=== PATIENT | male | born 1960 | race African-American/Black ===

== ENCOUNTER 2017-09-12 06:39 | Inpatient (IN) | payer OTHER ==
[2017-09-12] MEDS: IPRATROPIUM (NEB) 0.5 MG/2.5 ML AMP INH (07:28)
[2017-09-12] MEDS: ALBUTEROL 0.083% (NEB) 2.5 MG/3 ML AMP HHN ×3 (07:28→20:06)
[2017-09-12] MEDS: METHYLPREDNISOLONE 125 MG INJ IV (07:39)
[2017-09-12 07:50] LABS: ADD MAN DIFF? NO
[2017-09-12 07:53] LABS: WHITE BLOOD COUNT 15.2 10^3/ul (4.8-10.8)
[2017-09-12 07:53] LABS: BASOPHIL # 0.1 10^3/ul (0.0-0.1); BASOPHILS % 0.5 % (0.0-2.0); EOSINOPHILS # 0.3 10^3/ul (0.0-0.5); HEMATOCRIT 49.3 % (42.0-52.0); LYMPHOCYTES # 1.9 10^3/ul (0.8-2.9); LYMPHOCYTES % 12.8 % (15.0-51.0); MEAN CORPUSCULAR HEMOGLOBIN 32.4 pg (29.0-33.0); MEAN CORPUSCULAR HGB CONC 34.5 g/dl (32.0-37.0); MEAN CORPUSCULAR VOLUME 93.9 fl (82.0-101.0); MEAN PLATELET VOLUME 11.6 fl (7.4-10.4); MONOCYTE # 1.2 10^3/ul (0.3-0.9); NEUTROPHIL # 11.6 10^3/ul (1.6-7.5); NEUTROPHILS % 76.4 % (39.0-77.0); PLATELET COUNT 256 10^3/UL (140-415); RED BLOOD COUNT 5.25 10^6/ul (4.70-6.10); RED CELL DISTRIBUTION WIDTH 12.8 % (11.5-14.5)
[2017-09-12 08:15] LABS: LACTIC ACID 1.8 mmol/L (0.5-2.0)
[2017-09-12 08:16] LABS: ANION GAP 20 (8-16); BLOOD UREA NITROGEN 13 mg/dl (7-20); CALCIUM 10.3 mg/dl (8.4-10.2); CARBON DIOXIDE 29 mmol/L (21-31); CHLORIDE 104 mmol/L (97-110); CREATININE 0.96 mg/dl (0.61-1.24); GLUCOSE 104 mg/dl (70-220); SODIUM 149 mmol/L (135-144)
[2017-09-12 08:29] LABS: INR 0.92; PROTIME 12.4 Sec (11.9-14.9)
[2017-09-12 08:30] LABS: PARTIAL THROMBOPLASTIN TIME 33.2 Sec (25.0-35.0)
[2017-09-12] MEDS ORDERED: ONDANSETRON 4 MG INJ IV ×2 (09:00→19:30)
[2017-09-12] MEDS ORDERED: ACETAMINOPHEN 325 MG TAB PO ×2 (09:00→19:30)
[2017-09-12] MEDS: LIDOCAINE 1% (MPF) 5 ML VIAL (10:20)
[2017-09-12 11:05] LABS: FLUID AMYLASE < 30 U/L; FLUID GLUCOSE 116 mg/dl; FLUID LD 1049 U/L; FLUID TOTAL PROTEIN 4.6 g/dl; FLUID TYPE PLEURAL FLUID
[2017-09-12 11:23] LABS: FLD MN% 93.2 %; FLD PMN% 6.8 %; FLD RBC 3000 /uL; FLD WBC 467 /cmm
[2017-09-12 12:06] LABS: LACTIC ACID 1.1 mmol/L (0.5-2.0)
[2017-09-12 12:51] LABS: FLD TYPE PLEURAL
[2017-09-12 12:51] LABS: FLD CLARITY HAZY; FLD COLOR YELLOW
[2017-09-12] MEDS: IPRATROPIUM (NEB) 0.5 MG/2.5 ML AMP HHN ×2 (15:33→20:06)
[2017-09-12 16:03] LABS: LACTIC ACID 1.5 mmol/L (0.5-2.0)
[2017-09-12] MEDS: AMLODIPINE 10 MG TAB PO (16:45)
[2017-09-12] MEDS ORDERED: BISACODYL (EC) 5 MG TAB PO (19:30)
[2017-09-12] MEDS ORDERED: ZOLPIDEM 5 MG TAB PO (19:30)
[2017-09-12] MEDS ORDERED: NACL 0.9% 3 ML SYG IV (19:30)
[2017-09-12] MEDS ORDERED: ACETAMINOPHEN 650 MG SUPP PR (19:30)
[2017-09-12] MEDS: HYDROCODONE/APAP (5/325) TAB PO (19:59)
[2017-09-12] MEDS: CEFTRIAXONE 1 GM/50 ML (PMX) 50 ML IVPB (20:12)
[2017-09-12] MEDS: DORZOLAMIDE/TIMOLOL 10 ML OPH BOTH EYES (21:06)
[2017-09-12] MEDS: LATANOPROST 0.005% 2.5 ML OPH BOTH EYES (21:07)
[2017-09-12] MEDS: ATORVASTATIN 10 MG TAB PO (21:09)
[2017-09-12] MEDS: BRIMONIDINE 0.1% 5 ML OPH BOTH EYES (22:07)
[2017-09-13] MEDS: IPRATROPIUM (NEB) 0.5 MG/2.5 ML AMP HHN ×4 (01:39→19:55)
[2017-09-13] MEDS: ALBUTEROL 0.083% (NEB) 2.5 MG/3 ML AMP HHN ×4 (01:39→19:55)
[2017-09-13 05:27] LABS: ADD MAN DIFF? NO
[2017-09-13 05:33] LABS: WHITE BLOOD COUNT 16.8 10^3/ul (4.8-10.8)
[2017-09-13 05:33] LABS: BASOPHILS % 0.1 % (0.0-2.0); EOSINOPHILS % 0.1 % (0.0-7.0); HEMATOCRIT 41.8 % (42.0-52.0); HEMOGLOBIN 14.6 g/dl (14.0-18.0); LYMPHOCYTES # 1.7 10^3/ul (0.8-2.9); LYMPHOCYTES % 9.9 % (15.0-51.0); MEAN CORPUSCULAR HEMOGLOBIN 32.6 pg (29.0-33.0); MEAN CORPUSCULAR HGB CONC 34.9 g/dl (32.0-37.0); MEAN CORPUSCULAR VOLUME 93.3 fl (82.0-101.0); MEAN PLATELET VOLUME 11.7 fl (7.4-10.4); MONOCYTES % 6.2 % (0.0-11.0); NEUTROPHILS % 83.4 % (39.0-77.0); PLATELET COUNT 278 10^3/UL (140-415); RED BLOOD COUNT 4.48 10^6/ul (4.70-6.10)
[2017-09-13] MEDS: BRIMONIDINE 0.1% 5 ML OPH BOTH EYES ×3 (05:54→22:06)
[2017-09-13] MEDS: PANTOPRAZOLE (EC) 40 MG TAB PO (05:54)
[2017-09-13 05:57] LABS: ALANINE AMINOTRANSFERASE 29 IU/L (13-69); ALBUMIN 3.6 g/dl (3.3-4.9); ALBUMIN/GLOBULIN RATIO 1.09; ALKALINE PHOSPHATASE 106 IU/L (42-121); ANION GAP 13 (8-16); ASPARTATE AMINO TRANSFERASE 30 IU/L (15-46); BLOOD UREA NITROGEN 22 mg/dl (7-20); CALCIUM 9.4 mg/dl (8.4-10.2); CARBON DIOXIDE 28 mmol/L (21-31); CHLORIDE 105 mmol/L (97-110); CREATININE 0.95 mg/dl (0.61-1.24); GLUCOSE 118 mg/dl (70-220); SODIUM 142 mmol/L (135-144); TOTAL PROTEIN 6.9 g/dl (6.1-8.1)
[2017-09-13] MEDS: AMLODIPINE 10 MG TAB PO (10:04)
[2017-09-13] MEDS: DORZOLAMIDE/TIMOLOL 10 ML OPH BOTH EYES ×2 (10:07→20:45)
[2017-09-13] MEDS: HYDROCODONE/APAP (5/325) TAB PO (17:26)
[2017-09-13] MEDS: CEFTRIAXONE 1 GM/50 ML (PMX) 50 ML IVPB (20:07)
[2017-09-13] MEDS: LATANOPROST 0.005% 2.5 ML OPH BOTH EYES (20:45)
[2017-09-13] MEDS: ATORVASTATIN 10 MG TAB PO (20:46)
[2017-09-14] MEDS: ALBUTEROL 0.083% (NEB) 2.5 MG/3 ML AMP HHN ×4 (01:34→21:05)
[2017-09-14] MEDS: IPRATROPIUM (NEB) 0.5 MG/2.5 ML AMP HHN ×4 (01:34→21:05)
[2017-09-14] MEDS: HYDROCODONE/APAP (5/325) TAB PO ×2 (04:46→13:18)
[2017-09-14 05:58] LABS: WHITE BLOOD COUNT 14.9 10^3/ul (4.8-10.8)
[2017-09-14 05:58] LABS: ADD MAN DIFF? NO; BASOPHILS % 0.3 % (0.0-2.0); EOSINOPHILS # 0.2 10^3/ul (0.0-0.5); EOSINOPHILS % 1.1 % (0.0-7.0); HEMATOCRIT 41.7 % (42.0-52.0); HEMOGLOBIN 14.8 g/dl (14.0-18.0); LYMPHOCYTES # 2.5 10^3/ul (0.8-2.9); LYMPHOCYTES % 16.5 % (15.0-51.0); MEAN CORPUSCULAR HEMOGLOBIN 32.9 pg (29.0-33.0); MEAN CORPUSCULAR HGB CONC 35.5 g/dl (32.0-37.0); MEAN CORPUSCULAR VOLUME 92.7 fl (82.0-101.0); MONOCYTE # 1.2 10^3/ul (0.3-0.9); MONOCYTES % 7.8 % (0.0-11.0); PLATELET COUNT 273 10^3/UL (140-415); RED CELL DISTRIBUTION WIDTH 12.9 % (11.5-14.5)
[2017-09-14] MEDS: BRIMONIDINE 0.1% 5 ML OPH BOTH EYES ×3 (05:58→21:27)
[2017-09-14] MEDS: PANTOPRAZOLE (EC) 40 MG TAB PO (05:59)
[2017-09-14 06:39] LABS: ALANINE AMINOTRANSFERASE 31 IU/L (13-69); ALBUMIN 3.6 g/dl (3.3-4.9); ALBUMIN/GLOBULIN RATIO 1.24; ALKALINE PHOSPHATASE 108 IU/L (42-121); ANION GAP 13 (8-16); ASPARTATE AMINO TRANSFERASE 27 IU/L (15-46); BLOOD UREA NITROGEN 20 mg/dl (7-20); CALCIUM 9.1 mg/dl (8.4-10.2); CARBON DIOXIDE 28 mmol/L (21-31); CHLORIDE 103 mmol/L (97-110); CREATININE 0.83 mg/dl (0.61-1.24); GLUCOSE 84 mg/dl (70-220); POTASSIUM 3.8 mmol/L (3.5-5.1); SODIUM 140 mmol/L (135-144); TOTAL PROTEIN 6.5 g/dl (6.1-8.1)
[2017-09-14] MEDS: AMLODIPINE 10 MG TAB PO (09:14)
[2017-09-14] MEDS: DORZOLAMIDE/TIMOLOL 10 ML OPH BOTH EYES ×2 (09:14→21:26)
[2017-09-14] MEDS ORDERED: PENDING SANTYL ORDER FOR WOUND CARE XX (17:00)
[2017-09-14] MEDS: CEFTRIAXONE 1 GM/50 ML (PMX) 50 ML IVPB (21:25)
[2017-09-14] MEDS: HYDROCODONE/APAP (10/325) TAB PO (21:25)
[2017-09-14] MEDS: LATANOPROST 0.005% 2.5 ML OPH BOTH EYES (21:26)
[2017-09-14] MEDS: ATORVASTATIN 10 MG TAB PO (21:26)
[2017-09-15] MEDS: ALBUTEROL 0.083% (NEB) 2.5 MG/3 ML AMP HHN ×4 (01:49→19:12)
[2017-09-15] MEDS: IPRATROPIUM (NEB) 0.5 MG/2.5 ML AMP HHN ×4 (01:49→19:12)
[2017-09-15 05:47] LABS: ADD MAN DIFF? NO
[2017-09-15 05:50] LABS: BASOPHILS % 0.3 % (0.0-2.0); EOSINOPHILS # 0.4 10^3/ul (0.0-0.5); EOSINOPHILS % 2.9 % (0.0-7.0); HEMATOCRIT 43.7 % (42.0-52.0); HEMOGLOBIN 15.1 g/dl (14.0-18.0); LYMPHOCYTES # 1.9 10^3/ul (0.8-2.9); LYMPHOCYTES % 14.1 % (15.0-51.0); MEAN CORPUSCULAR HEMOGLOBIN 32.4 pg (29.0-33.0); MEAN CORPUSCULAR HGB CONC 34.6 g/dl (32.0-37.0); MEAN CORPUSCULAR VOLUME 93.8 fl (82.0-101.0); MEAN PLATELET VOLUME 11.9 fl (7.4-10.4); MONOCYTE # 1.3 10^3/ul (0.3-0.9); MONOCYTES % 9.8 % (0.0-11.0); NEUTROPHIL # 9.7 10^3/ul (1.6-7.5); NEUTROPHILS % 72.4 % (39.0-77.0); PLATELET COUNT 283 10^3/UL (140-415); RED BLOOD COUNT 4.66 10^6/ul (4.70-6.10); RED CELL DISTRIBUTION WIDTH 12.8 % (11.5-14.5)
[2017-09-15 05:50] LABS: WHITE BLOOD COUNT 13.3 10^3/ul (4.8-10.8)
[2017-09-15] MEDS: PANTOPRAZOLE (EC) 40 MG TAB PO (05:57)
[2017-09-15] MEDS: BRIMONIDINE 0.1% 5 ML OPH BOTH EYES ×3 (05:57→21:29)
[2017-09-15] MEDS: HYDROCODONE/APAP (10/325) TAB PO ×2 (05:59→20:39)
[2017-09-15] MEDS: AMLODIPINE 10 MG TAB PO (08:54)
[2017-09-15] MEDS: DORZOLAMIDE/TIMOLOL 10 ML OPH BOTH EYES ×2 (08:55→20:32)
[2017-09-15] MEDS: HYDROCODONE/APAP (5/325) TAB PO (13:51)
[2017-09-15] MEDS ORDERED: AMLODIPINE 10 MG TAB PO (16:30)
[2017-09-15] MEDS: VALSARTAN 160 MG TAB PO (17:52)
[2017-09-15] MEDS: CEFTRIAXONE 1 GM/50 ML (PMX) 50 ML IVPB (20:31)
[2017-09-15] MEDS: LATANOPROST 0.005% 2.5 ML OPH BOTH EYES (20:31)
[2017-09-15] MEDS: ATORVASTATIN 10 MG TAB PO (20:32)
[2017-09-16] MEDS: IPRATROPIUM (NEB) 0.5 MG/2.5 ML AMP HHN ×4 (01:03→20:46)
[2017-09-16] MEDS: ALBUTEROL 0.083% (NEB) 2.5 MG/3 ML AMP HHN ×4 (01:03→20:46)
[2017-09-16] MEDS: PANTOPRAZOLE (EC) 40 MG TAB PO (05:34)
[2017-09-16] MEDS: HYDROCODONE/APAP (10/325) TAB PO (05:34)
[2017-09-16] MEDS: BRIMONIDINE 0.1% 5 ML OPH BOTH EYES ×3 (05:35→21:18)
[2017-09-16] MEDS: BARIUM SULF 2% 450 ML BTL (BERRY SMOOTHIE) PO (06:00)
[2017-09-16 06:15] LABS: ADD MAN DIFF? NO
[2017-09-16 06:16] LABS: BASOPHIL # 0.1 10^3/ul (0.0-0.1); BASOPHILS % 0.4 % (0.0-2.0); EOSINOPHILS # 0.5 10^3/ul (0.0-0.5); EOSINOPHILS % 3.9 % (0.0-7.0); HEMATOCRIT 42.1 % (42.0-52.0); HEMOGLOBIN 14.4 g/dl (14.0-18.0); LYMPHOCYTES % 15.3 % (15.0-51.0); MEAN CORPUSCULAR HEMOGLOBIN 32.4 pg (29.0-33.0); MEAN CORPUSCULAR HGB CONC 34.2 g/dl (32.0-37.0); MEAN CORPUSCULAR VOLUME 94.6 fl (82.0-101.0); MEAN PLATELET VOLUME 11.9 fl (7.4-10.4); MONOCYTE # 1.4 10^3/ul (0.3-0.9); MONOCYTES % 10.5 % (0.0-11.0); NEUTROPHIL # 9.2 10^3/ul (1.6-7.5); NEUTROPHILS % 69.7 % (39.0-77.0); PLATELET COUNT 251 10^3/UL (140-415); RED BLOOD COUNT 4.45 10^6/ul (4.70-6.10); RED CELL DISTRIBUTION WIDTH 13.1 % (11.5-14.5)
[2017-09-16 06:16] LABS: WHITE BLOOD COUNT 13.1 10^3/ul (4.8-10.8)
[2017-09-16 06:47] LABS: LACTATE DEHYDROGENASE 435 IU/L (313-618)
[2017-09-16] MEDS: VALSARTAN 160 MG TAB PO ×2 (09:14→20:41)
[2017-09-16] MEDS: DORZOLAMIDE/TIMOLOL 10 ML OPH BOTH EYES ×2 (09:15→21:18)
[2017-09-16] MEDS: AMLODIPINE 10 MG TAB PO (09:15)
[2017-09-16] MEDS: IOHEXOL 300MG/ML 150 ML BTL (10:12)
[2017-09-16] MEDS: SOD CHLORIDE 0.9% 100 ML (10:12)
[2017-09-16] MEDS: LIDOCAINE 1% (MPF) 5 ML VIAL (10:58)
[2017-09-16] MEDS: HYDROCODONE/APAP (5/325) TAB PO ×2 (11:51→20:40)
[2017-09-16 12:26] LABS: PROSTATE SPECIFIC ANTIGEN 4.1 ng/ml (0.0-4.0)
[2017-09-16 12:53] LABS: CANCER ANTIGEN 19-9 24.6 U/ml (0.0-37.0)
[2017-09-16 12:59] LABS: CARCINOEMBRYONIC ANTIGEN 1.9 ng/ml (0.0-5.0)
[2017-09-16] MEDS: LATANOPROST 0.005% 2.5 ML OPH BOTH EYES (20:40)
[2017-09-16] MEDS: ATORVASTATIN 10 MG TAB PO (20:40)
[2017-09-16] MEDS: CEFTRIAXONE 1 GM/50 ML (PMX) 50 ML IVPB (20:40)
[2017-09-17] MEDS: ALBUTEROL 0.083% (NEB) 2.5 MG/3 ML AMP HHN ×4 (02:15→19:50)
[2017-09-17] MEDS: IPRATROPIUM (NEB) 0.5 MG/2.5 ML AMP HHN ×4 (02:16→19:50)
[2017-09-17 05:53] LABS: ADD MAN DIFF? NO
[2017-09-17] MEDS: PANTOPRAZOLE (EC) 40 MG TAB PO (06:00)
[2017-09-17] MEDS: BRIMONIDINE 0.1% 5 ML OPH BOTH EYES ×3 (06:03→21:17)
[2017-09-17] MEDS: HYDROCODONE/APAP (5/325) TAB PO (06:03)
[2017-09-17 06:09] LABS: BASOPHIL # 0.1 10^3/ul (0.0-0.1); BASOPHILS % 0.5 % (0.0-2.0); EOSINOPHILS # 0.6 10^3/ul (0.0-0.5); EOSINOPHILS % 4.6 % (0.0-7.0); HEMATOCRIT 42.4 % (42.0-52.0); HEMOGLOBIN 14.4 g/dl (14.0-18.0); LYMPHOCYTES # 2.4 10^3/ul (0.8-2.9); LYMPHOCYTES % 19.3 % (15.0-51.0); MEAN CORPUSCULAR HEMOGLOBIN 32.5 pg (29.0-33.0); MEAN CORPUSCULAR VOLUME 95.7 fl (82.0-101.0); MEAN PLATELET VOLUME 11.4 fl (7.4-10.4); MONOCYTE # 1.4 10^3/ul (0.3-0.9); MONOCYTES % 10.9 % (0.0-11.0); NEUTROPHILS % 64.3 % (39.0-77.0); PLATELET COUNT 256 10^3/UL (140-415); RED BLOOD COUNT 4.43 10^6/ul (4.70-6.10); RED CELL DISTRIBUTION WIDTH 13.3 % (11.5-14.5)
[2017-09-17 06:09] LABS: WHITE BLOOD COUNT 12.5 10^3/ul (4.8-10.8)
[2017-09-17] MEDS: VALSARTAN 160 MG TAB PO ×2 (08:20→20:23)
[2017-09-17] MEDS: AMLODIPINE 10 MG TAB PO (08:21)
[2017-09-17] MEDS: DORZOLAMIDE/TIMOLOL 10 ML OPH BOTH EYES ×2 (09:30→20:23)
[2017-09-17] MEDS ORDERED: ALBUTEROL 0.083% (NEB) 2.5 MG/3 ML AMP HHN (13:00)
[2017-09-17] MEDS ORDERED: LEVALBUTEROL (NEB) 0.63 MG/3 ML AMP HHN (13:00)
[2017-09-17] MEDS ORDERED: hydrALAzine 20 MG INJ IV (13:00)
[2017-09-17] MEDS ORDERED: LABETALOL HCL 20MG INJ IV (13:00)
[2017-09-17] MEDS ORDERED: FENTAnyl 50 MCG/ML VIAL (13:42)
[2017-09-17] MEDS: LIDOCAINE 1% (MDV) 20 ML INJ (13:49)
[2017-09-17] MEDS: MIDAZOLAM 1 MG/ML 2 ML INJ (13:49)
[2017-09-17] MEDS: FENTAnyl 50 MCG/ML VIAL (13:49)
[2017-09-17] MEDS: FENTAnyl 50 MCG/ML VIAL IV ×2 (13:51→14:19)
[2017-09-17] MEDS: morphine 2 MG INJ IV ×3 (15:15→21:20)
[2017-09-17] MEDS: CEFTRIAXONE 1 GM/50 ML (PMX) 50 ML IVPB (20:22)
[2017-09-17] MEDS: ATORVASTATIN 10 MG TAB PO (20:22)
[2017-09-17] MEDS: LATANOPROST 0.005% 2.5 ML OPH BOTH EYES (21:16)
[2017-09-18] MEDS: ALBUTEROL 0.083% (NEB) 2.5 MG/3 ML AMP HHN ×4 (00:53→19:45)
[2017-09-18] MEDS: IPRATROPIUM (NEB) 0.5 MG/2.5 ML AMP HHN ×4 (00:54→19:45)
[2017-09-18] MEDS: morphine 2 MG INJ IV ×5 (05:04→23:54)
[2017-09-18] MEDS: PANTOPRAZOLE (EC) 40 MG TAB PO (05:05)
[2017-09-18] MEDS: DOCUSATE SODIUM 100 MG CAP PO (05:06)
[2017-09-18] MEDS: MAGNESIUM HYDROXIDE 30ML CUP PO (05:06)
[2017-09-18] MEDS: BRIMONIDINE 0.1% 5 ML OPH BOTH EYES ×3 (05:07→23:48)
[2017-09-18 06:18] LABS: ADD MAN DIFF? NO
[2017-09-18 06:28] LABS: BASOPHIL # 0.1 10^3/ul (0.0-0.1); BASOPHILS % 0.3 % (0.0-2.0); EOSINOPHILS # 0.5 10^3/ul (0.0-0.5); EOSINOPHILS % 3.3 % (0.0-7.0); HEMATOCRIT 44.2 % (42.0-52.0); HEMOGLOBIN 14.9 g/dl (14.0-18.0); LYMPHOCYTES # 1.9 10^3/ul (0.8-2.9); LYMPHOCYTES % 13.4 % (15.0-51.0); MEAN CORPUSCULAR HGB CONC 33.7 g/dl (32.0-37.0); MEAN CORPUSCULAR VOLUME 94.8 fl (82.0-101.0); MEAN PLATELET VOLUME 11.7 fl (7.4-10.4); MONOCYTE # 1.4 10^3/ul (0.3-0.9); MONOCYTES % 9.8 % (0.0-11.0); NEUTROPHIL # 10.5 10^3/ul (1.6-7.5); NEUTROPHILS % 72.9 % (39.0-77.0); PLATELET COUNT 258 10^3/UL (140-415); RED BLOOD COUNT 4.66 10^6/ul (4.70-6.10); RED CELL DISTRIBUTION WIDTH 13.2 % (11.5-14.5)
[2017-09-18 06:28] LABS: WHITE BLOOD COUNT 14.4 10^3/ul (4.8-10.8)
[2017-09-18 06:49] LABS: MAGNESIUM 2.1 mg/dl (1.7-2.5)
[2017-09-18 06:49] LABS: PHOSPHORUS 3.6 mg/dl (2.5-4.9)
[2017-09-18 07:06] LABS: ANION GAP 10 (8-16); BLOOD UREA NITROGEN 8 mg/dl (7-20); CALCIUM 9.4 mg/dl (8.4-10.2); CARBON DIOXIDE 31 mmol/L (21-31); CHLORIDE 101 mmol/L (97-110); CREATININE 0.74 mg/dl (0.61-1.24); GLUCOSE 105 mg/dl (70-220); POTASSIUM 4.4 mmol/L (3.5-5.1); SODIUM 138 mmol/L (135-144)
[2017-09-18] MEDS: VALSARTAN 160 MG TAB PO ×2 (08:51→20:29)
[2017-09-18] MEDS: DORZOLAMIDE/TIMOLOL 10 ML OPH BOTH EYES ×2 (08:51→20:28)
[2017-09-18] MEDS: AMLODIPINE 10 MG TAB PO (08:52)
[2017-09-18] MEDS: LATANOPROST 0.005% 2.5 ML OPH BOTH EYES (20:25)
[2017-09-18] MEDS: CEFTRIAXONE 1 GM/50 ML (PMX) 50 ML IVPB (20:25)
[2017-09-18] MEDS: ATORVASTATIN 10 MG TAB PO (20:29)
[2017-09-19] MEDS: IPRATROPIUM (NEB) 0.5 MG/2.5 ML AMP HHN ×5 (01:00→20:39)
[2017-09-19] MEDS: ALBUTEROL 0.083% (NEB) 2.5 MG/3 ML AMP HHN ×5 (01:00→20:39)
[2017-09-19] MEDS: BRIMONIDINE 0.1% 5 ML OPH BOTH EYES ×3 (05:33→21:30)
[2017-09-19] MEDS: PANTOPRAZOLE (EC) 40 MG TAB PO (05:33)
[2017-09-19 06:08] LABS: ADD MAN DIFF? NO
[2017-09-19 06:28] LABS: WHITE BLOOD COUNT 15.4 10^3/ul (4.8-10.8)
[2017-09-19 06:28] LABS: ABNORMAL IP MESSAGE 1; BASOPHIL # 0.1 10^3/ul (0.0-0.1); BASOPHILS % 0.5 % (0.0-2.0); EOSINOPHILS # 0.7 10^3/ul (0.0-0.5); EOSINOPHILS % 4.5 % (0.0-7.0); HEMATOCRIT 41.8 % (42.0-52.0); HEMOGLOBIN 14.5 g/dl (14.0-18.0); LYMPHOCYTES # 2.1 10^3/ul (0.8-2.9); LYMPHOCYTES % 13.3 % (15.0-51.0); MEAN CORPUSCULAR HEMOGLOBIN 32.4 pg (29.0-33.0); MEAN CORPUSCULAR HGB CONC 34.7 g/dl (32.0-37.0); MEAN CORPUSCULAR VOLUME 93.3 fl (82.0-101.0); MEAN PLATELET VOLUME 11.4 fl (7.4-10.4); MONOCYTE # 1.6 10^3/ul (0.3-0.9); NEUTROPHILS % 71.4 % (39.0-77.0); PLATELET COUNT 263 10^3/UL (140-415); POSITIVE DIFF @See below; RED BLOOD COUNT 4.48 10^6/ul (4.70-6.10); RED CELL DISTRIBUTION WIDTH 13.1 % (11.5-14.5)
[2017-09-19 07:06] LABS: ANION GAP 12 (8-16); BLOOD UREA NITROGEN 7 mg/dl (7-20); CALCIUM 8.7 mg/dl (8.4-10.2); CARBON DIOXIDE 31 mmol/L (21-31); CHLORIDE 100 mmol/L (97-110); CREATININE 0.71 mg/dl (0.61-1.24); GLUCOSE 115 mg/dl (70-220); POTASSIUM 4.1 mmol/L (3.5-5.1); SODIUM 139 mmol/L (135-144)
[2017-09-19] MEDS: DORZOLAMIDE/TIMOLOL 10 ML OPH BOTH EYES ×2 (08:42→20:30)
[2017-09-19] MEDS: VALSARTAN 160 MG TAB PO ×2 (08:42→20:36)
[2017-09-19] MEDS: morphine 2 MG INJ IV (08:42)
[2017-09-19] MEDS: AMLODIPINE 10 MG TAB PO (08:43)
[2017-09-19] MEDS: BARIUM SULF 2% 450 ML BTL (BERRY SMOOTHIE) PO (12:00)
[2017-09-19] MEDS: SOD CHLORIDE 0.9% 100 ML (13:13)
[2017-09-19] MEDS: IOHEXOL 300MG/ML 150 ML BTL (13:13)
[2017-09-19] MEDS: morphine LIQ (10 MG/5 ML) CUP PO (17:27)
[2017-09-19] MEDS: CEFTRIAXONE 1 GM/50 ML (PMX) 50 ML IVPB (20:27)
[2017-09-19] MEDS: ATORVASTATIN 10 MG TAB PO (20:30)
[2017-09-19] MEDS: LATANOPROST 0.005% 2.5 ML OPH BOTH EYES (21:32)
[2017-09-19] MEDS: HYDROCODONE/APAP (5/325) TAB PO (21:32)
[2017-09-20] MEDS: IPRATROPIUM (NEB) 0.5 MG/2.5 ML AMP HHN ×4 (02:09→20:27)
[2017-09-20] MEDS: ALBUTEROL 0.083% (NEB) 2.5 MG/3 ML AMP HHN ×4 (02:10→20:27)
[2017-09-20] MEDS: PANTOPRAZOLE (EC) 40 MG TAB PO (06:19)
[2017-09-20] MEDS: BRIMONIDINE 0.1% 5 ML OPH BOTH EYES ×3 (06:20→22:10)
[2017-09-20] MEDS: HYDROCODONE/APAP (5/325) TAB PO (06:20)
[2017-09-20] MEDS: AMLODIPINE 10 MG TAB PO (09:35)
[2017-09-20] MEDS: DORZOLAMIDE/TIMOLOL 10 ML OPH BOTH EYES ×2 (09:35→20:54)
[2017-09-20] MEDS: VALSARTAN 160 MG TAB PO ×2 (09:35→20:51)
[2017-09-20] MEDS: HYDROCODONE/APAP (10/325) TAB PO ×2 (12:26→18:44)
[2017-09-20] MEDS: CEFTRIAXONE 1 GM/50 ML (PMX) 50 ML IVPB (20:50)
[2017-09-20] MEDS: ATORVASTATIN 10 MG TAB PO (20:51)
[2017-09-20] MEDS: LATANOPROST 0.005% 2.5 ML OPH BOTH EYES (20:55)
[2017-09-21] MEDS: HYDROCODONE/APAP (5/325) TAB PO ×2 (01:25→08:42)
[2017-09-21] MEDS: IPRATROPIUM (NEB) 0.5 MG/2.5 ML AMP HHN ×4 (01:47→19:43)
[2017-09-21] MEDS: ALBUTEROL 0.083% (NEB) 2.5 MG/3 ML AMP HHN ×4 (01:47→19:43)
[2017-09-21] MEDS: PANTOPRAZOLE (EC) 40 MG TAB PO (06:14)
[2017-09-21] MEDS: morphine LIQ (10 MG/5 ML) CUP PO (06:15)
[2017-09-21] MEDS: BRIMONIDINE 0.1% 5 ML OPH BOTH EYES ×3 (06:15→22:19)
[2017-09-21 06:27] LABS: ADD MAN DIFF? NO
[2017-09-21 06:30] LABS: BASOPHIL # 0.1 10^3/ul (0.0-0.1); BASOPHILS % 0.4 % (0.0-2.0); EOSINOPHILS # 0.6 10^3/ul (0.0-0.5); HEMATOCRIT 41.1 % (42.0-52.0); LYMPHOCYTES # 1.8 10^3/ul (0.8-2.9); LYMPHOCYTES % 12.3 % (15.0-51.0); MEAN CORPUSCULAR HEMOGLOBIN 31.8 pg (29.0-33.0); MEAN CORPUSCULAR HGB CONC 34.1 g/dl (32.0-37.0); MEAN CORPUSCULAR VOLUME 93.4 fl (82.0-101.0); MEAN PLATELET VOLUME 11.3 fl (7.4-10.4); MONOCYTE # 1.4 10^3/ul (0.3-0.9); MONOCYTES % 9.6 % (0.0-11.0); NEUTROPHIL # 10.9 10^3/ul (1.6-7.5); NEUTROPHILS % 73.4 % (39.0-77.0); PLATELET COUNT 272 10^3/UL (140-415); RED CELL DISTRIBUTION WIDTH 13.2 % (11.5-14.5)
[2017-09-21 06:30] LABS: WHITE BLOOD COUNT 14.9 10^3/ul (4.8-10.8)
[2017-09-21 07:20] LABS: PHOSPHORUS 4.2 mg/dl (2.5-4.9)
[2017-09-21 07:20] LABS: ANION GAP 11 (8-16); BLOOD UREA NITROGEN 7 mg/dl (7-20); CARBON DIOXIDE 31 mmol/L (21-31); CHLORIDE 102 mmol/L (97-110); CREATININE 0.73 mg/dl (0.61-1.24); GLUCOSE 111 mg/dl (70-220); SODIUM 140 mmol/L (135-144)
[2017-09-21] MEDS: DORZOLAMIDE/TIMOLOL 10 ML OPH BOTH EYES ×2 (08:41→21:27)
[2017-09-21] MEDS: VALSARTAN 160 MG TAB PO (08:41)
[2017-09-21] MEDS: AMLODIPINE 10 MG TAB PO (08:41)
[2017-09-21] MEDS ORDERED: PROPOFOL 20 ML ×2 (15:32→15:33)
[2017-09-21] MEDS ORDERED: FENTAnyl 50 MCG/ML VIAL (15:32)
[2017-09-21] MEDS ORDERED: ROCURONIUM 50 MG INJ (15:35)
[2017-09-21] MEDS ORDERED: SUGAMMADEX SODIUM 200 MG/2 ML VIAL IV ×2 (15:35→19:10)
[2017-09-21] MEDS ORDERED: SUCCINYLCHOLINE CHLORIDE 100 MG/5 ML SYG IV (15:35)
[2017-09-21] MEDS ORDERED: METOCLOPRAMIDE 10 MG INJ (15:38)
[2017-09-21] MEDS: KETOROLAC 30 MG INJ IV (16:25)
[2017-09-21] MEDS ORDERED: IOHEXOL 300MG/ML 30 ML BTL ×2 (18:23→18:32)
[2017-09-21] MEDS: SODIUM CHLORIDE 0.9% 1L IRRIG IRR (18:35)
[2017-09-21] MEDS: IOHEXOL 300MG/ML 30 ML BTL INJ (18:36)
[2017-09-21] MEDS ORDERED: HYDROmorphONE (0.2 MG/ML) 10ML SYG IV ×2 (19:19→19:30)
[2017-09-21] MEDS: HYDROmorphONE (0.2 MG/ML) 10ML SYG IV ×3 (19:28→20:04)
[2017-09-21] MEDS ORDERED: hydrALAzine 20 MG INJ IV (19:30)
[2017-09-21] MEDS ORDERED: ONDANSETRON 4 MG INJ IV (19:30)
[2017-09-21] MEDS ORDERED: MEPERIDINE 25 MG INJ IV (19:30)
[2017-09-21] MEDS ORDERED: METOCLOPRAMIDE 10 MG INJ IV (19:30)
[2017-09-21] MEDS ORDERED: IPRATROPIUM (NEB) 0.5 MG/2.5 ML AMP HHN (19:30)
[2017-09-21] MEDS ORDERED: FENTAnyl 50 MCG/ML VIAL IV ×2 (19:30)
[2017-09-21] MEDS ORDERED: DIPHENHYDRAMINE 50 MG INJ IV (19:30)
[2017-09-21] MEDS ORDERED: KETOROLAC 15 MG INJ IV (19:30)
[2017-09-21] MEDS: ATORVASTATIN 10 MG TAB PO (21:27)
[2017-09-21] MEDS: CEFTRIAXONE 1 GM/50 ML (PMX) 50 ML IVPB (21:27)
[2017-09-21] MEDS: LATANOPROST 0.005% 2.5 ML OPH BOTH EYES (21:30)
[2017-09-21] MEDS: MAGNESIUM HYDROXIDE 30ML CUP PO (23:58)
[2017-09-21] MEDS: DOCUSATE SODIUM 100 MG CAP PO (23:58)
[2017-09-22] MEDS: ALBUTEROL 0.083% (NEB) 2.5 MG/3 ML AMP HHN ×4 (02:06→20:35)
[2017-09-22] MEDS: IPRATROPIUM (NEB) 0.5 MG/2.5 ML AMP HHN ×4 (02:06→20:35)
[2017-09-22] MEDS: HYDROCODONE/APAP (5/325) TAB PO ×3 (02:25→20:09)
[2017-09-22] MEDS: BRIMONIDINE 0.1% 5 ML OPH BOTH EYES ×3 (05:52→21:54)
[2017-09-22] MEDS: PANTOPRAZOLE (EC) 40 MG TAB PO (05:52)
[2017-09-22 06:23] LABS: ADD MAN DIFF? NO
[2017-09-22 06:30] LABS: WHITE BLOOD COUNT 11.8 10^3/ul (4.8-10.8)
[2017-09-22 06:30] LABS: BASOPHIL # 0.1 10^3/ul (0.0-0.1); BASOPHILS % 0.4 % (0.0-2.0); EOSINOPHILS # 0.7 10^3/ul (0.0-0.5); EOSINOPHILS % 5.6 % (0.0-7.0); HEMATOCRIT 38.8 % (42.0-52.0); HEMOGLOBIN 13.3 g/dl (14.0-18.0); LYMPHOCYTES # 1.8 10^3/ul (0.8-2.9); LYMPHOCYTES % 14.9 % (15.0-51.0); MEAN CORPUSCULAR HEMOGLOBIN 32.1 pg (29.0-33.0); MEAN CORPUSCULAR HGB CONC 34.3 g/dl (32.0-37.0); MEAN CORPUSCULAR VOLUME 93.7 fl (82.0-101.0); MEAN PLATELET VOLUME 11.3 fl (7.4-10.4); MONOCYTES % 8.4 % (0.0-11.0); NEUTROPHIL # 8.3 10^3/ul (1.6-7.5); NEUTROPHILS % 70.4 % (39.0-77.0); PLATELET COUNT 260 10^3/UL (140-415); RED BLOOD COUNT 4.14 10^6/ul (4.70-6.10); RED CELL DISTRIBUTION WIDTH 13.2 % (11.5-14.5)
[2017-09-22] MEDS: DORZOLAMIDE/TIMOLOL 10 ML OPH BOTH EYES ×2 (08:45→20:09)
[2017-09-22] MEDS: KETOROLAC 30 MG INJ IV (08:46)
[2017-09-22] MEDS: VALSARTAN 160 MG TAB PO (08:47)
[2017-09-22] MEDS: ATORVASTATIN 10 MG TAB PO (20:08)
[2017-09-22] MEDS: CEFTRIAXONE 1 GM/50 ML (PMX) 50 ML IVPB (20:08)
[2017-09-22] MEDS: LATANOPROST 0.005% 2.5 ML OPH BOTH EYES (20:10)
[2017-09-23] MEDS: IPRATROPIUM (NEB) 0.5 MG/2.5 ML AMP HHN ×4 (01:01→20:24)
[2017-09-23] MEDS: ALBUTEROL 0.083% (NEB) 2.5 MG/3 ML AMP HHN ×4 (01:01→20:24)
[2017-09-23] MEDS: HYDROCODONE/APAP (5/325) TAB PO ×2 (02:37→17:07)
[2017-09-23] MEDS: PANTOPRAZOLE (EC) 40 MG TAB PO (06:25)
[2017-09-23] MEDS: BRIMONIDINE 0.1% 5 ML OPH BOTH EYES ×3 (06:25→21:53)
[2017-09-23] MEDS: DORZOLAMIDE/TIMOLOL 10 ML OPH BOTH EYES ×2 (08:45→20:45)
[2017-09-23] MEDS: KETOROLAC 30 MG INJ IV ×2 (08:45→20:46)
[2017-09-23] MEDS: VALSARTAN 160 MG TAB PO (08:48)
[2017-09-23] MEDS: CEFTRIAXONE 1 GM/50 ML (PMX) 50 ML IVPB (20:41)
[2017-09-23] MEDS: LATANOPROST 0.005% 2.5 ML OPH BOTH EYES (20:44)
[2017-09-23] MEDS: ATORVASTATIN 10 MG TAB PO (20:45)
[2017-09-23] MEDS: TAMSULOSIN (SR) 0.4 MG CAP PO (20:45)
[2017-09-24] MEDS: ALBUTEROL 0.083% (NEB) 2.5 MG/3 ML AMP HHN ×4 (02:09→19:55)
[2017-09-24] MEDS: IPRATROPIUM (NEB) 0.5 MG/2.5 ML AMP HHN ×4 (02:09→19:55)
[2017-09-24] MEDS: HYDROCODONE/APAP (5/325) TAB PO ×4 (02:26→20:50)
[2017-09-24] MEDS: BRIMONIDINE 0.1% 5 ML OPH BOTH EYES ×3 (05:32→22:34)
[2017-09-24] MEDS: PANTOPRAZOLE (EC) 40 MG TAB PO (05:33)
[2017-09-24] MEDS: VALSARTAN 160 MG TAB PO (08:26)
[2017-09-24] MEDS: DORZOLAMIDE/TIMOLOL 10 ML OPH BOTH EYES ×2 (08:26→20:40)
[2017-09-24] MEDS: ATORVASTATIN 10 MG TAB PO (20:39)
[2017-09-24] MEDS: TAMSULOSIN (SR) 0.4 MG CAP PO (20:39)
[2017-09-24] MEDS: LATANOPROST 0.005% 2.5 ML OPH BOTH EYES (20:39)
[2017-09-24] MEDS: CEFTRIAXONE 1 GM/50 ML (PMX) 50 ML IVPB (20:40)
[2017-09-25] MEDS: morphine LIQ (10 MG/5 ML) CUP PO (02:10)
[2017-09-25] MEDS: ALBUTEROL 0.083% (NEB) 2.5 MG/3 ML AMP HHN ×4 (03:04→20:21)
[2017-09-25] MEDS: IPRATROPIUM (NEB) 0.5 MG/2.5 ML AMP HHN ×4 (03:04→20:21)
[2017-09-25] MEDS: PANTOPRAZOLE (EC) 40 MG TAB PO (05:39)
[2017-09-25] MEDS: BRIMONIDINE 0.1% 5 ML OPH BOTH EYES ×3 (05:39→21:31)
[2017-09-25 06:11] LABS: ADD MAN DIFF? NO
[2017-09-25 06:22] LABS: BASOPHIL # 0.1 10^3/ul (0.0-0.1); BASOPHILS % 0.5 % (0.0-2.0); EOSINOPHILS # 0.6 10^3/ul (0.0-0.5); EOSINOPHILS % 4.5 % (0.0-7.0); HEMATOCRIT 38.9 % (42.0-52.0); HEMOGLOBIN 13.3 g/dl (14.0-18.0); LYMPHOCYTES # 2.1 10^3/ul (0.8-2.9); LYMPHOCYTES % 16.8 % (15.0-51.0); MEAN CORPUSCULAR HEMOGLOBIN 31.9 pg (29.0-33.0); MEAN CORPUSCULAR HGB CONC 34.2 g/dl (32.0-37.0); MEAN CORPUSCULAR VOLUME 93.3 fl (82.0-101.0); MEAN PLATELET VOLUME 11.3 fl (7.4-10.4); MONOCYTES % 7.8 % (0.0-11.0); NEUTROPHIL # 8.8 10^3/ul (1.6-7.5); NEUTROPHILS % 70.1 % (39.0-77.0); PLATELET COUNT 291 10^3/UL (140-415); RED BLOOD COUNT 4.17 10^6/ul (4.70-6.10)
[2017-09-25 06:22] LABS: WHITE BLOOD COUNT 12.6 10^3/ul (4.8-10.8)
[2017-09-25] MEDS: VALSARTAN 160 MG TAB PO (09:14)
[2017-09-25] MEDS: HYDROCODONE/APAP (5/325) TAB PO ×3 (09:15→21:30)
[2017-09-25] MEDS: DORZOLAMIDE/TIMOLOL 10 ML OPH BOTH EYES ×2 (09:16→21:26)
[2017-09-25] MEDS: CEFTRIAXONE 1 GM/50 ML (PMX) 50 ML IVPB (21:26)
[2017-09-25] MEDS: ATORVASTATIN 10 MG TAB PO (21:26)
[2017-09-25] MEDS: TAMSULOSIN (SR) 0.4 MG CAP PO (21:26)
[2017-09-25] MEDS: LATANOPROST 0.005% 2.5 ML OPH BOTH EYES (21:30)
[2017-09-26] MEDS: IPRATROPIUM (NEB) 0.5 MG/2.5 ML AMP HHN ×4 (01:22→19:07)
[2017-09-26] MEDS: ALBUTEROL 0.083% (NEB) 2.5 MG/3 ML AMP HHN ×4 (01:22→19:07)
[2017-09-26] MEDS: morphine LIQ (10 MG/5 ML) CUP PO ×4 (01:38→21:07)
[2017-09-26] MEDS: PANTOPRAZOLE (EC) 40 MG TAB PO (05:46)
[2017-09-26] MEDS: HYDROCODONE/APAP (5/325) TAB PO (05:46)
[2017-09-26] MEDS: BRIMONIDINE 0.1% 5 ML OPH BOTH EYES ×3 (05:48→21:06)
[2017-09-26] MEDS: VALSARTAN 160 MG TAB PO (08:15)
[2017-09-26] MEDS: DORZOLAMIDE/TIMOLOL 10 ML OPH BOTH EYES ×2 (08:15→21:06)
[2017-09-26] MEDS: METHYLPREDNISOLONE 40 MG INJ IV ×2 (14:46→21:06)
[2017-09-26] MEDS: ATORVASTATIN 10 MG TAB PO (21:05)
[2017-09-26] MEDS: CEFTRIAXONE 1 GM/50 ML (PMX) 50 ML IVPB (21:05)
[2017-09-26] MEDS: TAMSULOSIN (SR) 0.4 MG CAP PO (21:06)
[2017-09-26] MEDS: LATANOPROST 0.005% 2.5 ML OPH BOTH EYES (21:44)
[2017-09-27] MEDS: ALBUTEROL 0.083% (NEB) 2.5 MG/3 ML AMP HHN ×4 (01:32→19:09)
[2017-09-27] MEDS: IPRATROPIUM (NEB) 0.5 MG/2.5 ML AMP HHN ×4 (01:32→19:09)
[2017-09-27] MEDS: HYDROCODONE/APAP (5/325) TAB PO ×2 (02:45→16:09)
[2017-09-27] MEDS: PANTOPRAZOLE (EC) 40 MG TAB PO (05:59)
[2017-09-27] MEDS: METHYLPREDNISOLONE 40 MG INJ IV ×3 (05:59→21:31)
[2017-09-27] MEDS: BRIMONIDINE 0.1% 5 ML OPH BOTH EYES ×3 (06:00→21:31)
[2017-09-27] MEDS: VALSARTAN 160 MG TAB PO (08:35)
[2017-09-27] MEDS: DORZOLAMIDE/TIMOLOL 10 ML OPH BOTH EYES ×2 (08:37→21:31)
[2017-09-27] MEDS: morphine 2 MG INJ IV (08:41)
[2017-09-27] MEDS: TAMSULOSIN (SR) 0.4 MG CAP PO (21:31)
[2017-09-27] MEDS: ATORVASTATIN 10 MG TAB PO (21:31)
[2017-09-27] MEDS: morphine LIQ (10 MG/5 ML) CUP PO (21:41)
[2017-09-27] MEDS: LATANOPROST 0.005% 2.5 ML OPH BOTH EYES (21:44)
[2017-09-28] MEDS: HYDROCODONE/APAP (10/325) TAB PO (01:46)
[2017-09-28] MEDS: IPRATROPIUM (NEB) 0.5 MG/2.5 ML AMP HHN ×5 (01:49→20:37)
[2017-09-28] MEDS: ALBUTEROL 0.083% (NEB) 2.5 MG/3 ML AMP HHN ×5 (01:49→20:37)
[2017-09-28] MEDS: PANTOPRAZOLE (EC) 40 MG TAB PO (06:49)
[2017-09-28] MEDS: BRIMONIDINE 0.1% 5 ML OPH BOTH EYES ×3 (06:49→21:20)
[2017-09-28] MEDS: METHYLPREDNISOLONE 40 MG INJ IV ×3 (06:50→21:20)
[2017-09-28] MEDS: VALSARTAN 160 MG TAB PO (09:00)
[2017-09-28] MEDS ORDERED: NEOSTIGMINE 3 MG/3 ML SYRINGE (09:08)
[2017-09-28] MEDS ORDERED: GLYCOPYRROLATE 1 MG INJ (09:08)
[2017-09-28] MEDS ORDERED: PROPOFOL 20 ML (09:08)
[2017-09-28] MEDS ORDERED: LIDOCAINE 2% (SDV) 5 ML INJ (09:08)
[2017-09-28] MEDS ORDERED: ROCURONIUM 50 MG INJ (09:08)
[2017-09-28] MEDS ORDERED: SUCCINYLCHOLINE CHLORIDE 100 MG/5 ML SYG IV (09:08)
[2017-09-28] MEDS: LIDOCAINE 1% (MPF) 30 ML INJ (09:22)
[2017-09-28] MEDS: HYDROmorphONE (0.2 MG/ML) 10ML SYG IV (09:58)
[2017-09-28] MEDS ORDERED: DIPHENHYDRAMINE 50 MG INJ IV (10:00)
[2017-09-28] MEDS ORDERED: EPHEDrine SULFATE 50 MG/5 ML SYG IV (10:00)
[2017-09-28] MEDS ORDERED: MEPERIDINE 25 MG INJ IV (10:00)
[2017-09-28] MEDS ORDERED: OXYCODONE/ACETAMINOPHEN (5/325) TAB PO ×2 (10:00)
[2017-09-28] MEDS ORDERED: MIDAZOLAM 1 MG/ML 2 ML INJ IV (10:00)
[2017-09-28] MEDS ORDERED: hydrALAzine 20 MG INJ IV (10:00)
[2017-09-28] MEDS ORDERED: LABETALOL HCL 20MG INJ IV (10:00)
[2017-09-28] MEDS ORDERED: FENTAnyl 50 MCG/ML VIAL IV ×3 (10:00)
[2017-09-28] MEDS ORDERED: ONDANSETRON 4 MG INJ IV (10:00)
[2017-09-28] MEDS ORDERED: METOCLOPRAMIDE 10 MG INJ IV (10:00)
[2017-09-28] MEDS ORDERED: HYDROmorphONE (0.2 MG/ML) 10ML SYG IV ×2 (10:00)
[2017-09-28 12:09] LABS: ADD MAN DIFF? NO
[2017-09-28 12:19] LABS: WHITE BLOOD COUNT 20.5 10^3/ul (4.8-10.8)
[2017-09-28 12:19] LABS: BASOPHILS % 0.1 % (0.0-2.0); HEMATOCRIT 37.8 % (42.0-52.0); HEMOGLOBIN 12.9 g/dl (14.0-18.0); LYMPHOCYTES # 1.4 10^3/ul (0.8-2.9); LYMPHOCYTES % 6.8 % (15.0-51.0); MEAN CORPUSCULAR HGB CONC 34.1 g/dl (32.0-37.0); MEAN CORPUSCULAR VOLUME 93.8 fl (82.0-101.0); MEAN PLATELET VOLUME 12.2 fl (7.4-10.4); MONOCYTE # 0.6 10^3/ul (0.3-0.9); NEUTROPHIL # 18.3 10^3/ul (1.6-7.5); NEUTROPHILS % 89.4 % (39.0-77.0); PLATELET COUNT 290 10^3/UL (140-415); RED BLOOD COUNT 4.03 10^6/ul (4.70-6.10); RED CELL DISTRIBUTION WIDTH 13.1 % (11.5-14.5)
[2017-09-28 12:37] LABS: ANION GAP 15 (8-16); BLOOD UREA NITROGEN 19 mg/dl (7-20); CALCIUM 9.5 mg/dl (8.4-10.2); CARBON DIOXIDE 27 mmol/L (21-31); CHLORIDE 105 mmol/L (97-110); CREATININE 0.69 mg/dl (0.61-1.24); GLUCOSE 105 mg/dl (70-220); POTASSIUM 4.8 mmol/L (3.5-5.1); SODIUM 142 mmol/L (135-144)
[2017-09-28] MEDS: morphine LIQ (10 MG/5 ML) CUP PO (13:46)
[2017-09-28] MEDS: DORZOLAMIDE/TIMOLOL 10 ML OPH BOTH EYES ×2 (14:17→21:20)
[2017-09-28] MEDS: TAMSULOSIN (SR) 0.4 MG CAP PO (21:19)
[2017-09-28] MEDS: ATORVASTATIN 10 MG TAB PO (21:19)
[2017-09-28] MEDS: HYDROCODONE/APAP (5/325) TAB PO (21:26)
[2017-09-29] MEDS: ALBUTEROL 0.083% (NEB) 2.5 MG/3 ML AMP HHN ×4 (01:33→20:26)
[2017-09-29] MEDS: IPRATROPIUM (NEB) 0.5 MG/2.5 ML AMP HHN ×4 (01:33→20:26)
[2017-09-29] MEDS: morphine LIQ (10 MG/5 ML) CUP PO ×2 (02:38→14:16)
[2017-09-29] MEDS: LATANOPROST 0.005% 2.5 ML OPH BOTH EYES (02:55)
[2017-09-29] MEDS: METHYLPREDNISOLONE 40 MG INJ IV ×3 (05:45→20:52)
[2017-09-29] MEDS: PANTOPRAZOLE (EC) 40 MG TAB PO (05:46)
[2017-09-29] MEDS: BRIMONIDINE 0.1% 5 ML OPH BOTH EYES ×3 (05:46→20:47)
[2017-09-29] MEDS: DORZOLAMIDE/TIMOLOL 10 ML OPH BOTH EYES ×2 (08:35→20:47)
[2017-09-29] MEDS: HYDROCODONE/APAP (5/325) TAB PO ×2 (08:36→20:53)
[2017-09-29] MEDS: VALSARTAN 160 MG TAB PO (08:36)
[2017-09-29] MEDS: ATORVASTATIN 10 MG TAB PO (20:47)
[2017-09-29] MEDS: TAMSULOSIN (SR) 0.4 MG CAP PO (20:47)
[2017-09-30] MEDS: IPRATROPIUM (NEB) 0.5 MG/2.5 ML AMP HHN ×4 (01:46→19:42)
[2017-09-30] MEDS: ALBUTEROL 0.083% (NEB) 2.5 MG/3 ML AMP HHN ×4 (01:46→19:42)
[2017-09-30] MEDS: LATANOPROST 0.005% 2.5 ML OPH BOTH EYES (02:31)
[2017-09-30] MEDS: morphine LIQ (10 MG/5 ML) CUP PO (02:32)
[2017-09-30] MEDS: PANTOPRAZOLE (EC) 40 MG TAB PO (05:23)
[2017-09-30] MEDS: BRIMONIDINE 0.1% 5 ML OPH BOTH EYES ×3 (05:23→21:22)
[2017-09-30] MEDS: METHYLPREDNISOLONE 40 MG INJ IV ×3 (05:23→21:22)
[2017-09-30] MEDS: DORZOLAMIDE/TIMOLOL 10 ML OPH BOTH EYES ×2 (09:17→21:22)
[2017-09-30] MEDS: VALSARTAN 160 MG TAB PO (09:17)
[2017-09-30] MEDS: HYDROCODONE/APAP (5/325) TAB PO ×3 (09:18→21:25)
[2017-09-30] MEDS: ATORVASTATIN 10 MG TAB PO (21:22)
[2017-09-30] MEDS: TAMSULOSIN (SR) 0.4 MG CAP PO (21:22)
[2017-10-01] MEDS: IPRATROPIUM (NEB) 0.5 MG/2.5 ML AMP HHN ×4 (01:07→20:10)
[2017-10-01] MEDS: ALBUTEROL 0.083% (NEB) 2.5 MG/3 ML AMP HHN ×4 (01:07→20:10)
[2017-10-01] MEDS: LATANOPROST 0.005% 2.5 ML OPH BOTH EYES ×2 (01:20→20:55)
[2017-10-01] MEDS: morphine LIQ (10 MG/5 ML) CUP PO ×2 (01:21→12:30)
[2017-10-01] MEDS: METHYLPREDNISOLONE 40 MG INJ IV (05:12)
[2017-10-01] MEDS: PANTOPRAZOLE (EC) 40 MG TAB PO (05:12)
[2017-10-01] MEDS: BRIMONIDINE 0.1% 5 ML OPH BOTH EYES ×3 (05:12→22:00)
[2017-10-01 05:20] LABS: ADD MAN DIFF? NO
[2017-10-01 05:35] LABS: BASOPHILS % 0.1 % (0.0-2.0); HEMATOCRIT 35.5 % (42.0-52.0); HEMOGLOBIN 12.3 g/dl (14.0-18.0); LYMPHOCYTES # 1.3 10^3/ul (0.8-2.9); LYMPHOCYTES % 8.7 % (15.0-51.0); MEAN CORPUSCULAR HEMOGLOBIN 31.9 pg (29.0-33.0); MEAN CORPUSCULAR HGB CONC 34.6 g/dl (32.0-37.0); MEAN PLATELET VOLUME 11.2 fl (7.4-10.4); MONOCYTE # 0.9 10^3/ul (0.3-0.9); MONOCYTES % 5.7 % (0.0-11.0); NEUTROPHIL # 12.6 10^3/ul (1.6-7.5); NEUTROPHILS % 83.7 % (39.0-77.0); NUCLEATED RED BLOOD CELLS% 0.3 /100WBC (0.0-0.0); PLATELET COUNT 408 10^3/UL (140-415); RED BLOOD COUNT 3.86 10^6/ul (4.70-6.10); RED CELL DISTRIBUTION WIDTH 13.2 % (11.5-14.5)
[2017-10-01 05:35] LABS: WHITE BLOOD COUNT 15.1 10^3/ul (4.8-10.8)
[2017-10-01] MEDS: DORZOLAMIDE/TIMOLOL 10 ML OPH BOTH EYES ×2 (08:25→20:55)
[2017-10-01] MEDS: VALSARTAN 160 MG TAB PO (08:26)
[2017-10-01] MEDS: HYDROCODONE/APAP (5/325) TAB PO ×3 (08:41→20:52)
[2017-10-01] MEDS: ATORVASTATIN 10 MG TAB PO (20:47)
[2017-10-01] MEDS: TAMSULOSIN (SR) 0.4 MG CAP PO (20:47)
[2017-10-02] MEDS: IPRATROPIUM (NEB) 0.5 MG/2.5 ML AMP HHN ×4 (01:05→19:40)
[2017-10-02] MEDS: ALBUTEROL 0.083% (NEB) 2.5 MG/3 ML AMP HHN ×4 (01:05→19:40)
[2017-10-02] MEDS: morphine LIQ (10 MG/5 ML) CUP PO ×3 (01:28→14:28)
[2017-10-02] MEDS: HYDROCODONE/APAP (5/325) TAB PO ×3 (04:36→20:45)
[2017-10-02] MEDS: BRIMONIDINE 0.1% 5 ML OPH BOTH EYES ×3 (05:41→22:09)
[2017-10-02] MEDS: PANTOPRAZOLE (EC) 40 MG TAB PO (05:41)
[2017-10-02 06:03] LABS: ADD MAN DIFF? NO
[2017-10-02 06:11] LABS: WHITE BLOOD COUNT 18.3 10^3/ul (4.8-10.8)
[2017-10-02 06:11] LABS: ABNORMAL IP MESSAGE 1; BASOPHILS % 0.2 % (0.0-2.0); EOSINOPHILS # 0.1 10^3/ul (0.0-0.5); EOSINOPHILS % 0.4 % (0.0-7.0); HEMATOCRIT 39.6 % (42.0-52.0); HEMOGLOBIN 13.5 g/dl (14.0-18.0); LYMPHOCYTES # 2.8 10^3/ul (0.8-2.9); LYMPHOCYTES % 15.5 % (15.0-51.0); MEAN CORPUSCULAR HEMOGLOBIN 31.7 pg (29.0-33.0); MEAN CORPUSCULAR HGB CONC 34.1 g/dl (32.0-37.0); MEAN PLATELET VOLUME 11.5 fl (7.4-10.4); MONOCYTE # 1.6 10^3/ul (0.3-0.9); MONOCYTES % 8.5 % (0.0-11.0); NEUTROPHIL # 13.5 10^3/ul (1.6-7.5); NEUTROPHILS % 73.6 % (39.0-77.0); NUCLEATED RED BLOOD CELLS # 0.2 10^3/ul (0.0-0.0); NUCLEATED RED BLOOD CELLS% 1.3 /100WBC (0.0-0.0); PLATELET COUNT 392 10^3/UL (140-415); POSITIVE DIFF @See below; RED BLOOD COUNT 4.26 10^6/ul (4.70-6.10); RED CELL DISTRIBUTION WIDTH 13.5 % (11.5-14.5)
[2017-10-02 06:53] LABS: MAGNESIUM 2.1 mg/dl (1.7-2.5)
[2017-10-02 06:53] LABS: PHOSPHORUS 3.7 mg/dl (2.5-4.9)
[2017-10-02 06:55] LABS: ANION GAP 11 (8-16); BLOOD UREA NITROGEN 22 mg/dl (7-20); CALCIUM 9.6 mg/dl (8.4-10.2); CARBON DIOXIDE 30 mmol/L (21-31); CHLORIDE 105 mmol/L (97-110); CREATININE 0.97 mg/dl (0.61-1.24); GLUCOSE 85 mg/dl (70-220); POTASSIUM 3.8 mmol/L (3.5-5.1); SODIUM 142 mmol/L (135-144)
[2017-10-02] MEDS: VALSARTAN 160 MG TAB PO (09:57)
[2017-10-02] MEDS: DORZOLAMIDE/TIMOLOL 10 ML OPH BOTH EYES ×2 (09:57→20:39)
[2017-10-02] MEDS: METHYLPREDNISOLONE 40 MG INJ IV (09:57)
[2017-10-02] MEDS: ATORVASTATIN 10 MG TAB PO (20:41)
[2017-10-02] MEDS: TAMSULOSIN (SR) 0.4 MG CAP PO (20:41)
[2017-10-02] MEDS: LATANOPROST 0.005% 2.5 ML OPH BOTH EYES (20:45)
[2017-10-03] MEDS: IPRATROPIUM (NEB) 0.5 MG/2.5 ML AMP HHN ×4 (01:31→19:52)
[2017-10-03] MEDS: ALBUTEROL 0.083% (NEB) 2.5 MG/3 ML AMP HHN ×4 (01:31→19:52)
[2017-10-03] MEDS: morphine LIQ (10 MG/5 ML) CUP PO ×2 (02:02→20:44)
[2017-10-03] MEDS: PANTOPRAZOLE (EC) 40 MG TAB PO (05:46)
[2017-10-03] MEDS: BRIMONIDINE 0.1% 5 ML OPH BOTH EYES ×3 (05:46→20:37)
[2017-10-03] MEDS: HYDROCODONE/APAP (10/325) TAB PO ×2 (09:10→15:21)
[2017-10-03] MEDS: VALSARTAN 160 MG TAB PO (09:11)
[2017-10-03] MEDS: METHYLPREDNISOLONE 40 MG INJ IV (09:11)
[2017-10-03] MEDS: DORZOLAMIDE/TIMOLOL 10 ML OPH BOTH EYES ×2 (09:12→20:36)
[2017-10-03] MEDS ORDERED: LIDOCAINE 1% (MDV) 20 ML INJ (09:43)
[2017-10-03 13:59] LABS: ADD MAN DIFF? NO
[2017-10-03 14:01] LABS: ABNORMAL IP MESSAGE 1; BASOPHILS % 0.1 % (0.0-2.0); EOSINOPHILS % 0.1 % (0.0-7.0); HEMATOCRIT 38.7 % (42.0-52.0); HEMOGLOBIN 13.4 g/dl (14.0-18.0); LYMPHOCYTES # 1.3 10^3/ul (0.8-2.9); LYMPHOCYTES % 5.4 % (15.0-51.0); MEAN CORPUSCULAR HEMOGLOBIN 31.6 pg (29.0-33.0); MEAN CORPUSCULAR HGB CONC 34.6 g/dl (32.0-37.0); MEAN CORPUSCULAR VOLUME 91.3 fl (82.0-101.0); MEAN PLATELET VOLUME 11.1 fl (7.4-10.4); MONOCYTE # 0.9 10^3/ul (0.3-0.9); MONOCYTES % 3.7 % (0.0-11.0); NEUTROPHIL # 21.2 10^3/ul (1.6-7.5); NEUTROPHILS % 89.2 % (39.0-77.0); NUCLEATED RED BLOOD CELLS # 0.1 10^3/ul (0.0-0.0); NUCLEATED RED BLOOD CELLS% 0.6 /100WBC (0.0-0.0); PLATELET COUNT 389 10^3/UL (140-415); POSITIVE DIFF @See below; RED BLOOD COUNT 4.24 10^6/ul (4.70-6.10); RED CELL DISTRIBUTION WIDTH 13.7 % (11.5-14.5)
[2017-10-03 14:01] LABS: WHITE BLOOD COUNT 23.7 10^3/ul (4.8-10.8)
[2017-10-03] MEDS: ATORVASTATIN 10 MG TAB PO (20:37)
[2017-10-03] MEDS: TAMSULOSIN (SR) 0.4 MG CAP PO (20:37)
[2017-10-03] MEDS: LATANOPROST 0.005% 2.5 ML OPH BOTH EYES (20:37)
[2017-10-04] MEDS: IPRATROPIUM (NEB) 0.5 MG/2.5 ML AMP HHN ×4 (01:35→19:13)
[2017-10-04] MEDS: ALBUTEROL 0.083% (NEB) 2.5 MG/3 ML AMP HHN ×4 (01:36→19:13)
[2017-10-04] MEDS: HYDROCODONE/APAP (5/325) TAB PO (01:54)
[2017-10-04 06:09] LABS: ADD MAN DIFF? NO
[2017-10-04] MEDS: PANTOPRAZOLE (EC) 40 MG TAB PO (06:17)
[2017-10-04] MEDS: BRIMONIDINE 0.1% 5 ML OPH BOTH EYES ×3 (06:18→20:50)
[2017-10-04 06:35] LABS: ABNORMAL IP MESSAGE 1; BASOPHILS % 0.2 % (0.0-2.0); EOSINOPHILS # 0.1 10^3/ul (0.0-0.5); EOSINOPHILS % 0.5 % (0.0-7.0); HEMATOCRIT 34.1 % (42.0-52.0); LYMPHOCYTES # 2.9 10^3/ul (0.8-2.9); LYMPHOCYTES % 13.6 % (15.0-51.0); MEAN CORPUSCULAR HEMOGLOBIN 31.9 pg (29.0-33.0); MEAN CORPUSCULAR HGB CONC 35.2 g/dl (32.0-37.0); MEAN CORPUSCULAR VOLUME 90.7 fl (82.0-101.0); MEAN PLATELET VOLUME 11.3 fl (7.4-10.4); MONOCYTE # 2.2 10^3/ul (0.3-0.9); MONOCYTES % 10.1 % (0.0-11.0); NEUTROPHIL # 15.8 10^3/ul (1.6-7.5); NEUTROPHILS % 73.8 % (39.0-77.0); NUCLEATED RED BLOOD CELLS # 0.1 10^3/ul (0.0-0.0); NUCLEATED RED BLOOD CELLS% 0.5 /100WBC (0.0-0.0); PLATELET COUNT 356 10^3/UL (140-415); POSITIVE DIFF @See below; RED BLOOD COUNT 3.76 10^6/ul (4.70-6.10); RED CELL DISTRIBUTION WIDTH 13.7 % (11.5-14.5)
[2017-10-04 06:35] LABS: WHITE BLOOD COUNT 21.4 10^3/ul (4.8-10.8)
[2017-10-04 06:39] LABS: ANION GAP 9 (8-16); BLOOD UREA NITROGEN 16 mg/dl (7-20); CARBON DIOXIDE 32 mmol/L (21-31); CHLORIDE 106 mmol/L (97-110); CREATININE 0.74 mg/dl (0.61-1.24); GLUCOSE 104 mg/dl (70-220); POTASSIUM 4.1 mmol/L (3.5-5.1); SODIUM 143 mmol/L (135-144)
[2017-10-04 06:55] LABS: MAGNESIUM 2.1 mg/dl (1.7-2.5)
[2017-10-04 06:55] LABS: PHOSPHORUS 3.5 mg/dl (2.5-4.9)
[2017-10-04] MEDS: DORZOLAMIDE/TIMOLOL 10 ML OPH BOTH EYES ×2 (08:24→20:50)
[2017-10-04] MEDS: METHYLPREDNISOLONE 40 MG INJ IV (08:24)
[2017-10-04] MEDS: VALSARTAN 160 MG TAB PO (08:25)
[2017-10-04] MEDS: HYDROCODONE/APAP (10/325) TAB PO (08:26)
[2017-10-04] MEDS: morphine LIQ (10 MG/5 ML) CUP PO ×2 (15:27→20:51)
[2017-10-04] MEDS: ATORVASTATIN 10 MG TAB PO (20:51)
[2017-10-04] MEDS: LATANOPROST 0.005% 2.5 ML OPH BOTH EYES (20:51)
[2017-10-04] MEDS: TAMSULOSIN (SR) 0.4 MG CAP PO (20:51)
[2017-10-05] MEDS: IPRATROPIUM (NEB) 0.5 MG/2.5 ML AMP HHN ×4 (01:06→19:37)
[2017-10-05] MEDS: ALBUTEROL 0.083% (NEB) 2.5 MG/3 ML AMP HHN ×4 (01:06→19:37)
[2017-10-05] MEDS: HYDROCODONE/APAP (5/325) TAB PO ×3 (01:53→20:29)
[2017-10-05 05:09] LABS: ADD MAN DIFF? NO
[2017-10-05 05:17] LABS: ABNORMAL IP MESSAGE 1; BASOPHILS % 0.1 % (0.0-2.0); EOSINOPHILS # 0.1 10^3/ul (0.0-0.5); EOSINOPHILS % 0.4 % (0.0-7.0); HEMATOCRIT 35.9 % (42.0-52.0); HEMOGLOBIN 12.4 g/dl (14.0-18.0); LYMPHOCYTES # 2.7 10^3/ul (0.8-2.9); LYMPHOCYTES % 12.7 % (15.0-51.0); MEAN CORPUSCULAR HEMOGLOBIN 31.3 pg (29.0-33.0); MEAN CORPUSCULAR HGB CONC 34.5 g/dl (32.0-37.0); MEAN CORPUSCULAR VOLUME 90.7 fl (82.0-101.0); MEAN PLATELET VOLUME 11.1 fl (7.4-10.4); MONOCYTE # 2.3 10^3/ul (0.3-0.9); MONOCYTES % 10.8 % (0.0-11.0); NEUTROPHIL # 15.9 10^3/ul (1.6-7.5); NUCLEATED RED BLOOD CELLS # 0.1 10^3/ul (0.0-0.0); NUCLEATED RED BLOOD CELLS% 0.4 /100WBC (0.0-0.0); PLATELET COUNT 368 10^3/UL (140-415); POSITIVE DIFF @See below; RED BLOOD COUNT 3.96 10^6/ul (4.70-6.10); RED CELL DISTRIBUTION WIDTH 13.5 % (11.5-14.5)
[2017-10-05 05:17] LABS: WHITE BLOOD COUNT 21.2 10^3/ul (4.8-10.8)
[2017-10-05 05:37] LABS: PHOSPHORUS 3.8 mg/dl (2.5-4.9)
[2017-10-05 05:37] LABS: MAGNESIUM 2.2 mg/dl (1.7-2.5)
[2017-10-05 05:43] LABS: ANION GAP 11 (8-16); BLOOD UREA NITROGEN 13 mg/dl (7-20); CALCIUM 9.3 mg/dl (8.4-10.2); CARBON DIOXIDE 32 mmol/L (21-31); CHLORIDE 102 mmol/L (97-110); CREATININE 0.62 mg/dl (0.61-1.24); GLUCOSE 93 mg/dl (70-220); POTASSIUM 4.5 mmol/L (3.5-5.1); SODIUM 140 mmol/L (135-144)
[2017-10-05] MEDS: PANTOPRAZOLE (EC) 40 MG TAB PO (05:54)
[2017-10-05] MEDS: BRIMONIDINE 0.1% 5 ML OPH BOTH EYES ×3 (05:54→20:29)
[2017-10-05] MEDS: VALSARTAN 160 MG TAB PO (06:17)
[2017-10-05] MEDS: METHYLPREDNISOLONE 40 MG INJ IV (09:04)
[2017-10-05] MEDS: DORZOLAMIDE/TIMOLOL 10 ML OPH BOTH EYES ×2 (09:26→20:30)
[2017-10-05] MEDS: LIDOCAINE 1% (MPF) 5 ML VIAL SC (10:30)
[2017-10-05 15:05] LABS: AADO2 Arterial 23.2 mmHg (7.0-24.0); Allen Test ACCEPTAB; Arterial Blood Gas Oxygen Sat 93.8 mmHG (95.0-98.0); Arterial COHb 0.3 % (0.0-3.0); Arterial Fraction of Oxyhgb 93.4 % (93.0-99.0); Arterial HCO3 31.9 mmol/L (22.0-26.0); Arterial MetHb 0.1 % (0.0-1.5); Arterial Total Hemglobin 19.3 g/dl (12.0-18.0); MODE ROOM AIR; Site Right Radial
[2017-10-05] MEDS ORDERED: VITAMIN A & D 5 GM OINT PACKET TOP (15:52)
[2017-10-05] MEDS: ATORVASTATIN 10 MG TAB PO (20:29)
[2017-10-05] MEDS: TAMSULOSIN (SR) 0.4 MG CAP PO (20:29)
[2017-10-05] MEDS: LATANOPROST 0.005% 2.5 ML OPH BOTH EYES (20:31)
[2017-10-06] MEDS: ALBUTEROL 0.083% (NEB) 2.5 MG/3 ML AMP HHN ×5 (01:28→19:58)
[2017-10-06] MEDS: IPRATROPIUM (NEB) 0.5 MG/2.5 ML AMP HHN ×5 (01:28→19:58)
[2017-10-06] MEDS: HYDROCODONE/APAP (5/325) TAB PO ×2 (01:58→08:42)
[2017-10-06 04:58] LABS: ADD MAN DIFF? NO
[2017-10-06 05:01] LABS: ABNORMAL IP MESSAGE 1; BASOPHILS % 0.1 % (0.0-2.0); EOSINOPHILS % 0.1 % (0.0-7.0); HEMATOCRIT 34.1 % (42.0-52.0); LYMPHOCYTES # 2.3 10^3/ul (0.8-2.9); LYMPHOCYTES % 12.6 % (15.0-51.0); MEAN CORPUSCULAR HGB CONC 35.2 g/dl (32.0-37.0); MEAN CORPUSCULAR VOLUME 90.9 fl (82.0-101.0); MEAN PLATELET VOLUME 11.2 fl (7.4-10.4); MONOCYTE # 2.3 10^3/ul (0.3-0.9); MONOCYTES % 12.6 % (0.0-11.0); NEUTROPHIL # 13.6 10^3/ul (1.6-7.5); NEUTROPHILS % 73.5 % (39.0-77.0); NUCLEATED RED BLOOD CELLS # 0.1 10^3/ul (0.0-0.0); NUCLEATED RED BLOOD CELLS% 0.4 /100WBC (0.0-0.0); PLATELET COUNT 324 10^3/UL (140-415); POSITIVE DIFF @See below; RED BLOOD COUNT 3.75 10^6/ul (4.70-6.10); RED CELL DISTRIBUTION WIDTH 13.7 % (11.5-14.5)
[2017-10-06 05:01] LABS: WHITE BLOOD COUNT 18.4 10^3/ul (4.8-10.8)
[2017-10-06 05:44] LABS: ANION GAP 10 (8-16); BLOOD UREA NITROGEN 14 mg/dl (7-20); CALCIUM 8.9 mg/dl (8.4-10.2); CARBON DIOXIDE 35 mmol/L (21-31); CHLORIDE 101 mmol/L (97-110); CREATININE 0.72 mg/dl (0.61-1.24); GLUCOSE 111 mg/dl (70-220); POTASSIUM 4.2 mmol/L (3.5-5.1); SODIUM 142 mmol/L (135-144)
[2017-10-06] MEDS: BRIMONIDINE 0.1% 5 ML OPH BOTH EYES ×3 (05:53→22:00)
[2017-10-06] MEDS: PANTOPRAZOLE (EC) 40 MG TAB PO (05:53)
[2017-10-06] MEDS: VALSARTAN 160 MG TAB PO (09:25)
[2017-10-06] MEDS: METHYLPREDNISOLONE 40 MG INJ IV (09:25)
[2017-10-06] MEDS: DORZOLAMIDE/TIMOLOL 10 ML OPH BOTH EYES ×2 (13:09→20:48)
[2017-10-06] MEDS: SOD CHLORIDE 0.9% 1,000 ML IV (14:03)
[2017-10-06] MEDS: DIPHENHYDRAMINE 50 MG INJ IV (14:28)
[2017-10-06] MEDS: ONDANSETRON IV (14:28)
[2017-10-06] MEDS: DEXTROSE 5% IV ×2 (14:28→16:28)
[2017-10-06] MEDS: DEXAMETHASONE IV (14:28)
[2017-10-06] MEDS: PACLITAXEL IV (16:28)
[2017-10-06] MEDS ORDERED: DEXAMETHASONE 10 MG/ML 1 ML INJ IV (18:00)
[2017-10-06] MEDS: AMLODIPINE 10 MG TAB PO (18:19)
[2017-10-06] MEDS: METHYLPREDNISOLONE 125 MG INJ IV (18:19)
[2017-10-06] MEDS: morphine LIQ (10 MG/5 ML) CUP PO (18:20)
[2017-10-06] MEDS: TAMSULOSIN (SR) 0.4 MG CAP PO (20:48)
[2017-10-06] MEDS: ATORVASTATIN 10 MG TAB PO (20:49)
[2017-10-06] MEDS: LATANOPROST 0.005% 2.5 ML OPH BOTH EYES (20:53)
[2017-10-06] MEDS ORDERED: CARBOPLATIN IV (21:00)
[2017-10-06] MEDS ORDERED: DEXTROSE 5% IV (21:00)
[2017-10-07] MEDS: IPRATROPIUM (NEB) 0.5 MG/2.5 ML AMP HHN ×4 (02:02→19:24)
[2017-10-07] MEDS: ALBUTEROL 0.083% (NEB) 2.5 MG/3 ML AMP HHN ×4 (02:02→19:24)
[2017-10-07] MEDS: morphine LIQ (10 MG/5 ML) CUP PO ×2 (02:22→16:28)
[2017-10-07] MEDS: BRIMONIDINE 0.1% 5 ML OPH BOTH EYES ×3 (07:12→22:00)
[2017-10-07] MEDS: PANTOPRAZOLE (EC) 40 MG TAB PO (07:12)
[2017-10-07] MEDS: METHYLPREDNISOLONE 40 MG INJ IV (08:24)
[2017-10-07] MEDS: VALSARTAN 160 MG TAB PO (08:25)
[2017-10-07] MEDS: HYDROCODONE/APAP (10/325) TAB PO (08:28)
[2017-10-07] MEDS: DORZOLAMIDE/TIMOLOL 10 ML OPH BOTH EYES ×2 (08:55→21:00)
[2017-10-07] MEDS: LATANOPROST 0.005% 2.5 ML OPH BOTH EYES (21:00)
[2017-10-07] MEDS: TAMSULOSIN (SR) 0.4 MG CAP PO (21:10)
[2017-10-07] MEDS: HYDROCODONE/APAP (5/325) TAB PO (21:10)
[2017-10-07] MEDS: ATORVASTATIN 10 MG TAB PO (21:10)
[2017-10-08] MEDS: IPRATROPIUM (NEB) 0.5 MG/2.5 ML AMP HHN ×4 (01:28→20:10)
[2017-10-08] MEDS: ALBUTEROL 0.083% (NEB) 2.5 MG/3 ML AMP HHN ×4 (01:28→20:10)
[2017-10-08] MEDS: morphine LIQ (10 MG/5 ML) CUP PO (02:49)
[2017-10-08 05:03] LABS: ADD MAN DIFF? NO
[2017-10-08 05:08] LABS: ABNORMAL IP MESSAGE 1; BASOPHILS % 0.2 % (0.0-2.0); HEMATOCRIT 33.7 % (42.0-52.0); HEMOGLOBIN 11.8 g/dl (14.0-18.0); LYMPHOCYTES # 2.4 10^3/ul (0.8-2.9); LYMPHOCYTES % 11.9 % (15.0-51.0); MEAN CORPUSCULAR HEMOGLOBIN 31.9 pg (29.0-33.0); MEAN CORPUSCULAR VOLUME 91.1 fl (82.0-101.0); MEAN PLATELET VOLUME 11.4 fl (7.4-10.4); MONOCYTE # 1.9 10^3/ul (0.3-0.9); MONOCYTES % 9.3 % (0.0-11.0); NEUTROPHIL # 15.5 10^3/ul (1.6-7.5); NEUTROPHILS % 77.9 % (39.0-77.0); NUCLEATED RED BLOOD CELLS% 0.2 /100WBC (0.0-0.0); PLATELET COUNT 264 10^3/UL (140-415); POSITIVE DIFF @See below; RED CELL DISTRIBUTION WIDTH 13.9 % (11.5-14.5)
[2017-10-08 05:08] LABS: WHITE BLOOD COUNT 19.9 10^3/ul (4.8-10.8)
[2017-10-08 05:35] LABS: ANION GAP 11 (8-16); BLOOD UREA NITROGEN 19 mg/dl (7-20); CALCIUM 8.9 mg/dl (8.4-10.2); CARBON DIOXIDE 32 mmol/L (21-31); CHLORIDE 104 mmol/L (97-110); CREATININE 0.82 mg/dl (0.61-1.24); GLUCOSE 91 mg/dl (70-220); POTASSIUM 4.5 mmol/L (3.5-5.1); SODIUM 142 mmol/L (135-144)
[2017-10-08 05:51] LABS: MAGNESIUM 2.3 mg/dl (1.7-2.5)
[2017-10-08 05:51] LABS: PHOSPHORUS 3.5 mg/dl (2.5-4.9)
[2017-10-08] MEDS: BRIMONIDINE 0.1% 5 ML OPH BOTH EYES ×3 (06:24→22:00)
[2017-10-08] MEDS: PANTOPRAZOLE (EC) 40 MG TAB PO (06:24)
[2017-10-08] MEDS: HYDROCODONE/APAP (10/325) TAB PO ×2 (07:53→14:10)
[2017-10-08] MEDS: METHYLPREDNISOLONE 40 MG INJ IV (07:53)
[2017-10-08] MEDS: VALSARTAN 160 MG TAB PO (07:53)
[2017-10-08] MEDS: DORZOLAMIDE/TIMOLOL 10 ML OPH BOTH EYES ×2 (07:54→21:00)
[2017-10-08] MEDS: SOD CHLORIDE 0.9% 1,000 ML IV (12:24)
[2017-10-08] MEDS: AMLODIPINE 5 MG TAB PO (12:25)
[2017-10-08] MEDS: DIPHENHYDRAMINE 50 MG INJ IV (14:08)
[2017-10-08] MEDS: ONDANSETRON INJ 16 MG, DEXAMETHASONE 4 MG/ML 10 MG in DEXTROSE 5% 50 ML IV (14:09)
[2017-10-08] MEDS: GEMCITABINE IV (14:49)
[2017-10-08] MEDS: SOD CHLORIDE 0.9% IV (14:49)
[2017-10-08] MEDS: VINORELBINE IV (15:01)
[2017-10-08] MEDS: DEXTROSE 5% IV (15:01)
[2017-10-08] MEDS: ATORVASTATIN 10 MG TAB PO (20:52)
[2017-10-08] MEDS: TAMSULOSIN (SR) 0.4 MG CAP PO (20:52)
[2017-10-08] MEDS: HYDROCODONE/APAP (5/325) TAB PO (20:56)
[2017-10-08] MEDS: LATANOPROST 0.005% 2.5 ML OPH BOTH EYES (21:00)
[2017-10-09] MEDS: ALBUTEROL 0.083% (NEB) 2.5 MG/3 ML AMP HHN ×3 (02:21→14:44)
[2017-10-09] MEDS: IPRATROPIUM (NEB) 0.5 MG/2.5 ML AMP HHN ×3 (02:21→14:44)
[2017-10-09] MEDS: morphine LIQ (10 MG/5 ML) CUP PO ×2 (02:40→20:09)
[2017-10-09 05:29] LABS: ADD MAN DIFF? NO
[2017-10-09 05:36] LABS: BASOPHILS % 0.1 % (0.0-2.0); HEMOGLOBIN 11.1 g/dl (14.0-18.0); LYMPHOCYTES # 0.8 10^3/ul (0.8-2.9); LYMPHOCYTES % 4.9 % (15.0-51.0); MEAN CORPUSCULAR HEMOGLOBIN 31.3 pg (29.0-33.0); MEAN CORPUSCULAR HGB CONC 34.7 g/dl (32.0-37.0); MEAN CORPUSCULAR VOLUME 90.1 fl (82.0-101.0); MONOCYTES % 6.1 % (0.0-11.0); NEUTROPHILS % 88.3 % (39.0-77.0); NUCLEATED RED BLOOD CELLS% 0.2 /100WBC (0.0-0.0); PLATELET COUNT 213 10^3/UL (140-415); RED BLOOD COUNT 3.55 10^6/ul (4.70-6.10); RED CELL DISTRIBUTION WIDTH 13.9 % (11.5-14.5)
[2017-10-09 06:02] LABS: ANION GAP 9 (8-16); BLOOD UREA NITROGEN 18 mg/dl (7-20); CALCIUM 8.7 mg/dl (8.4-10.2); CARBON DIOXIDE 34 mmol/L (21-31); CHLORIDE 103 mmol/L (97-110); CREATININE 0.85 mg/dl (0.61-1.24); GLUCOSE 108 mg/dl (70-220); POTASSIUM 4.6 mmol/L (3.5-5.1); SODIUM 141 mmol/L (135-144)
[2017-10-09] MEDS: PANTOPRAZOLE (EC) 40 MG TAB PO (06:22)
[2017-10-09] MEDS: BRIMONIDINE 0.1% 5 ML OPH BOTH EYES ×2 (06:22→15:09)
[2017-10-09] MEDS: METHYLPREDNISOLONE 40 MG INJ IV (08:13)
[2017-10-09] MEDS: HYDROCODONE/APAP (5/325) TAB PO ×2 (08:14→15:55)
[2017-10-09] MEDS: VALSARTAN 160 MG TAB PO (08:14)
[2017-10-09] MEDS: DORZOLAMIDE/TIMOLOL 10 ML OPH BOTH EYES (08:15)
[2017-10-09] MEDS ORDERED: VITAMIN A & D 5 GM OINT PACKET TOP (10:33)
== END 2017-10-09 20:15 | disposition home or self-care (01) | DRG 844 ==
LOC: MS2 09-20 10:35 → MS1 10-04 22:35 → MS2 09-14 20:54 → E/R 06:39 → MS3 08:39
PROC: BT14ZZZ Fluoroscopy of Kidneys, Ureters and Bladder (ICD-10-PCS; 2017-09-21 17:30)
PROC: 0TCB8ZZ Extirpation of Matter from Bladder, Via Natural or Artificial Opening Endoscopic (ICD-10-PCS; 2017-09-21 17:30)
PROC: 0TB18ZX Excision of Left Kidney, Via Natural or Artificial Opening Endoscopic, Diagnostic (ICD-10-PCS; 2017-09-21 17:30)
PROC: 0TB08ZX Excision of Right Kidney, Via Natural or Artificial Opening Endoscopic, Diagnostic (ICD-10-PCS; 2017-09-21 17:30)
PROC: 0W993ZX Drainage of Right Pleural Cavity, Percutaneous Approach, Diagnostic (ICD-10-PCS; principal; 2017-09-21 17:53)
PROC: 0W993ZX Drainage of Right Pleural Cavity, Percutaneous Approach, Diagnostic (ICD-10-PCS; 2017-09-21 17:53)
PROC: 02HV33Z Insertion of Infusion Device into Superior Vena Cava, Percutaneous Approach (ICD-10-PCS; 2017-09-21 17:53)
PROC: 0BB58ZX Excision of Right Middle Lobe Bronchus, Via Natural or Artificial Opening Endoscopic, Diagnostic (ICD-10-PCS; 2017-09-21 17:53)
PROC: 0W9930Z Drainage of Right Pleural Cavity with Drainage Device, Percutaneous Approach (ICD-10-PCS; 2017-09-21 17:53)
PROC: 3E04305 Introduction of Other Antineoplastic into Central Vein, Percutaneous Approach (ICD-10-PCS; 2017-09-21 17:53)
PROC: 02HV33Z Insertion of Infusion Device into Superior Vena Cava, Percutaneous Approach (ICD-10-PCS; 2017-09-21 17:53)
DX: C80.1 Malignant (primary) neoplasm, unspecified (principal); E87.0 Hyperosmolality and hypernatremia; J91.0 Malignant pleural effusion; R65.10 Systemic inflammatory response syndrome (SIRS) of non-infectious origin without acute organ dysfunction; J98.11 Atelectasis; J44.1 Chronic obstructive pulmonary disease with (acute) exacerbation; N21.0 Calculus in bladder; I10 Essential (primary) hypertension; R07.9 Chest pain, unspecified; T45.1X5A Adverse effect of antineoplastic and immunosuppressive drugs, initial encounter; Y92.239 Unspecified place in hospital as the place of occurrence of the external cause; R06.02 Shortness of breath; Z72.0 Tobacco use; R59.1 Generalized enlarged lymph nodes; C79.51 Secondary malignant neoplasm of bone; R22.2 Localized swelling, mass and lump, trunk; K59.00 Constipation, unspecified; N40.0 Benign prostatic hyperplasia without lower urinary tract symptoms
CPT/HCPCS: 36415; 36569; 36589; 36600; 71045; 71046; 71250; 71270; 74178; 74430; 75989; 76937; 76942; 80048; 80053; 82150; 82306; 82378; 82803; 82945; 83605; 83615; 83735; 84100; 84153; 84154; 84157; 85025; 85610; 85730; 86301; 87040; 87070; 87075; 87102; 87116; 87400; 88104; 88300; 88305; 88313; 88341; 88342; 89051; 89060; 93005; 93306; 94640; 94664; 96374; 97163; 99285-25; J9201; J9267

== ENCOUNTER 2017-11-23 13:25 | Inpatient (IN) | payer OTHER ==
[2017-11-23 14:10] LABS: ABNORMAL IP MESSAGE 1; HEMATOCRIT 25.4 % (42.0-52.0); HEMOGLOBIN 8.8 g/dl (14.0-18.0); MEAN CORPUSCULAR HEMOGLOBIN 27.9 pg (29.0-33.0); MEAN CORPUSCULAR HGB CONC 34.6 g/dl (32.0-37.0); MEAN CORPUSCULAR VOLUME 80.6 fl (82.0-101.0); MEAN PLATELET VOLUME 13.6 fl (7.4-10.4); PLATELET COUNT 189 10^3/UL (140-415); POSITIVE DIFF @See below; RED BLOOD COUNT 3.15 10^6/ul (4.70-6.10); RED CELL DISTRIBUTION WIDTH 16.4 % (11.5-14.5)
[2017-11-23] MEDS: ACETAMINOPHEN 650 MG SUPP PR (14:16)
[2017-11-23] MEDS: CEFEPIME 2GM/50 ML (PMX) 50 ML IVPB (14:16)
[2017-11-23 14:19] LABS: ADD MAN DIFF? YES
[2017-11-23 14:23] LABS: AADO2 Arterial 598.3 mmHg (7.0-24.0); Allen Test ACCEPTAB; Arterial Base Excess -7.6 mmol/L (-3.0-3); Arterial Blood Gas Oxygen Sat 94.4 mmHG (95.0-98.0); Arterial COHb 2.1 % (0.0-3.0); Arterial Fraction of Oxyhgb 91.9 % (93.0-99.0); Arterial MetHb 0.5 % (0.0-1.5); Arterial Total Hemglobin 9.4 g/dl (12.0-18.0); Arterial pCO2 30.9 mmhg (35-45); MODE VENT - AC; Site Right Radial
[2017-11-23 14:30] LABS: ALANINE AMINOTRANSFERASE 17 IU/L (13-69); ALBUMIN 3.3 g/dl (3.3-4.9); ALBUMIN/GLOBULIN RATIO 0.86; ALKALINE PHOSPHATASE 144 IU/L (42-121); ANION GAP 28 (8-16); ASPARTATE AMINO TRANSFERASE 40 IU/L (15-46); BILIRUBIN,INDIRECT 1.6 mg/dl (0-1.1); BILIRUBIN,TOTAL 1.7 mg/dl (0.2-1.3); BLOOD UREA NITROGEN 20 mg/dl (7-20); CALCIUM 9.8 mg/dl (8.4-10.2); CARBON DIOXIDE 15 mmol/L (21-31); CHLORIDE 111 mmol/L (97-110); CREATININE 1.22 mg/dl (0.61-1.24); GLUCOSE 222 mg/dl (70-220); POTASSIUM 4.4 mmol/L (3.5-5.1); SODIUM 150 mmol/L (135-144); TOTAL PROTEIN 7.1 g/dl (6.1-8.1)
[2017-11-23 14:31] LABS: INR 1.46; PT RATIO 1.4
[2017-11-23 14:32] LABS: PARTIAL THROMBOPLASTIN TIME 26.5 Sec (25.0-35.0)
[2017-11-23] MEDS ORDERED: MIDAZOLAM 1 MG/ML 5 ML INJ IV (15:00)
[2017-11-23 15:03] LABS: TROPONIN-I 0.073 ng/ml (0.00-0.12)
[2017-11-23] MEDS: MIDAZOLAM 1 MG/ML 2 ML INJ IV (15:04)
[2017-11-23] MEDS: VANCOMYCIN 1 GM (PMX) 250 ML IVPB (15:15)
[2017-11-23 15:28] LABS: ANISOCYTOSIS 2+ (0-0); GIANT THROMBO% (M) 4 % (0-0); HYPOCHROMASIA 1+ (0-0); LYMPHOCYTES #M 5.3 10^3/ul (0.8-2.9); LYMPHOCYTES % (M) 19 % (15-51); MICROCYTOSIS 2+ (0-0); MONOCYTE #M 0.5 10^3/ul (0.3-0.9); MONOCYTES % (M) 2 % (0-11); PLATELET ESTIMATE NORMAL; POLYCHROMASIA 2+ (0-0); SEGMENTED NEUTROPHILS (M) % 79 % (39-77); SMUDGE%M 4 % (0-0)
[2017-11-23] MEDS: PROPOFOL 100 ML IV ×3 (16:50→21:46)
[2017-11-23] MEDS ORDERED: ALBUTEROL/IPRATROPIUM (NEB) 3 ML AMP NEB ×2 (18:00→21:00)
[2017-11-23] MEDS ORDERED: VANCOMYCIN IV PER PHARMACY XX (18:00)
[2017-11-23] MEDS ORDERED: INSULIN ASPART [NOVOLOG] 3 ML PEN SC (18:00)
[2017-11-23] MEDS ORDERED: ONDANSETRON 4 MG INJ IV (18:00)
[2017-11-23] MEDS ORDERED: DEXTROSE 50% 50 ML SYRINGE IV ×2 (18:30)
[2017-11-23] MEDS ORDERED: GLUCOSE GEL 15 GRAM TUBE PO ×2 (18:30)
[2017-11-23] MEDS ORDERED: GLUCAGON 1 MG INJ IM (18:30)
[2017-11-23] MEDS ORDERED: GLUCOSE GEL 15 GRAM TUBE BUCCAL (18:30)
[2017-11-23 18:42] LABS: LACTIC ACID 1.8 mmol/L (0.5-2.0)
[2017-11-23 18:43] LABS: ANION GAP 17 (8-16); BLOOD UREA NITROGEN 27 mg/dl (7-20); CALCIUM 9.1 mg/dl (8.4-10.2); CARBON DIOXIDE 23 mmol/L (21-31); CHLORIDE 114 mmol/L (97-110); CREATININE 1.38 mg/dl (0.61-1.24); GLUCOSE 137 mg/dl (70-220); POTASSIUM 4.4 mmol/L (3.5-5.1); SODIUM 150 mmol/L (135-144)
[2017-11-23 18:46] LABS: AADO2 Arterial 471.5 mmHg (7.0-24.0); Allen Test ACCEPTAB; Arterial Base Excess 0 mmol/L (-3.0-3); Arterial COHb 1.1 % (0.0-3.0); Arterial Fraction of Oxyhgb 88.6 % (93.0-99.0); Arterial HCO3 23.9 mmol/L (22.0-26.0); Arterial MetHb 0.5 % (0.0-1.5); Arterial Total Hemglobin 8.7 g/dl (12.0-18.0); Arterial pCO2 35.4 mmhg (35-45); MODE VENT - AC; Site Right Radial
[2017-11-23] MEDS ORDERED: NORepinephrine 8MG/250 ML (PMX 250 ML IV (19:30)
[2017-11-23] MEDS: DEXTROSE 5%-0.45% NACL 1,000 ML IV (20:03)
[2017-11-23] MEDS: VANCOMYCIN 500MG/NS (PMX) 100 ML IVPB (21:40)
[2017-11-23] MEDS: FLUCONAZOLE 400 MG/NS (PMX) 200 ML IVPB (21:40)
[2017-11-23] MEDS: INSULIN ASPART [NOVOLOG] 3 ML PEN SC (21:42)
[2017-11-23] MEDS: PIPER-TAZO 3.375 GM IV (PMX) 100 ML IVPB (22:25)
[2017-11-24] MEDS: METHYLPREDNISOLONE 125 MG INJ IV ×5 (00:38→23:37)
[2017-11-24] MEDS: INSULIN ASPART [NOVOLOG] 3 ML PEN SC ×6 (00:59→20:35)
[2017-11-24] MEDS: IPRATROPIUM (HFA) 12.9 GM INHALER INH ×6 (01:22→21:15)
[2017-11-24] MEDS: ALBUTEROL HFA 8 GM INHALER INH ×6 (01:22→21:15)
[2017-11-24] MEDS: PROPOFOL 100 ML IV ×6 (01:52→23:37)
[2017-11-24] MEDS ORDERED: ACCU-CHEK XX (02:00)
[2017-11-24] MEDS: PIPER-TAZO 3.375 GM IV (PMX) 100 ML IVPB ×4 (03:54→21:03)
[2017-11-24 04:32] LABS: ADD MAN DIFF? NO
[2017-11-24 04:33] LABS: ABNORMAL IP MESSAGE 1; BASOPHIL # 0.1 10^3/ul (0.0-0.1); BASOPHILS % 0.2 % (0.0-2.0); EOSINOPHILS % 0.1 % (0.0-7.0); HEMATOCRIT 22.1 % (42.0-52.0); HEMOGLOBIN 7.9 g/dl (14.0-18.0); LYMPHOCYTES # 5.1 10^3/ul (0.8-2.9); LYMPHOCYTES % 16.9 % (15.0-51.0); MEAN CORPUSCULAR HEMOGLOBIN 28.3 pg (29.0-33.0); MEAN CORPUSCULAR HGB CONC 35.7 g/dl (32.0-37.0); MEAN CORPUSCULAR VOLUME 79.2 fl (82.0-101.0); MEAN PLATELET VOLUME 13.1 fl (7.4-10.4); MONOCYTE # 1.1 10^3/ul (0.3-0.9); MONOCYTES % 3.5 % (0.0-11.0); NEUTROPHIL # 23.5 10^3/ul (1.6-7.5); NEUTROPHILS % 78.2 % (39.0-77.0); NUCLEATED RED BLOOD CELLS # 0.7 10^3/ul (0.0-0.0); NUCLEATED RED BLOOD CELLS% 2.2 /100WBC (0.0-0.0); PLATELET COUNT 217 10^3/UL (140-415); POSITIVE DIFF @See below; RED BLOOD COUNT 2.79 10^6/ul (4.70-6.10); RED CELL DISTRIBUTION WIDTH 16.4 % (11.5-14.5)
[2017-11-24 04:50] LABS: MAGNESIUM 2.2 mg/dl (1.7-2.5)
[2017-11-24 04:50] LABS: PHOSPHORUS 3.3 mg/dl (2.5-4.9)
[2017-11-24 04:51] LABS: ALANINE AMINOTRANSFERASE 20 IU/L (13-69); ALBUMIN 2.9 g/dl (3.3-4.9); ALKALINE PHOSPHATASE 134 IU/L (42-121); ANION GAP 17 (8-16); ASPARTATE AMINO TRANSFERASE 27 IU/L (15-46); BILIRUBIN,INDIRECT 0.3 mg/dl (0-1.1); BILIRUBIN,TOTAL 0.3 mg/dl (0.2-1.3); BLOOD UREA NITROGEN 27 mg/dl (7-20); CALCIUM 9.3 mg/dl (8.4-10.2); CARBON DIOXIDE 23 mmol/L (21-31); CHLORIDE 116 mmol/L (97-110); CREATININE 1.23 mg/dl (0.61-1.24); GLUCOSE 165 mg/dl (70-220); SODIUM 152 mmol/L (135-144); TOTAL PROTEIN 6.5 g/dl (6.1-8.1)
[2017-11-24] MEDS: DEXTROSE 5%-0.45% NACL 1,000 ML IV ×3 (05:14→21:03)
[2017-11-24] MEDS: PANTOPRAZOLE 40 MG INJ IV (05:54)
[2017-11-24] MEDS: morphine 2 MG INJ IV (07:41)
[2017-11-24] MEDS: FENTAnyl (DRIP) 1000 mcg/100mL 100 ML IV ×2 (09:36→19:10)
[2017-11-24] MEDS: VANCOMYCIN 500MG/NS (PMX) 100 ML IVPB ×2 (09:53→21:03)
[2017-11-24 11:32] LABS: AADO2 Arterial 595.7 mmHg (7.0-24.0); Allen Test ACCEPTAB; Arterial Base Excess -2.6 mmol/L (-3.0-3); Arterial Blood Gas Oxygen Sat 95.2 mmHG (95.0-98.0); Arterial COHb 0.3 % (0.0-3.0); Arterial Fraction of Oxyhgb 94.6 % (93.0-99.0); Arterial HCO3 21.6 mmol/L (22.0-26.0); Arterial MetHb 0.3 % (0.0-1.5); Arterial Total Hemglobin 9.7 g/dl (12.0-18.0); MODE VENT - AC; Site Right Radial
[2017-11-24] MEDS: FLUCONAZOLE 400 MG/NS (PMX) 200 ML IVPB (20:26)
[2017-11-25] MEDS: INSULIN ASPART [NOVOLOG] 3 ML PEN SC ×6 (00:53→20:52)
[2017-11-25] MEDS: DEXTROSE 5%-0.45% NACL 1,000 ML IV ×3 (01:16→23:07)
[2017-11-25] MEDS: IPRATROPIUM (HFA) 12.9 GM INHALER INH ×6 (01:20→21:20)
[2017-11-25] MEDS: ALBUTEROL HFA 8 GM INHALER INH ×6 (01:20→21:20)
[2017-11-25] MEDS: PROPOFOL 100 ML IV ×5 (03:34→23:50)
[2017-11-25] MEDS: FENTAnyl (DRIP) 1000 mcg/100mL 100 ML IV ×2 (03:36→14:40)
[2017-11-25] MEDS: PIPER-TAZO 3.375 GM IV (PMX) 100 ML IVPB ×4 (03:36→22:14)
[2017-11-25 04:57] LABS: ADD MAN DIFF? NO
[2017-11-25 04:59] LABS: WHITE BLOOD COUNT 26.3 10^3/ul (4.8-10.8)
[2017-11-25 04:59] LABS: ABNORMAL IP MESSAGE 1; BASOPHILS % 0.1 % (0.0-2.0); HEMATOCRIT 20.4 % (42.0-52.0); HEMOGLOBIN 7.1 g/dl (14.0-18.0); LYMPHOCYTES # 2.8 10^3/ul (0.8-2.9); LYMPHOCYTES % 10.7 % (15.0-51.0); MEAN CORPUSCULAR HEMOGLOBIN 28.4 pg (29.0-33.0); MEAN CORPUSCULAR HGB CONC 34.8 g/dl (32.0-37.0); MEAN CORPUSCULAR VOLUME 81.6 fl (82.0-101.0); MEAN PLATELET VOLUME 13.8 fl (7.4-10.4); MONOCYTE # 1.1 10^3/ul (0.3-0.9); MONOCYTES % 4.3 % (0.0-11.0); NEUTROPHIL # 21.9 10^3/ul (1.6-7.5); NEUTROPHILS % 83.6 % (39.0-77.0); NUCLEATED RED BLOOD CELLS # 1.1 10^3/ul (0.0-0.0); NUCLEATED RED BLOOD CELLS% 4.2 /100WBC (0.0-0.0); PLATELET COUNT 188 10^3/UL (140-415); POSITIVE DIFF @See below
[2017-11-25] MEDS: PANTOPRAZOLE 40 MG INJ IV (05:19)
[2017-11-25] MEDS: METHYLPREDNISOLONE 125 MG INJ IV ×4 (05:19→23:49)
[2017-11-25 05:22] LABS: ALANINE AMINOTRANSFERASE 20 IU/L (13-69); ALBUMIN 2.7 g/dl (3.3-4.9); ALBUMIN/GLOBULIN RATIO 0.81; ALKALINE PHOSPHATASE 112 IU/L (42-121); ANION GAP 15 (8-16); ASPARTATE AMINO TRANSFERASE 19 IU/L (15-46); BLOOD UREA NITROGEN 21 mg/dl (7-20); CALCIUM 8.6 mg/dl (8.4-10.2); CARBON DIOXIDE 21 mmol/L (21-31); CHLORIDE 113 mmol/L (97-110); CREATININE 1.04 mg/dl (0.61-1.24); GLUCOSE 158 mg/dl (70-220); POTASSIUM 3.9 mmol/L (3.5-5.1); SODIUM 145 mmol/L (135-144)
[2017-11-25 09:48] LABS: VANCOMYCIN,TROUGH 9.8 ug/ml (10.0-20.0)
[2017-11-25 09:53] LABS: Allen Test ACCEPTAB; Arterial Base Excess -5.4 mmol/L (-3.0-3); Arterial Blood Gas Oxygen Sat 94.3 mmHG (95.0-98.0); Arterial COHb 0.1 % (0.0-3.0); Arterial Fraction of Oxyhgb 93.7 % (93.0-99.0); Arterial HCO3 20.1 mmol/L (22.0-26.0); Arterial MetHb 0.5 % (0.0-1.5); Arterial Total Hemglobin 7.9 g/dl (12.0-18.0); Arterial pCO2 39.1 mmhg (35-45); MODE VENT - AC; Site Right Radial
[2017-11-25] MEDS: VANCOMYCIN 500MG/NS (PMX) 100 ML IVPB (10:05)
[2017-11-25] MEDS ORDERED: LIDOCAINE 1% (MPF) 5 ML VIAL SC (15:30)
[2017-11-25] MEDS: MAGNESIUM SULFATE 2 GM/50 ML 50 ML IVPB (15:58)
[2017-11-25] MEDS: POTASSIUM CHLORIDE 20 MEQ POWDER FOR ORAL SOLN NGT (15:59)
[2017-11-25] MEDS: FLUCONAZOLE 400 MG/NS (PMX) 200 ML IVPB (20:08)
[2017-11-25] MEDS: METOPROLOL 25 MG TAB GTB (20:52)
[2017-11-25] MEDS: VANCOMYCIN 750 MG in DEXTROSE 5% 150 ML IVPB (20:58)
[2017-11-26] MEDS: FENTAnyl (DRIP) 1000 mcg/100mL 100 ML IV ×2 (00:08→10:21)
[2017-11-26] MEDS: INSULIN ASPART [NOVOLOG] 3 ML PEN SC ×6 (01:00→21:00)
[2017-11-26] MEDS: ALBUTEROL HFA 8 GM INHALER INH ×6 (01:15→21:52)
[2017-11-26] MEDS: IPRATROPIUM (HFA) 12.9 GM INHALER INH ×6 (01:15→21:52)
[2017-11-26] MEDS: PIPER-TAZO 3.375 GM IV (PMX) 100 ML IVPB ×4 (04:33→22:28)
[2017-11-26 05:12] LABS: ADD MAN DIFF? NO
[2017-11-26 05:23] LABS: WHITE BLOOD COUNT 21.7 10^3/ul (4.8-10.8)
[2017-11-26 05:23] LABS: ABNORMAL IP MESSAGE 1; BASOPHILS % 0.1 % (0.0-2.0); HEMATOCRIT 20.9 % (42.0-52.0); HEMOGLOBIN 7.1 g/dl (14.0-18.0); LYMPHOCYTES # 1.4 10^3/ul (0.8-2.9); LYMPHOCYTES % 6.6 % (15.0-51.0); MEAN CORPUSCULAR VOLUME 82.3 fl (82.0-101.0); MEAN PLATELET VOLUME 13.9 fl (7.4-10.4); MONOCYTE # 1.1 10^3/ul (0.3-0.9); MONOCYTES % 4.9 % (0.0-11.0); NEUTROPHIL # 18.8 10^3/ul (1.6-7.5); NEUTROPHILS % 86.7 % (39.0-77.0); NUCLEATED RED BLOOD CELLS # 1.8 10^3/ul (0.0-0.0); NUCLEATED RED BLOOD CELLS% 8.4 /100WBC (0.0-0.0); PLATELET COUNT 169 10^3/UL (140-415); POSITIVE DIFF @See below; RED BLOOD COUNT 2.54 10^6/ul (4.70-6.10); RED CELL DISTRIBUTION WIDTH 17.7 % (11.5-14.5)
[2017-11-26] MEDS: PROPOFOL 100 ML IV ×2 (06:05→16:27)
[2017-11-26] MEDS: METHYLPREDNISOLONE 125 MG INJ IV (06:05)
[2017-11-26] MEDS: PANTOPRAZOLE 40 MG INJ IV (06:05)
[2017-11-26 07:00] LABS: ALANINE AMINOTRANSFERASE 22 IU/L (13-69); ALBUMIN 2.6 g/dl (3.3-4.9); ALBUMIN/GLOBULIN RATIO 0.78; ALKALINE PHOSPHATASE 104 IU/L (42-121); ANION GAP 16 (8-16); ASPARTATE AMINO TRANSFERASE 18 IU/L (15-46); BILIRUBIN,INDIRECT 0.1 mg/dl (0-1.1); BILIRUBIN,TOTAL 0.1 mg/dl (0.2-1.3); BLOOD UREA NITROGEN 19 mg/dl (7-20); CALCIUM 8.7 mg/dl (8.4-10.2); CARBON DIOXIDE 21 mmol/L (21-31); CHLORIDE 111 mmol/L (97-110); CREATININE 0.97 mg/dl (0.61-1.24); GLUCOSE 139 mg/dl (70-220); POTASSIUM 4.5 mmol/L (3.5-5.1); SODIUM 143 mmol/L (135-144); TOTAL PROTEIN 5.9 g/dl (6.1-8.1)
[2017-11-26] MEDS: METOPROLOL 25 MG TAB GTB ×2 (08:19→21:23)
[2017-11-26] MEDS: DEXTROSE 5%-0.45% NACL 1,000 ML IV (10:20)
[2017-11-26] MEDS: VANCOMYCIN 750 MG in DEXTROSE 5% 150 ML IVPB ×2 (11:30→21:24)
[2017-11-26 14:38] LABS: THYROID STIMULATING HORMONE 0.951 MIU/L (0.465-4.680)
[2017-11-26] MEDS: METHYLPREDNISOLONE 40 MG INJ IV ×2 (16:04→21:24)
[2017-11-26] MEDS: FUROSEMIDE 20 MG INJ IV (16:05)
[2017-11-26 18:48] LABS: TROPONIN-I < 0.012 ng/ml (0.00-0.12)
[2017-11-26] MEDS: FLUCONAZOLE 400 MG/NS (PMX) 200 ML IVPB (20:21)
[2017-11-27] MEDS: INSULIN ASPART [NOVOLOG] 3 ML PEN SC ×6 (01:00→21:00)
[2017-11-27 01:17] LABS: TROPONIN-I < 0.012 ng/ml (0.00-0.12)
[2017-11-27] MEDS: ALBUTEROL HFA 8 GM INHALER INH ×6 (01:32→21:18)
[2017-11-27] MEDS: IPRATROPIUM (HFA) 12.9 GM INHALER INH ×6 (01:33→21:18)
[2017-11-27] MEDS: PROPOFOL 100 ML IV (02:27)
[2017-11-27] MEDS: PIPER-TAZO 3.375 GM IV (PMX) 100 ML IVPB ×4 (04:16→22:43)
[2017-11-27 06:03] LABS: ADD MAN DIFF? NO
[2017-11-27 06:06] LABS: WHITE BLOOD COUNT 19.1 10^3/ul (4.8-10.8)
[2017-11-27 06:06] LABS: ABNORMAL IP MESSAGE 1; BASOPHILS % 0.1 % (0.0-2.0); HEMATOCRIT 22.5 % (42.0-52.0); HEMOGLOBIN 7.4 g/dl (14.0-18.0); LYMPHOCYTES # 1.4 10^3/ul (0.8-2.9); LYMPHOCYTES % 7.3 % (15.0-51.0); MEAN CORPUSCULAR HEMOGLOBIN 27.9 pg (29.0-33.0); MEAN CORPUSCULAR HGB CONC 32.9 g/dl (32.0-37.0); MEAN CORPUSCULAR VOLUME 84.9 fl (82.0-101.0); MEAN PLATELET VOLUME 13.8 fl (7.4-10.4); MONOCYTES % 5.2 % (0.0-11.0); NEUTROPHIL # 16.3 10^3/ul (1.6-7.5); NEUTROPHILS % 85.6 % (39.0-77.0); NUCLEATED RED BLOOD CELLS # 1.6 10^3/ul (0.0-0.0); NUCLEATED RED BLOOD CELLS% 8.6 /100WBC (0.0-0.0); PLATELET COUNT 152 10^3/UL (140-415); POSITIVE DIFF @See below; RED BLOOD COUNT 2.65 10^6/ul (4.70-6.10); RED CELL DISTRIBUTION WIDTH 18.6 % (11.5-14.5)
[2017-11-27] MEDS: METHYLPREDNISOLONE 40 MG INJ IV ×3 (06:06→22:43)
[2017-11-27] MEDS: PANTOPRAZOLE 40 MG INJ IV (06:06)
[2017-11-27] MEDS: FENTAnyl (DRIP) 1000 mcg/100mL 100 ML IV ×2 (06:22→17:39)
[2017-11-27 06:35] LABS: PHOSPHORUS 5.2 mg/dl (2.5-4.9)
[2017-11-27 06:35] LABS: MAGNESIUM 2.7 mg/dl (1.7-2.5)
[2017-11-27 06:41] LABS: ANION GAP 14 (8-16); BLOOD UREA NITROGEN 24 mg/dl (7-20); CALCIUM 8.8 mg/dl (8.4-10.2); CARBON DIOXIDE 21 mmol/L (21-31); CHLORIDE 111 mmol/L (97-110); CREATININE 1.07 mg/dl (0.61-1.24); GLUCOSE 116 mg/dl (70-220); POTASSIUM 4.9 mmol/L (3.5-5.1); SODIUM 141 mmol/L (135-144)
[2017-11-27] MEDS: METOPROLOL 25 MG TAB GTB ×2 (09:00→21:00)
[2017-11-27 09:08] LABS: VANCOMYCIN,TROUGH 13.9 ug/ml (10.0-20.0)
[2017-11-27] MEDS: FAMOTIDINE 20 MG INJ IV ×2 (09:29→21:23)
[2017-11-27 09:32] LABS: PATH REVIEW CH
[2017-11-27] MEDS: MIDAZOLAM (DRIP) 50 mg/50 mL 50 ML IV (09:32)
[2017-11-27] MEDS: VANCOMYCIN 750 MG in DEXTROSE 5% 150 ML IVPB ×2 (09:47→21:10)
[2017-11-27] MEDS: DEXTROSE 5%-0.45% NACL 1,000 ML IV ×2 (12:51→15:39)
[2017-11-27] MEDS ORDERED: METHYLPREDNISOLONE 125 MG INJ IV (17:30)
[2017-11-27] MEDS ORDERED: MEPERIDINE 25 MG INJ IV (17:30)
[2017-11-27] MEDS: SOD CHLORIDE 0.9% IV (20:50)
[2017-11-27] MEDS: INFLIXIMAB IV (20:50)
[2017-11-27] MEDS: FLUCONAZOLE 400 MG/NS (PMX) 200 ML IVPB (21:11)
[2017-11-28] MEDS: INSULIN ASPART [NOVOLOG] 3 ML PEN SC ×6 (01:00→21:23)
[2017-11-28] MEDS: IPRATROPIUM (HFA) 12.9 GM INHALER INH ×3 (01:26→08:25)
[2017-11-28] MEDS: ALBUTEROL HFA 8 GM INHALER INH ×3 (01:26→08:25)
[2017-11-28 01:45] LABS: IMMEDIATE SPIN CROSSMATCH 1 1
[2017-11-28 05:55] LABS: ADD MAN DIFF? NO
[2017-11-28] MEDS: MIDAZOLAM (DRIP) 50 mg/50 mL 50 ML IV (05:55)
[2017-11-28] MEDS: METHYLPREDNISOLONE 40 MG INJ IV ×3 (05:55→21:23)
[2017-11-28] MEDS: PIPER-TAZO 3.375 GM IV (PMX) 100 ML IVPB ×4 (05:55→21:30)
[2017-11-28 06:08] LABS: WHITE BLOOD COUNT 19.6 10^3/ul (4.8-10.8)
[2017-11-28 06:08] LABS: ABNORMAL IP MESSAGE 1; BASOPHILS % 0.1 % (0.0-2.0); HEMATOCRIT 27.3 % (42.0-52.0); LYMPHOCYTES # 1.5 10^3/ul (0.8-2.9); LYMPHOCYTES % 7.7 % (15.0-51.0); MEAN CORPUSCULAR HEMOGLOBIN 28.6 pg (29.0-33.0); MEAN CORPUSCULAR VOLUME 86.7 fl (82.0-101.0); MEAN PLATELET VOLUME 13.9 fl (7.4-10.4); MONOCYTES % 5.2 % (0.0-11.0); NEUTROPHIL # 16.4 10^3/ul (1.6-7.5); NEUTROPHILS % 83.6 % (39.0-77.0); NUCLEATED RED BLOOD CELLS% 5.3 /100WBC (0.0-0.0); PLATELET COUNT 170 10^3/UL (140-415); POSITIVE DIFF @See below; RED BLOOD COUNT 3.15 10^6/ul (4.70-6.10); RED CELL DISTRIBUTION WIDTH 18.6 % (11.5-14.5)
[2017-11-28 06:30] LABS: ANION GAP 12 (8-16); BLOOD UREA NITROGEN 27 mg/dl (7-20); CALCIUM 8.8 mg/dl (8.4-10.2); CARBON DIOXIDE 25 mmol/L (21-31); CHLORIDE 112 mmol/L (97-110); GLUCOSE 132 mg/dl (70-220); MAGNESIUM 2.8 mg/dl (1.7-2.5); PHOSPHORUS 4.3 mg/dl (2.5-4.9); POTASSIUM 4.8 mmol/L (3.5-5.1); SODIUM 144 mmol/L (135-144)
[2017-11-28] MEDS: FENTAnyl (DRIP) 1000 mcg/100mL 100 ML IV (06:43)
[2017-11-28] MEDS: METOPROLOL 25 MG TAB GTB ×2 (09:00→21:24)
[2017-11-28] MEDS: FAMOTIDINE 20 MG INJ IV ×2 (09:18→21:23)
[2017-11-28] MEDS: VANCOMYCIN 750 MG in DEXTROSE 5% 150 ML IVPB ×2 (09:19→21:24)
[2017-11-28 11:30] LABS: AADO2 Arterial 172.3 mmHg (7.0-24.0); Allen Test ACCEPTAB; Arterial Base Excess -2.3 mmol/L (-3.0-3); Arterial COHb 0.3 % (0.0-3.0); Arterial Fraction of Oxyhgb 91.4 % (93.0-99.0); Arterial HCO3 22.5 mmol/L (22.0-26.0); Arterial MetHb 0.4 % (0.0-1.5); Arterial Total Hemglobin 10.6 g/dl (12.0-18.0); Arterial pCO2 38.9 mmhg (35-45); Blood Gas PS 10; MODE VENT - CPAP; Site Right Radial
[2017-11-28] MEDS: ALBUTEROL/IPRATROPIUM (NEB) 3 ML AMP HHN ×3 (14:01→20:00)
[2017-11-28] MEDS: DEXTROSE 5%-0.45% NACL 1,000 ML IV (15:39)
[2017-11-28] MEDS: DOCUSATE SODIUM 100 MG CAP PO (21:24)
[2017-11-29] MEDS: ALBUTEROL/IPRATROPIUM (NEB) 3 ML AMP HHN ×6 (04:03→21:16)
[2017-11-29] MEDS: PIPER-TAZO 3.375 GM IV (PMX) 100 ML IVPB ×4 (04:35→21:21)
[2017-11-29 05:13] LABS: WHITE BLOOD COUNT 26.9 10^3/ul (4.8-10.8)
[2017-11-29 05:13] LABS: ABNORMAL IP MESSAGE 1; HEMATOCRIT 27.3 % (42.0-52.0); MEAN CORPUSCULAR HEMOGLOBIN 28.3 pg (29.0-33.0); MEAN CORPUSCULAR VOLUME 85.8 fl (82.0-101.0); NUCLEATED RED BLOOD CELLS% 2.7 /100WBC (0.0-0.0); PLATELET COUNT 222 10^3/UL (140-415); POSITIVE DIFF @See below; RED BLOOD COUNT 3.18 10^6/ul (4.70-6.10); RED CELL DISTRIBUTION WIDTH 19.6 % (11.5-14.5)
[2017-11-29 05:18] LABS: ADD MAN DIFF? YES
[2017-11-29 05:45] LABS: ANION GAP 14 (8-16); BLOOD UREA NITROGEN 25 mg/dl (7-20); CALCIUM 9.3 mg/dl (8.4-10.2); CARBON DIOXIDE 25 mmol/L (21-31); CHLORIDE 112 mmol/L (97-110); CREATININE 1.02 mg/dl (0.61-1.24); GLUCOSE 139 mg/dl (70-220); POTASSIUM 4.4 mmol/L (3.5-5.1); SODIUM 147 mmol/L (135-144)
[2017-11-29] MEDS: METHYLPREDNISOLONE 40 MG INJ IV (06:44)
[2017-11-29] MEDS: INSULIN ASPART [NOVOLOG] 3 ML PEN SC ×4 (06:45→21:00)
[2017-11-29 06:47] LABS: ANISOCYTOSIS 1+ (0-0); BAND NEUTROPHILS % (M) 4 % (0-4); ERYTHROBLAST% (NRBC) (M) 12 % (0-0); GIANT THROMBO% (M) 2 % (0-0); HYPOCHROMASIA 1+ (0-0); LYMPHOCYTES #M 1.6 10^3/ul (0.8-2.9); LYMPHOCYTES % (M) 6 % (15-51); METAMYELOCYTES #M 0.5 10^3/ul (0.0-0.0); METAMYELOCYTES %M 2 % (0-0); MONOCYTES % (M) 4 % (0-11); PLATELET ESTIMATE NORMAL; POLYCHROMASIA 3+ (0-0); SEG NEUT #M 22.9 10^3/ul (1.6-7.5); SEGMENTED NEUTROPHILS (M) % 84 % (39-77); SMUDGE%M 11 % (0-0); TARGET CELLS 3+ (0-0)
[2017-11-29 07:10] LABS: MAGNESIUM 2.8 mg/dl (1.7-2.5)
[2017-11-29 07:10] LABS: PHOSPHORUS 3.3 mg/dl (2.5-4.9)
[2017-11-29] MEDS: DOCUSATE SODIUM 100 MG CAP PO ×2 (09:00→21:21)
[2017-11-29] MEDS: METOPROLOL 25 MG TAB GTB ×2 (09:06→21:22)
[2017-11-29] MEDS: FAMOTIDINE 20 MG INJ IV ×2 (09:09→21:21)
[2017-11-29] MEDS: VANCOMYCIN 750 MG in DEXTROSE 5% 150 ML IVPB ×2 (09:38→21:21)
[2017-11-29] MEDS: DEXTROSE 5% 250 ML IV (10:00)
[2017-11-29] MEDS: FUROSEMIDE 20 MG INJ IV (14:56)
[2017-11-30] MEDS: ALBUTEROL/IPRATROPIUM (NEB) 3 ML AMP HHN ×6 (01:38→20:23)
[2017-11-30] MEDS: PIPER-TAZO 3.375 GM IV (PMX) 100 ML IVPB ×4 (05:13→21:10)
[2017-11-30] MEDS: INSULIN ASPART [NOVOLOG] 3 ML PEN SC ×4 (07:30→20:58)
[2017-11-30] MEDS: DOCUSATE SODIUM 100 MG CAP PO ×4 (08:21→20:57)
[2017-11-30] MEDS: METHYLPREDNISOLONE 40 MG INJ IV (08:21)
[2017-11-30] MEDS: METOPROLOL 25 MG TAB GTB ×2 (08:21→20:57)
[2017-11-30] MEDS: FAMOTIDINE 20 MG INJ IV ×2 (08:22→20:56)
[2017-11-30] MEDS: VANCOMYCIN 750 MG in DEXTROSE 5% 150 ML IVPB ×2 (09:12→20:56)
[2017-11-30 09:17] LABS: WHITE BLOOD COUNT 26.2 10^3/ul (4.8-10.8)
[2017-11-30 09:17] LABS: ABNORMAL IP MESSAGE 1; HEMATOCRIT 29.5 % (42.0-52.0); HEMOGLOBIN 9.8 g/dl (14.0-18.0); MEAN CORPUSCULAR HEMOGLOBIN 29.3 pg (29.0-33.0); MEAN CORPUSCULAR HGB CONC 33.2 g/dl (32.0-37.0); MEAN CORPUSCULAR VOLUME 88.3 fl (82.0-101.0); MEAN PLATELET VOLUME 12.9 fl (7.4-10.4); NUCLEATED RED BLOOD CELLS% 5.9 /100WBC (0.0-0.0); PLATELET COUNT 240 10^3/UL (140-415); POSITIVE DIFF @See below; RED BLOOD COUNT 3.34 10^6/ul (4.70-6.10); RED CELL DISTRIBUTION WIDTH 21.2 % (11.5-14.5)
[2017-11-30 09:25] LABS: ADD MAN DIFF? YES
[2017-11-30 09:38] LABS: PHOSPHORUS 3.8 mg/dl (2.5-4.9)
[2017-11-30 09:38] LABS: MAGNESIUM 2.2 mg/dl (1.7-2.5)
[2017-11-30 09:39] LABS: ANION GAP 13 (8-16); BLOOD UREA NITROGEN 15 mg/dl (7-20); CALCIUM 9.5 mg/dl (8.4-10.2); CARBON DIOXIDE 26 mmol/L (21-31); CHLORIDE 109 mmol/L (97-110); GLUCOSE 73 mg/dl (70-220); POTASSIUM 3.9 mmol/L (3.5-5.1); SODIUM 144 mmol/L (135-144)
[2017-11-30 09:54] LABS: ANISOCYTOSIS 1+ (0-0); BAND NEUTROPHILS #M 0.5 10^3/ul (0.0-0.6); BAND NEUTROPHILS % (M) 2 % (0-4); EOSINOPHILS % (M) 2 % (0-7); ERYTHROBLAST% (NRBC) (M) 7 % (0-0); GIANT THROMBO% (M) 8 % (0-0); LYMPHOCYTES #M 2.6 10^3/ul (0.8-2.9); LYMPHOCYTES % (M) 10 % (15-51); METAMYELOCYTES #M 0.2 10^3/ul (0.0-0.0); METAMYELOCYTES %M 1 % (0-0); MICROCYTOSIS 1+ (0-0); MONOCYTE #M 0.5 10^3/ul (0.3-0.9); MONOCYTES % (M) 2 % (0-11); MYELOCYTES #M 0.2 10^3/ul (0.0-0.0); MYELOCYTES % (M) 1 % (0-0); PLATELET ESTIMATE NORMAL; POLYCHROMASIA 2+ (0-0); REACTIVE LYMPHOCYTES #M 1.3 10^3/ul (0.0-0.0); REACTIVE LYMPHOCYTES% (M) 5 % (0-0); SEG NEUT #M 20.3 10^3/ul (1.6-7.5); SEGMENTED NEUTROPHILS (M) % 77 % (39-77)
[2017-11-30] MEDS: FUROSEMIDE 40 MG INJ IV (16:36)
[2017-12-01] MEDS: ALBUTEROL/IPRATROPIUM (NEB) 3 ML AMP HHN ×6 (01:20→20:23)
[2017-12-01] MEDS: PIPER-TAZO 3.375 GM IV (PMX) 100 ML IVPB ×4 (04:59→21:57)
[2017-12-01] MEDS: INSULIN ASPART [NOVOLOG] 3 ML PEN SC ×4 (07:30→21:00)
[2017-12-01] MEDS: METOPROLOL 25 MG TAB GTB ×2 (08:46→21:50)
[2017-12-01] MEDS: METHYLPREDNISOLONE 40 MG INJ IV (08:47)
[2017-12-01] MEDS: DOCUSATE SODIUM 100 MG CAP PO ×2 (08:47→21:50)
[2017-12-01] MEDS: FAMOTIDINE 20 MG INJ IV ×2 (08:47→21:50)
[2017-12-01 09:03] LABS: VANCOMYCIN,TROUGH 10.1 ug/ml (10.0-20.0)
[2017-12-01] MEDS: VANCOMYCIN 750 MG in DEXTROSE 5% 150 ML IVPB (10:26)
[2017-12-01 21:19] LABS: PNEUM JIROVECCI SRC SPUTUM; PNEUMOCYSTIS JIROVECCI DFA NOT DETECTED
[2017-12-01] MEDS: VANCOMYCIN 1 GM 250 ML IVPB (21:54)
[2017-12-02] MEDS: ALBUTEROL/IPRATROPIUM (NEB) 3 ML AMP HHN ×7 (01:16→20:52)
[2017-12-02] MEDS: PIPER-TAZO 3.375 GM IV (PMX) 100 ML IVPB ×4 (05:35→21:32)
[2017-12-02 06:58] LABS: ADD MAN DIFF? NO
[2017-12-02 07:04] LABS: ABNORMAL IP MESSAGE 1; BASOPHILS % 0.1 % (0.0-2.0); EOSINOPHILS # 0.3 10^3/ul (0.0-0.5); EOSINOPHILS % 1.3 % (0.0-7.0); HEMATOCRIT 28.8 % (42.0-52.0); HEMOGLOBIN 9.4 g/dl (14.0-18.0); LYMPHOCYTES # 2.3 10^3/ul (0.8-2.9); LYMPHOCYTES % 9.4 % (15.0-51.0); MEAN CORPUSCULAR HEMOGLOBIN 29.1 pg (29.0-33.0); MEAN CORPUSCULAR HGB CONC 32.6 g/dl (32.0-37.0); MEAN CORPUSCULAR VOLUME 89.2 fl (82.0-101.0); MEAN PLATELET VOLUME 12.8 fl (7.4-10.4); MONOCYTE # 2.1 10^3/ul (0.3-0.9); MONOCYTES % 8.9 % (0.0-11.0); NEUTROPHIL # 19.1 10^3/ul (1.6-7.5); NEUTROPHILS % 79.4 % (39.0-77.0); NUCLEATED RED BLOOD CELLS # 0.3 10^3/ul (0.0-0.0); PLATELET COUNT 255 10^3/UL (140-415); POSITIVE DIFF @See below; RED BLOOD COUNT 3.23 10^6/ul (4.70-6.10); RED CELL DISTRIBUTION WIDTH 21.1 % (11.5-14.5)
[2017-12-02] MEDS: INSULIN ASPART [NOVOLOG] 3 ML PEN SC ×4 (07:30→21:00)
[2017-12-02 07:37] LABS: ANION GAP 9 (8-16); BLOOD UREA NITROGEN 11 mg/dl (7-20); CALCIUM 9.5 mg/dl (8.4-10.2); CARBON DIOXIDE 33 mmol/L (21-31); CHLORIDE 106 mmol/L (97-110); CREATININE 0.75 mg/dl (0.61-1.24); GLUCOSE 120 mg/dl (70-220); POTASSIUM 3.6 mmol/L (3.5-5.1); SODIUM 144 mmol/L (135-144)
[2017-12-02] MEDS: FAMOTIDINE 20 MG INJ IV ×2 (08:35→21:24)
[2017-12-02] MEDS: METOPROLOL 25 MG TAB GTB ×2 (08:35→21:24)
[2017-12-02] MEDS: DOCUSATE SODIUM 100 MG CAP PO ×2 (08:36→21:25)
[2017-12-02] MEDS: VANCOMYCIN 1 GM 250 ML IVPB ×2 (10:23→21:27)
[2017-12-03] MEDS: ALBUTEROL/IPRATROPIUM (NEB) 3 ML AMP HHN ×6 (01:00→21:00)
[2017-12-03] MEDS: PIPER-TAZO 3.375 GM IV (PMX) 100 ML IVPB ×4 (04:33→21:06)
[2017-12-03] MEDS: INSULIN ASPART [NOVOLOG] 3 ML PEN SC ×4 (07:30→21:00)
[2017-12-03 08:45] LABS: ADD MAN DIFF? NO
[2017-12-03] MEDS: FAMOTIDINE 20 MG INJ IV ×2 (08:45→21:05)
[2017-12-03] MEDS: METOPROLOL 25 MG TAB GTB ×2 (08:45→21:05)
[2017-12-03] MEDS: DOCUSATE SODIUM 100 MG CAP PO ×2 (08:45→21:00)
[2017-12-03 08:48] LABS: ABNORMAL IP MESSAGE 1; BASOPHILS % 0.1 % (0.0-2.0); EOSINOPHILS # 0.4 10^3/ul (0.0-0.5); EOSINOPHILS % 1.6 % (0.0-7.0); HEMATOCRIT 27.5 % (42.0-52.0); HEMOGLOBIN 8.8 g/dl (14.0-18.0); LYMPHOCYTES # 2.8 10^3/ul (0.8-2.9); LYMPHOCYTES % 12.4 % (15.0-51.0); MEAN CORPUSCULAR HEMOGLOBIN 28.3 pg (29.0-33.0); MEAN CORPUSCULAR VOLUME 88.4 fl (82.0-101.0); MEAN PLATELET VOLUME 12.6 fl (7.4-10.4); MONOCYTE # 2.2 10^3/ul (0.3-0.9); MONOCYTES % 9.7 % (0.0-11.0); NEUTROPHIL # 16.8 10^3/ul (1.6-7.5); NEUTROPHILS % 75.6 % (39.0-77.0); NUCLEATED RED BLOOD CELLS # 0.1 10^3/ul (0.0-0.0); NUCLEATED RED BLOOD CELLS% 0.4 /100WBC (0.0-0.0); PLATELET COUNT 220 10^3/UL (140-415); POSITIVE DIFF @See below; RED BLOOD COUNT 3.11 10^6/ul (4.70-6.10); RED CELL DISTRIBUTION WIDTH 20.3 % (11.5-14.5)
[2017-12-03 08:48] LABS: WHITE BLOOD COUNT 22.2 10^3/ul (4.8-10.8)
[2017-12-03 09:23] LABS: ALANINE AMINOTRANSFERASE 28 IU/L (13-69); ALBUMIN 2.5 g/dl (3.3-4.9); ALBUMIN/GLOBULIN RATIO 0.86; ALKALINE PHOSPHATASE 103 IU/L (42-121); ANION GAP 11 (8-16); ASPARTATE AMINO TRANSFERASE 31 IU/L (15-46); BILIRUBIN,INDIRECT 0.1 mg/dl (0-1.1); BILIRUBIN,TOTAL 0.1 mg/dl (0.2-1.3); BLOOD UREA NITROGEN 8 mg/dl (7-20); CALCIUM 9.1 mg/dl (8.4-10.2); CARBON DIOXIDE 31 mmol/L (21-31); CHLORIDE 105 mmol/L (97-110); CREATININE 0.68 mg/dl (0.61-1.24); GLUCOSE 102 mg/dl (70-220); POTASSIUM 3.6 mmol/L (3.5-5.1); SODIUM 143 mmol/L (135-144); TOTAL PROTEIN 5.4 g/dl (6.1-8.1)
[2017-12-03] MEDS: VANCOMYCIN 1 GM 250 ML IVPB ×2 (09:42→22:07)
[2017-12-03 21:02] LABS: VANCOMYCIN,TROUGH 11.4 ug/ml (10.0-20.0)
[2017-12-04] MEDS: ALBUTEROL/IPRATROPIUM (NEB) 3 ML AMP HHN ×6 (00:06→20:12)
[2017-12-04] MEDS: PIPER-TAZO 3.375 GM IV (PMX) 100 ML IVPB ×4 (04:34→21:13)
[2017-12-04] MEDS: INSULIN ASPART [NOVOLOG] 3 ML PEN SC ×3 (07:30→21:00)
[2017-12-04] MEDS: DOCUSATE SODIUM 100 MG CAP PO ×2 (09:00→21:00)
[2017-12-04] MEDS: FAMOTIDINE 20 MG INJ IV ×2 (09:12→21:12)
[2017-12-04] MEDS: METOPROLOL 25 MG TAB GTB ×2 (09:14→21:12)
[2017-12-04] MEDS: VANCOMYCIN 1 GM 250 ML IVPB (10:06)
[2017-12-04 10:33] LABS: ADD MAN DIFF? NO
[2017-12-04 10:36] LABS: WHITE BLOOD COUNT 28.8 10^3/ul (4.8-10.8)
[2017-12-04 10:36] LABS: ABNORMAL IP MESSAGE 1; BASOPHILS % 0.1 % (0.0-2.0); EOSINOPHILS # 0.1 10^3/ul (0.0-0.5); EOSINOPHILS % 0.4 % (0.0-7.0); HEMATOCRIT 28.8 % (42.0-52.0); HEMOGLOBIN 9.2 g/dl (14.0-18.0); LYMPHOCYTES # 4.2 10^3/ul (0.8-2.9); LYMPHOCYTES % 14.5 % (15.0-51.0); MEAN CORPUSCULAR HEMOGLOBIN 28.4 pg (29.0-33.0); MEAN CORPUSCULAR HGB CONC 31.9 g/dl (32.0-37.0); MEAN CORPUSCULAR VOLUME 88.9 fl (82.0-101.0); MEAN PLATELET VOLUME 12.3 fl (7.4-10.4); MONOCYTE # 2.7 10^3/ul (0.3-0.9); MONOCYTES % 9.5 % (0.0-11.0); NEUTROPHIL # 21.5 10^3/ul (1.6-7.5); NEUTROPHILS % 74.6 % (39.0-77.0); NUCLEATED RED BLOOD CELLS # 0.1 10^3/ul (0.0-0.0); NUCLEATED RED BLOOD CELLS% 0.2 /100WBC (0.0-0.0); PLATELET COUNT 245 10^3/UL (140-415); POSITIVE DIFF @See below; RED BLOOD COUNT 3.24 10^6/ul (4.70-6.10); RED CELL DISTRIBUTION WIDTH 20.4 % (11.5-14.5)
[2017-12-04 11:04] LABS: PHOSPHORUS 2.7 mg/dl (2.5-4.9)
[2017-12-04 11:04] LABS: MAGNESIUM 2.1 mg/dl (1.7-2.5)
[2017-12-04 11:16] LABS: ANION GAP 17 (8-16); BLOOD UREA NITROGEN 6 mg/dl (7-20); CALCIUM 9.5 mg/dl (8.4-10.2); CARBON DIOXIDE 24 mmol/L (21-31); CHLORIDE 106 mmol/L (97-110); CREATININE 0.65 mg/dl (0.61-1.24); GLUCOSE 139 mg/dl (70-220); POTASSIUM 3.5 mmol/L (3.5-5.1); SODIUM 143 mmol/L (135-144)
[2017-12-04] MEDS: METHYLPREDNISOLONE 40 MG INJ IV ×2 (13:25→21:12)
[2017-12-04 15:34] LABS: AADO2 Arterial 601.8 mmHg (7.0-24.0); Arterial Base Excess 0.4 mmol/L (-3.0-3); Arterial Blood Gas Oxygen Sat 93.8 mmHG (95.0-98.0); Arterial COHb 0.6 % (0.0-3.0); Arterial Fraction of Oxyhgb 92.9 % (93.0-99.0); Arterial HCO3 24.9 mmol/L (22.0-26.0); Arterial MetHb 0.4 % (0.0-1.5); Arterial Total Hemglobin 10.7 g/dl (12.0-18.0); Arterial pCO2 39.4 mmhg (35-45); MODE MASK - NRB; Site Right Brachial
[2017-12-04] MEDS: FUROSEMIDE 40 MG INJ IV (18:34)
[2017-12-04] MEDS: VANCOMYCIN 1.25 GM in SOD CHLORIDE 0.9% 250 ML IVPB (22:18)
[2017-12-05] MEDS: ALBUTEROL/IPRATROPIUM (NEB) 3 ML AMP HHN ×6 (00:28→20:31)
[2017-12-05] MEDS: PIPER-TAZO 3.375 GM IV (PMX) 100 ML IVPB ×4 (04:18→21:31)
[2017-12-05] MEDS: FUROSEMIDE 40 MG INJ IV ×2 (05:23→17:48)
[2017-12-05] MEDS: METHYLPREDNISOLONE 40 MG INJ IV ×3 (05:23→21:34)
[2017-12-05 05:52] LABS: ADD MAN DIFF? NO
[2017-12-05 05:58] LABS: WHITE BLOOD COUNT 18.9 10^3/ul (4.8-10.8)
[2017-12-05 05:59] LABS: BASOPHILS % 0.1 % (0.0-2.0); HEMATOCRIT 29.8 % (42.0-52.0); HEMOGLOBIN 9.6 g/dl (14.0-18.0); LYMPHOCYTES # 1.7 10^3/ul (0.8-2.9); MEAN CORPUSCULAR HEMOGLOBIN 28.5 pg (29.0-33.0); MEAN CORPUSCULAR HGB CONC 32.2 g/dl (32.0-37.0); MEAN CORPUSCULAR VOLUME 88.4 fl (82.0-101.0); MEAN PLATELET VOLUME 12.7 fl (7.4-10.4); MONOCYTE # 0.8 10^3/ul (0.3-0.9); MONOCYTES % 4.1 % (0.0-11.0); NEUTROPHIL # 16.3 10^3/ul (1.6-7.5); NEUTROPHILS % 86.2 % (39.0-77.0); NUCLEATED RED BLOOD CELLS% 0.2 /100WBC (0.0-0.0); PLATELET COUNT 252 10^3/UL (140-415); RED BLOOD COUNT 3.37 10^6/ul (4.70-6.10); RED CELL DISTRIBUTION WIDTH 19.9 % (11.5-14.5)
[2017-12-05 06:35] LABS: ANION GAP 16 (8-16); BLOOD UREA NITROGEN 13 mg/dl (7-20); CALCIUM 9.4 mg/dl (8.4-10.2); CARBON DIOXIDE 30 mmol/L (21-31); CHLORIDE 107 mmol/L (97-110); CREATININE 0.84 mg/dl (0.61-1.24); GLUCOSE 126 mg/dl (70-220); SODIUM 149 mmol/L (135-144)
[2017-12-05 07:09] LABS: MAGNESIUM 2.3 mg/dl (1.7-2.5)
[2017-12-05 07:09] LABS: PHOSPHORUS 4.2 mg/dl (2.5-4.9)
[2017-12-05] MEDS: INSULIN ASPART [NOVOLOG] 3 ML PEN SC ×4 (08:20→21:23)
[2017-12-05] MEDS: DOCUSATE SODIUM 100 MG CAP PO ×2 (09:00→21:00)
[2017-12-05] MEDS: FAMOTIDINE 20 MG INJ IV ×2 (09:06→21:13)
[2017-12-05] MEDS: METOPROLOL 25 MG TAB GTB ×2 (09:07→21:13)
[2017-12-05] MEDS: VANCOMYCIN 1.25 GM in SOD CHLORIDE 0.9% 250 ML IVPB ×2 (10:43→22:13)
[2017-12-06] MEDS: ALBUTEROL/IPRATROPIUM (NEB) 3 ML AMP HHN ×5 (01:20→20:02)
[2017-12-06] MEDS: PIPER-TAZO 3.375 GM IV (PMX) 100 ML IVPB ×2 (04:11→10:42)
[2017-12-06 05:30] LABS: ADD MAN DIFF? NO
[2017-12-06 05:31] LABS: BASOPHILS % 0.1 % (0.0-2.0); HEMATOCRIT 27.5 % (42.0-52.0); HEMOGLOBIN 8.9 g/dl (14.0-18.0); LYMPHOCYTES # 1.2 10^3/ul (0.8-2.9); LYMPHOCYTES % 6.8 % (15.0-51.0); MEAN CORPUSCULAR HEMOGLOBIN 28.8 pg (29.0-33.0); MEAN CORPUSCULAR HGB CONC 32.4 g/dl (32.0-37.0); MEAN PLATELET VOLUME 12.4 fl (7.4-10.4); MONOCYTE # 0.9 10^3/ul (0.3-0.9); MONOCYTES % 5.1 % (0.0-11.0); NEUTROPHIL # 15.3 10^3/ul (1.6-7.5); NEUTROPHILS % 87.4 % (39.0-77.0); NUCLEATED RED BLOOD CELLS # 0.1 10^3/ul (0.0-0.0); NUCLEATED RED BLOOD CELLS% 0.4 /100WBC (0.0-0.0); PLATELET COUNT 236 10^3/UL (140-415); RED BLOOD COUNT 3.09 10^6/ul (4.70-6.10); RED CELL DISTRIBUTION WIDTH 19.9 % (11.5-14.5)
[2017-12-06 05:31] LABS: WHITE BLOOD COUNT 17.5 10^3/ul (4.8-10.8)
[2017-12-06 05:37] LABS: ANION GAP 13 (8-16); BLOOD UREA NITROGEN 22 mg/dl (7-20); CALCIUM 8.4 mg/dl (8.4-10.2); CARBON DIOXIDE 28 mmol/L (21-31); CHLORIDE 110 mmol/L (97-110); GLUCOSE 138 mg/dl (70-220); POTASSIUM 3.4 mmol/L (3.5-5.1); SODIUM 148 mmol/L (135-144)
[2017-12-06 05:43] LABS: PHOSPHORUS 3.4 mg/dl (2.5-4.9)
[2017-12-06 05:50] LABS: INR 1.21; PROTIME 15.5 Sec (11.9-14.9); PT RATIO 1.2
[2017-12-06 05:51] LABS: PARTIAL THROMBOPLASTIN TIME 34.4 Sec (25.0-35.0)
[2017-12-06] MEDS: FUROSEMIDE 40 MG INJ IV ×2 (06:00→18:11)
[2017-12-06] MEDS: METHYLPREDNISOLONE 40 MG INJ IV ×3 (06:00→22:05)
[2017-12-06] MEDS: INSULIN ASPART [NOVOLOG] 3 ML PEN SC ×4 (08:14→21:30)
[2017-12-06] MEDS: FAMOTIDINE 20 MG INJ IV ×2 (08:48→22:05)
[2017-12-06] MEDS: METOPROLOL 25 MG TAB GTB ×2 (08:49→21:08)
[2017-12-06] MEDS: DOCUSATE SODIUM 100 MG CAP PO ×2 (08:49→21:00)
[2017-12-06] MEDS ORDERED: POTASSIUM CHLORIDE (SR) 20 MEQ TAB PO (09:20)
[2017-12-06] MEDS: POTASSIUM CHLORIDE (SR) 20 MEQ TAB PO (09:53)
[2017-12-06 10:45] LABS: VANCOMYCIN,TROUGH 20.4 ug/ml (10.0-20.0)
[2017-12-06] MEDS ORDERED: VANCOMYCIN 1 GM 250 ML IVPB (16:00)
[2017-12-06] MEDS: CEFEPIME 1GM/50 ML (PMX) 50 ML IVPB (21:07)
[2017-12-07] MEDS: ALBUTEROL/IPRATROPIUM (NEB) 3 ML AMP HHN ×6 (00:02→21:44)
[2017-12-07 00:37] LABS: MAGNESIUM 2.2 mg/dl (1.7-2.5)
[2017-12-07 00:37] LABS: POTASSIUM 3.5 mmol/L (3.5-5.1)
[2017-12-07 05:24] LABS: ADD MAN DIFF? NO
[2017-12-07 05:26] LABS: WHITE BLOOD COUNT 22.3 10^3/ul (4.8-10.8)
[2017-12-07 05:26] LABS: BASOPHILS % 0.1 % (0.0-2.0); HEMATOCRIT 28.7 % (42.0-52.0); HEMOGLOBIN 9.1 g/dl (14.0-18.0); LYMPHOCYTES # 1.3 10^3/ul (0.8-2.9); LYMPHOCYTES % 5.7 % (15.0-51.0); MEAN CORPUSCULAR HEMOGLOBIN 28.2 pg (29.0-33.0); MEAN CORPUSCULAR HGB CONC 31.7 g/dl (32.0-37.0); MEAN CORPUSCULAR VOLUME 88.9 fl (82.0-101.0); MEAN PLATELET VOLUME 12.7 fl (7.4-10.4); MONOCYTE # 0.9 10^3/ul (0.3-0.9); NEUTROPHIL # 19.9 10^3/ul (1.6-7.5); NEUTROPHILS % 89.3 % (39.0-77.0); NUCLEATED RED BLOOD CELLS # 0.1 10^3/ul (0.0-0.0); NUCLEATED RED BLOOD CELLS% 0.4 /100WBC (0.0-0.0); PLATELET COUNT 245 10^3/UL (140-415); RED BLOOD COUNT 3.23 10^6/ul (4.70-6.10); RED CELL DISTRIBUTION WIDTH 19.8 % (11.5-14.5)
[2017-12-07 05:49] LABS: MAGNESIUM 2.1 mg/dl (1.7-2.5)
[2017-12-07 05:49] LABS: PHOSPHORUS 3.4 mg/dl (2.5-4.9)
[2017-12-07 05:53] LABS: ANION GAP 14 (8-16); BLOOD UREA NITROGEN 24 mg/dl (7-20); CALCIUM 9.7 mg/dl (8.4-10.2); CARBON DIOXIDE 33 mmol/L (21-31); CHLORIDE 105 mmol/L (97-110); CREATININE 0.86 mg/dl (0.61-1.24); GLUCOSE 143 mg/dl (70-220); POTASSIUM 3.8 mmol/L (3.5-5.1); SODIUM 148 mmol/L (135-144)
[2017-12-07] MEDS: METHYLPREDNISOLONE 40 MG INJ IV ×3 (05:57→22:28)
[2017-12-07] MEDS: FUROSEMIDE 40 MG INJ IV ×2 (05:57→17:27)
[2017-12-07] MEDS: INSULIN ASPART [NOVOLOG] 3 ML PEN SC ×4 (07:05→21:27)
[2017-12-07] MEDS: FAMOTIDINE 20 MG INJ IV ×2 (08:21→21:22)
[2017-12-07] MEDS: CEFEPIME 1GM/50 ML (PMX) 50 ML IVPB ×2 (08:22→21:22)
[2017-12-07] MEDS: METOPROLOL 25 MG TAB GTB (08:22)
[2017-12-07] MEDS: DOCUSATE SODIUM 100 MG CAP PO ×2 (08:22→21:00)
[2017-12-07] MEDS: MAGNESIUM SULFATE 1 GM/D5W 100 ML IVPB (11:29)
[2017-12-07] MEDS: POTASSIUM CHLORIDE 100 ML IVPB ×2 (12:59→15:36)
[2017-12-07] MEDS: BRIMONIDINE 0.1% 5 ML OPH BOTH EYES ×2 (14:26→21:23)
[2017-12-07] MEDS ORDERED: LATANOPROST 0.005% 2.5 ML OPH BOTH EYES ×3 (21:00)
[2017-12-07] MEDS ORDERED: DORZOLAMIDE/TIMOLOL/PF 0.2 ML DROPERETTE BOTH EYES ×2 (21:00)
[2017-12-07] MEDS ORDERED: DORZOLAMIDE/TIMOLOL 10 ML OPH BOTH EYES (21:00)
[2017-12-07] MEDS: METOPROLOL 50 MG TAB GTB (21:22)
[2017-12-07] MEDS: LATANOPROST 0.005% 2.5 ML OPH BOTH EYES (22:28)
[2017-12-07] MEDS: DORZOLAMIDE/TIMOLOL/PF 0.2 ML DROPERETTE BOTH EYES (22:28)
[2017-12-08] MEDS: ALBUTEROL/IPRATROPIUM (NEB) 3 ML AMP HHN ×6 (01:00→20:20)
[2017-12-08] MEDS: METHYLPREDNISOLONE 40 MG INJ IV ×3 (06:08→22:00)
[2017-12-08] MEDS: FUROSEMIDE 40 MG INJ IV ×2 (06:08→17:43)
[2017-12-08] MEDS: BRIMONIDINE 0.1% 5 ML OPH BOTH EYES ×3 (06:09→22:00)
[2017-12-08 07:02] LABS: ADD MAN DIFF? NO
[2017-12-08] MEDS: INSULIN ASPART [NOVOLOG] 3 ML PEN SC ×4 (07:05→20:50)
[2017-12-08 07:30] LABS: ABNORMAL IP MESSAGE 1; BASOPHILS % 0.1 % (0.0-2.0); HEMATOCRIT 29.8 % (42.0-52.0); HEMOGLOBIN 9.6 g/dl (14.0-18.0); LYMPHOCYTES # 1.4 10^3/ul (0.8-2.9); LYMPHOCYTES % 5.4 % (15.0-51.0); MEAN CORPUSCULAR HEMOGLOBIN 28.7 pg (29.0-33.0); MEAN CORPUSCULAR HGB CONC 32.2 g/dl (32.0-37.0); MEAN CORPUSCULAR VOLUME 89.2 fl (82.0-101.0); MEAN PLATELET VOLUME 12.9 fl (7.4-10.4); MONOCYTE # 1.3 10^3/ul (0.3-0.9); MONOCYTES % 4.9 % (0.0-11.0); NEUTROPHILS % 88.7 % (39.0-77.0); NUCLEATED RED BLOOD CELLS # 0.1 10^3/ul (0.0-0.0); NUCLEATED RED BLOOD CELLS% 0.2 /100WBC (0.0-0.0); PLATELET COUNT 228 10^3/UL (140-415); POSITIVE DIFF @See below; RED BLOOD COUNT 3.34 10^6/ul (4.70-6.10); RED CELL DISTRIBUTION WIDTH 19.8 % (11.5-14.5)
[2017-12-08 07:30] LABS: WHITE BLOOD COUNT 25.9 10^3/ul (4.8-10.8)
[2017-12-08] MEDS: DORZOLAMIDE/TIMOLOL/PF 0.2 ML DROPERETTE BOTH EYES ×2 (07:57→20:50)
[2017-12-08] MEDS: DOCUSATE SODIUM 100 MG CAP PO ×2 (07:58→20:46)
[2017-12-08] MEDS: METOPROLOL 50 MG TAB GTB ×2 (08:01→20:43)
[2017-12-08] MEDS: FAMOTIDINE 20 MG INJ IV ×2 (08:01→21:04)
[2017-12-08] MEDS: CEFEPIME 1GM/50 ML (PMX) 50 ML IVPB ×2 (08:02→20:44)
[2017-12-08 08:47] LABS: ANION GAP 12 (8-16); BLOOD UREA NITROGEN 24 mg/dl (7-20); CALCIUM 9.9 mg/dl (8.4-10.2); CARBON DIOXIDE 34 mmol/L (21-31); CHLORIDE 104 mmol/L (97-110); CREATININE 0.95 mg/dl (0.61-1.24); GLUCOSE 133 mg/dl (70-220); MAGNESIUM 2.5 mg/dl (1.7-2.5); PHOSPHORUS 3.5 mg/dl (2.5-4.9); POTASSIUM 4.2 mmol/L (3.5-5.1); SODIUM 146 mmol/L (135-144)
[2017-12-08] MEDS: LATANOPROST 0.005% 2.5 ML OPH BOTH EYES (20:44)
[2017-12-09] MEDS: ALBUTEROL/IPRATROPIUM (NEB) 3 ML AMP HHN ×6 (00:33→20:05)
[2017-12-09 05:09] LABS: ADD MAN DIFF? NO
[2017-12-09 05:12] LABS: ABNORMAL IP MESSAGE 1; BASOPHILS % 0.1 % (0.0-2.0); HEMATOCRIT 29.9 % (42.0-52.0); HEMOGLOBIN 9.7 g/dl (14.0-18.0); LYMPHOCYTES # 1.6 10^3/ul (0.8-2.9); MEAN CORPUSCULAR HEMOGLOBIN 28.7 pg (29.0-33.0); MEAN CORPUSCULAR HGB CONC 32.4 g/dl (32.0-37.0); MEAN CORPUSCULAR VOLUME 88.5 fl (82.0-101.0); MEAN PLATELET VOLUME 12.5 fl (7.4-10.4); MONOCYTES % 4.3 % (0.0-11.0); NEUTROPHIL # 20.2 10^3/ul (1.6-7.5); NEUTROPHILS % 87.8 % (39.0-77.0); NUCLEATED RED BLOOD CELLS% 0.1 /100WBC (0.0-0.0); PLATELET COUNT 220 10^3/UL (140-415); POSITIVE DIFF @See below; RED BLOOD COUNT 3.38 10^6/ul (4.70-6.10); RED CELL DISTRIBUTION WIDTH 19.2 % (11.5-14.5)
[2017-12-09 05:35] LABS: ANION GAP 13 (8-16); BLOOD UREA NITROGEN 28 mg/dl (7-20); CALCIUM 9.9 mg/dl (8.4-10.2); CARBON DIOXIDE 34 mmol/L (21-31); CHLORIDE 101 mmol/L (97-110); CREATININE 0.78 mg/dl (0.61-1.24); GLUCOSE 123 mg/dl (70-220); POTASSIUM 4.2 mmol/L (3.5-5.1); SODIUM 144 mmol/L (135-144)
[2017-12-09] MEDS: METHYLPREDNISOLONE 40 MG INJ IV ×3 (05:40→21:52)
[2017-12-09] MEDS: FUROSEMIDE 40 MG INJ IV ×2 (05:40→17:03)
[2017-12-09] MEDS: BRIMONIDINE 0.1% 5 ML OPH BOTH EYES ×3 (05:44→20:54)
[2017-12-09] MEDS: INSULIN ASPART [NOVOLOG] 3 ML PEN SC ×4 (07:05→20:53)
[2017-12-09] MEDS: DORZOLAMIDE/TIMOLOL/PF 0.2 ML DROPERETTE BOTH EYES ×2 (08:00→20:45)
[2017-12-09] MEDS: METOPROLOL 50 MG TAB GTB ×2 (08:01→20:49)
[2017-12-09] MEDS: FAMOTIDINE 20 MG INJ IV ×2 (08:01→20:44)
[2017-12-09] MEDS: CEFEPIME 1GM/50 ML (PMX) 50 ML IVPB ×2 (08:04→20:44)
[2017-12-09] MEDS: DOCUSATE SODIUM 100 MG CAP PO ×2 (08:06→20:53)
[2017-12-09] MEDS: LATANOPROST 0.005% 2.5 ML OPH BOTH EYES ×2 (20:52→21:52)
[2017-12-10] MEDS: ALBUTEROL/IPRATROPIUM (NEB) 3 ML AMP HHN ×6 (00:40→20:59)
[2017-12-10] MEDS: METHYLPREDNISOLONE 40 MG INJ IV ×3 (05:57→21:07)
[2017-12-10] MEDS: FUROSEMIDE 40 MG INJ IV ×2 (05:57→18:14)
[2017-12-10] MEDS: BRIMONIDINE 0.1% 5 ML OPH BOTH EYES ×3 (05:58→21:07)
[2017-12-10 06:37] LABS: WHITE BLOOD COUNT 26.9 10^3/ul (4.8-10.8)
[2017-12-10 06:37] LABS: ABNORMAL IP MESSAGE 1; HEMATOCRIT 33.4 % (42.0-52.0); HEMOGLOBIN 10.7 g/dl (14.0-18.0); MEAN CORPUSCULAR HEMOGLOBIN 28.5 pg (29.0-33.0); MEAN CORPUSCULAR VOLUME 88.8 fl (82.0-101.0); MEAN PLATELET VOLUME 12.8 fl (7.4-10.4); NUCLEATED RED BLOOD CELLS% 0.1 /100WBC (0.0-0.0); PLATELET COUNT 237 10^3/UL (140-415); POSITIVE DIFF @See below; RED BLOOD COUNT 3.76 10^6/ul (4.70-6.10); RED CELL DISTRIBUTION WIDTH 19.9 % (11.5-14.5)
[2017-12-10 06:51] LABS: ADD MAN DIFF? YES
[2017-12-10 07:09] LABS: ANION GAP 13 (8-16); BLOOD UREA NITROGEN 31 mg/dl (7-20); CALCIUM 10.2 mg/dl (8.4-10.2); CARBON DIOXIDE 34 mmol/L (21-31); CHLORIDE 101 mmol/L (97-110); CREATININE 0.65 mg/dl (0.61-1.24); GLUCOSE 118 mg/dl (70-220); POTASSIUM 4.4 mmol/L (3.5-5.1); SODIUM 144 mmol/L (135-144)
[2017-12-10] MEDS: INSULIN ASPART [NOVOLOG] 3 ML PEN SC ×4 (08:26→21:00)
[2017-12-10] MEDS: DORZOLAMIDE/TIMOLOL/PF 0.2 ML DROPERETTE BOTH EYES ×2 (08:59→21:00)
[2017-12-10] MEDS: FAMOTIDINE 20 MG INJ IV ×2 (08:59→21:07)
[2017-12-10] MEDS: METOPROLOL 50 MG TAB GTB ×2 (09:00→21:08)
[2017-12-10] MEDS: CEFEPIME 1GM/50 ML (PMX) 50 ML IVPB ×2 (09:00→21:07)
[2017-12-10] MEDS: DOCUSATE SODIUM 100 MG CAP PO ×2 (09:00→21:00)
[2017-12-10 09:16] LABS: ANISOCYTOSIS 1+ (0-0); BAND NEUTROPHILS #M 0.5 10^3/ul (0.0-0.6); BAND NEUTROPHILS % (M) 2 % (0-4); GIANT THROMBO% (M) 1 % (0-0); HYPOCHROMASIA 2+ (0-0); LYMPHOCYTES #M 1.3 10^3/ul (0.8-2.9); LYMPHOCYTES % (M) 5 % (15-51); MICROCYTOSIS 1+ (0-0); MONOCYTE #M 0.2 10^3/ul (0.3-0.9); MONOCYTES % (M) 1 % (0-11); PLATELET ESTIMATE NORMAL; POLYCHROMASIA 3+ (0-0); SEG NEUT #M 24.9 10^3/ul (1.6-7.5); SEGMENTED NEUTROPHILS (M) % 92 % (39-77); SMUDGE%M 2 % (0-0)
[2017-12-10] MEDS: LATANOPROST 0.005% 2.5 ML OPH BOTH EYES (21:06)
[2017-12-11] MEDS: METHYLPREDNISOLONE 40 MG INJ IV ×3 (05:07→20:26)
[2017-12-11] MEDS: FUROSEMIDE 40 MG INJ IV (05:08)
[2017-12-11] MEDS: BRIMONIDINE 0.1% 5 ML OPH BOTH EYES ×3 (05:09→20:26)
[2017-12-11] MEDS: ALBUTEROL/IPRATROPIUM (NEB) 3 ML AMP HHN ×6 (05:40→21:29)
[2017-12-11 07:03] LABS: ADD MAN DIFF? NO
[2017-12-11 07:15] LABS: ABNORMAL IP MESSAGE 1; BASOPHILS % 0.1 % (0.0-2.0); HEMATOCRIT 35.1 % (42.0-52.0); HEMOGLOBIN 11.1 g/dl (14.0-18.0); LYMPHOCYTES # 1.8 10^3/ul (0.8-2.9); LYMPHOCYTES % 6.7 % (15.0-51.0); MEAN CORPUSCULAR HGB CONC 31.6 g/dl (32.0-37.0); MEAN CORPUSCULAR VOLUME 88.6 fl (82.0-101.0); MEAN PLATELET VOLUME 12.5 fl (7.4-10.4); MONOCYTES % 3.8 % (0.0-11.0); NEUTROPHIL # 23.5 10^3/ul (1.6-7.5); NEUTROPHILS % 88.6 % (39.0-77.0); NUCLEATED RED BLOOD CELLS% 0.1 /100WBC (0.0-0.0); PLATELET COUNT 219 10^3/UL (140-415); POSITIVE DIFF @See below; RED BLOOD COUNT 3.96 10^6/ul (4.70-6.10); RED CELL DISTRIBUTION WIDTH 19.9 % (11.5-14.5)
[2017-12-11 07:15] LABS: WHITE BLOOD COUNT 26.5 10^3/ul (4.8-10.8)
[2017-12-11] MEDS: INSULIN ASPART [NOVOLOG] 3 ML PEN SC ×4 (07:25→20:23)
[2017-12-11 07:44] LABS: MAGNESIUM 2.4 mg/dl (1.7-2.5)
[2017-12-11 07:44] LABS: PHOSPHORUS 4.3 mg/dl (2.5-4.9)
[2017-12-11] MEDS: DOCUSATE SODIUM 100 MG CAP PO ×2 (08:34→20:26)
[2017-12-11] MEDS: FAMOTIDINE 20 MG INJ IV ×2 (08:34→20:24)
[2017-12-11] MEDS: CEFEPIME 1GM/50 ML (PMX) 50 ML IVPB ×2 (08:34→20:24)
[2017-12-11] MEDS: DORZOLAMIDE/TIMOLOL/PF 0.2 ML DROPERETTE BOTH EYES ×2 (08:35→20:26)
[2017-12-11] MEDS: METOPROLOL 50 MG TAB GTB ×2 (08:35→20:25)
[2017-12-11 14:21] LABS: ANION GAP 14 (8-16); BLOOD UREA NITROGEN 33 mg/dl (7-20); CALCIUM 10.7 mg/dl (8.4-10.2); CARBON DIOXIDE 33 mmol/L (21-31); CHLORIDE 101 mmol/L (97-110); CREATININE 0.71 mg/dl (0.61-1.24); GLUCOSE 135 mg/dl (70-220); POTASSIUM 4.2 mmol/L (3.5-5.1); SODIUM 144 mmol/L (135-144)
[2017-12-11] MEDS: AL HYDROX/MG HYDROX/SIMETH 30 ML CUP PO (16:57)
[2017-12-11] MEDS: LATANOPROST 0.005% 2.5 ML OPH BOTH EYES (20:25)
[2017-12-12] MEDS: ALBUTEROL/IPRATROPIUM (NEB) 3 ML AMP HHN ×6 (00:55→22:54)
[2017-12-12] MEDS: METHYLPREDNISOLONE 40 MG INJ IV ×2 (05:13→21:20)
[2017-12-12] MEDS: BRIMONIDINE 0.1% 5 ML OPH BOTH EYES ×3 (05:16→21:20)
[2017-12-12] MEDS: INSULIN ASPART [NOVOLOG] 3 ML PEN SC ×4 (07:25→20:34)
[2017-12-12] MEDS: DOCUSATE SODIUM 100 MG CAP PO ×2 (08:17→21:00)
[2017-12-12] MEDS: CEFEPIME 1GM/50 ML (PMX) 50 ML IVPB ×2 (08:17→21:20)
[2017-12-12] MEDS: METOPROLOL 50 MG TAB GTB ×2 (08:18→21:19)
[2017-12-12] MEDS: DORZOLAMIDE/TIMOLOL/PF 0.2 ML DROPERETTE BOTH EYES ×2 (08:18→21:20)
[2017-12-12] MEDS: FAMOTIDINE 20 MG INJ IV ×2 (08:18→21:20)
[2017-12-12] MEDS: FUROSEMIDE 40 MG INJ IV (08:18)
[2017-12-12 09:51] LABS: ANION GAP 13 (8-16)
[2017-12-12 09:54] LABS: BLOOD UREA NITROGEN 31 mg/dl (7-20); CALCIUM 10.5 mg/dl (8.4-10.2); CARBON DIOXIDE 34 mmol/L (21-31); CHLORIDE 99 mmol/L (97-110); CREATININE 0.69 mg/dl (0.61-1.24); GLUCOSE 134 mg/dl (70-220); SODIUM 142 mmol/L (135-144)
[2017-12-12 10:05] LABS: MAGNESIUM 2.5 mg/dl (1.7-2.5)
[2017-12-12 10:05] LABS: PHOSPHORUS 3.1 mg/dl (2.5-4.9)
[2017-12-12] MEDS: ENOXAPARIN 40 MG/0.4 ML SYG SC (13:19)
[2017-12-12] MEDS: AL HYDROX/MG HYDROX/SIMETH 30 ML CUP PO (16:25)
[2017-12-12] MEDS: LATANOPROST 0.005% 2.5 ML OPH BOTH EYES (21:20)
[2017-12-13] MEDS: ALBUTEROL/IPRATROPIUM (NEB) 3 ML AMP HHN ×6 (01:00→21:02)
[2017-12-13] MEDS: BRIMONIDINE 0.1% 5 ML OPH BOTH EYES ×3 (05:15→21:28)
[2017-12-13 07:02] LABS: ADD MAN DIFF? NO
[2017-12-13 07:11] LABS: ABNORMAL IP MESSAGE 1; BASOPHILS % 0.1 % (0.0-2.0); HEMATOCRIT 32.9 % (42.0-52.0); HEMOGLOBIN 10.6 g/dl (14.0-18.0); LYMPHOCYTES # 1.8 10^3/ul (0.8-2.9); LYMPHOCYTES % 6.5 % (15.0-51.0); MEAN CORPUSCULAR HEMOGLOBIN 28.5 pg (29.0-33.0); MEAN CORPUSCULAR HGB CONC 32.2 g/dl (32.0-37.0); MEAN CORPUSCULAR VOLUME 88.4 fl (82.0-101.0); MONOCYTE # 1.6 10^3/ul (0.3-0.9); NEUTROPHIL # 23.5 10^3/ul (1.6-7.5); NEUTROPHILS % 86.3 % (39.0-77.0); PLATELET COUNT 235 10^3/UL (140-415); POSITIVE DIFF @See below; RED BLOOD COUNT 3.72 10^6/ul (4.70-6.10); RED CELL DISTRIBUTION WIDTH 19.9 % (11.5-14.5)
[2017-12-13 07:11] LABS: WHITE BLOOD COUNT 27.2 10^3/ul (4.8-10.8)
[2017-12-13] MEDS: INSULIN ASPART [NOVOLOG] 3 ML PEN SC ×4 (07:25→21:00)
[2017-12-13] MEDS: DOCUSATE SODIUM 100 MG CAP PO ×2 (09:00→21:00)
[2017-12-13] MEDS: CEFEPIME 1GM/50 ML (PMX) 50 ML IVPB (09:32)
[2017-12-13] MEDS: DORZOLAMIDE/TIMOLOL/PF 0.2 ML DROPERETTE BOTH EYES ×2 (09:33→21:00)
[2017-12-13] MEDS: FAMOTIDINE 20 MG INJ IV ×2 (09:33→21:47)
[2017-12-13] MEDS: FUROSEMIDE 40 MG INJ IV (09:33)
[2017-12-13] MEDS: METHYLPREDNISOLONE 40 MG INJ IV (09:33)
[2017-12-13] MEDS: METOPROLOL 50 MG TAB GTB ×2 (09:34→21:29)
[2017-12-13] MEDS: ENOXAPARIN 40 MG/0.4 ML SYG SC (10:03)
[2017-12-13 19:11] LABS: PTH CALCIUM 10.3 mg/dL (8.6-10.3)
[2017-12-13] MEDS: DOXYCYCLINE 100 MG TAB PO (21:28)
[2017-12-13] MEDS: LATANOPROST 0.005% 2.5 ML OPH BOTH EYES (21:28)
[2017-12-14] MEDS: ACETAMINOPHEN 650MG/20.3ML CUP PO (00:56)
[2017-12-14] MEDS: ALBUTEROL/IPRATROPIUM (NEB) 3 ML AMP HHN ×6 (01:00→21:16)
[2017-12-14] MEDS: BRIMONIDINE 0.1% 5 ML OPH BOTH EYES ×3 (06:40→21:54)
[2017-12-14] MEDS: INSULIN ASPART [NOVOLOG] 3 ML PEN SC ×4 (07:25→21:00)
[2017-12-14 08:11] LABS: PTH INTACT 9 pg/mL (14-64)
[2017-12-14] MEDS: DORZOLAMIDE/TIMOLOL/PF 0.2 ML DROPERETTE BOTH EYES ×2 (08:58→21:53)
[2017-12-14] MEDS: METOPROLOL 50 MG TAB GTB ×2 (08:58→21:53)
[2017-12-14] MEDS: FAMOTIDINE 20 MG INJ IV ×2 (08:59→21:52)
[2017-12-14] MEDS: FUROSEMIDE 40 MG INJ IV (08:59)
[2017-12-14] MEDS: DOCUSATE SODIUM 100 MG CAP PO ×2 (09:00→21:52)
[2017-12-14] MEDS: DOXYCYCLINE 100 MG TAB PO (09:00)
[2017-12-14] MEDS: METHYLPREDNISOLONE 40 MG INJ IV (09:08)
[2017-12-14] MEDS: ENOXAPARIN 40 MG/0.4 ML SYG SC (09:24)
[2017-12-14] MEDS: LATANOPROST 0.005% 2.5 ML OPH BOTH EYES (21:54)
[2017-12-15] MEDS: ALBUTEROL/IPRATROPIUM (NEB) 3 ML AMP HHN ×6 (01:00→20:15)
[2017-12-15] MEDS: BRIMONIDINE 0.1% 5 ML OPH BOTH EYES ×3 (06:10→20:22)
[2017-12-15] MEDS: INSULIN ASPART [NOVOLOG] 3 ML PEN SC ×4 (08:00→20:21)
[2017-12-15] MEDS: DOCUSATE SODIUM 100 MG CAP PO ×2 (09:00→20:23)
[2017-12-15] MEDS: METHYLPREDNISOLONE 40 MG INJ IV (09:16)
[2017-12-15] MEDS: FUROSEMIDE 40 MG INJ IV (09:16)
[2017-12-15] MEDS: DOXYCYCLINE 100 MG TAB PO (09:17)
[2017-12-15] MEDS: DORZOLAMIDE/TIMOLOL/PF 0.2 ML DROPERETTE BOTH EYES ×2 (09:17→20:34)
[2017-12-15] MEDS: METOPROLOL 50 MG TAB GTB ×2 (09:17→20:23)
[2017-12-15] MEDS: FAMOTIDINE 20 MG INJ IV ×2 (09:17→20:23)
[2017-12-15] MEDS: ENOXAPARIN 40 MG/0.4 ML SYG SC (10:03)
[2017-12-15] MEDS: LATANOPROST 0.005% 2.5 ML OPH BOTH EYES (20:22)
[2017-12-16] MEDS: ALBUTEROL/IPRATROPIUM (NEB) 3 ML AMP HHN ×7 (01:00→23:47)
[2017-12-16] MEDS: BRIMONIDINE 0.1% 5 ML OPH BOTH EYES ×3 (06:29→21:24)
[2017-12-16 06:52] LABS: ADD MAN DIFF? NO
[2017-12-16 06:58] LABS: WHITE BLOOD COUNT 22.7 10^3/ul (4.8-10.8)
[2017-12-16 06:58] LABS: ABNORMAL IP MESSAGE 1; BASOPHILS % 0.1 % (0.0-2.0); EOSINOPHILS # 0.1 10^3/ul (0.0-0.5); EOSINOPHILS % 0.4 % (0.0-7.0); HEMATOCRIT 31.9 % (42.0-52.0); HEMOGLOBIN 10.4 g/dl (14.0-18.0); LYMPHOCYTES # 2.5 10^3/ul (0.8-2.9); LYMPHOCYTES % 11.1 % (15.0-51.0); MEAN CORPUSCULAR HEMOGLOBIN 29.1 pg (29.0-33.0); MEAN CORPUSCULAR HGB CONC 32.6 g/dl (32.0-37.0); MEAN CORPUSCULAR VOLUME 89.4 fl (82.0-101.0); MONOCYTE # 2.4 10^3/ul (0.3-0.9); MONOCYTES % 10.6 % (0.0-11.0); NEUTROPHIL # 17.6 10^3/ul (1.6-7.5); NEUTROPHILS % 77.2 % (39.0-77.0); PLATELET COUNT 301 10^3/UL (140-415); POSITIVE DIFF @See below; RED BLOOD COUNT 3.57 10^6/ul (4.70-6.10); RED CELL DISTRIBUTION WIDTH 19.5 % (11.5-14.5)
[2017-12-16] MEDS: INSULIN ASPART [NOVOLOG] 3 ML PEN SC ×4 (07:25→21:00)
[2017-12-16 07:29] LABS: ANION GAP 9 (8-16); BLOOD UREA NITROGEN 20 mg/dl (7-20); CALCIUM 11.5 mg/dl (8.4-10.2); CARBON DIOXIDE 38 mmol/L (21-31); CHLORIDE 99 mmol/L (97-110); CREATININE 0.66 mg/dl (0.61-1.24); GLUCOSE 83 mg/dl (70-220); POTASSIUM 3.7 mmol/L (3.5-5.1); SODIUM 142 mmol/L (135-144)
[2017-12-16] MEDS: DORZOLAMIDE/TIMOLOL/PF 0.2 ML DROPERETTE BOTH EYES ×2 (08:19→21:00)
[2017-12-16] MEDS: DOXYCYCLINE 100 MG TAB PO (08:20)
[2017-12-16] MEDS: METHYLPREDNISOLONE 40 MG INJ IV (08:20)
[2017-12-16] MEDS: DOCUSATE SODIUM 100 MG CAP PO ×3 (08:20→21:24)
[2017-12-16] MEDS: FUROSEMIDE 40 MG INJ IV (08:21)
[2017-12-16] MEDS: FAMOTIDINE 20 MG INJ IV ×2 (08:21→21:24)
[2017-12-16] MEDS: METOPROLOL 50 MG TAB GTB ×2 (08:22→21:00)
[2017-12-16] MEDS: ENOXAPARIN 40 MG/0.4 ML SYG SC (08:38)
[2017-12-16] MEDS: PAMIDRONATE 30 MG in SOD CHLORIDE 0.9% 500 ML IV (18:25)
[2017-12-16] MEDS: LATANOPROST 0.005% 2.5 ML OPH BOTH EYES (21:00)
[2017-12-17] MEDS: ALBUTEROL/IPRATROPIUM (NEB) 3 ML AMP HHN ×5 (04:23→20:04)
[2017-12-17] MEDS: BRIMONIDINE 0.1% 5 ML OPH BOTH EYES ×3 (05:29→22:00)
[2017-12-17] MEDS: INSULIN ASPART [NOVOLOG] 3 ML PEN SC ×4 (07:20→20:43)
[2017-12-17] MEDS: METHYLPREDNISOLONE 40 MG INJ IV (08:43)
[2017-12-17] MEDS: DOCUSATE SODIUM 100 MG CAP PO ×2 (08:43→20:43)
[2017-12-17] MEDS: DOXYCYCLINE 100 MG TAB PO (08:43)
[2017-12-17] MEDS: FAMOTIDINE 20 MG INJ IV ×2 (08:43→20:42)
[2017-12-17] MEDS: DORZOLAMIDE/TIMOLOL/PF 0.2 ML DROPERETTE BOTH EYES ×2 (08:43→21:00)
[2017-12-17] MEDS: FUROSEMIDE 40 MG INJ IV (08:44)
[2017-12-17] MEDS: METOPROLOL 50 MG TAB GTB ×2 (08:44→20:42)
[2017-12-17] MEDS: ENOXAPARIN 40 MG/0.4 ML SYG SC (08:45)
[2017-12-17 12:48] LABS: ANION GAP 10 (8-16); BLOOD UREA NITROGEN 19 mg/dl (7-20); CALCIUM 11.9 mg/dl (8.4-10.2); CARBON DIOXIDE 38 mmol/L (21-31); CHLORIDE 97 mmol/L (97-110); GLUCOSE 151 mg/dl (70-220); POTASSIUM 4.1 mmol/L (3.5-5.1); SODIUM 141 mmol/L (135-144)
[2017-12-17] MEDS: LATANOPROST 0.005% 2.5 ML OPH BOTH EYES (20:42)
[2017-12-18] MEDS: ALBUTEROL/IPRATROPIUM (NEB) 3 ML AMP HHN ×5 (00:10→17:00)
[2017-12-18] MEDS: BRIMONIDINE 0.1% 5 ML OPH BOTH EYES ×2 (05:45→14:00)
[2017-12-18] MEDS: INSULIN ASPART [NOVOLOG] 3 ML PEN SC ×3 (07:20→17:25)
[2017-12-18] MEDS: DORZOLAMIDE/TIMOLOL/PF 0.2 ML DROPERETTE BOTH EYES (08:24)
[2017-12-18] MEDS: FAMOTIDINE 20 MG INJ IV (08:25)
[2017-12-18] MEDS: METOPROLOL 50 MG TAB GTB (08:25)
[2017-12-18] MEDS: DOCUSATE SODIUM 100 MG CAP PO (08:25)
[2017-12-18] MEDS: predniSONE 20 MG TAB PO (08:25)
[2017-12-18] MEDS: DOXYCYCLINE 100 MG TAB PO (08:25)
[2017-12-18] MEDS: FUROSEMIDE 40 MG INJ IV (08:26)
[2017-12-18] MEDS: ENOXAPARIN 40 MG/0.4 ML SYG SC (08:49)
== END 2017-12-18 18:00 | DRG 870 ==
LOC: ICU 18:06 → MS4 11-29 13:37 → ICU 12-04 17:26 → TEL 12-10 17:29 → E/R 13:25 → MS1 12-16 14:24 → ICU 12-04 17:35
PROC: 5A1955Z Respiratory Ventilation, Greater than 96 Consecutive Hours (ICD-10-PCS; principal; 2017-11-23)
PROC: 0BH17EZ Insertion of Endotracheal Airway into Trachea, Via Natural or Artificial Opening (ICD-10-PCS; 2017-11-23)
PROC: 02HV33Z Insertion of Infusion Device into Superior Vena Cava, Percutaneous Approach (ICD-10-PCS; 2017-11-26)
DX: A41.9 Sepsis, unspecified organism (principal); J18.9 Pneumonia, unspecified organism; R65.21 Severe sepsis with septic shock; J96.01 Acute respiratory failure with hypoxia; J86.9 Pyothorax without fistula; I50.33 Acute on chronic diastolic (congestive) heart failure; C34.90 Malignant neoplasm of unspecified part of unspecified bronchus or lung; N17.9 Acute kidney failure, unspecified; E87.2 Acidosis; E87.0 Hyperosmolality and hypernatremia; I47.2 Ventricular tachycardia; C79.51 Secondary malignant neoplasm of bone; J44.0 Chronic obstructive pulmonary disease with (acute) lower respiratory infection; J90 Pleural effusion, not elsewhere classified; G72.89 Other specified myopathies; M19.90 Unspecified osteoarthritis, unspecified site; Z96.652 Presence of left artificial knee joint; E78.5 Hyperlipidemia, unspecified; E83.52 Hypercalcemia; F17.200 Nicotine dependence, unspecified, uncomplicated; J44.9 Chronic obstructive pulmonary disease, unspecified; D64.9 Anemia, unspecified; D69.6 Thrombocytopenia, unspecified; I27.20 Pulmonary hypertension, unspecified; I11.0 Hypertensive heart disease with heart failure; B95.5 Unspecified streptococcus as the cause of diseases classified elsewhere; Y95 Nosocomial condition; I95.9 Hypotension, unspecified; I49.9 Cardiac arrhythmia, unspecified; Z97.8 Presence of other specified devices
CPT/HCPCS: 36415; 36430; 36569; 36600; 71045; 71250; 76604; 76937; 80048; 80053; 80202; 82306; 82803; 82962; 83605; 83735; 83970; 84100; 84132; 84443; 84484; 85025; 85610; 85730; 86850; 86900; 86901; 86920; 87015; 87040; 87081; 87281; 89220; 92526; 92610; 93005; 93306; 94002; 94003; 94640; 94664; 94770; 96374; 96375; 97110; 97116; 97162; 97164; 97530; 99291-25; J2430

== ENCOUNTER 2018-03-07 13:44 | Inpatient (IN) | payer OTHER ==
[2018-03-07 14:24] LABS: ADD MAN DIFF? NO
[2018-03-07 14:29] LABS: WHITE BLOOD COUNT 4.6 10^3/ul (4.8-10.8)
[2018-03-07 14:29] LABS: ABNORMAL IP MESSAGE 1; HEMATOCRIT 23.8 % (42.0-52.0); HEMOGLOBIN 7.5 g/dl (14.0-18.0); LYMPHOCYTES # 1.4 10^3/ul (0.8-2.9); LYMPHOCYTES % 29.5 % (15.0-51.0); MEAN CORPUSCULAR HEMOGLOBIN 25.5 pg (29.0-33.0); MEAN CORPUSCULAR HGB CONC 31.5 g/dl (32.0-37.0); MONOCYTE # 0.2 10^3/ul (0.3-0.9); NEUTROPHILS % 65.1 % (39.0-77.0); NUCLEATED RED BLOOD CELLS # 0.1 10^3/ul (0.0-0.0); NUCLEATED RED BLOOD CELLS% 1.1 /100WBC (0.0-0.0); POSITIVE DIFF @See below; RED BLOOD COUNT 2.94 10^6/ul (4.70-6.10); RED CELL DISTRIBUTION WIDTH 18.6 % (11.5-14.5)
[2018-03-07] MEDS: CEFEPIME 2GM/50 ML (PMX) 50 ML IVPB (14:38)
[2018-03-07] MEDS: SODIUM CHLORIDE 0.9% 1L BAG IV* (14:38)
[2018-03-07 14:40] LABS: PATH REVIEW? YES
[2018-03-07 14:41] LABS: PLATELET COUNT 35 10^3/UL (140-415)
[2018-03-07 14:46] LABS: LACTIC ACID 1.2 mmol/L (0.5-2.0)
[2018-03-07 14:48] LABS: ALANINE AMINOTRANSFERASE 22 IU/L (13-69); ALBUMIN/GLOBULIN RATIO 0.85; ALKALINE PHOSPHATASE 177 IU/L (42-121); ANION GAP 9 (8-16); ASPARTATE AMINO TRANSFERASE 40 IU/L (15-46); BILIRUBIN,INDIRECT 0.2 mg/dl (0-1.1); BILIRUBIN,TOTAL 0.2 mg/dl (0.2-1.3); BLOOD UREA NITROGEN 15 mg/dl (7-20); CALCIUM 11.6 mg/dl (8.4-10.2); CARBON DIOXIDE 34 mmol/L (21-31); CHLORIDE 100 mmol/L (97-110); GLUCOSE 99 mg/dl (70-220); POTASSIUM 4.9 mmol/L (3.5-5.1); SODIUM 138 mmol/L (135-144); TOTAL PROTEIN 6.5 g/dl (6.1-8.1)
[2018-03-07 14:50] LABS: PROTIME 14.4 Sec (11.9-14.9); PT RATIO 1.1
[2018-03-07 14:51] LABS: PARTIAL THROMBOPLASTIN TIME 32.3 Sec (25.0-35.0)
[2018-03-07 14:57] LABS: ADD UMIC NO; UR ASCORBIC ACID 40 mg/dL (NEGATIVE); UR BILIRUBIN (Dip) NEGATIVE (NEGATIVE); UR BLOOD (Dip) NEGATIVE (NEGATIVE); UR CLARITY CLEAR (CLEAR); UR COLOR YELLOW (YELLOW); UR GLUCOSE (Dip) NEGATIVE (NEGATIVE); UR KETONES (Dip) NEGATIVE (NEGATIVE); UR LEUKOCYTE ESTERASE (Dip) NEGATIVE Leu/ul (NEGATIVE); UR NITRITE (Dip) NEGATIVE (NEGATIVE); UR SPECIFIC GRAVITY (Dip) 1.013 (1.003-1.030); UR TOTAL PROTEIN (Dip) NEGATIVE (NEGATIVE); UR UROBILINOGEN (Dip) 1+ mg/dL (NEGATIVE)
[2018-03-07 14:59] LABS: TROPONIN-I 0.012 ng/ml (0.000-0.120)
[2018-03-07] MEDS: VANCOMYCIN 1 GM (PMX) 250 ML IVPB (15:08)
[2018-03-07 15:17] LABS: AMMONIA 24 umol/l (9-30)
[2018-03-07] MEDS ORDERED: ACETAMINOPHEN 325 MG TAB PO ×3 (18:30→23:30)
[2018-03-07] MEDS ORDERED: ONDANSETRON 4 MG INJ IV ×2 (18:30→23:30)
[2018-03-07] MEDS: PIPER-TAZO 3.375 GM IV (PMX) 100 ML IVPB (23:06)
[2018-03-07] MEDS ORDERED: DOCUSATE SODIUM 100 MG CAP PO (23:30)
[2018-03-07] MEDS ORDERED: AL HYDROX/MG HYDROX/SIMETH 30 ML CUP PO (23:30)
[2018-03-07] MEDS ORDERED: MAGNESIUM HYDROXIDE 30ML CUP PO (23:30)
[2018-03-07] MEDS ORDERED: NACL 0.9% 3 ML SYG IV (23:30)
[2018-03-07] MEDS ORDERED: BISACODYL (EC) 5 MG TAB PO (23:30)
[2018-03-07] MEDS ORDERED: BISACODYL 10 MG SUPP PR (23:30)
[2018-03-08] MEDS ORDERED: PENDING SANTYL ORDER FOR WOUND CARE XX
[2018-03-08] MEDS: PIPER-TAZO 3.375 GM IV (PMX) 100 ML IVPB ×3 (05:41→20:43)
[2018-03-08] MEDS: PANTOPRAZOLE 40 MG INJ IV (05:41)
[2018-03-08 05:47] LABS: WHITE BLOOD COUNT 4.5 10^3/ul (4.8-10.8)
[2018-03-08 05:47] LABS: ABNORMAL IP MESSAGE 1; HEMATOCRIT 23.4 % (42.0-52.0); HEMOGLOBIN 7.1 g/dl (14.0-18.0); MEAN CORPUSCULAR HEMOGLOBIN 24.2 pg (29.0-33.0); MEAN CORPUSCULAR HGB CONC 30.3 g/dl (32.0-37.0); MEAN CORPUSCULAR VOLUME 79.9 fl (82.0-101.0); NUCLEATED RED BLOOD CELLS% 1.3 /100WBC (0.0-0.0); POSITIVE DIFF @See below; RED BLOOD COUNT 2.93 10^6/ul (4.70-6.10); RED CELL DISTRIBUTION WIDTH 18.7 % (11.5-14.5)
[2018-03-08 05:50] LABS: HEMOGLOBIN A1C 5.7 % (0-5.9)
[2018-03-08 05:54] LABS: ADD MAN DIFF? YES; PLATELET COUNT 28 10^3/UL (140-415)
[2018-03-08 06:12] LABS: ALANINE AMINOTRANSFERASE 26 IU/L (13-69); ALBUMIN 2.8 g/dl (3.3-4.9); ALBUMIN/GLOBULIN RATIO 0.82; ALKALINE PHOSPHATASE 171 IU/L (42-121); ANION GAP 10 (8-16); ASPARTATE AMINO TRANSFERASE 18 IU/L (15-46); BILIRUBIN,INDIRECT 0.3 mg/dl (0-1.1); BILIRUBIN,TOTAL 0.3 mg/dl (0.2-1.3); BLOOD UREA NITROGEN 12 mg/dl (7-20); CALCIUM 11.6 mg/dl (8.4-10.2); CARBON DIOXIDE 29 mmol/L (21-31); CHLORIDE 104 mmol/L (97-110); CREATININE 0.66 mg/dl (0.61-1.24); GLUCOSE 89 mg/dl (70-220); POTASSIUM 3.5 mmol/L (3.5-5.1); SODIUM 139 mmol/L (135-144); TOTAL PROTEIN 6.2 g/dl (6.1-8.1)
[2018-03-08 07:41] LABS: ANISOCYTOSIS 2+ (0-0); ERYTHROBLAST% (NRBC) (M) 4 % (0-0); GIANT THROMBO% (M) 2 % (0-0); HYPOCHROMASIA 1+ (0-0); LYMPHOCYTES % (M) 24 % (15-51); MONOCYTES % (M) 2 % (0-11); PLATELET ESTIMATE SIG DECREASED; POLYCHROMASIA 3+ (0-0); REACTIVE LYMPHOCYTES% (M) 1 % (0-0); SEGMENTED NEUTROPHILS (M) % 73 % (39-77); SMUDGE%M 22 % (0-0)
[2018-03-08] MEDS: METOPROLOL 50 MG TAB PO ×2 (08:00→17:17)
[2018-03-08] MEDS: DOCUSATE SODIUM 100 MG CAP PO ×2 (09:00→20:40)
[2018-03-08] MEDS: MAGNESIUM HYDROXIDE 30ML CUP PO (09:00)
[2018-03-08] MEDS: SENNA TAB PO (09:00)
[2018-03-08] MEDS: ZINC OXIDE 20% 30 GM OINT TOP ×2 (09:08→20:40)
[2018-03-08] MEDS: TIMOLOL 0.25% 5 ML OPH BOTH EYES ×2 (09:10→20:40)
[2018-03-08] MEDS: AMIODARONE 200 MG TAB PO (09:12)
[2018-03-08] MEDS: FAMOTIDINE 20 MG TAB PO (09:13)
[2018-03-08] MEDS: FUROSEMIDE 40 MG TAB PO (09:14)
[2018-03-08] MEDS: FERROUS SULFATE (EC) 325 MG TAB PO (09:14)
[2018-03-08] MEDS: ALBUTEROL/IPRATROPIUM (NEB) 3 ML AMP HHN ×4 (09:15→20:58)
[2018-03-08] MEDS: DORZOLAMIDE/TIMOLOL 10 ML OPH BOTH EYES (13:47)
[2018-03-08] MEDS: HYDROmorphONE 0.5 MG/0.5 ML SYG IV ×2 (16:19→20:48)
[2018-03-08 19:40] LABS: ADD MAN DIFF? NO
[2018-03-08 19:44] LABS: WHITE BLOOD COUNT 4.5 10^3/ul (4.8-10.8)
[2018-03-08 19:44] LABS: ABNORMAL IP MESSAGE 1; HEMATOCRIT 22.7 % (42.0-52.0); HEMOGLOBIN 7.1 g/dl (14.0-18.0); LYMPHOCYTES # 1.3 10^3/ul (0.8-2.9); LYMPHOCYTES % 29.3 % (15.0-51.0); MEAN CORPUSCULAR HEMOGLOBIN 25.2 pg (29.0-33.0); MEAN CORPUSCULAR HGB CONC 31.3 g/dl (32.0-37.0); MEAN CORPUSCULAR VOLUME 80.5 fl (82.0-101.0); MONOCYTE # 0.3 10^3/ul (0.3-0.9); MONOCYTES % 6.2 % (0.0-11.0); NEUTROPHIL # 2.9 10^3/ul (1.6-7.5); NEUTROPHILS % 63.8 % (39.0-77.0); NUCLEATED RED BLOOD CELLS # 0.1 10^3/ul (0.0-0.0); NUCLEATED RED BLOOD CELLS% 1.8 /100WBC (0.0-0.0); POSITIVE DIFF @See below; RED BLOOD COUNT 2.82 10^6/ul (4.70-6.10); RED CELL DISTRIBUTION WIDTH 18.6 % (11.5-14.5)
[2018-03-08 19:53] LABS: PLATELET COUNT 29 10^3/UL (140-415)
[2018-03-09] MEDS: ALBUTEROL/IPRATROPIUM (NEB) 3 ML AMP HHN ×5 (00:29→21:04)
[2018-03-09] MEDS: PANTOPRAZOLE 40 MG INJ IV (05:12)
[2018-03-09] MEDS: PIPER-TAZO 3.375 GM IV (PMX) 100 ML IVPB ×4 (05:13→22:00)
[2018-03-09 05:46] LABS: ABNORMAL IP MESSAGE 1; HEMATOCRIT 22.5 % (42.0-52.0); HEMOGLOBIN 7.1 g/dl (14.0-18.0); MEAN CORPUSCULAR HEMOGLOBIN 25.2 pg (29.0-33.0); MEAN CORPUSCULAR HGB CONC 31.6 g/dl (32.0-37.0); MEAN CORPUSCULAR VOLUME 79.8 fl (82.0-101.0); NUCLEATED RED BLOOD CELLS% 2.2 /100WBC (0.0-0.0); PLATELET COUNT 33 10^3/UL (140-415); POSITIVE DIFF @See below; RED BLOOD COUNT 2.82 10^6/ul (4.70-6.10); RED CELL DISTRIBUTION WIDTH 18.5 % (11.5-14.5)
[2018-03-09 05:46] LABS: WHITE BLOOD COUNT 5.1 10^3/ul (4.8-10.8)
[2018-03-09 05:53] LABS: ADD MAN DIFF? YES
[2018-03-09 06:43] LABS: ANION GAP 8 (8-16); BLOOD UREA NITROGEN 12 mg/dl (7-20); CALCIUM 11.4 mg/dl (8.4-10.2); CARBON DIOXIDE 31 mmol/L (21-31); CHLORIDE 103 mmol/L (97-110); CREATININE 0.73 mg/dl (0.61-1.24); GLUCOSE 147 mg/dl (70-220); POTASSIUM 3.5 mmol/L (3.5-5.1); SODIUM 138 mmol/L (135-144)
[2018-03-09 07:55] LABS: ANISOCYTOSIS 3+ (0-0); BAND NEUTROPHILS #M 0.2 10^3/ul (0.0-0.6); BAND NEUTROPHILS % (M) 4 % (0-4); ERYTHROBLAST% (NRBC) (M) 1 % (0-0); GIANT THROMBO% (M) 4 % (0-0); HYPOCHROMASIA 1+ (0-0); LYMPHOCYTES #M 0.8 10^3/ul (0.8-2.9); LYMPHOCYTES % (M) 16 % (15-51); MONOCYTE #M 0.2 10^3/ul (0.3-0.9); MONOCYTES % (M) 5 % (0-11); PLATELET ESTIMATE SIG DECREASED; POIKILOCYTOSIS 2+ (0-0); POLYCHROMASIA 3+ (0-0); REACTIVE LYMPHOCYTES #M 0.4 10^3/ul (0.0-0.0); REACTIVE LYMPHOCYTES% (M) 9 % (0-0); SEG NEUT #M 3.4 10^3/ul (1.6-7.5); SEGMENTED NEUTROPHILS (M) % 66 % (39-77); SMUDGE%M 12 % (0-0)
[2018-03-09] MEDS: METOPROLOL 50 MG TAB PO ×2 (08:00→21:45)
[2018-03-09] MEDS: ZINC OXIDE 20% 30 GM OINT TOP ×2 (09:00→21:00)
[2018-03-09] MEDS: FUROSEMIDE 40 MG TAB PO (09:00)
[2018-03-09] MEDS: AMIODARONE 200 MG TAB PO (09:00)
[2018-03-09] MEDS: FERROUS SULFATE (EC) 325 MG TAB PO (09:20)
[2018-03-09] MEDS: SENNA TAB PO (09:20)
[2018-03-09] MEDS: DOCUSATE SODIUM 100 MG CAP PO ×2 (09:20→21:00)
[2018-03-09] MEDS: FAMOTIDINE 20 MG TAB PO (09:20)
[2018-03-09] MEDS: MAGNESIUM HYDROXIDE 30ML CUP PO (09:20)
[2018-03-09] MEDS: DORZOLAMIDE/TIMOLOL 10 ML OPH BOTH EYES (09:22)
[2018-03-09] MEDS: TIMOLOL 0.25% 5 ML OPH BOTH EYES ×2 (09:22→21:00)
[2018-03-09] MEDS: SOD CHLORIDE 0.9% 250 ML IV* (17:58)
[2018-03-09] MEDS ORDERED: ZOLEDRONIC ACID 4 MG in SOD CHLORIDE 0.9% 100 ML IVPB (19:30)
[2018-03-09] MEDS: DILTIAZEM-D5W 125MG/125ML DRIP 125 ML IV (21:46)
[2018-03-10] MEDS: ZOLEDRONIC ACID 4 MG in SOD CHLORIDE 0.9% 100 ML IVPB (02:19)
[2018-03-10 04:15] LABS: IMMEDIATE SPIN CROSSMATCH 1 1
[2018-03-10] MEDS: PANTOPRAZOLE 40 MG INJ IV (05:54)
[2018-03-10] MEDS: PIPER-TAZO 3.375 GM IV (PMX) 100 ML IVPB ×3 (05:54→21:36)
[2018-03-10] MEDS: FUROSEMIDE 40 MG TAB PO (08:27)
[2018-03-10] MEDS: SENNA TAB PO (08:27)
[2018-03-10] MEDS: METOPROLOL 50 MG TAB PO ×2 (08:27→18:02)
[2018-03-10] MEDS: MAGNESIUM HYDROXIDE 30ML CUP PO (08:27)
[2018-03-10] MEDS: DOCUSATE SODIUM 100 MG CAP PO ×2 (08:28→21:36)
[2018-03-10] MEDS: FAMOTIDINE 20 MG TAB PO (08:28)
[2018-03-10] MEDS: TIMOLOL 0.25% 5 ML OPH BOTH EYES ×2 (08:28→21:31)
[2018-03-10] MEDS: AMIODARONE 200 MG TAB PO (08:28)
[2018-03-10] MEDS: FERROUS SULFATE (EC) 325 MG TAB PO (08:28)
[2018-03-10] MEDS: DORZOLAMIDE/TIMOLOL 10 ML OPH BOTH EYES (08:28)
[2018-03-10] MEDS: ZINC OXIDE 20% 30 GM OINT TOP ×2 (08:29→21:31)
[2018-03-10] MEDS: ALBUTEROL/IPRATROPIUM (NEB) 3 ML AMP HHN ×4 (08:55→20:29)
[2018-03-10] MEDS ORDERED: NON-FORMULARY/PATIENT OWN MED (Aspirin (Low Dose Aspirin) 81 MG) PO (09:00)
[2018-03-10 11:23] LABS: PLATELET COUNT 131 10^3/UL (140-415)
[2018-03-10] MEDS: DILTIAZEM-D5W 125MG/125ML DRIP 125 ML IV (21:00)
[2018-03-11] MEDS: PANTOPRAZOLE 40 MG INJ IV (05:54)
[2018-03-11] MEDS: PIPER-TAZO 3.375 GM IV (PMX) 100 ML IVPB ×3 (05:55→21:45)
[2018-03-11] MEDS: METOPROLOL 50 MG TAB PO (08:00)
[2018-03-11] MEDS: DOCUSATE SODIUM 100 MG CAP PO ×2 (08:18→21:22)
[2018-03-11] MEDS: FAMOTIDINE 20 MG TAB PO (08:18)
[2018-03-11] MEDS: AMIODARONE 200 MG TAB PO (08:18)
[2018-03-11] MEDS: SENNA TAB PO (08:18)
[2018-03-11] MEDS: FERROUS SULFATE (EC) 325 MG TAB PO (08:18)
[2018-03-11] MEDS: DORZOLAMIDE/TIMOLOL 10 ML OPH BOTH EYES (08:19)
[2018-03-11] MEDS: ZINC OXIDE 20% 30 GM OINT TOP ×2 (08:19→21:49)
[2018-03-11] MEDS: MAGNESIUM HYDROXIDE 30ML CUP PO (08:19)
[2018-03-11] MEDS: TIMOLOL 0.25% 5 ML OPH BOTH EYES ×2 (08:20→21:21)
[2018-03-11] MEDS: FUROSEMIDE 40 MG TAB PO (08:44)
[2018-03-11] MEDS: ALBUTEROL/IPRATROPIUM (NEB) 3 ML AMP HHN ×4 (08:54→20:32)
[2018-03-11] MEDS: METOPROLOL 25 MG TAB PO (17:17)
[2018-03-11] MEDS: FUROSEMIDE 40 MG INJ IV (17:41)
[2018-03-12] MEDS: HYDROmorphONE 0.5 MG/0.5 ML SYG IV (01:32)
[2018-03-12] MEDS ORDERED: DILTIAZEM 25 MG INJ IV (05:30)
[2018-03-12] MEDS: PANTOPRAZOLE 40 MG INJ IV (06:16)
[2018-03-12] MEDS: PIPER-TAZO 3.375 GM IV (PMX) 100 ML IVPB ×3 (06:16→22:06)
[2018-03-12] MEDS: FUROSEMIDE 40 MG INJ IV (09:00)
[2018-03-12] MEDS: TIMOLOL 0.25% 5 ML OPH BOTH EYES ×2 (09:00→21:00)
[2018-03-12] MEDS: DORZOLAMIDE/TIMOLOL 10 ML OPH BOTH EYES (09:00)
[2018-03-12] MEDS: ZINC OXIDE 20% 30 GM OINT TOP ×2 (09:00→22:06)
[2018-03-12] MEDS: ALBUTEROL/IPRATROPIUM (NEB) 3 ML AMP HHN ×4 (09:06→20:09)
[2018-03-12] MEDS: FAMOTIDINE 20 MG TAB PO (09:11)
[2018-03-12] MEDS: DOCUSATE SODIUM 100 MG CAP PO ×2 (09:11→21:00)
[2018-03-12] MEDS: FERROUS SULFATE (EC) 325 MG TAB PO (09:11)
[2018-03-12] MEDS: MAGNESIUM HYDROXIDE 30ML CUP PO (09:11)
[2018-03-12] MEDS: SENNA TAB PO (09:11)
[2018-03-12 09:14] LABS: MAGNESIUM 2.1 mg/dl (1.7-2.5)
[2018-03-12 09:14] LABS: PHOSPHORUS 1.6 mg/dl (2.5-4.9)
[2018-03-12 09:18] LABS: ANION GAP 8 (8-16); BLOOD UREA NITROGEN 9 mg/dl (7-20); CALCIUM 10.7 mg/dl (8.4-10.2); CARBON DIOXIDE 32 mmol/L (21-31); CHLORIDE 103 mmol/L (97-110); CREATININE 0.62 mg/dl (0.61-1.24); GLUCOSE 97 mg/dl (70-220); POTASSIUM 3.5 mmol/L (3.5-5.1); SODIUM 139 mmol/L (135-144)
[2018-03-12] MEDS: METOPROLOL 25 MG TAB PO ×2 (09:18→17:05)
[2018-03-12] MEDS: NEUTRA-PHOS 250 MG PACKET PO (21:00)
[2018-03-13] MEDS: PIPER-TAZO 3.375 GM IV (PMX) 100 ML IVPB ×3 (06:12→21:32)
[2018-03-13] MEDS: PANTOPRAZOLE 40 MG INJ IV (06:12)
[2018-03-13] MEDS: ALBUTEROL/IPRATROPIUM (NEB) 3 ML AMP HHN ×4 (08:22→20:00)
[2018-03-13] MEDS: DOCUSATE SODIUM 100 MG CAP PO ×2 (09:00→21:00)
[2018-03-13] MEDS: MAGNESIUM HYDROXIDE 30ML CUP PO (09:00)
[2018-03-13] MEDS: FUROSEMIDE 40 MG INJ IV (09:00)
[2018-03-13] MEDS: SENNA TAB PO (09:00)
[2018-03-13] MEDS: ZINC OXIDE 20% 30 GM OINT TOP ×2 (09:00→21:31)
[2018-03-13 09:32] LABS: ADD MAN DIFF? NO
[2018-03-13 09:41] LABS: BASOPHILS % 0.2 % (0.0-2.0); HEMATOCRIT 23.9 % (42.0-52.0); HEMOGLOBIN 7.2 g/dl (14.0-18.0); LYMPHOCYTES # 1.5 10^3/ul (0.8-2.9); LYMPHOCYTES % 28.4 % (15.0-51.0); MEAN CORPUSCULAR HEMOGLOBIN 24.4 pg (29.0-33.0); MEAN CORPUSCULAR HGB CONC 30.1 g/dl (32.0-37.0); MEAN PLATELET VOLUME 12.7 fl (7.4-10.4); MONOCYTE # 1.1 10^3/ul (0.3-0.9); NEUTROPHIL # 2.6 10^3/ul (1.6-7.5); NEUTROPHILS % 49.4 % (39.0-77.0); NUCLEATED RED BLOOD CELLS # 0.4 10^3/ul (0.0-0.0); NUCLEATED RED BLOOD CELLS% 6.8 /100WBC (0.0-0.0); PLATELET COUNT 297 10^3/UL (140-415); RED BLOOD COUNT 2.95 10^6/ul (4.70-6.10); RED CELL DISTRIBUTION WIDTH 19.8 % (11.5-14.5)
[2018-03-13 09:41] LABS: WHITE BLOOD COUNT 5.2 10^3/ul (4.8-10.8)
[2018-03-13] MEDS: NEUTRA-PHOS 250 MG PACKET PO (09:41)
[2018-03-13] MEDS: FERROUS SULFATE (EC) 325 MG TAB PO (09:42)
[2018-03-13] MEDS: FAMOTIDINE 20 MG TAB PO (09:42)
[2018-03-13] MEDS: METOPROLOL 25 MG TAB PO ×2 (09:43→18:03)
[2018-03-13] MEDS: TIMOLOL 0.25% 5 ML OPH BOTH EYES ×2 (09:44→21:31)
[2018-03-13] MEDS: DORZOLAMIDE/TIMOLOL 10 ML OPH BOTH EYES (09:44)
[2018-03-13 09:59] LABS: ANION GAP 7 (8-16); BLOOD UREA NITROGEN 10 mg/dl (7-20); CALCIUM 10.3 mg/dl (8.4-10.2); CARBON DIOXIDE 32 mmol/L (21-31); CHLORIDE 103 mmol/L (97-110); CREATININE 0.66 mg/dl (0.61-1.24); GLUCOSE 97 mg/dl (70-220); POTASSIUM 3.4 mmol/L (3.5-5.1); SODIUM 139 mmol/L (135-144)
[2018-03-13 10:00] LABS: PHOSPHORUS 1.8 mg/dl (2.5-4.9)
[2018-03-13 10:00] LABS: MAGNESIUM 2.2 mg/dl (1.7-2.5)
[2018-03-13] MEDS: POTASSIUM CHLORIDE (SR) 20 MEQ TAB PO (13:49)
[2018-03-13] MEDS: SOD PHOS MONO/DIBAS 250 MG TAB PO (13:58)
[2018-03-13] MEDS: ALBUMIN HUMAN 25% 50 ML IV ×2 (16:04→21:31)
[2018-03-14] MEDS: HYDROmorphONE 0.5 MG/0.5 ML SYG IV ×3 (01:21→21:58)
[2018-03-14] MEDS: PIPER-TAZO 3.375 GM IV (PMX) 100 ML IVPB ×3 (05:52→21:58)
[2018-03-14] MEDS: PANTOPRAZOLE 40 MG INJ IV (05:52)
[2018-03-14] MEDS: METOPROLOL 25 MG TAB PO ×2 (08:00→17:59)
[2018-03-14] MEDS: FUROSEMIDE 40 MG INJ IV (09:00)
[2018-03-14] MEDS: ALBUTEROL/IPRATROPIUM (NEB) 3 ML AMP HHN ×4 (09:00→20:44)
[2018-03-14] MEDS: MAGNESIUM HYDROXIDE 30ML CUP PO (09:00)
[2018-03-14] MEDS: DOCUSATE SODIUM 100 MG CAP PO ×2 (09:00→21:00)
[2018-03-14] MEDS: ALBUMIN HUMAN 25% 50 ML IV (09:00)
[2018-03-14] MEDS: TIMOLOL 0.25% 5 ML OPH BOTH EYES ×2 (09:00→21:00)
[2018-03-14] MEDS: FERROUS SULFATE (EC) 325 MG TAB PO (09:00)
[2018-03-14] MEDS: ZINC OXIDE 20% 30 GM OINT TOP ×2 (09:00→21:00)
[2018-03-14] MEDS: FAMOTIDINE 20 MG TAB PO (09:00)
[2018-03-14] MEDS: SENNA TAB PO (09:00)
[2018-03-14] MEDS: DORZOLAMIDE/TIMOLOL 10 ML OPH BOTH EYES (09:00)
[2018-03-14] MEDS: DIGOXIN 500 MCG INJ IV (13:30)
[2018-03-15] MEDS: HYDROmorphONE 0.5 MG/0.5 ML SYG IV ×3 (02:23→23:54)
[2018-03-15] MEDS: PANTOPRAZOLE 40 MG INJ IV (05:23)
[2018-03-15] MEDS: PIPER-TAZO 3.375 GM IV (PMX) 100 ML IVPB ×3 (05:23→21:42)
[2018-03-15 07:28] LABS: ADD MAN DIFF? NO
[2018-03-15 07:35] LABS: ABNORMAL IP MESSAGE 1; BASOPHILS % 0.3 % (0.0-2.0); EOSINOPHILS % 0.2 % (0.0-7.0); HEMATOCRIT 22.8 % (42.0-52.0); LYMPHOCYTES # 1.5 10^3/ul (0.8-2.9); LYMPHOCYTES % 22.5 % (15.0-51.0); MEAN CORPUSCULAR HEMOGLOBIN 24.6 pg (29.0-33.0); MEAN CORPUSCULAR HGB CONC 30.3 g/dl (32.0-37.0); MEAN CORPUSCULAR VOLUME 81.4 fl (82.0-101.0); MEAN PLATELET VOLUME 12.6 fl (7.4-10.4); MONOCYTE # 1.6 10^3/ul (0.3-0.9); MONOCYTES % 24.2 % (0.0-11.0); NEUTROPHIL # 3.3 10^3/ul (1.6-7.5); NEUTROPHILS % 50.2 % (39.0-77.0); NUCLEATED RED BLOOD CELLS # 0.6 10^3/ul (0.0-0.0); NUCLEATED RED BLOOD CELLS% 8.7 /100WBC (0.0-0.0); PLATELET COUNT 386 10^3/UL (140-415); POSITIVE DIFF @See below; RED CELL DISTRIBUTION WIDTH 20.2 % (11.5-14.5)
[2018-03-15 07:35] LABS: WHITE BLOOD COUNT 6.6 10^3/ul (4.8-10.8)
[2018-03-15 07:49] LABS: HEMOGLOBIN 6.9 g/dl (14.0-18.0); PATH REVIEW? YES
[2018-03-15 07:50] LABS: ANION GAP 9 (8-16); BLOOD UREA NITROGEN 9 mg/dl (7-20); CALCIUM 9.7 mg/dl (8.4-10.2); CARBON DIOXIDE 29 mmol/L (21-31); CHLORIDE 104 mmol/L (97-110); CREATININE 0.57 mg/dl (0.61-1.24); GLUCOSE 128 mg/dl (70-220); POTASSIUM 4.1 mmol/L (3.5-5.1); SODIUM 138 mmol/L (135-144)
[2018-03-15 07:53] LABS: MAGNESIUM 2.1 mg/dl (1.7-2.5)
[2018-03-15 07:53] LABS: PHOSPHORUS 1.7 mg/dl (2.5-4.9)
[2018-03-15] MEDS: METOPROLOL 25 MG TAB PO ×3 (08:00→11:34)
[2018-03-15] MEDS: MAGNESIUM HYDROXIDE 30ML CUP PO ×2 (09:00→09:37)
[2018-03-15] MEDS: SENNA TAB PO ×2 (09:00→09:37)
[2018-03-15] MEDS: FUROSEMIDE 40 MG INJ IV ×2 (09:00→09:37)
[2018-03-15] MEDS: DORZOLAMIDE/TIMOLOL 10 ML OPH BOTH EYES ×2 (09:00→09:39)
[2018-03-15] MEDS: FERROUS SULFATE (EC) 325 MG TAB PO ×2 (09:00→09:38)
[2018-03-15] MEDS: ALBUTEROL/IPRATROPIUM (NEB) 3 ML AMP HHN ×4 (09:06→20:51)
[2018-03-15] MEDS: FAMOTIDINE 20 MG TAB PO (09:37)
[2018-03-15] MEDS: ZINC OXIDE 20% 30 GM OINT TOP ×2 (09:39→21:00)
[2018-03-15] MEDS: DOCUSATE SODIUM 100 MG CAP PO ×2 (09:39→21:00)
[2018-03-15] MEDS: TIMOLOL 0.25% 5 ML OPH BOTH EYES ×2 (09:39→21:00)
[2018-03-15] MEDS: NEUTRA-PHOS 250 MG PACKET PO ×2 (10:00→21:00)
[2018-03-15 12:07] LABS: ANISOCYTOSIS 1+ (0-0); BAND NEUTROPHILS #M 0.1 10^3/ul (0.0-0.6); BAND NEUTROPHILS % (M) 3 % (0-4); ERYTHROBLAST% (NRBC) (M) 9 % (0-0); GIANT THROMBO% (M) 8 % (0-0); HYPOCHROMASIA 2+ (0-0); LYMPHOCYTES #M 0.7 10^3/ul (0.8-2.9); LYMPHOCYTES % (M) 12 % (15-51); METAMYELOCYTES #M 0.1 10^3/ul (0.0-0.0); METAMYELOCYTES %M 2 % (0-0); MONOCYTE #M 1.1 10^3/ul (0.3-0.9); MONOCYTES % (M) 17 % (0-11); MYELOCYTES #M 0.1 10^3/ul (0.0-0.0); MYELOCYTES % (M) 2 % (0-0); PLATELET ESTIMATE NORMAL; POIKILOCYTOSIS 1+ (0-0); POLYCHROMASIA 3+ (0-0); REACTIVE LYMPHOCYTES #M 0.5 10^3/ul (0.0-0.0); REACTIVE LYMPHOCYTES% (M) 8 % (0-0); SEG NEUT #M 3.7 10^3/ul (1.6-7.5); SEGMENTED NEUTROPHILS (M) % 56 % (39-77); SMUDGE%M 4 % (0-0)
[2018-03-15 16:48] LABS: IMMEDIATE SPIN CROSSMATCH 1 1
[2018-03-15] MEDS: DILTIAZEM 25 MG INJ IV (17:01)
[2018-03-16] MEDS: PANTOPRAZOLE 40 MG INJ IV (05:40)
[2018-03-16] MEDS: PIPER-TAZO 3.375 GM IV (PMX) 100 ML IVPB ×3 (05:40→22:10)
[2018-03-16] MEDS: ALBUTEROL/IPRATROPIUM (NEB) 3 ML AMP HHN ×2 (07:54→13:00)
[2018-03-16] MEDS: SENNA TAB PO ×2 (08:59→09:00)
[2018-03-16] MEDS: TIMOLOL 0.25% 5 ML OPH BOTH EYES ×2 (09:00→21:12)
[2018-03-16] MEDS: MAGNESIUM HYDROXIDE 30ML CUP PO ×2 (09:00)
[2018-03-16] MEDS: METOPROLOL 25 MG TAB PO (09:00)
[2018-03-16] MEDS: FAMOTIDINE 20 MG TAB PO (09:00)
[2018-03-16] MEDS: FERROUS SULFATE (EC) 325 MG TAB PO (09:00)
[2018-03-16] MEDS: DOCUSATE SODIUM 100 MG CAP PO ×3 (09:00→21:00)
[2018-03-16] MEDS: DORZOLAMIDE/TIMOLOL 10 ML OPH BOTH EYES (09:00)
[2018-03-16] MEDS: NEUTRA-PHOS 250 MG PACKET PO ×3 (09:00→21:12)
[2018-03-16] MEDS: ZINC OXIDE 20% 30 GM OINT TOP ×2 (09:00→21:15)
[2018-03-16] MEDS: FUROSEMIDE 40 MG INJ IV (09:01)
[2018-03-16 09:12] LABS: ADD MAN DIFF? NO
[2018-03-16 09:24] LABS: WHITE BLOOD COUNT 9.1 10^3/ul (4.8-10.8)
[2018-03-16 09:24] LABS: ABNORMAL IP MESSAGE 1; BASOPHILS % 0.2 % (0.0-2.0); EOSINOPHILS % 0.1 % (0.0-7.0); HEMATOCRIT 25.7 % (42.0-52.0); HEMOGLOBIN 7.8 g/dl (14.0-18.0); LYMPHOCYTES # 2.2 10^3/ul (0.8-2.9); LYMPHOCYTES % 24.7 % (15.0-51.0); MEAN CORPUSCULAR HEMOGLOBIN 24.5 pg (29.0-33.0); MEAN CORPUSCULAR HGB CONC 30.4 g/dl (32.0-37.0); MEAN CORPUSCULAR VOLUME 80.6 fl (82.0-101.0); MEAN PLATELET VOLUME 12.3 fl (7.4-10.4); MONOCYTE # 2.1 10^3/ul (0.3-0.9); MONOCYTES % 22.7 % (0.0-11.0); NEUTROPHIL # 4.5 10^3/ul (1.6-7.5); NEUTROPHILS % 49.7 % (39.0-77.0); NUCLEATED RED BLOOD CELLS # 0.6 10^3/ul (0.0-0.0); NUCLEATED RED BLOOD CELLS% 6.4 /100WBC (0.0-0.0); PLATELET COUNT 463 10^3/UL (140-415); POSITIVE DIFF @See below; RED BLOOD COUNT 3.19 10^6/ul (4.70-6.10); RED CELL DISTRIBUTION WIDTH 19.9 % (11.5-14.5)
[2018-03-16 09:49] LABS: ANION GAP 9 (8-16); BLOOD UREA NITROGEN 8 mg/dl (7-20); CALCIUM 9.5 mg/dl (8.4-10.2); CARBON DIOXIDE 31 mmol/L (21-31); CHLORIDE 104 mmol/L (97-110); GLUCOSE 93 mg/dl (70-220); POTASSIUM 3.6 mmol/L (3.5-5.1); SODIUM 140 mmol/L (135-144)
[2018-03-16] MEDS: DILTIAZEM 25 MG INJ IV (13:10)
[2018-03-16] MEDS: IPRATROPIUM (NEB) 0.5 MG/2.5 ML AMP HHN ×2 (14:00→20:00)
[2018-03-16] MEDS: LEVALBUTEROL (NEB) 0.63 MG/3 ML AMP HHN ×2 (14:00→20:00)
[2018-03-16] MEDS: DIGOXIN 500 MCG INJ IV (15:36)
[2018-03-16] MEDS: ATENOLOL 25 MG TAB PO (21:11)
[2018-03-17] MEDS: IPRATROPIUM (NEB) 0.5 MG/2.5 ML AMP HHN ×4 (00:27→19:31)
[2018-03-17] MEDS: LEVALBUTEROL (NEB) 0.63 MG/3 ML AMP HHN ×4 (00:27→19:31)
[2018-03-17] MEDS: HYDROmorphONE 0.5 MG/0.5 ML SYG IV (01:06)
[2018-03-17] MEDS: BENZONATATE 100 MG CAP PO (01:06)
[2018-03-17] MEDS: DILTIAZEM 25 MG INJ IV (04:44)
[2018-03-17] MEDS: PIPER-TAZO 3.375 GM IV (PMX) 100 ML IVPB ×3 (05:33→21:15)
[2018-03-17] MEDS: PANTOPRAZOLE 40 MG INJ IV (05:37)
[2018-03-17 07:14] LABS: ADD MAN DIFF? NO
[2018-03-17 07:24] LABS: ABNORMAL IP MESSAGE 1; BASOPHILS % 0.3 % (0.0-2.0); HEMATOCRIT 27.2 % (42.0-52.0); HEMOGLOBIN 8.5 g/dl (14.0-18.0); LYMPHOCYTES # 1.5 10^3/ul (0.8-2.9); LYMPHOCYTES % 16.5 % (15.0-51.0); MEAN CORPUSCULAR HEMOGLOBIN 25.4 pg (29.0-33.0); MEAN CORPUSCULAR HGB CONC 31.3 g/dl (32.0-37.0); MEAN CORPUSCULAR VOLUME 81.4 fl (82.0-101.0); MEAN PLATELET VOLUME 11.2 fl (7.4-10.4); MONOCYTE # 2.2 10^3/ul (0.3-0.9); MONOCYTES % 23.7 % (0.0-11.0); NEUTROPHIL # 5.1 10^3/ul (1.6-7.5); NEUTROPHILS % 55.4 % (39.0-77.0); NUCLEATED RED BLOOD CELLS # 0.6 10^3/ul (0.0-0.0); NUCLEATED RED BLOOD CELLS% 6.6 /100WBC (0.0-0.0); PLATELET COUNT 495 10^3/UL (140-415); POSITIVE DIFF @See below; RED BLOOD COUNT 3.34 10^6/ul (4.70-6.10); RED CELL DISTRIBUTION WIDTH 20.5 % (11.5-14.5)
[2018-03-17 07:24] LABS: WHITE BLOOD COUNT 9.3 10^3/ul (4.8-10.8)
[2018-03-17 08:10] LABS: ANION GAP 10 (8-16); BLOOD UREA NITROGEN 11 mg/dl (7-20); CALCIUM 9.3 mg/dl (8.4-10.2); CARBON DIOXIDE 30 mmol/L (21-31); CHLORIDE 105 mmol/L (97-110); CREATININE 0.77 mg/dl (0.61-1.24); GLUCOSE 144 mg/dl (70-220); POTASSIUM 3.8 mmol/L (3.5-5.1); SODIUM 141 mmol/L (135-144)
[2018-03-17] MEDS: SENNA TAB PO (09:00)
[2018-03-17] MEDS: MAGNESIUM HYDROXIDE 30ML CUP PO (09:00)
[2018-03-17] MEDS: ATENOLOL 25 MG TAB PO ×2 (09:00→21:00)
[2018-03-17] MEDS: DOCUSATE SODIUM 100 MG CAP PO ×2 (09:00→21:00)
[2018-03-17] MEDS: ZINC OXIDE 20% 30 GM OINT TOP ×2 (09:00→21:20)
[2018-03-17] MEDS: FUROSEMIDE 40 MG INJ IV (10:04)
[2018-03-17] MEDS: FERROUS SULFATE (EC) 325 MG TAB PO (13:45)
[2018-03-17] MEDS: NEUTRA-PHOS 250 MG PACKET PO ×2 (13:45→21:14)
[2018-03-17] MEDS: DORZOLAMIDE/TIMOLOL 10 ML OPH BOTH EYES (13:45)
[2018-03-17] MEDS: FAMOTIDINE 20 MG TAB PO (13:45)
[2018-03-17] MEDS: TIMOLOL 0.25% 5 ML OPH BOTH EYES ×2 (13:46→21:14)
[2018-03-17] MEDS: KETOROLAC 30 MG INJ IV (16:21)
[2018-03-17] MEDS: ALBUMIN HUMAN 25% 100 ML IV ×2 (17:11→22:42)
[2018-03-18] MEDS: LEVALBUTEROL (NEB) 0.63 MG/3 ML AMP HHN ×5 (01:56→20:20)
[2018-03-18] MEDS: PANTOPRAZOLE 40 MG INJ IV (05:23)
[2018-03-18] MEDS: PIPER-TAZO 3.375 GM IV (PMX) 100 ML IVPB ×3 (05:24→21:38)
[2018-03-18] MEDS: KETOROLAC 30 MG INJ IV ×2 (05:46→11:46)
[2018-03-18] MEDS: ALBUMIN HUMAN 25% 100 ML IV (06:08)
[2018-03-18] MEDS: IPRATROPIUM (NEB) 0.5 MG/2.5 ML AMP HHN ×4 (08:00→20:21)
[2018-03-18] MEDS: ATENOLOL 25 MG TAB PO ×2 (09:00→21:40)
[2018-03-18] MEDS: MAGNESIUM HYDROXIDE 30ML CUP PO ×2 (09:00→09:10)
[2018-03-18] MEDS: DOCUSATE SODIUM 100 MG CAP PO ×3 (09:00→20:53)
[2018-03-18] MEDS: SENNA TAB PO ×2 (09:00→09:15)
[2018-03-18] MEDS: DORZOLAMIDE/TIMOLOL 10 ML OPH BOTH EYES (09:09)
[2018-03-18] MEDS: TIMOLOL 0.25% 5 ML OPH BOTH EYES ×2 (09:09→20:53)
[2018-03-18] MEDS: FUROSEMIDE 40 MG INJ IV (09:10)
[2018-03-18] MEDS: FERROUS SULFATE (EC) 325 MG TAB PO (09:10)
[2018-03-18] MEDS: FAMOTIDINE 20 MG TAB PO (09:10)
[2018-03-18] MEDS: ZINC OXIDE 20% 30 GM OINT TOP ×2 (09:11→20:56)
[2018-03-18] MEDS: NEUTRA-PHOS 250 MG PACKET PO ×2 (11:53→20:53)
[2018-03-18] MEDS: HYDROmorphONE 0.5 MG/0.5 ML SYG IV (17:55)
[2018-03-18] MEDS: DILTIAZEM 25 MG INJ IV (21:39)
[2018-03-19] MEDS: LEVALBUTEROL (NEB) 0.63 MG/3 ML AMP HHN ×4 (01:22→13:07)
[2018-03-19] MEDS: PANTOPRAZOLE 40 MG INJ IV (06:23)
[2018-03-19] MEDS: PIPER-TAZO 3.375 GM IV (PMX) 100 ML IVPB (06:23)
[2018-03-19 07:36] LABS: Allen Test ACCEPTAB; Arterial Base Excess 3.2 mmol/L (-3.0-3); Arterial Blood Gas Oxygen Sat 98.1 mmHG (95.0-98.0); Arterial COHb 0.3 % (0.0-3.0); Arterial Fraction of Oxyhgb 97.5 % (93.0-99.0); Arterial HCO3 29.3 mmol/L (22.0-26.0); Arterial MetHb 0.3 % (0.0-1.5); Arterial Total Hemglobin 9.8 g/dl (12.0-18.0); Arterial pCO2 52.8 mmhg (35-45); Blood Gas PS 10; MODE MASK - BIPAP; Site Right Radial
[2018-03-19] MEDS: IPRATROPIUM (NEB) 0.5 MG/2.5 ML AMP HHN ×2 (07:50→13:07)
[2018-03-19] MEDS: HYDROmorphONE 0.5 MG/0.5 ML SYG IV ×4 (08:18→23:42)
[2018-03-19] MEDS: FAMOTIDINE 20 MG TAB PO (08:54)
[2018-03-19] MEDS: ATENOLOL 25 MG TAB PO (08:54)
[2018-03-19] MEDS: SENNA TAB PO (08:54)
[2018-03-19] MEDS: MAGNESIUM HYDROXIDE 30ML CUP PO (08:54)
[2018-03-19] MEDS: DOCUSATE SODIUM 100 MG CAP PO (08:55)
[2018-03-19] MEDS: NEUTRA-PHOS 250 MG PACKET PO (08:55)
[2018-03-19] MEDS: FERROUS SULFATE (EC) 325 MG TAB PO (08:55)
[2018-03-19] MEDS: FUROSEMIDE 40 MG INJ IV (08:57)
[2018-03-19] MEDS: ZINC OXIDE 20% 30 GM OINT TOP (08:57)
[2018-03-19] MEDS: DORZOLAMIDE/TIMOLOL 10 ML OPH BOTH EYES (11:37)
[2018-03-19] MEDS: TIMOLOL 0.25% 5 ML OPH BOTH EYES (11:38)
[2018-03-19] MEDS ORDERED: IPRATROPIUM (NEB) 0.5 MG/2.5 ML AMP HHN (12:00)
[2018-03-19] MEDS ORDERED: LEVALBUTEROL (NEB) 0.63 MG/3 ML AMP HHN (12:00)
[2018-03-19] MEDS: METHYLPREDNISOLONE 40 MG INJ IV (12:31)
[2018-03-19 12:48] LABS: ADD MAN DIFF? NO
[2018-03-19 13:00] LABS: ABNORMAL IP MESSAGE 1; BASOPHILS % 0.3 % (0.0-2.0); EOSINOPHILS % 0.1 % (0.0-7.0); HEMATOCRIT 26.9 % (42.0-52.0); HEMOGLOBIN 8.3 g/dl (14.0-18.0); LYMPHOCYTES # 1.9 10^3/ul (0.8-2.9); LYMPHOCYTES % 14.2 % (15.0-51.0); MEAN CORPUSCULAR HEMOGLOBIN 24.9 pg (29.0-33.0); MEAN CORPUSCULAR HGB CONC 30.9 g/dl (32.0-37.0); MEAN CORPUSCULAR VOLUME 80.5 fl (82.0-101.0); MEAN PLATELET VOLUME 11.6 fl (7.4-10.4); MONOCYTE # 2.8 10^3/ul (0.3-0.9); MONOCYTES % 20.6 % (0.0-11.0); NEUTROPHIL # 8.5 10^3/ul (1.6-7.5); NEUTROPHILS % 62.5 % (39.0-77.0); NUCLEATED RED BLOOD CELLS # 2.2 10^3/ul (0.0-0.0); NUCLEATED RED BLOOD CELLS% 16.4 /100WBC (0.0-0.0); PLATELET COUNT 574 10^3/UL (140-415); POSITIVE DIFF @See below; RED BLOOD COUNT 3.34 10^6/ul (4.70-6.10); RED CELL DISTRIBUTION WIDTH 21.3 % (11.5-14.5)
[2018-03-19 13:00] LABS: WHITE BLOOD COUNT 13.6 10^3/ul (4.8-10.8)
[2018-03-19 13:15] LABS: ANION GAP 14 (8-16); BLOOD UREA NITROGEN 25 mg/dl (7-20); CARBON DIOXIDE 28 mmol/L (21-31); CHLORIDE 105 mmol/L (97-110); CREATININE 1.07 mg/dl (0.61-1.24); GLUCOSE 110 mg/dl (70-220); POTASSIUM 4.1 mmol/L (3.5-5.1); SODIUM 143 mmol/L (135-144)
[2018-03-19] MEDS ORDERED: BISACODYL 10 MG SUPP PR (15:00)
[2018-03-19] MEDS ORDERED: ALBUTEROL/IPRATROPIUM (NEB) 3 ML AMP HHN (15:00)
[2018-03-19] MEDS ORDERED: HYDROmorphONE 0.5 MG/0.5 ML SYG IV ×2 (15:00)
[2018-03-19] MEDS: LORAZEPAM 2 MG INJ IV (18:49)
[2018-03-20] MEDS: DIMETHICONE STICK TOP (00:05)
[2018-03-20] MEDS ORDERED: MAGNESIUM HYDROXIDE 30ML CUP PO (04:00)
[2018-03-20] MEDS ORDERED: DOCUSATE SODIUM 100 MG CAP PO (04:00)
[2018-03-20] MEDS ORDERED: BISACODYL 10 MG SUPP PR (04:00)
[2018-03-20] MEDS ORDERED: LEVALBUTEROL (NEB) 0.63 MG/3 ML AMP HHN (04:00)
[2018-03-20] MEDS ORDERED: KETOROLAC 30 MG INJ IV (04:00)
[2018-03-20] MEDS ORDERED: LORAZEPAM 2 MG INJ IV (04:00)
[2018-03-20] MEDS: PANTOPRAZOLE 40 MG INJ IV (06:25)
[2018-03-20] MEDS: PIPER-TAZO 3.375 GM IV (PMX) 100 ML IVPB ×3 (06:27→21:01)
[2018-03-20] MEDS: HYDROmorphONE 0.5 MG/0.5 ML SYG IV ×3 (06:28→18:17)
[2018-03-20] MEDS: TIMOLOL 0.25% BOTH EYES ×2 (09:00→21:00)
[2018-03-20] MEDS: FAMOTIDINE 20 MG TAB PO ×2 (09:00→20:44)
[2018-03-20] MEDS: MAGNESIUM HYDROXIDE 30ML CUP PO (09:12)
[2018-03-20] MEDS: FUROSEMIDE 40 MG INJ IV (09:12)
[2018-03-20] MEDS: ATROPINE SULFATE 1% 5ML SL (09:12)
[2018-03-20] MEDS: METHYLPREDNISOLONE 40 MG INJ IV ×2 (09:12→20:50)
[2018-03-20] MEDS: FERROUS SULFATE (EC) 325 MG TAB PO (09:13)
[2018-03-20] MEDS: ATENOLOL 25 MG TAB PO ×2 (09:14→20:44)
[2018-03-20] MEDS: ALBUTEROL/IPRATROPIUM (NEB) 3 ML AMP HHN ×3 (09:19→21:15)
[2018-03-20] MEDS: DORZOLAMIDE/TIMOLOL/PF 0.2 ML DROPERETTE BOTH EYES (12:49)
[2018-03-20 21:38] LABS: AADO2 Arterial 530.9 mmHg (7.0-24.0); Allen Test ACCEPTAB; Arterial Base Excess -3.7 mmol/L (-3.0-3); Arterial Blood Gas Oxygen Sat 93.2 mmHG (95.0-98.0); Arterial COHb 0.3 % (0.0-3.0); Arterial Fraction of Oxyhgb 92.5 % (93.0-99.0); Arterial HCO3 27.2 mmol/L (22.0-26.0); Arterial MetHb 0.4 % (0.0-1.5); Arterial pCO2 91.1 mmhg (35-45); MODE HFNC; Site Right Radial
[2018-03-20] MEDS ORDERED: PHENYLephrine 20MG IN 250 ML 250 ML (23:02)
[2018-03-20] MEDS: PHENYLephrine 20MG IN 250 ML 250 ML IV (23:52)
[2018-03-21 00:13] LABS: AADO2 Arterial 399.1 mmHg (7.0-24.0); Allen Test ACCEPTAB; Arterial Base Excess -3.3 mmol/L (-3.0-3); Arterial Blood Gas Oxygen Sat 98.9 mmHG (95.0-98.0); Arterial COHb 0.3 % (0.0-3.0); Arterial Fraction of Oxyhgb 98.2 % (93.0-99.0); Arterial HCO3 26.3 mmol/L (22.0-26.0); Arterial MetHb 0.4 % (0.0-1.5); Arterial pCO2 76.6 mmhg (35-45); Blood Gas IEPAP 18/6; Blood Gas PS 12; MODE MASK - BIPAP; Site Right Radial
[2018-03-21] MEDS: ALBUTEROL/IPRATROPIUM (NEB) 3 ML AMP HHN ×4 (01:38→14:00)
[2018-03-21] MEDS: LORAZEPAM 2 MG INJ IV (02:32)
[2018-03-21] MEDS: MIDAZOLAM (DRIP) 50 mg/50 mL 50 ML IV (03:40)
[2018-03-21] MEDS: FENTAnyl (DRIP) 1000 mcg/100mL 100 ML IV (03:40)
[2018-03-21 04:07] LABS: AADO2 Arterial 204.8 mmHg (7.0-24.0); Allen Test ACCEPTAB; Arterial Base Excess -1.6 mmol/L (-3.0-3); Arterial Blood Gas Oxygen Sat 95.9 mmHG (95.0-98.0); Arterial COHb 0.3 % (0.0-3.0); Arterial Fraction of Oxyhgb 95.2 % (93.0-99.0); Arterial HCO3 25.3 mmol/L (22.0-26.0); Arterial MetHb 0.4 % (0.0-1.5); Arterial Total Hemglobin 9.5 g/dl (12.0-18.0); Arterial pCO2 53.4 mmhg (35-45); MODE VENT - AC; Site Right Radial
[2018-03-21] MEDS: PHENYLephrine 40 MG in DEXTROSE 5% 496 ML IV ×3 (04:28→16:21)
[2018-03-21 05:27] LABS: WHITE BLOOD COUNT 20.3 10^3/ul (4.8-10.8)
[2018-03-21 05:27] LABS: ABNORMAL IP MESSAGE 1; HEMATOCRIT 29.1 % (42.0-52.0); HEMOGLOBIN 8.6 g/dl (14.0-18.0); MEAN CORPUSCULAR HEMOGLOBIN 25.5 pg (29.0-33.0); MEAN CORPUSCULAR HGB CONC 29.6 g/dl (32.0-37.0); MEAN CORPUSCULAR VOLUME 86.4 fl (82.0-101.0); MEAN PLATELET VOLUME 11.5 fl (7.4-10.4); NUCLEATED RED BLOOD CELLS% 21.5 /100WBC (0.0-0.0); PLATELET COUNT 520 10^3/UL (140-415); POSITIVE DIFF @See below; RED BLOOD COUNT 3.37 10^6/ul (4.70-6.10); RED CELL DISTRIBUTION WIDTH 22.2 % (11.5-14.5)
[2018-03-21 05:30] LABS: ADD MAN DIFF? YES
[2018-03-21 05:54] LABS: MAGNESIUM 2.2 mg/dl (1.7-2.5)
[2018-03-21 05:54] LABS: PHOSPHORUS 8.3 mg/dl (2.5-4.9)
[2018-03-21 05:59] LABS: ANION GAP 19 (8-16); BLOOD UREA NITROGEN 45 mg/dl (7-20); CALCIUM 7.4 mg/dl (8.4-10.2); CARBON DIOXIDE 27 mmol/L (21-31); CHLORIDE 104 mmol/L (97-110); CREATININE 2.42 mg/dl (0.61-1.24); GLUCOSE 115 mg/dl (70-220); SODIUM 145 mmol/L (135-144)
[2018-03-21] MEDS: HYDROmorphONE 0.5 MG/0.5 ML SYG IV ×2 (06:00)
[2018-03-21] MEDS: PANTOPRAZOLE 40 MG INJ IV (06:57)
[2018-03-21] MEDS: PIPER-TAZO 3.375 GM IV (PMX) 100 ML IVPB ×3 (06:57→21:28)
[2018-03-21] MEDS ORDERED: ETOMIDATE 20 MG INJ (07:00)
[2018-03-21] MEDS ORDERED: ROCURONIUM 50 MG INJ (07:00)
[2018-03-21 07:01] LABS: ANISOCYTOSIS 1+ (0-0); BAND NEUTROPHILS #M 1.6 10^3/ul (0.0-0.6); BAND NEUTROPHILS % (M) 8 % (0-4); EOSINOPHILS % (M) 2 % (0-7); ERYTHROBLAST% (NRBC) (M) 30 % (0-0); HYPOCHROMASIA 1+ (0-0); LYMPHOCYTES #M 1.2 10^3/ul (0.8-2.9); LYMPHOCYTES % (M) 6 % (15-51); METAMYELOCYTES #M 0.2 10^3/ul (0.0-0.0); METAMYELOCYTES %M 1 % (0-0); MONOCYTE #M 0.6 10^3/ul (0.3-0.9); MONOCYTES % (M) 3 % (0-11); MYELOCYTES #M 0.4 10^3/ul (0.0-0.0); MYELOCYTES % (M) 2 % (0-0); PLATELET ESTIMATE INCREASED; POIKILOCYTOSIS 1+ (0-0); POLYCHROMASIA 1+ (0-0); SEG NEUT #M 16.2 10^3/ul (1.6-7.5); SEGMENTED NEUTROPHILS (M) % 78 % (39-77); SMUDGE%M 14 % (0-0); SPHEROCYTES 1+ (0-0); TARGET CELLS 1+ (0-0)
[2018-03-21 07:14] LABS: AADO2 Arterial 200.9 mmHg (7.0-24.0); Allen Test ACCEPTAB; Arterial Base Excess -3.7 mmol/L (-3.0-3); Arterial Blood Gas Oxygen Sat 96.8 mmHG (95.0-98.0); Arterial COHb 0.3 % (0.0-3.0); Arterial Fraction of Oxyhgb 96.1 % (93.0-99.0); Arterial HCO3 22.9 mmol/L (22.0-26.0); Arterial MetHb 0.4 % (0.0-1.5); Arterial Total Hemglobin 9.8 g/dl (12.0-18.0); Arterial pCO2 48.9 mmhg (35-45); MODE VENT - AC; Site Right Radial
[2018-03-21] MEDS: MAGNESIUM HYDROXIDE 30ML CUP PO (08:18)
[2018-03-21] MEDS: METHYLPREDNISOLONE 40 MG INJ IV ×2 (08:19→21:28)
[2018-03-21] MEDS: FUROSEMIDE 40 MG INJ IV (08:19)
[2018-03-21] MEDS: FERROUS SULFATE (EC) 325 MG TAB PO (08:19)
[2018-03-21] MEDS: FAMOTIDINE 20 MG TAB PO (08:19)
[2018-03-21] MEDS: DORZOLAMIDE/TIMOLOL/PF 0.2 ML DROPERETTE BOTH EYES (08:19)
[2018-03-21] MEDS: ATENOLOL 25 MG TAB PO (08:20)
[2018-03-21] MEDS: TIMOLOL 0.25% BOTH EYES ×2 (08:21→21:29)
[2018-03-21] MEDS: SOD CHLORIDE 0.9% 1,000 ML IV ×3 (10:06→17:10)
[2018-03-21] MEDS ORDERED: VANCOMYCIN IV PER PHARMACY XX (15:00)
[2018-03-21] MEDS: VANCOMYCIN 1.5 GM in SOD CHLORIDE 0.9% 250 ML IVPB (16:30)
[2018-03-21] MEDS: DIGOXIN 500 MCG INJ IV (19:43)
[2018-03-21] MEDS: ALBUTEROL HFA 8 GM INHALER INH (19:54)
[2018-03-22] MEDS: SOD CHLORIDE 0.9% 1,000 ML IV ×3 (02:26→18:00)
[2018-03-22] MEDS: MIDAZOLAM (DRIP) 50 mg/50 mL 50 ML IV ×2 (02:26→16:08)
[2018-03-22 05:17] LABS: ADD MAN DIFF? NO
[2018-03-22 05:21] LABS: ABNORMAL IP MESSAGE 1; BASOPHIL # 0.1 10^3/ul (0.0-0.1); BASOPHILS % 0.2 % (0.0-2.0); HEMATOCRIT 26.4 % (42.0-52.0); HEMOGLOBIN 8.2 g/dl (14.0-18.0); LYMPHOCYTES # 0.5 10^3/ul (0.8-2.9); LYMPHOCYTES % 2.1 % (15.0-51.0); MEAN CORPUSCULAR HEMOGLOBIN 25.4 pg (29.0-33.0); MEAN CORPUSCULAR HGB CONC 31.1 g/dl (32.0-37.0); MEAN CORPUSCULAR VOLUME 81.7 fl (82.0-101.0); MEAN PLATELET VOLUME 11.4 fl (7.4-10.4); MONOCYTE # 1.7 10^3/ul (0.3-0.9); MONOCYTES % 7.8 % (0.0-11.0); NEUTROPHIL # 18.2 10^3/ul (1.6-7.5); NEUTROPHILS % 83.9 % (39.0-77.0); NUCLEATED RED BLOOD CELLS # 7.5 10^3/ul (0.0-0.0); NUCLEATED RED BLOOD CELLS% 34.3 /100WBC (0.0-0.0); PLATELET COUNT 439 10^3/UL (140-415); POSITIVE DIFF @See below; RED BLOOD COUNT 3.23 10^6/ul (4.70-6.10)
[2018-03-22 05:21] LABS: WHITE BLOOD COUNT 21.7 10^3/ul (4.8-10.8)
[2018-03-22 05:44] LABS: PHOSPHORUS 6.2 mg/dl (2.5-4.9)
[2018-03-22 05:46] LABS: ANION GAP 16 (8-16); BLOOD UREA NITROGEN 49 mg/dl (7-20); CALCIUM 6.5 mg/dl (8.4-10.2); CARBON DIOXIDE 24 mmol/L (21-31); CHLORIDE 105 mmol/L (97-110); CREATININE 2.54 mg/dl (0.61-1.24); GLUCOSE 105 mg/dl (70-220); POTASSIUM 4.3 mmol/L (3.5-5.1); SODIUM 141 mmol/L (135-144)
[2018-03-22] MEDS: PIPER-TAZO 3.375 GM IV (PMX) 100 ML IVPB (05:59)
[2018-03-22] MEDS: PANTOPRAZOLE 40 MG INJ IV (05:59)
[2018-03-22] MEDS: PHENYLephrine 40 MG in DEXTROSE 5% 496 ML IV (06:07)
[2018-03-22] MEDS: TIMOLOL 0.25% BOTH EYES ×2 (09:00→21:25)
[2018-03-22] MEDS: MAGNESIUM HYDROXIDE 30ML CUP PO (09:00)
[2018-03-22] MEDS: METHYLPREDNISOLONE 40 MG INJ IV ×2 (11:01→21:25)
[2018-03-22] MEDS: FERROUS SULFATE 60 MG/ML 5ML CUP PO (11:01)
[2018-03-22] MEDS: DORZOLAMIDE/TIMOLOL/PF 0.2 ML DROPERETTE BOTH EYES (11:02)
[2018-03-22] MEDS: FENTAnyl (DRIP) 1000 mcg/100mL 100 ML IV (11:49)
[2018-03-22] MEDS: LEVALBUTEROL (HFA) 15 GM INHALER INH ×2 (14:00→19:45)
[2018-03-22] MEDS: VANCOMYCIN 500MG/NS (PMX) 100 ML IVPB (18:02)
[2018-03-22] MEDS: MEROPENEM 500MG/50 ML (PMX) 50 ML IVPB (21:25)
[2018-03-23] MEDS: LEVALBUTEROL (HFA) 15 GM INHALER INH ×4 (01:35→19:22)
[2018-03-23] MEDS: PANTOPRAZOLE 40 MG INJ IV (05:32)
[2018-03-23] MEDS: MIDAZOLAM (DRIP) 50 mg/50 mL 50 ML IV (05:32)
[2018-03-23 05:53] LABS: ADD MAN DIFF? NO
[2018-03-23 05:58] LABS: WHITE BLOOD COUNT 23.3 10^3/ul (4.8-10.8)
[2018-03-23 05:58] LABS: ABNORMAL IP MESSAGE 1; BASOPHIL # 0.1 10^3/ul (0.0-0.1); BASOPHILS % 0.3 % (0.0-2.0); HEMATOCRIT 28.2 % (42.0-52.0); HEMOGLOBIN 8.8 g/dl (14.0-18.0); LYMPHOCYTES % 4.5 % (15.0-51.0); MEAN CORPUSCULAR HEMOGLOBIN 25.1 pg (29.0-33.0); MEAN CORPUSCULAR HGB CONC 31.2 g/dl (32.0-37.0); MEAN CORPUSCULAR VOLUME 80.6 fl (82.0-101.0); MEAN PLATELET VOLUME 11.3 fl (7.4-10.4); MONOCYTE # 1.4 10^3/ul (0.3-0.9); MONOCYTES % 5.9 % (0.0-11.0); NEUTROPHIL # 19.4 10^3/ul (1.6-7.5); NEUTROPHILS % 83.3 % (39.0-77.0); NUCLEATED RED BLOOD CELLS # 10.3 10^3/ul (0.0-0.0); NUCLEATED RED BLOOD CELLS% 44.3 /100WBC (0.0-0.0); PLATELET COUNT 399 10^3/UL (140-415); POSITIVE DIFF @See below; RED CELL DISTRIBUTION WIDTH 22.9 % (11.5-14.5)
[2018-03-23 06:26] LABS: ANION GAP 14 (8-16); BLOOD UREA NITROGEN 51 mg/dl (7-20); CALCIUM 6.2 mg/dl (8.4-10.2); CARBON DIOXIDE 22 mmol/L (21-31); CHLORIDE 109 mmol/L (97-110); GLUCOSE 95 mg/dl (70-220); SODIUM 141 mmol/L (135-144)
[2018-03-23] MEDS: SOD CHLORIDE 0.9% 1,000 ML IV ×2 (07:02→13:15)
[2018-03-23] MEDS: MAGNESIUM HYDROXIDE 30ML CUP PO (07:56)
[2018-03-23] MEDS: TIMOLOL 0.25% BOTH EYES ×2 (09:48→20:31)
[2018-03-23] MEDS: DORZOLAMIDE/TIMOLOL/PF 0.2 ML DROPERETTE BOTH EYES (09:48)
[2018-03-23] MEDS: FERROUS SULFATE 60 MG/ML 5ML CUP GTB (09:48)
[2018-03-23] MEDS: MEROPENEM 500MG/50 ML (PMX) 50 ML IVPB ×2 (09:49→20:31)
[2018-03-23] MEDS: METHYLPREDNISOLONE 40 MG INJ IV ×2 (09:54→20:31)
[2018-03-23 11:17] LABS: AADO2 Arterial 101.1 mmHg (7.0-24.0); Allen Test ACCEPTAB; Arterial Base Excess -5.8 mmol/L (-3.0-3); Arterial Blood Gas Oxygen Sat 89.6 mmHG (95.0-98.0); Arterial COHb 0.3 % (0.0-3.0); Arterial HCO3 19.8 mmol/L (22.0-26.0); Arterial MetHb 0.4 % (0.0-1.5); Arterial Total Hemglobin 10.8 g/dl (12.0-18.0); Arterial pCO2 39.2 mmhg (35-45); Blood Gas PS 10; MODE VENT - CPAP; Site Left Radial
[2018-03-23] MEDS: VANCOMYCIN 500MG/NS (PMX) 100 ML IVPB (18:03)
[2018-03-23] MEDS: PHENYLephrine 40 MG in DEXTROSE 5% 496 ML IV (18:39)
[2018-03-24] MEDS: LEVALBUTEROL (HFA) 15 GM INHALER INH ×4 (01:50→19:28)
[2018-03-24] MEDS: SOD CHLORIDE 0.9% 1,000 ML IV ×3 (03:41→19:00)
[2018-03-24] MEDS: MIDAZOLAM (DRIP) 50 mg/50 mL 50 ML IV ×2 (03:49→23:09)
[2018-03-24] MEDS: PANTOPRAZOLE 40 MG INJ IV (05:39)
[2018-03-24] MEDS: FENTAnyl (DRIP) 1000 mcg/100mL 100 ML IV (06:18)
[2018-03-24] MEDS: MAGNESIUM HYDROXIDE 30ML CUP PO (07:48)
[2018-03-24] MEDS: PHENYLephrine 40 MG in DEXTROSE 5% 496 ML IV ×3 (08:17→23:09)
[2018-03-24] MEDS: TIMOLOL 0.25% BOTH EYES ×2 (09:00→21:19)
[2018-03-24] MEDS: METHYLPREDNISOLONE 40 MG INJ IV ×2 (10:19→21:19)
[2018-03-24] MEDS: DORZOLAMIDE/TIMOLOL/PF 0.2 ML DROPERETTE BOTH EYES (10:19)
[2018-03-24] MEDS: FERROUS SULFATE 60 MG/ML 5ML CUP GTB (10:19)
[2018-03-24] MEDS: MEROPENEM 500MG/50 ML (PMX) 50 ML IVPB ×2 (10:22→21:19)
[2018-03-24 14:53] LABS: ANION GAP 18 (8-16); BLOOD UREA NITROGEN 60 mg/dl (7-20); CARBON DIOXIDE 19 mmol/L (21-31); CHLORIDE 108 mmol/L (97-110); CREATININE 2.81 mg/dl (0.61-1.24); GLUCOSE 182 mg/dl (70-220); POTASSIUM 4.1 mmol/L (3.5-5.1); SODIUM 141 mmol/L (135-144)
[2018-03-24 15:29] LABS: CALCIUM 5.8 mg/dl (8.4-10.2)
[2018-03-24 17:40] LABS: VANCOMYCIN,TROUGH 15.8 ug/ml (10.0-20.0)
[2018-03-24] MEDS: CALCIUM GLUCONATE 10% 1 GM in DEXTROSE 5% 100 ML IVPB (18:37)
[2018-03-24] MEDS: CALCITRIOL 1 MCG INJ IV (18:37)
[2018-03-24] MEDS: VANCOMYCIN 500MG/NS (PMX) 100 ML IVPB (19:42)
[2018-03-25] MEDS: LEVALBUTEROL (HFA) 15 GM INHALER INH ×4 (01:00→21:10)
[2018-03-25 06:07] LABS: ABNORMAL IP MESSAGE 1; POSITIVE DIFF @See below
[2018-03-25] MEDS: PANTOPRAZOLE 40 MG INJ IV (06:19)
[2018-03-25 06:22] LABS: HEMOGLOBIN 9.3 g/dl (14.0-18.0); MEAN CORPUSCULAR HEMOGLOBIN 25.9 pg (29.0-33.0); MEAN CORPUSCULAR VOLUME 83.6 fl (82.0-101.0); MEAN PLATELET VOLUME 12.5 fl (7.4-10.4); NUCLEATED RED BLOOD CELLS% 55.5 /100WBC (0.0-0.0); PLATELET COUNT 349 10^3/UL (140-415); RED BLOOD COUNT 3.59 10^6/ul (4.70-6.10); RED CELL DISTRIBUTION WIDTH 23.9 % (11.5-14.5)
[2018-03-25 06:22] LABS: WHITE BLOOD COUNT 27.8 10^3/ul (4.8-10.8)
[2018-03-25 06:32] LABS: ADD MAN DIFF? YES
[2018-03-25 06:48] LABS: ANION GAP 16 (8-16); BLOOD UREA NITROGEN 61 mg/dl (7-20); CARBON DIOXIDE 20 mmol/L (21-31); CHLORIDE 109 mmol/L (97-110); CREATININE 2.69 mg/dl (0.61-1.24); GLUCOSE 150 mg/dl (70-220); POTASSIUM 3.8 mmol/L (3.5-5.1); SODIUM 141 mmol/L (135-144)
[2018-03-25 06:56] LABS: CALCIUM 5.9 mg/dl (8.4-10.2)
[2018-03-25] MEDS: FERROUS SULFATE 60 MG/ML 5ML CUP GTB (09:02)
[2018-03-25] MEDS: DORZOLAMIDE/TIMOLOL/PF 0.2 ML DROPERETTE BOTH EYES (09:03)
[2018-03-25] MEDS: METHYLPREDNISOLONE 40 MG INJ IV ×2 (09:03→20:08)
[2018-03-25] MEDS: MAGNESIUM HYDROXIDE 30ML CUP PO (09:03)
[2018-03-25] MEDS: CALCIUM GLUCONATE 10% 1 GM in DEXTROSE 5% 100 ML IVPB (09:03)
[2018-03-25] MEDS: TIMOLOL 0.25% BOTH EYES ×2 (09:10→20:03)
[2018-03-25] MEDS: MEROPENEM 500MG/50 ML (PMX) 50 ML IVPB ×2 (09:10→20:09)
[2018-03-25 09:33] LABS: SEGMENTED NEUTROPHILS (M) % 81 % (39-77)
[2018-03-25 09:34] LABS: ANISOCYTOSIS 2+ (0-0); BAND NEUTROPHILS #M 2.2 10^3/ul (0.0-0.6); BAND NEUTROPHILS % (M) 8 % (0-4); ERYTHROBLAST% (NRBC) (M) 70 % (0-0); GIANT THROMBO% (M) 6 % (0-0); HYPOCHROMASIA 1+ (0-0); LYMPHOCYTES #M 1.1 10^3/ul (0.8-2.9); LYMPHOCYTES % (M) 4 % (15-51); METAMYELOCYTES #M 0.2 10^3/ul (0.0-0.0); METAMYELOCYTES %M 1 % (0-0); MICROCYTOSIS 1+ (0-0); MONOCYTE #M 1.1 10^3/ul (0.3-0.9); MONOCYTES % (M) 4 % (0-11); MYELOCYTES #M 1.1 10^3/ul (0.0-0.0); MYELOCYTES % (M) 4 % (0-0); PLATELET ESTIMATE NORMAL; POIKILOCYTOSIS 2+ (0-0); POLYCHROMASIA 2+ (0-0); SEG NEUT #M 23.1 10^3/ul (1.6-7.5); SMUDGE%M 4 % (0-0)
[2018-03-25] MEDS: CALCITRIOL 0.25 MCG CAP NGT (09:37)
[2018-03-25] MEDS: SOD CHLORIDE 0.9% 1,000 ML IV (14:54)
[2018-03-25] MEDS: CALCIUM ACETATE 667 MG CAP NGT (19:07)
[2018-03-25] MEDS: VANCOMYCIN 500MG/NS (PMX) 100 ML IVPB (19:30)
[2018-03-25] MEDS: PHENYLephrine 40 MG in DEXTROSE 5% 496 ML IV (21:51)
[2018-03-25] MEDS: FENTAnyl (DRIP) 1000 mcg/100mL 100 ML IV (21:52)
[2018-03-26] MEDS: MIDAZOLAM (DRIP) 50 mg/50 mL 50 ML IV (00:01)
[2018-03-26] MEDS: CALCIUM ACETATE 667 MG CAP NGT ×3 (00:01→18:14)
[2018-03-26] MEDS: SOD CHLORIDE 0.9% 1,000 ML IV ×3 (00:54→19:39)
[2018-03-26] MEDS: LEVALBUTEROL (HFA) 15 GM INHALER INH ×4 (01:52→20:50)
[2018-03-26] MEDS: PANTOPRAZOLE 40 MG INJ IV (05:16)
[2018-03-26 05:20] LABS: WHITE BLOOD COUNT 31.1 10^3/ul (4.8-10.8)
[2018-03-26 05:20] LABS: ABNORMAL IP MESSAGE 1; HEMATOCRIT 28.4 % (42.0-52.0); HEMOGLOBIN 8.8 g/dl (14.0-18.0); MEAN CORPUSCULAR HEMOGLOBIN 26.3 pg (29.0-33.0); MEAN PLATELET VOLUME 12.6 fl (7.4-10.4); NUCLEATED RED BLOOD CELLS% 45.7 /100WBC (0.0-0.0); PLATELET COUNT 302 10^3/UL (140-415); POSITIVE DIFF @See below; RED BLOOD COUNT 3.34 10^6/ul (4.70-6.10)
[2018-03-26 05:26] LABS: ADD MAN DIFF? YES
[2018-03-26 05:44] LABS: MAGNESIUM 2.1 mg/dl (1.7-2.5); PHOSPHORUS 4.4 mg/dl (2.5-4.9)
[2018-03-26 08:09] LABS: ANISOCYTOSIS 2+ (0-0); BAND NEUTROPHILS #M 0.6 10^3/ul (0.0-0.6); BAND NEUTROPHILS % (M) 2 % (0-4); BURR CELLS 1+ (0-0); ERYTHROBLAST% (NRBC) (M) 70 % (0-0); GIANT THROMBO% (M) 1 % (0-0); HYPOCHROMASIA 1+ (0-0); LYMPHOCYTES #M 1.5 10^3/ul (0.8-2.9); LYMPHOCYTES % (M) 5 % (15-51); MICROCYTOSIS 1+ (0-0); MONOCYTE #M 0.6 10^3/ul (0.3-0.9); MONOCYTES % (M) 2 % (0-11); MYELOCYTES #M 1.2 10^3/ul (0.0-0.0); MYELOCYTES % (M) 4 % (0-0); PLATELET ESTIMATE NORMAL; POLYCHROMASIA 1+ (0-0); PROMYELOCYTES #M 0.3 10^3/ul (0-0); PROMYELOCYTES % (M) 1 % (0-0); REACTIVE LYMPHOCYTES #M 0.6 10^3/ul (0.0-0.0); REACTIVE LYMPHOCYTES% (M) 2 % (0-0); SEG NEUT #M 26.3 10^3/ul (1.6-7.5); SEGMENTED NEUTROPHILS (M) % 84 % (39-77); SMUDGE%M 6 % (0-0); SPHEROCYTES 1+ (0-0); TARGET CELLS 1+ (0-0)
[2018-03-26] MEDS: DORZOLAMIDE/TIMOLOL/PF 0.2 ML DROPERETTE BOTH EYES (08:49)
[2018-03-26] MEDS: MAGNESIUM HYDROXIDE 30ML CUP PO (08:49)
[2018-03-26] MEDS: ASPIRIN 81 MG TAB PO (08:49)
[2018-03-26] MEDS: METHYLPREDNISOLONE 40 MG INJ IV ×2 (08:49→20:18)
[2018-03-26] MEDS: MEROPENEM 500MG/50 ML (PMX) 50 ML IVPB ×2 (08:49→20:18)
[2018-03-26] MEDS: FERROUS SULFATE 60 MG/ML 5ML CUP GTB (08:49)
[2018-03-26] MEDS: CALCITRIOL 0.25 MCG CAP NGT (08:50)
[2018-03-26] MEDS: TIMOLOL 0.25% BOTH EYES ×2 (08:50→20:18)
[2018-03-26 11:55] LABS: ANION GAP 13 (8-16); BLOOD UREA NITROGEN 61 mg/dl (7-20); CALCIUM 6.1 mg/dl (8.4-10.2); CARBON DIOXIDE 19 mmol/L (21-31); CHLORIDE 114 mmol/L (97-110); CREATININE 2.27 mg/dl (0.61-1.24); GLUCOSE 172 mg/dl (70-220); SODIUM 143 mmol/L (135-144)
[2018-03-26] MEDS: ALBUMIN HUMAN 25% 100 ML IV ×2 (11:57→19:38)
[2018-03-26] MEDS: VANCOMYCIN 500MG/NS (PMX) 100 ML IVPB (19:45)
[2018-03-27] MEDS: LEVALBUTEROL (HFA) 15 GM INHALER INH ×4 (01:27→19:37)
[2018-03-27] MEDS: ALBUMIN HUMAN 25% 100 ML IV ×3 (03:04→22:32)
[2018-03-27] MEDS: MIDAZOLAM (DRIP) 50 mg/50 mL 50 ML IV (03:05)
[2018-03-27 05:07] LABS: ABNORMAL IP MESSAGE 1; HEMATOCRIT 23.3 % (42.0-52.0); HEMOGLOBIN 7.1 g/dl (14.0-18.0); MEAN CORPUSCULAR HEMOGLOBIN 25.8 pg (29.0-33.0); MEAN CORPUSCULAR HGB CONC 30.5 g/dl (32.0-37.0); MEAN CORPUSCULAR VOLUME 84.7 fl (82.0-101.0); MEAN PLATELET VOLUME 12.5 fl (7.4-10.4); NUCLEATED RED BLOOD CELLS% 26.9 /100WBC (0.0-0.0); PLATELET COUNT 209 10^3/UL (140-415); POSITIVE DIFF @See below; RED BLOOD COUNT 2.75 10^6/ul (4.70-6.10); RED CELL DISTRIBUTION WIDTH 24.6 % (11.5-14.5)
[2018-03-27 05:37] LABS: ADD MAN DIFF? YES
[2018-03-27 05:39] LABS: PHOSPHORUS 3.6 mg/dl (2.5-4.9)
[2018-03-27 05:39] LABS: MAGNESIUM 2.3 mg/dl (1.7-2.5)
[2018-03-27] MEDS: PANTOPRAZOLE 40 MG INJ IV (05:39)
[2018-03-27 05:52] LABS: ANION GAP 15 (8-16); BLOOD UREA NITROGEN 66 mg/dl (7-20); CALCIUM 6.3 mg/dl (8.4-10.2); CARBON DIOXIDE 20 mmol/L (21-31); CHLORIDE 115 mmol/L (97-110); CREATININE 2.11 mg/dl (0.61-1.24); GLUCOSE 160 mg/dl (70-220); SODIUM 147 mmol/L (135-144)
[2018-03-27] MEDS: PHENYLephrine 40 MG in DEXTROSE 5% 496 ML IV (06:56)
[2018-03-27 07:55] LABS: ANISOCYTOSIS 2+ (0-0); BAND NEUTROPHILS #M 1.3 10^3/ul (0.0-0.6); BAND NEUTROPHILS % (M) 4 % (0-4); EOSINOPHILS % (M) 3 % (0-7); ERYTHROBLAST% (NRBC) (M) 32 % (0-0); GIANT THROMBO% (M) 4 % (0-0); HYPOCHROMASIA 2+ (0-0); LYMPHOCYTES #M 1.7 10^3/ul (0.8-2.9); LYMPHOCYTES % (M) 5 % (15-51); METAMYELOCYTES #M 0.3 10^3/ul (0.0-0.0); METAMYELOCYTES %M 1 % (0-0); MICROCYTOSIS 2+ (0-0); MONOCYTE #M 0.3 10^3/ul (0.3-0.9); MONOCYTES % (M) 1 % (0-11); MYELOCYTES #M 1.7 10^3/ul (0.0-0.0); MYELOCYTES % (M) 5 % (0-0); PLASMA CELLS #M 0.3 10^3/ul (0.0-0.0); PLASMAC%(M) 1 % (0); PLATELET ESTIMATE NORMAL; POIKILOCYTOSIS 1+ (0-0); POLYCHROMASIA 3+ (0-0); SCHISTOCYTES 1+ (0-0); SEG NEUT #M 27.6 10^3/ul (1.6-7.5); SEGMENTED NEUTROPHILS (M) % 80 % (39-77); SMUDGE%M 4 % (0-0); TARGET CELLS 1+ (0-0)
[2018-03-27] MEDS: MAGNESIUM HYDROXIDE 30ML CUP PO (08:06)
[2018-03-27] MEDS: ASPIRIN 81 MG TAB PO (09:49)
[2018-03-27] MEDS: FERROUS SULFATE 60 MG/ML 5ML CUP GTB (09:49)
[2018-03-27] MEDS: CALCITRIOL 0.25 MCG CAP NGT (09:50)
[2018-03-27] MEDS: DORZOLAMIDE/TIMOLOL/PF 0.2 ML DROPERETTE BOTH EYES (09:50)
[2018-03-27] MEDS: TIMOLOL 0.25% BOTH EYES ×2 (09:51→22:32)
[2018-03-27] MEDS: MEROPENEM 500MG/50 ML (PMX) 50 ML IVPB ×2 (09:51→22:32)
[2018-03-27] MEDS: CALCIUM ACETATE 667 MG CAP NGT ×3 (09:51→17:35)
[2018-03-27] MEDS: METHYLPREDNISOLONE 40 MG INJ IV ×2 (09:51→22:30)
[2018-03-27] MEDS: SOD CHLORIDE 0.45% 1,000 ML IV (14:30)
[2018-03-27] MEDS: POTASSIUM CHLORIDE 100 ML IVPB ×2 (15:38→17:45)
[2018-03-27] MEDS: VANCOMYCIN 500MG/NS (PMX) 100 ML IVPB (18:25)
[2018-03-27] MEDS: FENTAnyl (DRIP) 1000 mcg/100mL 100 ML IV (19:18)
[2018-03-28] MEDS: LEVALBUTEROL (HFA) 15 GM INHALER INH ×4 (01:02→20:55)
[2018-03-28 05:05] LABS: ABNORMAL IP MESSAGE 1; HEMATOCRIT 21.4 % (42.0-52.0); MEAN CORPUSCULAR HEMOGLOBIN 26.5 pg (29.0-33.0); MEAN CORPUSCULAR HGB CONC 31.3 g/dl (32.0-37.0); MEAN CORPUSCULAR VOLUME 84.6 fl (82.0-101.0); MEAN PLATELET VOLUME 12.4 fl (7.4-10.4); NUCLEATED RED BLOOD CELLS% 15.8 /100WBC (0.0-0.0); PLATELET COUNT 184 10^3/UL (140-415); POSITIVE DIFF @See below; RED BLOOD COUNT 2.53 10^6/ul (4.70-6.10)
[2018-03-28 05:05] LABS: WHITE BLOOD COUNT 39.3 10^3/ul (4.8-10.8)
[2018-03-28 05:22] LABS: ADD MAN DIFF? YES; HEMOGLOBIN 6.7 g/dl (14.0-18.0)
[2018-03-28 05:31] LABS: PHOSPHORUS 3.2 mg/dl (2.5-4.9)
[2018-03-28 05:31] LABS: MAGNESIUM 2.5 mg/dl (1.7-2.5)
[2018-03-28 05:32] LABS: ANION GAP 13 (8-16); BLOOD UREA NITROGEN 69 mg/dl (7-20); CALCIUM 6.8 mg/dl (8.4-10.2); CARBON DIOXIDE 21 mmol/L (21-31); CHLORIDE 115 mmol/L (97-110); CREATININE 1.89 mg/dl (0.61-1.24); GLUCOSE 120 mg/dl (70-220); POTASSIUM 3.4 mmol/L (3.5-5.1); SODIUM 146 mmol/L (135-144)
[2018-03-28] MEDS: PANTOPRAZOLE 40 MG INJ IV (05:56)
[2018-03-28] MEDS: ALBUMIN HUMAN 25% 100 ML IV (05:57)
[2018-03-28 07:35] LABS: ANISOCYTOSIS 2+ (0-0); BAND NEUTROPHILS #M 0.3 10^3/ul (0.0-0.6); BAND NEUTROPHILS % (M) 1 % (0-4); ERYTHROBLAST% (NRBC) (M) 40 % (0-0); GIANT THROMBO% (M) 2 % (0-0); LYMPHOCYTES #M 0.3 10^3/ul (0.8-2.9); LYMPHOCYTES % (M) 1 % (15-51); MICROCYTOSIS 1+ (0-0); MONOCYTE #M 0.3 10^3/ul (0.3-0.9); MONOCYTES % (M) 1 % (0-11); PLATELET ESTIMATE NORMAL; POLYCHROMASIA 1+ (0-0); SEG NEUT #M 38.2 10^3/ul (1.6-7.5); SEGMENTED NEUTROPHILS (M) % 97 % (39-77); SMUDGE%M 5 % (0-0)
[2018-03-28] MEDS: CALCIUM ACETATE 667 MG CAP NGT ×4 (07:35→21:01)
[2018-03-28] MEDS: MAGNESIUM HYDROXIDE 30ML CUP PO (08:40)
[2018-03-28] MEDS: TIMOLOL 0.25% BOTH EYES ×2 (09:00→21:03)
[2018-03-28] MEDS: MIDAZOLAM (DRIP) 50 mg/50 mL 50 ML IV (10:01)
[2018-03-28] MEDS: FERROUS SULFATE 60 MG/ML 5ML CUP GTB (11:16)
[2018-03-28] MEDS: DORZOLAMIDE/TIMOLOL/PF 0.2 ML DROPERETTE BOTH EYES (11:16)
[2018-03-28] MEDS: METHYLPREDNISOLONE 40 MG INJ IV ×2 (11:16→21:02)
[2018-03-28] MEDS: FUROSEMIDE 40 MG INJ IV (11:17)
[2018-03-28] MEDS: ASPIRIN 81 MG TAB PO (11:17)
[2018-03-28] MEDS: CALCITRIOL 0.25 MCG CAP NGT (11:17)
[2018-03-28] MEDS: MEROPENEM 500MG/50 ML (PMX) 50 ML IVPB ×2 (12:51→21:02)
[2018-03-28 14:37] LABS: IMMEDIATE SPIN CROSSMATCH 1 1
[2018-03-28] MEDS: SOD CHLORIDE 0.9% 250 ML IV* (14:54)
[2018-03-28] MEDS: VANCOMYCIN 500MG/NS (PMX) 100 ML IVPB (18:43)
[2018-03-29] MEDS: LEVALBUTEROL (HFA) 15 GM INHALER INH ×4 (01:54→20:12)
[2018-03-29] MEDS: PANTOPRAZOLE 40 MG INJ IV (05:33)
[2018-03-29 05:57] LABS: ABNORMAL IP MESSAGE 1; HEMATOCRIT 24.2 % (42.0-52.0); HEMOGLOBIN 7.6 g/dl (14.0-18.0); MEAN CORPUSCULAR HEMOGLOBIN 26.6 pg (29.0-33.0); MEAN CORPUSCULAR HGB CONC 31.4 g/dl (32.0-37.0); MEAN CORPUSCULAR VOLUME 84.6 fl (82.0-101.0); NUCLEATED RED BLOOD CELLS% 10.6 /100WBC (0.0-0.0); PLATELET COUNT 169 10^3/UL (140-415); POSITIVE DIFF @See below; RED BLOOD COUNT 2.86 10^6/ul (4.70-6.10); RED CELL DISTRIBUTION WIDTH 24.7 % (11.5-14.5)
[2018-03-29 05:57] LABS: WHITE BLOOD COUNT 36.8 10^3/ul (4.8-10.8)
[2018-03-29 06:07] LABS: ADD MAN DIFF? YES
[2018-03-29 06:37] LABS: ALANINE AMINOTRANSFERASE 48 IU/L (13-69); ALBUMIN 3.3 g/dl (3.3-4.9); ALBUMIN/GLOBULIN RATIO 1.73; ALKALINE PHOSPHATASE 179 IU/L (42-121); ANION GAP 15 (8-16); ASPARTATE AMINO TRANSFERASE 34 IU/L (15-46); BILIRUBIN,INDIRECT 0.4 mg/dl (0-1.1); BILIRUBIN,TOTAL 0.4 mg/dl (0.2-1.3); BLOOD UREA NITROGEN 66 mg/dl (7-20); CARBON DIOXIDE 24 mmol/L (21-31); CHLORIDE 116 mmol/L (97-110); CREATININE 1.68 mg/dl (0.61-1.24); GLUCOSE 116 mg/dl (70-220); POTASSIUM 3.7 mmol/L (3.5-5.1); SODIUM 151 mmol/L (135-144); TOTAL PROTEIN 5.2 g/dl (6.1-8.1)
[2018-03-29 07:29] LABS: ANISOCYTOSIS 2+ (0-0); BAND NEUTROPHILS #M 2.2 10^3/ul (0.0-0.6); BAND NEUTROPHILS % (M) 6 % (0-4); EOSINOPHILS % (M) 2 % (0-7); ERYTHROBLAST% (NRBC) (M) 15 % (0-0); GIANT THROMBO% (M) 3 % (0-0); LYMPHOCYTES #M 0.7 10^3/ul (0.8-2.9); LYMPHOCYTES % (M) 2 % (15-51); MICROCYTOSIS 1+ (0-0); MONOCYTE #M 0.7 10^3/ul (0.3-0.9); MONOCYTES % (M) 2 % (0-11); MYELOCYTES #M 0.7 10^3/ul (0.0-0.0); MYELOCYTES % (M) 2 % (0-0); PLATELET ESTIMATE NORMAL; POLYCHROMASIA 3+ (0-0); SEG NEUT #M 32.5 10^3/ul (1.6-7.5); SEGMENTED NEUTROPHILS (M) % 86 % (39-77); SMUDGE%M 4 % (0-0); SPHEROCYTES 1+ (0-0); TARGET CELLS 2+ (0-0)
[2018-03-29] MEDS: MAGNESIUM HYDROXIDE 30ML CUP PO (07:37)
[2018-03-29] MEDS: MIDAZOLAM (DRIP) 50 mg/50 mL 50 ML IV ×2 (08:03→17:27)
[2018-03-29] MEDS: MEROPENEM 500MG/50 ML (PMX) 50 ML IVPB ×2 (08:43→20:35)
[2018-03-29] MEDS: TIMOLOL 0.25% BOTH EYES ×2 (08:43→20:35)
[2018-03-29] MEDS: FUROSEMIDE 40 MG INJ IV (08:44)
[2018-03-29] MEDS: METHYLPREDNISOLONE 40 MG INJ IV ×2 (08:44→20:35)
[2018-03-29] MEDS: FERROUS SULFATE 60 MG/ML 5ML CUP GTB (08:44)
[2018-03-29] MEDS: DORZOLAMIDE/TIMOLOL/PF 0.2 ML DROPERETTE BOTH EYES (08:44)
[2018-03-29] MEDS: CALCITRIOL 0.25 MCG CAP NGT (08:45)
[2018-03-29] MEDS: CALCIUM ACETATE 667 MG CAP NGT ×3 (08:45→20:36)
[2018-03-29] MEDS: DEXTROSE 5% 1,000 ML IV (12:55)
[2018-03-29] MEDS: FENTAnyl (DRIP) 1000 mcg/100mL 100 ML IV (12:58)
[2018-03-29] MEDS: VANCOMYCIN 500MG/NS (PMX) 100 ML IVPB (17:51)
[2018-03-30] MEDS: LEVALBUTEROL (HFA) 15 GM INHALER INH ×4 (01:51→20:00)
[2018-03-30 04:41] LABS: ABNORMAL IP MESSAGE 1; HEMATOCRIT 23.3 % (42.0-52.0); HEMOGLOBIN 7.6 g/dl (14.0-18.0); IMMATURE GRANS #M 2.04 10^3/ul; IMMATURE GRANS % (M) 5.8 %; MEAN CORPUSCULAR HEMOGLOBIN 27.6 pg (29.0-33.0); MEAN CORPUSCULAR HGB CONC 32.6 g/dl (32.0-37.0); MEAN CORPUSCULAR VOLUME 84.7 fl (82.0-101.0); MEAN PLATELET VOLUME 12.7 fl (7.4-10.4); NUCLEATED RED BLOOD CELLS% 6.4 /100WBC (0.0-0.0); PLATELET COUNT 149 10^3/UL (140-415); POSITIVE DIFF @See below; RED BLOOD COUNT 2.75 10^6/ul (4.70-6.10); RED CELL DISTRIBUTION WIDTH 25.5 % (11.5-14.5)
[2018-03-30 04:41] LABS: WHITE BLOOD COUNT 35.1 10^3/ul (4.8-10.8)
[2018-03-30 04:48] LABS: ADD MAN DIFF? YES
[2018-03-30 05:11] LABS: PHOSPHORUS 3.4 mg/dl (2.5-4.9)
[2018-03-30 05:11] LABS: ANION GAP 10 (8-16); BLOOD UREA NITROGEN 62 mg/dl (7-20); CARBON DIOXIDE 26 mmol/L (21-31); CHLORIDE 117 mmol/L (97-110); CREATININE 1.47 mg/dl (0.61-1.24); GLUCOSE 137 mg/dl (70-220); MAGNESIUM 2.4 mg/dl (1.7-2.5); POTASSIUM 3.4 mmol/L (3.5-5.1); SODIUM 150 mmol/L (135-144)
[2018-03-30] MEDS: PANTOPRAZOLE 40 MG INJ IV (06:15)
[2018-03-30] MEDS: DEXTROSE 5% 1,000 ML IV ×2 (06:15→12:38)
[2018-03-30 07:38] LABS: ANISOCYTOSIS 2+ (0-0); BAND NEUTROPHILS #M 2.1 10^3/ul (0.0-0.6); BAND NEUTROPHILS % (M) 6 % (0-4); EOSINOPHILS % (M) 1 % (0-7); ERYTHROBLAST% (NRBC) (M) 11 % (0-0); MICROCYTOSIS 1+ (0-0); MONOCYTES % (M) 3 % (0-11); MYELOCYTES #M 1.4 10^3/ul (0.0-0.0); MYELOCYTES % (M) 4 % (0-0); PLATELET ESTIMATE NORMAL; POLYCHROMASIA 3+ (0-0); SEG NEUT #M 30.9 10^3/ul (1.6-7.5); SEGMENTED NEUTROPHILS (M) % 86 % (39-77); SMUDGE%M 71 % (0-0)
[2018-03-30] MEDS: METHYLPREDNISOLONE 40 MG INJ IV ×2 (08:21→20:56)
[2018-03-30] MEDS: CALCIUM ACETATE 667 MG CAP NGT ×3 (08:21→20:56)
[2018-03-30] MEDS: FERROUS SULFATE 60 MG/ML 5ML CUP GTB (08:21)
[2018-03-30] MEDS: MAGNESIUM HYDROXIDE 30ML CUP PO (08:21)
[2018-03-30] MEDS: DORZOLAMIDE/TIMOLOL/PF 0.2 ML DROPERETTE BOTH EYES (08:22)
[2018-03-30] MEDS: TIMOLOL 0.25% BOTH EYES ×2 (08:22→20:59)
[2018-03-30] MEDS: CALCITRIOL 0.25 MCG CAP NGT (08:24)
[2018-03-30] MEDS: MEROPENEM 500MG/50 ML (PMX) 50 ML IVPB ×2 (08:24→20:57)
[2018-03-30] MEDS: MIDAZOLAM (DRIP) 50 mg/50 mL 50 ML IV (09:10)
[2018-03-30] MEDS: VANCOMYCIN 500MG/NS (PMX) 100 ML IVPB (18:10)
[2018-03-30] MEDS: POTASSIUM CHLORIDE 50 ML IVPB (18:10)
[2018-03-30] MEDS: FENTAnyl (DRIP) 1000 mcg/100mL 100 ML IV (21:12)
[2018-03-31] MEDS: MIDAZOLAM (DRIP) 50 mg/50 mL 50 ML IV ×2 (00:41→21:07)
[2018-03-31] MEDS: LEVALBUTEROL (HFA) 15 GM INHALER INH ×4 (02:49→19:24)
[2018-03-31 04:46] LABS: WHITE BLOOD COUNT 35.7 10^3/ul (4.8-10.8)
[2018-03-31 04:46] LABS: ABNORMAL IP MESSAGE 1; HEMATOCRIT 26.6 % (42.0-52.0); HEMOGLOBIN 8.4 g/dl (14.0-18.0); IMMATURE GRANS #M 1.82 10^3/ul; IMMATURE GRANS % (M) 5.1 %; MEAN CORPUSCULAR HEMOGLOBIN 27.3 pg (29.0-33.0); MEAN CORPUSCULAR HGB CONC 31.6 g/dl (32.0-37.0); MEAN CORPUSCULAR VOLUME 86.4 fl (82.0-101.0); MEAN PLATELET VOLUME 13.2 fl (7.4-10.4); NUCLEATED RED BLOOD CELLS% 3.8 /100WBC (0.0-0.0); PLATELET COUNT 172 10^3/UL (140-415); POSITIVE DIFF @See below; RED BLOOD COUNT 3.08 10^6/ul (4.70-6.10); RED CELL DISTRIBUTION WIDTH 26.2 % (11.5-14.5)
[2018-03-31 04:50] LABS: ADD MAN DIFF? YES
[2018-03-31 05:01] LABS: Allen Test ACCEPTAB; Arterial Blood Gas Oxygen Sat 97.3 mmHG (95.0-98.0); Arterial COHb 0.4 % (0.0-3.0); Arterial Fraction of Oxyhgb 96.1 % (93.0-99.0); Arterial HCO3 22.6 mmol/L (22.0-26.0); Arterial MetHb 0.8 % (0.0-1.5); Arterial pCO2 33.2 mmhg (35-45); MODE VENT - AC; Site Right Radial
[2018-03-31 05:08] LABS: ANION GAP 11 (8-16); BLOOD UREA NITROGEN 52 mg/dl (7-20); CALCIUM 7.4 mg/dl (8.4-10.2); CARBON DIOXIDE 24 mmol/L (21-31); CHLORIDE 119 mmol/L (97-110); CREATININE 1.15 mg/dl (0.61-1.24); GLUCOSE 125 mg/dl (70-220); POTASSIUM 3.7 mmol/L (3.5-5.1); SODIUM 150 mmol/L (135-144)
[2018-03-31] MEDS: PANTOPRAZOLE 40 MG INJ IV (06:04)
[2018-03-31] MEDS: DORZOLAMIDE/TIMOLOL/PF 0.2 ML DROPERETTE BOTH EYES (08:06)
[2018-03-31] MEDS: FERROUS SULFATE 60 MG/ML 5ML CUP GTB (08:07)
[2018-03-31] MEDS: MAGNESIUM HYDROXIDE 30ML CUP PO (08:07)
[2018-03-31] MEDS: CALCIUM ACETATE 667 MG CAP NGT ×3 (08:07→21:07)
[2018-03-31] MEDS: TIMOLOL 0.25% BOTH EYES ×2 (08:07→21:26)
[2018-03-31] MEDS: CALCITRIOL 0.25 MCG CAP NGT (08:08)
[2018-03-31] MEDS: MEROPENEM 500MG/50 ML (PMX) 50 ML IVPB ×2 (08:08→21:07)
[2018-03-31] MEDS: METHYLPREDNISOLONE 40 MG INJ IV ×2 (08:08→21:07)
[2018-03-31 09:12] LABS: ANISOCYTOSIS 1+ (0-0); BAND NEUTROPHILS #M 1.4 10^3/ul (0.0-0.6); BAND NEUTROPHILS % (M) 4 % (0-4); EOSINOPHILS % (M) 7 % (0-7); ERYTHROBLAST% (NRBC) (M) 5 % (0-0); GIANT THROMBO% (M) 2 % (0-0); HYPOCHROMASIA 1+ (0-0); MONOCYTES % (M) 3 % (0-11); MYELOCYTES #M 0.3 10^3/ul (0.0-0.0); MYELOCYTES % (M) 1 % (0-0); PLATELET ESTIMATE NORMAL; POLYCHROMASIA 1+ (0-0); SEG NEUT #M 30.8 10^3/ul (1.6-7.5); SEGMENTED NEUTROPHILS (M) % 85 % (39-77); SMUDGE%M 10 % (0-0)
[2018-03-31] MEDS: DEXTROSE 5% 1,000 ML IV (14:25)
[2018-03-31] MEDS: METOCLOPRAMIDE 10 MG TAB PO ×2 (16:01→21:08)
[2018-03-31 17:54] LABS: VANCOMYCIN,TROUGH 15.9 ug/ml (10.0-20.0)
[2018-03-31] MEDS: VANCOMYCIN 500MG/NS (PMX) 100 ML IVPB (18:00)
[2018-04-01] MEDS: LEVALBUTEROL (HFA) 15 GM INHALER INH ×4 (02:20→19:40)
[2018-04-01] MEDS: METOCLOPRAMIDE 10 MG TAB PO (05:49)
[2018-04-01] MEDS: PANTOPRAZOLE 40 MG INJ IV (05:49)
[2018-04-01 05:58] LABS: WHITE BLOOD COUNT 34.5 10^3/ul (4.8-10.8)
[2018-04-01 05:58] LABS: ABNORMAL IP MESSAGE 1; HEMATOCRIT 25.9 % (42.0-52.0); HEMOGLOBIN 8.1 g/dl (14.0-18.0); IMMATURE GRANS #M 1.68 10^3/ul; IMMATURE GRANS % (M) 4.9 %; MEAN CORPUSCULAR HEMOGLOBIN 27.1 pg (29.0-33.0); MEAN CORPUSCULAR HGB CONC 31.3 g/dl (32.0-37.0); MEAN CORPUSCULAR VOLUME 86.6 fl (82.0-101.0); NUCLEATED RED BLOOD CELLS% 2.5 /100WBC (0.0-0.0); PLATELET COUNT 151 10^3/UL (140-415); POSITIVE DIFF @See below; RED BLOOD COUNT 2.99 10^6/ul (4.70-6.10); RED CELL DISTRIBUTION WIDTH 26.7 % (11.5-14.5)
[2018-04-01 06:07] LABS: ADD MAN DIFF? YES
[2018-04-01 06:12] LABS: ANION GAP 13 (8-16); BLOOD UREA NITROGEN 46 mg/dl (7-20); CALCIUM 7.7 mg/dl (8.4-10.2); CARBON DIOXIDE 23 mmol/L (21-31); CHLORIDE 119 mmol/L (97-110); CREATININE 0.93 mg/dl (0.61-1.24); GLUCOSE 105 mg/dl (70-220); POTASSIUM 3.7 mmol/L (3.5-5.1); SODIUM 151 mmol/L (135-144)
[2018-04-01 07:49] LABS: ANISOCYTOSIS 2+ (0-0); BAND NEUTROPHILS #M 0.3 10^3/ul (0.0-0.6); BAND NEUTROPHILS % (M) 1 % (0-4); EOSINOPHILS % (M) 1 % (0-7); ERYTHROBLAST% (NRBC) (M) 3 % (0-0); HOWELL-JOLLY BODIES 1+ (0-0); HYPOCHROMASIA 1+ (0-0); PLATELET ESTIMATE NORMAL; POLYCHROMASIA 1+ (0-0); SEG NEUT #M 33.9 10^3/ul (1.6-7.5); SEGMENTED NEUTROPHILS (M) % 98 % (39-77); SMUDGE%M 3 % (0-0); TARGET CELLS 1+ (0-0)
[2018-04-01] MEDS: MIDAZOLAM (DRIP) 50 mg/50 mL 50 ML IV (07:55)
[2018-04-01] MEDS: MAGNESIUM HYDROXIDE 30ML CUP PO (08:33)
[2018-04-01] MEDS: DORZOLAMIDE/TIMOLOL/PF 0.2 ML DROPERETTE BOTH EYES (08:33)
[2018-04-01] MEDS: FERROUS SULFATE 60 MG/ML 5ML CUP GTB (08:33)
[2018-04-01] MEDS: TIMOLOL 0.25% BOTH EYES ×2 (08:33→21:01)
[2018-04-01] MEDS: MEROPENEM 500MG/50 ML (PMX) 50 ML IVPB ×2 (08:34→20:51)
[2018-04-01] MEDS: CALCIUM ACETATE 667 MG CAP NGT ×3 (08:34→20:57)
[2018-04-01] MEDS: CALCITRIOL 0.25 MCG CAP NGT (08:34)
[2018-04-01] MEDS: FUROSEMIDE 20 MG INJ IV (08:34)
[2018-04-01 11:42] LABS: AADO2 Arterial 78.2 mmHg (7.0-24.0); Allen Test ACCEPTAB; Arterial Base Excess -0.1 mmol/L (-3.0-3); Arterial Blood Gas Oxygen Sat 95.3 mmHG (95.0-98.0); Arterial COHb 0.3 % (0.0-3.0); Arterial Fraction of Oxyhgb 94.5 % (93.0-99.0); Arterial HCO3 25.2 mmol/L (22.0-26.0); Arterial MetHb 0.5 % (0.0-1.5); Arterial Total Hemglobin 9.9 g/dl (12.0-18.0); Arterial pCO2 43.6 mmhg (35-45); Blood Gas PS 10; MODE VENT - CPAP; Site Right Radial
[2018-04-01] MEDS: [UNRECOGNIZED DRUG - REMARK] XX ×2 (11:52→21:00)
[2018-04-01] MEDS: FENTAnyl 1,000 MCG in DEXTROSE 5% 80 ML IV (12:58)
[2018-04-01] MEDS: METOCLOPRAMIDE 10 MG INJ IV ×2 (14:07→23:45)
[2018-04-01] MEDS: DEXTROSE 5% 1,000 ML IV (14:08)
[2018-04-01] MEDS: VANCOMYCIN 500 MG in DEXTROSE 5% 100 ML IVPB (18:00)
[2018-04-01] MEDS: METHYLPREDNISOLONE 40 MG INJ IV (20:51)
[2018-04-02] MEDS: LEVALBUTEROL (HFA) 15 GM INHALER INH ×4 (01:35→19:33)
[2018-04-02] MEDS: DEXTROSE 5% 1,000 ML IV ×2 (04:14→17:45)
[2018-04-02 05:26] LABS: ABNORMAL IP MESSAGE 1; HEMOGLOBIN 8.3 g/dl (14.0-18.0); IMMATURE GRANS #M 1.18 10^3/ul; IMMATURE GRANS % (M) 3.1 %; MEAN CORPUSCULAR HEMOGLOBIN 27.1 pg (29.0-33.0); MEAN CORPUSCULAR HGB CONC 30.7 g/dl (32.0-37.0); MEAN CORPUSCULAR VOLUME 88.2 fl (82.0-101.0); NUCLEATED RED BLOOD CELLS% 1.4 /100WBC (0.0-0.0); PLATELET COUNT 139 10^3/UL (140-415); POSITIVE DIFF @See below; RED BLOOD COUNT 3.06 10^6/ul (4.70-6.10)
[2018-04-02 05:26] LABS: WHITE BLOOD COUNT 37.5 10^3/ul (4.8-10.8)
[2018-04-02 05:47] LABS: MAGNESIUM 2.1 mg/dl (1.7-2.5)
[2018-04-02 05:47] LABS: PHOSPHORUS 2.9 mg/dl (2.5-4.9)
[2018-04-02 05:55] LABS: ANION GAP 10 (8-16); BLOOD UREA NITROGEN 36 mg/dl (7-20); CALCIUM 7.8 mg/dl (8.4-10.2); CARBON DIOXIDE 26 mmol/L (21-31); CHLORIDE 116 mmol/L (97-110); CREATININE 0.97 mg/dl (0.61-1.24); GLUCOSE 121 mg/dl (70-220); POTASSIUM 3.4 mmol/L (3.5-5.1); SODIUM 149 mmol/L (135-144)
[2018-04-02] MEDS: METOCLOPRAMIDE 10 MG INJ IV ×3 (06:08→22:13)
[2018-04-02] MEDS: PANTOPRAZOLE 40 MG INJ IV (06:08)
[2018-04-02 06:19] LABS: ADD MAN DIFF? YES
[2018-04-02] MEDS: MIDAZOLAM 50 MG in DEXTROSE 5% 40 ML IV ×2 (06:22→23:19)
[2018-04-02 07:49] LABS: ANISOCYTOSIS 2+ (0-0); BAND NEUTROPHILS #M 0.3 10^3/ul (0.0-0.6); BAND NEUTROPHILS % (M) 1 % (0-4); BURR CELLS 1+ (0-0); EOSINOPHILS % (M) 4 % (0-7); ERYTHROBLAST% (NRBC) (M) 6 % (0-0); HYPOCHROMASIA 2+ (0-0); LYMPHOCYTES #M 0.3 10^3/ul (0.8-2.9); LYMPHOCYTES % (M) 1 % (15-51); MICROCYTOSIS 1+ (0-0); MONOCYTES % (M) 8 % (0-11); OVALOCYTES 1+ (0-0); PLATELET ESTIMATE DECREASED; POIKILOCYTOSIS 1+ (0-0); POLYCHROMASIA 1+ (0-0); SEG NEUT #M 32.4 10^3/ul (1.6-7.5); SEGMENTED NEUTROPHILS (M) % 86 % (39-77); SMUDGE%M 7 % (0-0); TARGET CELLS 1+ (0-0)
[2018-04-02] MEDS: MAGNESIUM HYDROXIDE 30ML CUP PO (08:35)
[2018-04-02] MEDS: DORZOLAMIDE/TIMOLOL/PF 0.2 ML DROPERETTE BOTH EYES (08:35)
[2018-04-02] MEDS: TIMOLOL 0.25% BOTH EYES ×2 (08:35→21:11)
[2018-04-02] MEDS: FERROUS SULFATE 60 MG/ML 5ML CUP GTB (08:35)
[2018-04-02] MEDS: CALCIUM ACETATE 667 MG CAP NGT (08:36)
[2018-04-02] MEDS: CALCITRIOL 0.25 MCG CAP NGT (08:36)
[2018-04-02] MEDS: [UNRECOGNIZED DRUG - REMARK] XX ×2 (08:36→21:00)
[2018-04-02] MEDS: FUROSEMIDE 20 MG INJ IV (08:36)
[2018-04-02] MEDS: MEROPENEM 500MG/50 ML (PMX) 50 ML IVPB ×2 (08:36→21:08)
[2018-04-02] MEDS: POTASSIUM CHLORIDE 100 ML IVPB (12:31)
[2018-04-02] MEDS: CALCIUM CARBONATE 1.25 GM TAB NGT ×2 (13:43→21:10)
[2018-04-02] MEDS: VANCOMYCIN 500 MG in DEXTROSE 5% 100 ML IVPB (17:45)
[2018-04-02] MEDS: METHYLPREDNISOLONE 40 MG INJ IV (21:10)
[2018-04-03] MEDS: LEVALBUTEROL (HFA) 15 GM INHALER INH ×4 (01:25→20:05)
[2018-04-03] MEDS: FENTAnyl 1,000 MCG in DEXTROSE 5% 80 ML IV ×2 (03:39→21:27)
[2018-04-03 05:09] LABS: ADD MAN DIFF? NO
[2018-04-03 05:16] LABS: WHITE BLOOD COUNT 38.6 10^3/ul (4.8-10.8)
[2018-04-03 05:16] LABS: ABNORMAL IP MESSAGE 1; HEMATOCRIT 25.9 % (42.0-52.0); HEMOGLOBIN 8.2 g/dl (14.0-18.0); IMMATURE GRANS #M 0.99 10^3/ul; IMMATURE GRANS % (M) 2.6 %; MEAN CORPUSCULAR HEMOGLOBIN 27.5 pg (29.0-33.0); MEAN CORPUSCULAR HGB CONC 31.7 g/dl (32.0-37.0); MEAN CORPUSCULAR VOLUME 86.9 fl (82.0-101.0); NUCLEATED RED BLOOD CELLS% 0.6 /100WBC (0.0-0.0); PLATELET COUNT 134 10^3/UL (140-415); POSITIVE DIFF @See below; RED BLOOD COUNT 2.98 10^6/ul (4.70-6.10); RED CELL DISTRIBUTION WIDTH 26.9 % (11.5-14.5)
[2018-04-03 05:27] LABS: PHOSPHORUS 2.3 mg/dl (2.5-4.9)
[2018-04-03 05:34] LABS: ANION GAP 11 (8-16); BLOOD UREA NITROGEN 31 mg/dl (7-20); CALCIUM 8.2 mg/dl (8.4-10.2); CARBON DIOXIDE 26 mmol/L (21-31); CHLORIDE 113 mmol/L (97-110); CREATININE 0.84 mg/dl (0.61-1.24); GLUCOSE 113 mg/dl (70-220); POTASSIUM 3.5 mmol/L (3.5-5.1); SODIUM 146 mmol/L (135-144)
[2018-04-03] MEDS ORDERED: DEXAMETHASONE 10 MG/ML 1 ML INJ IV (06:00)
[2018-04-03] MEDS: PANTOPRAZOLE 40 MG INJ IV (06:13)
[2018-04-03] MEDS: METOCLOPRAMIDE 10 MG INJ IV ×3 (06:13→21:58)
[2018-04-03 07:44] LABS: ANISOCYTOSIS 2+ (0-0); BAND NEUTROPHILS #M 1.5 10^3/ul (0.0-0.6); BAND NEUTROPHILS % (M) 4 % (0-4); ERYTHROBLAST% (NRBC) (M) 2 % (0-0); GIANT THROMBO% (M) 1 % (0-0); MONOCYTE #M 0.7 10^3/ul (0.3-0.9); MONOCYTES % (M) 2 % (0-11); MYELOCYTES #M 0.3 10^3/ul (0.0-0.0); MYELOCYTES % (M) 1 % (0-0); PLATELET ESTIMATE DECREASED; POLYCHROMASIA 1+ (0-0); SCHISTOCYTES 1+ (0-0); SEG NEUT #M 36.5 10^3/ul (1.6-7.5); SEGMENTED NEUTROPHILS (M) % 93 % (39-77); SMUDGE%M 19 % (0-0); TARGET CELLS 1+ (0-0)
[2018-04-03] MEDS: [UNRECOGNIZED DRUG - REMARK] XX ×2 (09:00→20:58)
[2018-04-03] MEDS: FUROSEMIDE 20 MG INJ IV (09:48)
[2018-04-03] MEDS: CALCIUM CARBONATE 1.25 GM TAB NGT ×3 (09:48→20:35)
[2018-04-03] MEDS: MEROPENEM 500MG/50 ML (PMX) 50 ML IVPB ×2 (09:48→20:35)
[2018-04-03] MEDS: MAGNESIUM HYDROXIDE 30ML CUP PO (09:48)
[2018-04-03] MEDS: FERROUS SULFATE 60 MG/ML 5ML CUP GTB (09:48)
[2018-04-03] MEDS: DORZOLAMIDE/TIMOLOL/PF 0.2 ML DROPERETTE BOTH EYES (09:49)
[2018-04-03] MEDS: TIMOLOL 0.25% BOTH EYES ×2 (09:49→20:40)
[2018-04-03] MEDS: DEXTROSE 5% 1,000 ML IV (09:57)
[2018-04-03] MEDS: POTASSIUM PHOSPHATE 30 MM in DEXTROSE 5% 250 ML IVPB (11:34)
[2018-04-03] MEDS: MIDAZOLAM 50 MG in DEXTROSE 5% 40 ML IV (14:58)
[2018-04-03] MEDS: LIDOCAINE 1% (MPF) 5 ML VIAL SC (17:55)
[2018-04-03] MEDS: VANCOMYCIN 500 MG in DEXTROSE 5% 100 ML IVPB (19:37)
[2018-04-03] MEDS: METHYLPREDNISOLONE 40 MG INJ IV (20:35)
[2018-04-03] MEDS: HYDROmorphONE 0.5 MG/0.5 ML SYG IV (21:54)
[2018-04-04] MEDS: LEVALBUTEROL (HFA) 15 GM INHALER INH ×4 (02:08→19:21)
[2018-04-04] MEDS: MIDAZOLAM 50 MG in DEXTROSE 5% 40 ML IV ×2 (02:14→17:58)
[2018-04-04] MEDS: HYDROmorphONE 0.5 MG/0.5 ML SYG IV ×2 (04:05→10:40)
[2018-04-04 05:07] LABS: ADD MAN DIFF? NO
[2018-04-04 05:09] LABS: ABNORMAL IP MESSAGE 1; BASOPHIL # 0.1 10^3/ul (0.0-0.1); BASOPHILS % 0.2 % (0.0-2.0); HEMATOCRIT 25.5 % (42.0-52.0); LYMPHOCYTES # 0.3 10^3/ul (0.8-2.9); LYMPHOCYTES % 0.8 % (15.0-51.0); MEAN CORPUSCULAR HEMOGLOBIN 27.3 pg (29.0-33.0); MEAN CORPUSCULAR HGB CONC 31.4 g/dl (32.0-37.0); MEAN PLATELET VOLUME 13.5 fl (7.4-10.4); MONOCYTE # 1.4 10^3/ul (0.3-0.9); MONOCYTES % 3.3 % (0.0-11.0); NEUTROPHILS % 93.6 % (39.0-77.0); NUCLEATED RED BLOOD CELLS # 0.1 10^3/ul (0.0-0.0); NUCLEATED RED BLOOD CELLS% 0.3 /100WBC (0.0-0.0); PLATELET COUNT 141 10^3/UL (140-415); POSITIVE DIFF @See below; RED BLOOD COUNT 2.93 10^6/ul (4.70-6.10); RED CELL DISTRIBUTION WIDTH 26.2 % (11.5-14.5)
[2018-04-04 05:09] LABS: WHITE BLOOD COUNT 41.6 10^3/ul (4.8-10.8)
[2018-04-04 05:30] LABS: ANION GAP 9 (8-16); BLOOD UREA NITROGEN 26 mg/dl (7-20); CALCIUM 8.5 mg/dl (8.4-10.2); CARBON DIOXIDE 28 mmol/L (21-31); CHLORIDE 112 mmol/L (97-110); CREATININE 0.78 mg/dl (0.61-1.24); GLUCOSE 91 mg/dl (70-220); SODIUM 145 mmol/L (135-144)
[2018-04-04 05:31] LABS: INR 1.15; PROTIME 14.9 Sec (11.9-14.9); PT RATIO 1.2
[2018-04-04 05:32] LABS: PARTIAL THROMBOPLASTIN TIME 31.5 Sec (25.0-35.0)
[2018-04-04 05:35] LABS: MAGNESIUM 1.8 mg/dl (1.7-2.5)
[2018-04-04 05:35] LABS: PHOSPHORUS 3.1 mg/dl (2.5-4.9)
[2018-04-04] MEDS: METOCLOPRAMIDE 10 MG INJ IV ×3 (06:29→22:26)
[2018-04-04] MEDS: PANTOPRAZOLE 40 MG INJ IV (06:29)
[2018-04-04] MEDS: MAGNESIUM HYDROXIDE 30ML CUP PO (08:33)
[2018-04-04] MEDS: DORZOLAMIDE/TIMOLOL/PF 0.2 ML DROPERETTE BOTH EYES (08:33)
[2018-04-04] MEDS: FERROUS SULFATE 60 MG/ML 5ML CUP GTB (08:33)
[2018-04-04] MEDS: MEROPENEM 500MG/50 ML (PMX) 50 ML IVPB ×2 (08:34→20:32)
[2018-04-04] MEDS: CALCIUM CARBONATE 1.25 GM TAB NGT ×3 (08:34→20:32)
[2018-04-04] MEDS: FUROSEMIDE 20 MG INJ IV (08:34)
[2018-04-04] MEDS: TIMOLOL 0.25% BOTH EYES ×2 (08:36→20:37)
[2018-04-04] MEDS: [UNRECOGNIZED DRUG - REMARK] XX ×2 (08:37→20:54)
[2018-04-04] MEDS: CEFAZOLIN 2 GM/50 ML (PMX) 50 ML IVPB (17:39)
[2018-04-04] MEDS: FENTAnyl 1,000 MCG in DEXTROSE 5% 80 ML IV (17:45)
[2018-04-04] MEDS: DEXTROSE 5% 1,000 ML IV (17:50)
[2018-04-04] MEDS: VANCOMYCIN 500 MG in DEXTROSE 5% 100 ML IVPB (17:50)
[2018-04-04] MEDS: METHYLPREDNISOLONE 40 MG INJ IV (20:32)
[2018-04-05] MEDS: LEVALBUTEROL (HFA) 15 GM INHALER INH ×4 (01:38→19:56)
[2018-04-05] MEDS: HYDROmorphONE 0.5 MG/0.5 ML SYG IV (02:39)
[2018-04-05 05:12] LABS: ADD MAN DIFF? NO
[2018-04-05 05:18] LABS: WHITE BLOOD COUNT 41.2 10^3/ul (4.8-10.8)
[2018-04-05 05:18] LABS: ABNORMAL IP MESSAGE 1; BASOPHIL # 0.1 10^3/ul (0.0-0.1); BASOPHILS % 0.2 % (0.0-2.0); HEMATOCRIT 25.1 % (42.0-52.0); LYMPHOCYTES # 0.4 10^3/ul (0.8-2.9); LYMPHOCYTES % 0.8 % (15.0-51.0); MEAN CORPUSCULAR HEMOGLOBIN 27.7 pg (29.0-33.0); MEAN CORPUSCULAR HGB CONC 31.9 g/dl (32.0-37.0); MEAN CORPUSCULAR VOLUME 86.9 fl (82.0-101.0); MONOCYTES % 2.4 % (0.0-11.0); NEUTROPHIL # 39.1 10^3/ul (1.6-7.5); NEUTROPHILS % 94.8 % (39.0-77.0); NUCLEATED RED BLOOD CELLS # 0.1 10^3/ul (0.0-0.0); NUCLEATED RED BLOOD CELLS% 0.1 /100WBC (0.0-0.0); PLATELET COUNT 133 10^3/UL (140-415); POSITIVE DIFF @See below; RED BLOOD COUNT 2.89 10^6/ul (4.70-6.10)
[2018-04-05 05:51] LABS: MAGNESIUM 1.8 mg/dl (1.7-2.5)
[2018-04-05 05:51] LABS: PHOSPHORUS 2.8 mg/dl (2.5-4.9)
[2018-04-05 05:52] LABS: ALANINE AMINOTRANSFERASE 29 IU/L (13-69); ALBUMIN 2.3 g/dl (3.3-4.9); ALKALINE PHOSPHATASE 111 IU/L (42-121); ANION GAP 10 (8-16); ASPARTATE AMINO TRANSFERASE 34 IU/L (15-46); BILIRUBIN,INDIRECT 0.3 mg/dl (0-1.1); BILIRUBIN,TOTAL 0.3 mg/dl (0.2-1.3); BLOOD UREA NITROGEN 22 mg/dl (7-20); CALCIUM 8.4 mg/dl (8.4-10.2); CARBON DIOXIDE 28 mmol/L (21-31); CHLORIDE 111 mmol/L (97-110); CREATININE 0.74 mg/dl (0.61-1.24); GLUCOSE 78 mg/dl (70-220); POTASSIUM 3.9 mmol/L (3.5-5.1); SODIUM 145 mmol/L (135-144); TOTAL PROTEIN 4.6 g/dl (6.1-8.1)
[2018-04-05] MEDS: METOCLOPRAMIDE 10 MG INJ IV ×3 (06:14→21:31)
[2018-04-05] MEDS: PANTOPRAZOLE 40 MG INJ IV (06:14)
[2018-04-05] MEDS: MAGNESIUM HYDROXIDE 30ML CUP PO (09:00)
[2018-04-05] MEDS: MEROPENEM 500MG/50 ML (PMX) 50 ML IVPB ×2 (09:31→21:31)
[2018-04-05] MEDS: FERROUS SULFATE 60 MG/ML 5ML CUP GTB (09:31)
[2018-04-05] MEDS: CALCIUM CARBONATE 1.25 GM TAB NGT ×3 (09:31→21:31)
[2018-04-05] MEDS: FENTAnyl 1,000 MCG in DEXTROSE 5% 80 ML IV (09:48)
[2018-04-05] MEDS: DORZOLAMIDE/TIMOLOL/PF 0.2 ML DROPERETTE BOTH EYES (09:49)
[2018-04-05] MEDS: TIMOLOL 0.25% BOTH EYES ×2 (09:49→21:31)
[2018-04-05] MEDS ORDERED: FUROSEMIDE 20 MG INJ (09:52)
[2018-04-05] MEDS: FUROSEMIDE 20 MG INJ IV (09:54)
[2018-04-05] MEDS: MIDAZOLAM 50 MG in DEXTROSE 5% 40 ML IV ×2 (11:54→18:40)
[2018-04-05] MEDS: DEXTROSE 5% 1,000 ML IV (13:43)
[2018-04-05] MEDS ORDERED: BUPIVACAINE 0.25%/EPI (SDV) 30 ML INJ (14:57)
[2018-04-05 17:32] LABS: VANCOMYCIN,TROUGH 11.1 ug/ml (10.0-20.0)
[2018-04-05] MEDS: VANCOMYCIN 500 MG in DEXTROSE 5% 100 ML IVPB (18:35)
[2018-04-05] MEDS: [UNRECOGNIZED DRUG - REMARK] XX ×2 (21:00→21:31)
[2018-04-05] MEDS: METHYLPREDNISOLONE 40 MG INJ IV (21:31)
[2018-04-06] MEDS: FENTAnyl 1,000 MCG in DEXTROSE 5% 80 ML IV ×2 (00:04→16:48)
[2018-04-06] MEDS: LEVALBUTEROL (HFA) 15 GM INHALER INH ×4 (01:24→19:48)
[2018-04-06 05:08] LABS: ADD MAN DIFF? NO
[2018-04-06 05:14] LABS: WHITE BLOOD COUNT 41.7 10^3/ul (4.8-10.8)
[2018-04-06 05:14] LABS: ABNORMAL IP MESSAGE 1; HEMATOCRIT 25.1 % (42.0-52.0); HEMOGLOBIN 8.1 g/dl (14.0-18.0); MEAN CORPUSCULAR HEMOGLOBIN 27.6 pg (29.0-33.0); MEAN CORPUSCULAR HGB CONC 32.3 g/dl (32.0-37.0); MEAN CORPUSCULAR VOLUME 85.4 fl (82.0-101.0); MEAN PLATELET VOLUME 13.4 fl (7.4-10.4); NUCLEATED RED BLOOD CELLS% 0.1 /100WBC (0.0-0.0); PLATELET COUNT 127 10^3/UL (140-415); POSITIVE DIFF @See below; RED BLOOD COUNT 2.94 10^6/ul (4.70-6.10); RED CELL DISTRIBUTION WIDTH 25.8 % (11.5-14.5)
[2018-04-06 05:46] LABS: PHOSPHORUS 2.6 mg/dl (2.5-4.9)
[2018-04-06 05:46] LABS: ANION GAP 9 (8-16); BLOOD UREA NITROGEN 20 mg/dl (7-20); CALCIUM 8.7 mg/dl (8.4-10.2); CARBON DIOXIDE 28 mmol/L (21-31); CHLORIDE 109 mmol/L (97-110); CREATININE 0.78 mg/dl (0.61-1.24); GLUCOSE 111 mg/dl (70-220); MAGNESIUM 1.9 mg/dl (1.7-2.5); POTASSIUM 3.9 mmol/L (3.5-5.1); SODIUM 142 mmol/L (135-144)
[2018-04-06] MEDS: METOCLOPRAMIDE 10 MG INJ IV ×3 (06:15→21:08)
[2018-04-06] MEDS: FUROSEMIDE 20 MG INJ IV ×2 (06:15→17:28)
[2018-04-06] MEDS: PANTOPRAZOLE 40 MG INJ IV (06:15)
[2018-04-06] MEDS: MIDAZOLAM 50 MG in DEXTROSE 5% 40 ML IV (06:19)
[2018-04-06 08:37] LABS: AADO2 Arterial 84.1 mmHg (7.0-24.0); Allen Test ACCEPTAB; Arterial Base Excess 0.2 mmol/L (-3.0-3); Arterial Blood Gas Oxygen Sat 97.1 mmHG (95.0-98.0); Arterial COHb 0.2 % (0.0-3.0); Arterial Fraction of Oxyhgb 96.6 % (93.0-99.0); Arterial MetHb 0.3 % (0.0-1.5); Arterial Total Hemglobin 11.1 g/dl (12.0-18.0); Arterial pCO2 31.2 mmhg (35-45); MODE VENT - AC; Site Right Radial
[2018-04-06] MEDS: DORZOLAMIDE/TIMOLOL/PF 0.2 ML DROPERETTE BOTH EYES (09:00)
[2018-04-06] MEDS: TIMOLOL 0.25% BOTH EYES ×2 (09:00→23:51)
[2018-04-06] MEDS: CALCIUM CARBONATE 1.25 GM TAB NGT ×3 (09:30→21:06)
[2018-04-06] MEDS: FERROUS SULFATE 60 MG/ML 5ML CUP GTB (09:30)
[2018-04-06] MEDS: MAGNESIUM HYDROXIDE 30ML CUP PO (09:30)
[2018-04-06] MEDS: MEROPENEM 500MG/50 ML (PMX) 50 ML IVPB ×2 (09:30→21:04)
[2018-04-06] MEDS: HYDROmorphONE 0.5 MG/0.5 ML SYG IV (10:37)
[2018-04-06 10:42] LABS: ANISOCYTOSIS 2+ (0-0); GIANT THROMBO% (M) 2 % (0-0); HYPOCHROMASIA 1+ (0-0); LYMPHOCYTES #M 0.4 10^3/ul (0.8-2.9); LYMPHOCYTES % (M) 1 % (15-51); MONOCYTE #M 0.4 10^3/ul (0.3-0.9); MONOCYTES % (M) 1 % (0-11); PLATELET ESTIMATE DECREASED; POLYCHROMASIA 3+ (0-0); SEGMENTED NEUTROPHILS (M) % 98 % (39-77); SMUDGE%M 2 % (0-0)
[2018-04-06] MEDS ORDERED: HYDROmorphONE 1 MG/ML SYG IV (11:00)
[2018-04-06] MEDS: morphine LIQ (10 MG/5 ML) CUP PO ×2 (13:39→17:28)
[2018-04-06] MEDS: [UNRECOGNIZED DRUG - REMARK] XX ×2 (15:16→21:00)
[2018-04-06] MEDS: VANCOMYCIN 500 MG in DEXTROSE 5% 100 ML IVPB (17:28)
[2018-04-06] MEDS: METHYLPREDNISOLONE 40 MG INJ IV (21:05)
[2018-04-07] MEDS: HYDROmorphONE 1 MG/ML SYG IV ×4 (00:32→20:16)
[2018-04-07] MEDS: LEVALBUTEROL (HFA) 15 GM INHALER INH ×4 (01:34→19:58)
[2018-04-07] MEDS: LORAZEPAM 2 MG INJ IV ×2 (04:09→22:16)
[2018-04-07 05:36] LABS: WHITE BLOOD COUNT 36.6 10^3/ul (4.8-10.8)
[2018-04-07 05:36] LABS: ABNORMAL IP MESSAGE 1; HEMATOCRIT 23.9 % (42.0-52.0); HEMOGLOBIN 7.9 g/dl (14.0-18.0); MEAN CORPUSCULAR HEMOGLOBIN 28.1 pg (29.0-33.0); MEAN CORPUSCULAR HGB CONC 33.1 g/dl (32.0-37.0); MEAN CORPUSCULAR VOLUME 85.1 fl (82.0-101.0); NUCLEATED RED BLOOD CELLS% 0.1 /100WBC (0.0-0.0); PLATELET COUNT 128 10^3/UL (140-415); POSITIVE DIFF @See below; RED BLOOD COUNT 2.81 10^6/ul (4.70-6.10); RED CELL DISTRIBUTION WIDTH 25.3 % (11.5-14.5)
[2018-04-07] MEDS: METOCLOPRAMIDE 10 MG INJ IV ×3 (05:54→21:50)
[2018-04-07] MEDS: FUROSEMIDE 20 MG INJ IV ×2 (05:55→17:05)
[2018-04-07 06:04] LABS: ADD MAN DIFF? YES
[2018-04-07] MEDS: LANSOPRAZOLE 15 MG CAP GTB (06:05)
[2018-04-07 06:13] LABS: ANION GAP 10 (8-16); BLOOD UREA NITROGEN 20 mg/dl (7-20); CALCIUM 9.2 mg/dl (8.4-10.2); CARBON DIOXIDE 28 mmol/L (21-31); CHLORIDE 109 mmol/L (97-110); CREATININE 0.77 mg/dl (0.61-1.24); GLUCOSE 112 mg/dl (70-220); PHOSPHORUS 2.3 mg/dl (2.5-4.9); POTASSIUM 3.7 mmol/L (3.5-5.1); SODIUM 143 mmol/L (135-144)
[2018-04-07 08:04] LABS: ANISOCYTOSIS 2+ (0-0); GIANT THROMBO% (M) 1 % (0-0); MONOCYTE #M 0.3 10^3/ul (0.3-0.9); MONOCYTES % (M) 1 % (0-11); PLATELET ESTIMATE DECREASED; POLYCHROMASIA 3+ (0-0); SEGMENTED NEUTROPHILS (M) % 99 % (39-77); SMUDGE%M 4 % (0-0)
[2018-04-07] MEDS: CALCIUM CARBONATE 1.25 GM TAB NGT ×3 (08:46→21:51)
[2018-04-07] MEDS: MAGNESIUM HYDROXIDE 30ML CUP PO (08:46)
[2018-04-07] MEDS: DORZOLAMIDE/TIMOLOL/PF 0.2 ML DROPERETTE BOTH EYES (08:46)
[2018-04-07] MEDS: FERROUS SULFATE 60 MG/ML 5ML CUP GTB (08:46)
[2018-04-07] MEDS: MEROPENEM 500MG/50 ML (PMX) 50 ML IVPB (08:47)
[2018-04-07] MEDS: TIMOLOL 0.25% BOTH EYES ×2 (08:49→21:56)
[2018-04-07] MEDS: [UNRECOGNIZED DRUG - REMARK] XX ×2 (09:00→21:00)
[2018-04-07] MEDS: VANCOMYCIN 500 MG in DEXTROSE 5% 100 ML IVPB (17:25)
[2018-04-07] MEDS: SODIUM PHOSPHATE 15 MMOL in SOD CHLORIDE 0.9% 250 ML IVPB (19:14)
[2018-04-07] MEDS: METHYLPREDNISOLONE 40 MG INJ IV (21:50)
[2018-04-07] MEDS: MEROPENEM 1 GM/50ML(PMX) 50 ML IVPB (21:50)
[2018-04-08] MEDS: LEVALBUTEROL (HFA) 15 GM INHALER INH ×4 (01:46→19:15)
[2018-04-08] MEDS: HYDROmorphONE 1 MG/ML SYG IV (02:04)
[2018-04-08] MEDS: METOCLOPRAMIDE 10 MG INJ IV ×3 (05:57→21:38)
[2018-04-08] MEDS: FUROSEMIDE 20 MG INJ IV ×2 (05:57→17:20)
[2018-04-08] MEDS: LANSOPRAZOLE 15 MG CAP GTB (05:59)
[2018-04-08] MEDS: [UNRECOGNIZED DRUG - REMARK] XX ×2 (09:00→21:00)
[2018-04-08] MEDS: FERROUS SULFATE 60 MG/ML 5ML CUP GTB (09:27)
[2018-04-08] MEDS: MAGNESIUM HYDROXIDE 30ML CUP PO (09:27)
[2018-04-08] MEDS: MEROPENEM 1 GM/50ML(PMX) 50 ML IVPB ×2 (09:28→21:34)
[2018-04-08] MEDS: CALCIUM CARBONATE 1.25 GM TAB NGT ×3 (09:28→21:37)
[2018-04-08] MEDS: TIMOLOL 0.25% BOTH EYES ×2 (09:29→21:32)
[2018-04-08] MEDS: DORZOLAMIDE/TIMOLOL/PF 0.2 ML DROPERETTE BOTH EYES (09:29)
[2018-04-08] MEDS: ERYTHROMYCIN BASE (EC) 250 MG TAB PO ×2 (10:08→21:37)
[2018-04-08 10:45] LABS: WHITE BLOOD COUNT 34.4 10^3/ul (4.8-10.8)
[2018-04-08 10:45] LABS: ABNORMAL IP MESSAGE 1; HEMATOCRIT 24.2 % (42.0-52.0); HEMOGLOBIN 7.8 g/dl (14.0-18.0); MEAN CORPUSCULAR HEMOGLOBIN 27.4 pg (29.0-33.0); MEAN CORPUSCULAR HGB CONC 32.2 g/dl (32.0-37.0); MEAN CORPUSCULAR VOLUME 84.9 fl (82.0-101.0); MEAN PLATELET VOLUME 11.9 fl (7.4-10.4); NUCLEATED RED BLOOD CELLS% 0.1 /100WBC (0.0-0.0); PLATELET COUNT 118 10^3/UL (140-415); POSITIVE DIFF @See below; RED BLOOD COUNT 2.85 10^6/ul (4.70-6.10)
[2018-04-08 10:53] LABS: ADD MAN DIFF? YES
[2018-04-08 12:01] LABS: ANISOCYTOSIS 2+ (0-0); BAND NEUTROPHILS #M 0.3 10^3/ul (0.0-0.6); BAND NEUTROPHILS % (M) 1 % (0-4); HYPOCHROMASIA 3+ (0-0); LYMPHOCYTES % (M) 3 % (15-51); MICROCYTOSIS 1+ (0-0); MONOCYTE #M 1.7 10^3/ul (0.3-0.9); MONOCYTES % (M) 5 % (0-11); PLATELET ESTIMATE DECREASED; POLYCHROMASIA 1+ (0-0); SEG NEUT #M 31.4 10^3/ul (1.6-7.5); SEGMENTED NEUTROPHILS (M) % 91 % (39-77); TARGET CELLS 2+ (0-0)
[2018-04-08] MEDS: ENOXAPARIN 80 MG/0.8 ML SYG SC ×2 (14:35→23:10)
[2018-04-08] MEDS: VANCOMYCIN 500 MG in DEXTROSE 5% 100 ML IVPB (17:20)
[2018-04-08] MEDS: METHYLPREDNISOLONE 40 MG INJ IV (21:34)
[2018-04-08] MEDS: morphine LIQ (10 MG/5 ML) CUP PO (21:37)
[2018-04-09] MEDS: LEVALBUTEROL (HFA) 15 GM INHALER INH ×4 (01:01→20:25)
[2018-04-09] MEDS: HYDROmorphONE 1 MG/ML SYG IV ×5 (02:05→21:17)
[2018-04-09] MEDS: METOCLOPRAMIDE 10 MG INJ IV ×4 (05:42→21:05)
[2018-04-09] MEDS: FUROSEMIDE 20 MG INJ IV ×2 (05:43→17:04)
[2018-04-09 05:46] LABS: ADD MAN DIFF? NO
[2018-04-09] MEDS: LANSOPRAZOLE 15 MG CAP GTB ×2 (05:54→06:46)
[2018-04-09 05:55] LABS: ABNORMAL IP MESSAGE 1; BASOPHILS % 0.1 % (0.0-2.0); HEMOGLOBIN 7.8 g/dl (14.0-18.0); LYMPHOCYTES # 0.4 10^3/ul (0.8-2.9); LYMPHOCYTES % 1.3 % (15.0-51.0); MEAN CORPUSCULAR HEMOGLOBIN 27.8 pg (29.0-33.0); MEAN CORPUSCULAR HGB CONC 32.5 g/dl (32.0-37.0); MEAN CORPUSCULAR VOLUME 85.4 fl (82.0-101.0); MEAN PLATELET VOLUME 12.9 fl (7.4-10.4); MONOCYTE # 0.8 10^3/ul (0.3-0.9); MONOCYTES % 2.4 % (0.0-11.0); NEUTROPHIL # 31.9 10^3/ul (1.6-7.5); NEUTROPHILS % 94.8 % (39.0-77.0); NUCLEATED RED BLOOD CELLS% 0.1 /100WBC (0.0-0.0); PLATELET COUNT 115 10^3/UL (140-415); POSITIVE DIFF @See below; RED BLOOD COUNT 2.81 10^6/ul (4.70-6.10); RED CELL DISTRIBUTION WIDTH 24.8 % (11.5-14.5)
[2018-04-09 05:55] LABS: WHITE BLOOD COUNT 33.6 10^3/ul (4.8-10.8)
[2018-04-09 06:58] LABS: ALANINE AMINOTRANSFERASE 23 IU/L (13-69); ALBUMIN 2.5 g/dl (3.3-4.9); ALBUMIN/GLOBULIN RATIO 1.04; ALKALINE PHOSPHATASE 278 IU/L (42-121); ANION GAP 12 (8-16); ASPARTATE AMINO TRANSFERASE 35 IU/L (15-46); BILIRUBIN,INDIRECT 0.3 mg/dl (0-1.1); BILIRUBIN,TOTAL 0.3 mg/dl (0.2-1.3); BLOOD UREA NITROGEN 19 mg/dl (7-20); CALCIUM 9.8 mg/dl (8.4-10.2); CARBON DIOXIDE 26 mmol/L (21-31); CHLORIDE 109 mmol/L (97-110); CREATININE 0.75 mg/dl (0.61-1.24); GLUCOSE 129 mg/dl (70-220); SODIUM 143 mmol/L (135-144); TOTAL PROTEIN 4.9 g/dl (6.1-8.1)
[2018-04-09 08:09] LABS: PHOSPHORUS 2.8 mg/dl (2.5-4.9)
[2018-04-09 08:09] LABS: MAGNESIUM 2.1 mg/dl (1.7-2.5)
[2018-04-09] MEDS: [UNRECOGNIZED DRUG - REMARK] XX ×2 (08:15→21:00)
[2018-04-09] MEDS: DORZOLAMIDE/TIMOLOL/PF 0.2 ML DROPERETTE BOTH EYES (08:15)
[2018-04-09] MEDS: TIMOLOL 0.25% BOTH EYES ×2 (08:15→21:06)
[2018-04-09] MEDS: FERROUS SULFATE 60 MG/ML 5ML CUP GTB (08:15)
[2018-04-09] MEDS: ERYTHROMYCIN BASE (EC) 250 MG TAB PO ×2 (08:15→21:05)
[2018-04-09] MEDS: CALCIUM CARBONATE 1.25 GM TAB NGT ×3 (08:15→21:06)
[2018-04-09] MEDS: MAGNESIUM HYDROXIDE 30ML CUP PO (08:15)
[2018-04-09] MEDS: ENOXAPARIN 80 MG/0.8 ML SYG SC ×2 (08:16→21:16)
[2018-04-09] MEDS: MEROPENEM 1 GM/50ML(PMX) 50 ML IVPB (08:29)
[2018-04-09] MEDS: predniSONE 10 MG TAB GTB (17:03)
[2018-04-09] MEDS: BALSAM PERU/CASTOR OIL 60 GM TUBE TOP (21:05)
[2018-04-10] MEDS: LEVALBUTEROL (HFA) 15 GM INHALER INH ×4 (01:50→19:34)
[2018-04-10] MEDS: morphine LIQ (10 MG/5 ML) CUP PO (02:24)
[2018-04-10] MEDS: METOCLOPRAMIDE 10 MG INJ IV ×3 (05:30→21:58)
[2018-04-10] MEDS: FUROSEMIDE 20 MG INJ IV ×2 (05:30→17:52)
[2018-04-10] MEDS: LEVOFLOXACIN 500 MG TAB PO (05:30)
[2018-04-10] MEDS: LANSOPRAZOLE 15 MG CAP GTB (05:31)
[2018-04-10 06:24] LABS: ABNORMAL IP MESSAGE 1; HEMATOCRIT 23.2 % (42.0-52.0); HEMOGLOBIN 7.5 g/dl (14.0-18.0); MEAN CORPUSCULAR HEMOGLOBIN 27.1 pg (29.0-33.0); MEAN CORPUSCULAR HGB CONC 32.3 g/dl (32.0-37.0); MEAN CORPUSCULAR VOLUME 83.8 fl (82.0-101.0); NUCLEATED RED BLOOD CELLS% 0.1 /100WBC (0.0-0.0); PLATELET COUNT 103 10^3/UL (140-415); POSITIVE DIFF @See below; RED BLOOD COUNT 2.77 10^6/ul (4.70-6.10); RED CELL DISTRIBUTION WIDTH 24.8 % (11.5-14.5)
[2018-04-10 06:24] LABS: WHITE BLOOD COUNT 30.1 10^3/ul (4.8-10.8)
[2018-04-10 06:37] LABS: ADD MAN DIFF? YES
[2018-04-10 08:27] LABS: ANISOCYTOSIS 2+ (0-0); HYPOCHROMASIA 2+ (0-0); LYMPHOCYTES #M 0.9 10^3/ul (0.8-2.9); LYMPHOCYTES % (M) 3 % (15-51); MONOCYTE #M 0.6 10^3/ul (0.3-0.9); MONOCYTES % (M) 2 % (0-11); PLATELET ESTIMATE DECREASED; POLYCHROMASIA 3+ (0-0); SEGMENTED NEUTROPHILS (M) % 95 % (39-77); SMUDGE%M 2 % (0-0); TARGET CELLS 2+ (0-0)
[2018-04-10] MEDS: [UNRECOGNIZED DRUG - REMARK] XX ×2 (09:00→21:00)
[2018-04-10] MEDS: DORZOLAMIDE/TIMOLOL/PF 0.2 ML DROPERETTE BOTH EYES (09:30)
[2018-04-10] MEDS: FERROUS SULFATE 60 MG/ML 5ML CUP GTB (09:30)
[2018-04-10] MEDS: ERYTHROMYCIN BASE (EC) 250 MG TAB PO (09:30)
[2018-04-10] MEDS: BALSAM PERU/CASTOR OIL 60 GM TUBE TOP ×2 (09:31→20:44)
[2018-04-10] MEDS: MAGNESIUM HYDROXIDE 30ML CUP PO (09:31)
[2018-04-10] MEDS: predniSONE 10 MG TAB GTB (09:31)
[2018-04-10] MEDS: CALCIUM CARBONATE 1.25 GM TAB NGT ×3 (09:31→21:57)
[2018-04-10] MEDS: TIMOLOL 0.25% BOTH EYES ×2 (09:32→20:50)
[2018-04-10] MEDS: ENOXAPARIN 80 MG/0.8 ML SYG SC ×2 (09:34→22:07)
[2018-04-10] MEDS: HYDROmorphONE 1 MG/ML SYG IV ×2 (16:30→20:44)
[2018-04-11] MEDS: HYDROmorphONE 1 MG/ML SYG IV ×5 (00:36→22:14)
[2018-04-11] MEDS: LEVALBUTEROL (HFA) 15 GM INHALER INH ×4 (01:30→20:04)
[2018-04-11] MEDS: ERYTHROMYCIN ETHYL SUCC (80 MG/ML PO SYG) PEG ×3 (02:00→22:13)
[2018-04-11] MEDS: DOCUSATE SODIUM 10 MG/ML (10ML CUP) GTB ×2 (03:33→20:42)
[2018-04-11] MEDS: LEVOFLOXACIN 500 MG TAB PO (05:03)
[2018-04-11] MEDS: METOCLOPRAMIDE 10 MG INJ IV ×3 (05:03→22:13)
[2018-04-11] MEDS: FUROSEMIDE 20 MG INJ IV ×2 (05:04→18:08)
[2018-04-11] MEDS: LANSOPRAZOLE 15 MG CAP GTB (05:04)
[2018-04-11] MEDS: [UNRECOGNIZED DRUG - REMARK] XX ×2 (09:00→21:00)
[2018-04-11] MEDS: predniSONE 10 MG TAB GTB (09:15)
[2018-04-11] MEDS: MAGNESIUM HYDROXIDE 30ML CUP PO (09:15)
[2018-04-11] MEDS: FERROUS SULFATE 60 MG/ML 5ML CUP GTB (09:15)
[2018-04-11] MEDS: BALSAM PERU/CASTOR OIL 60 GM TUBE TOP ×2 (09:16→20:42)
[2018-04-11] MEDS: DORZOLAMIDE/TIMOLOL/PF 0.2 ML DROPERETTE BOTH EYES (09:18)
[2018-04-11] MEDS: CALCIUM CARBONATE 1.25 GM TAB NGT ×3 (09:18→20:42)
[2018-04-11] MEDS: TIMOLOL 0.25% BOTH EYES ×2 (09:18→20:42)
[2018-04-11] MEDS: ENOXAPARIN 80 MG/0.8 ML SYG SC ×2 (09:20→21:07)
[2018-04-11 14:10] LABS: HAAIG REFLEX REFLEX FILED
[2018-04-11 15:11] LABS: HEPATITIS B SURFACE ANTIGEN NEGATIVE (NEGATIVE)
[2018-04-11 15:29] LABS: HEPATITIS B CORE ANTIBODY REACTIVE (NEGATIVE); HEPATITIS C VIRAL ANTIBODY NEGATIVE (NEGATIVE)
[2018-04-12] MEDS: LEVALBUTEROL (HFA) 15 GM INHALER INH ×4 (01:47→19:25)
[2018-04-12] MEDS: HYDROmorphONE 1 MG/ML SYG IV ×5 (03:14→21:07)
[2018-04-12] MEDS: LANSOPRAZOLE 15 MG CAP GTB (05:18)
[2018-04-12] MEDS: METOCLOPRAMIDE 10 MG INJ IV ×3 (05:18→21:16)
[2018-04-12] MEDS: FUROSEMIDE 20 MG INJ IV ×2 (05:19→17:00)
[2018-04-12 06:24] LABS: ADD MAN DIFF? NO
[2018-04-12 06:28] LABS: ABNORMAL IP MESSAGE 1; BASOPHILS % 0.1 % (0.0-2.0); EOSINOPHILS # 0.1 10^3/ul (0.0-0.5); EOSINOPHILS % 0.5 % (0.0-7.0); HEMATOCRIT 22.2 % (42.0-52.0); HEMOGLOBIN 7.2 g/dl (14.0-18.0); LYMPHOCYTES # 0.9 10^3/ul (0.8-2.9); MEAN CORPUSCULAR HEMOGLOBIN 27.8 pg (29.0-33.0); MEAN CORPUSCULAR HGB CONC 32.4 g/dl (32.0-37.0); MEAN CORPUSCULAR VOLUME 85.7 fl (82.0-101.0); MONOCYTES % 4.5 % (0.0-11.0); NEUTROPHIL # 19.8 10^3/ul (1.6-7.5); NUCLEATED RED BLOOD CELLS% 0.1 /100WBC (0.0-0.0); PLATELET COUNT 89 10^3/UL (140-415); POSITIVE DIFF @See below; RED BLOOD COUNT 2.59 10^6/ul (4.70-6.10); RED CELL DISTRIBUTION WIDTH 24.6 % (11.5-14.5)
[2018-04-12 06:28] LABS: WHITE BLOOD COUNT 22.1 10^3/ul (4.8-10.8)
[2018-04-12 07:03] LABS: ANION GAP 10 (8-16); BLOOD UREA NITROGEN 26 mg/dl (7-20); CALCIUM 10.2 mg/dl (8.4-10.2); CARBON DIOXIDE 28 mmol/L (21-31); CHLORIDE 107 mmol/L (97-110); CREATININE 0.69 mg/dl (0.61-1.24); GLUCOSE 76 mg/dl (70-220); POTASSIUM 4.3 mmol/L (3.5-5.1); SODIUM 141 mmol/L (135-144)
[2018-04-12 07:53] LABS: MAGNESIUM 2.4 mg/dl (1.7-2.5)
[2018-04-12 07:53] LABS: PHOSPHORUS 1.8 mg/dl (2.5-4.9)
[2018-04-12] MEDS: ENOXAPARIN 80 MG/0.8 ML SYG SC ×2 (09:00→21:08)
[2018-04-12] MEDS: TIMOLOL 0.25% BOTH EYES ×2 (09:00→21:14)
[2018-04-12] MEDS: [UNRECOGNIZED DRUG - REMARK] XX ×2 (09:00→21:00)
[2018-04-12] MEDS: MAGNESIUM HYDROXIDE 30ML CUP PO (10:18)
[2018-04-12] MEDS: NEUTRA-PHOS 250 MG PACKET NGT ×2 (10:18→21:07)
[2018-04-12] MEDS: FERROUS SULFATE 60 MG/ML 5ML CUP GTB (10:19)
[2018-04-12] MEDS: DORZOLAMIDE/TIMOLOL/PF 0.2 ML DROPERETTE BOTH EYES (10:19)
[2018-04-12] MEDS: CALCIUM CARBONATE 1.25 GM TAB NGT ×3 (10:19→21:13)
[2018-04-12] MEDS: predniSONE 10 MG TAB NGT (10:19)
[2018-04-12] MEDS: BALSAM PERU/CASTOR OIL 60 GM TUBE TOP ×2 (10:20→21:15)
[2018-04-12] MEDS: ERYTHROMYCIN ETHYL SUCC (80 MG/ML PO SYG) PEG ×2 (12:06→21:14)
[2018-04-12] MEDS: POLYETHYLENE GLYCOL 17 GM PACKET GTB (12:07)
[2018-04-12] MEDS: morphine LIQ (10 MG/5 ML) CUP PO (22:55)
[2018-04-13] MEDS: LEVALBUTEROL (HFA) 15 GM INHALER INH ×4 (01:11→21:43)
[2018-04-13] MEDS: LANSOPRAZOLE 15 MG CAP GTB (05:49)
[2018-04-13] MEDS: METOCLOPRAMIDE 10 MG INJ IV ×3 (05:49→21:48)
[2018-04-13] MEDS: FUROSEMIDE 20 MG INJ IV ×2 (05:50→17:32)
[2018-04-13 06:00] LABS: ADD MAN DIFF? NO
[2018-04-13 06:24] LABS: WHITE BLOOD COUNT 18.2 10^3/ul (4.8-10.8)
[2018-04-13 06:24] LABS: ABNORMAL IP MESSAGE 1; BASOPHILS % 0.1 % (0.0-2.0); EOSINOPHILS # 0.2 10^3/ul (0.0-0.5); EOSINOPHILS % 1.3 % (0.0-7.0); HEMATOCRIT 21.6 % (42.0-52.0); LYMPHOCYTES # 0.7 10^3/ul (0.8-2.9); LYMPHOCYTES % 3.8 % (15.0-51.0); MEAN CORPUSCULAR HEMOGLOBIN 27.7 pg (29.0-33.0); MEAN CORPUSCULAR HGB CONC 32.4 g/dl (32.0-37.0); MEAN CORPUSCULAR VOLUME 85.4 fl (82.0-101.0); MONOCYTES % 5.7 % (0.0-11.0); NEUTROPHILS % 88.1 % (39.0-77.0); NUCLEATED RED BLOOD CELLS% 0.1 /100WBC (0.0-0.0); PLATELET COUNT 80 10^3/UL (140-415); POSITIVE DIFF @See below; RED BLOOD COUNT 2.53 10^6/ul (4.70-6.10); RED CELL DISTRIBUTION WIDTH 24.5 % (11.5-14.5)
[2018-04-13 06:27] LABS: ANION GAP 8 (8-16); BLOOD UREA NITROGEN 25 mg/dl (7-20); CALCIUM 10.5 mg/dl (8.4-10.2); CARBON DIOXIDE 28 mmol/L (21-31); CHLORIDE 107 mmol/L (97-110); CREATININE 0.67 mg/dl (0.61-1.24); GLUCOSE 81 mg/dl (70-220); POTASSIUM 4.4 mmol/L (3.5-5.1); SODIUM 139 mmol/L (135-144)
[2018-04-13] MEDS: MAGNESIUM HYDROXIDE 30ML CUP PO (07:58)
[2018-04-13] MEDS: POLYETHYLENE GLYCOL 17 GM PACKET GTB (07:59)
[2018-04-13] MEDS: predniSONE 10 MG TAB NGT (08:31)
[2018-04-13] MEDS: FERROUS SULFATE 60 MG/ML 5ML CUP GTB (08:31)
[2018-04-13] MEDS: DORZOLAMIDE/TIMOLOL/PF 0.2 ML DROPERETTE BOTH EYES (08:31)
[2018-04-13] MEDS: TIMOLOL 0.25% BOTH EYES ×2 (08:31→21:46)
[2018-04-13] MEDS: CALCIUM CARBONATE 1.25 GM TAB NGT (08:31)
[2018-04-13] MEDS: BALSAM PERU/CASTOR OIL 60 GM TUBE TOP ×2 (08:31→21:45)
[2018-04-13] MEDS: [UNRECOGNIZED DRUG - REMARK] XX ×2 (08:32→21:00)
[2018-04-13] MEDS: ERYTHROMYCIN ETHYL SUCC (80 MG/ML PO SYG) PEG ×2 (08:33→21:44)
[2018-04-13] MEDS: HYDROmorphONE 1 MG/ML SYG IV ×4 (08:33→21:45)
[2018-04-13] MEDS: ENOXAPARIN 80 MG/0.8 ML SYG SC ×2 (09:11→22:05)
[2018-04-13] MEDS: DILTIAZEM 25 MG INJ IV (16:45)
[2018-04-14] MEDS: HYDROmorphONE 1 MG/ML SYG IV ×5 (02:06→21:18)
[2018-04-14] MEDS: LEVALBUTEROL (HFA) 15 GM INHALER INH ×5 (02:08→20:13)
[2018-04-14] MEDS: morphine LIQ (10 MG/5 ML) CUP PO ×4 (04:32→23:37)
[2018-04-14] MEDS: LANSOPRAZOLE 15 MG CAP GTB (05:55)
[2018-04-14] MEDS: METOCLOPRAMIDE 10 MG INJ IV ×3 (05:55→21:15)
[2018-04-14] MEDS: FUROSEMIDE 20 MG INJ IV ×2 (05:55→17:19)
[2018-04-14] MEDS: CALCIUM CARBONATE 1.25 GM TAB NGT (08:29)
[2018-04-14] MEDS: POLYETHYLENE GLYCOL 17 GM PACKET GTB (08:29)
[2018-04-14] MEDS: DOCUSATE SODIUM 10 MG/ML (10ML CUP) GTB (08:29)
[2018-04-14] MEDS: FERROUS SULFATE 60 MG/ML 5ML CUP GTB (08:29)
[2018-04-14] MEDS: ERYTHROMYCIN ETHYL SUCC (80 MG/ML PO SYG) PEG ×2 (08:29→21:14)
[2018-04-14] MEDS: predniSONE 10 MG TAB NGT (08:29)
[2018-04-14] MEDS: TIMOLOL 0.25% BOTH EYES ×2 (08:30→21:13)
[2018-04-14] MEDS: BALSAM PERU/CASTOR OIL 60 GM TUBE TOP ×2 (08:30→21:14)
[2018-04-14] MEDS: MAGNESIUM HYDROXIDE 30ML CUP PO (08:30)
[2018-04-14] MEDS: DORZOLAMIDE/TIMOLOL/PF 0.2 ML DROPERETTE BOTH EYES (08:30)
[2018-04-14] MEDS: [UNRECOGNIZED DRUG - REMARK] XX ×2 (08:30→21:00)
[2018-04-14] MEDS: ENOXAPARIN 80 MG/0.8 ML SYG SC (08:34)
[2018-04-14 12:49] LABS: ADD UMIC YES; UR ASCORBIC ACID NEGATIVE (NEGATIVE); UR BACTERIA FEW /HPF (NONE SEEN); UR BILIRUBIN (Dip) NEGATIVE (NEGATIVE); UR BLOOD (Dip) NEGATIVE (NEGATIVE); UR CLARITY SLIGHTLY CLOUDY (CLEAR); UR COLOR YELLOW (YELLOW); UR GLUCOSE (Dip) NEGATIVE (NEGATIVE); UR HYPHAE YEAST MANY /HPF (NONE SEEN); UR KETONES (Dip) NEGATIVE (NEGATIVE); UR LEUKOCYTE ESTERASE (Dip) TRACE Leu/ul (NEGATIVE); UR NITRITE (Dip) NEGATIVE (NEGATIVE); UR RBC 1 /HPF (0-5); UR SPECIFIC GRAVITY (Dip) 1.011 (1.003-1.030); UR TOTAL PROTEIN (Dip) 1+ mg/dl (NEGATIVE); UR UROBILINOGEN (Dip) NEGATIVE (NEGATIVE); UR WBC 5 /HPF (0-5)
[2018-04-15] MEDS: ENOXAPARIN 80 MG/0.8 ML SYG SC ×2 (00:03→08:56)
[2018-04-15] MEDS: LEVALBUTEROL (HFA) 15 GM INHALER INH ×3 (01:24→19:52)
[2018-04-15] MEDS: HYDROmorphONE 1 MG/ML SYG IV ×2 (02:20→22:02)
[2018-04-15] MEDS: METOCLOPRAMIDE 10 MG INJ IV ×3 (05:48→20:43)
[2018-04-15] MEDS: LANSOPRAZOLE 15 MG CAP GTB (05:49)
[2018-04-15] MEDS: FUROSEMIDE 20 MG INJ IV ×2 (05:49→18:00)
[2018-04-15 06:04] LABS: ABNORMAL IP MESSAGE 1; HEMATOCRIT 18.7 % (42.0-52.0); NUCLEATED RED BLOOD CELLS% 0.3 /100WBC (0.0-0.0); PLATELET COUNT 80 10^3/UL (140-415); POSITIVE DIFF @See below; RED BLOOD COUNT 2.15 10^6/ul (4.70-6.10); RED CELL DISTRIBUTION WIDTH 24.9 % (11.5-14.5)
[2018-04-15 06:04] LABS: WHITE BLOOD COUNT 11.6 10^3/ul (4.8-10.8)
[2018-04-15 06:09] LABS: ADD MAN DIFF? YES; HEMOGLOBIN 5.8 g/dl (14.0-18.0); PATH REVIEW? YES
[2018-04-15 06:49] LABS: ANION GAP 8 (8-16); BLOOD UREA NITROGEN 23 mg/dl (7-20); CARBON DIOXIDE 30 mmol/L (21-31); CHLORIDE 100 mmol/L (97-110); GLUCOSE 107 mg/dl (70-220); POTASSIUM 4.3 mmol/L (3.5-5.1); SODIUM 134 mmol/L (135-144)
[2018-04-15 07:38] LABS: ANISOCYTOSIS 2+ (0-0); BAND NEUTROPHILS #M 0.2 10^3/ul (0.0-0.6); BAND NEUTROPHILS % (M) 2 % (0-4); BASOPHIL #M 0.1 10^3/ul (0.0-0.0); BASOPHILS % (M) 1 % (0-2); EOSINOPHILS % (M) 3 % (0-7); ERYTHROBLAST% (NRBC) (M) 2 % (0-0); HYPOCHROMASIA 3+ (0-0); LYMPHOCYTES #M 0.3 10^3/ul (0.8-2.9); LYMPHOCYTES % (M) 3 % (15-51); MICROCYTOSIS 1+ (0-0); MONOCYTES % (M) 9 % (0-11); PLATELET ESTIMATE SIG DECREASED; POLYCHROMASIA 3+ (0-0); SEG NEUT #M 9.5 10^3/ul (1.6-7.5); SEGMENTED NEUTROPHILS (M) % 82 % (39-77); SMUDGE%M 8 % (0-0)
[2018-04-15] MEDS: POLYETHYLENE GLYCOL 17 GM PACKET GTB (08:52)
[2018-04-15] MEDS: FERROUS SULFATE 60 MG/ML 5ML CUP GTB (08:52)
[2018-04-15] MEDS: predniSONE 10 MG TAB NGT (08:52)
[2018-04-15] MEDS: CALCIUM CARBONATE 1.25 GM TAB NGT (08:52)
[2018-04-15] MEDS: DORZOLAMIDE/TIMOLOL/PF 0.2 ML DROPERETTE BOTH EYES (08:53)
[2018-04-15] MEDS: TIMOLOL 0.25% BOTH EYES ×2 (08:54→20:42)
[2018-04-15] MEDS: BALSAM PERU/CASTOR OIL 60 GM TUBE TOP ×2 (08:54→20:41)
[2018-04-15] MEDS: [UNRECOGNIZED DRUG - REMARK] XX ×2 (08:58→20:51)
[2018-04-15] MEDS: ERYTHROMYCIN ETHYL SUCC (80 MG/ML PO SYG) PEG ×2 (08:58→20:41)
[2018-04-15 09:07] LABS: HEMATOCRIT 20.7 % (42.0-52.0)
[2018-04-15 09:12] LABS: HEMOGLOBIN 6.5 g/dl (14.0-18.0)
[2018-04-15] MEDS: HYDROmorphONE 0.5 MG/0.5 ML SYG IV (10:06)
[2018-04-15] MEDS: FLUCONAZOLE 100 MG TAB PO (12:11)
[2018-04-15] MEDS: morphine LIQ (10 MG/5 ML) CUP PO (15:28)
[2018-04-16] MEDS: LEVALBUTEROL (HFA) 15 GM INHALER INH ×4 (01:17→20:01)
[2018-04-16] MEDS: FUROSEMIDE 20 MG INJ IV ×2 (05:45→17:36)
[2018-04-16] MEDS: METOCLOPRAMIDE 10 MG INJ IV ×3 (05:45→20:39)
[2018-04-16] MEDS: LANSOPRAZOLE 15 MG CAP GTB (05:45)
[2018-04-16 06:51] LABS: OCCULT BLOOD STOOL POSITIVE (NEGATIVE)
[2018-04-16] MEDS: POLYETHYLENE GLYCOL 17 GM PACKET GTB (08:37)
[2018-04-16] MEDS: ERYTHROMYCIN ETHYL SUCC (80 MG/ML PO SYG) PEG ×2 (08:58→20:49)
[2018-04-16] MEDS: HYDROmorphONE 1 MG/ML SYG IV ×4 (08:58→22:48)
[2018-04-16] MEDS: FERROUS SULFATE 60 MG/ML 5ML CUP GTB (08:58)
[2018-04-16] MEDS: CALCIUM CARBONATE 1.25 GM TAB NGT (08:59)
[2018-04-16] MEDS: predniSONE 10 MG TAB NGT (08:59)
[2018-04-16] MEDS: FLUCONAZOLE 100 MG TAB PO (08:59)
[2018-04-16] MEDS: DORZOLAMIDE/TIMOLOL/PF 0.2 ML DROPERETTE BOTH EYES (09:00)
[2018-04-16] MEDS: TIMOLOL 0.25% BOTH EYES ×2 (09:00→20:40)
[2018-04-16] MEDS: [UNRECOGNIZED DRUG - REMARK] XX ×2 (09:00→20:39)
[2018-04-16] MEDS: BALSAM PERU/CASTOR OIL 60 GM TUBE TOP ×2 (09:00→20:39)
[2018-04-16 09:06] LABS: ADD MAN DIFF? NO
[2018-04-16 09:09] LABS: WHITE BLOOD COUNT 11.8 10^3/ul (4.8-10.8)
[2018-04-16 09:09] LABS: ABNORMAL IP MESSAGE 1; BASOPHILS % 0.1 % (0.0-2.0); EOSINOPHILS # 0.2 10^3/ul (0.0-0.5); EOSINOPHILS % 1.9 % (0.0-7.0); HEMATOCRIT 24.3 % (42.0-52.0); HEMOGLOBIN 7.7 g/dl (14.0-18.0); LYMPHOCYTES # 0.9 10^3/ul (0.8-2.9); LYMPHOCYTES % 7.8 % (15.0-51.0); MEAN CORPUSCULAR HEMOGLOBIN 27.2 pg (29.0-33.0); MEAN CORPUSCULAR HGB CONC 31.7 g/dl (32.0-37.0); MEAN CORPUSCULAR VOLUME 85.9 fl (82.0-101.0); MONOCYTE # 1.1 10^3/ul (0.3-0.9); MONOCYTES % 9.3 % (0.0-11.0); NEUTROPHIL # 9.3 10^3/ul (1.6-7.5); NEUTROPHILS % 78.7 % (39.0-77.0); NUCLEATED RED BLOOD CELLS # 0.1 10^3/ul (0.0-0.0); NUCLEATED RED BLOOD CELLS% 0.6 /100WBC (0.0-0.0); POSITIVE DIFF @See below; RED BLOOD COUNT 2.83 10^6/ul (4.70-6.10); RED CELL DISTRIBUTION WIDTH 23.1 % (11.5-14.5)
[2018-04-16 09:12] LABS: PLATELET COUNT 115 10^3/UL (140-415)
[2018-04-16 09:33] LABS: ANION GAP 8 (8-16); BLOOD UREA NITROGEN 25 mg/dl (7-20); CALCIUM 10.4 mg/dl (8.4-10.2); CARBON DIOXIDE 31 mmol/L (21-31); CHLORIDE 99 mmol/L (97-110); CREATININE 0.72 mg/dl (0.61-1.24); GLUCOSE 141 mg/dl (70-220); POTASSIUM 4.4 mmol/L (3.5-5.1); SODIUM 134 mmol/L (135-144)
[2018-04-16 09:40] LABS: MAGNESIUM 2.3 mg/dl (1.7-2.5)
[2018-04-16 09:40] LABS: PHOSPHORUS 2.1 mg/dl (2.5-4.9)
[2018-04-16] MEDS: VORICONAZOLE 200 MG TAB PO ×2 (12:12→20:40)
[2018-04-17] MEDS: LEVALBUTEROL (HFA) 15 GM INHALER INH ×4 (01:41→19:17)
[2018-04-17] MEDS: HYDROmorphONE 1 MG/ML SYG IV ×5 (03:11→21:03)
[2018-04-17] MEDS: METOCLOPRAMIDE 10 MG INJ IV ×3 (06:25→21:05)
[2018-04-17] MEDS: FUROSEMIDE 20 MG INJ IV ×2 (06:25→17:42)
[2018-04-17] MEDS: LANSOPRAZOLE 15 MG CAP GTB (06:25)
[2018-04-17 06:29] LABS: WHITE BLOOD COUNT 13.3 10^3/ul (4.8-10.8)
[2018-04-17 06:29] LABS: ABNORMAL IP MESSAGE 1; HEMATOCRIT 22.1 % (42.0-52.0); MEAN CORPUSCULAR HEMOGLOBIN 27.5 pg (29.0-33.0); MEAN CORPUSCULAR HGB CONC 31.7 g/dl (32.0-37.0); MEAN CORPUSCULAR VOLUME 86.7 fl (82.0-101.0); NUCLEATED RED BLOOD CELLS% 0.7 /100WBC (0.0-0.0); POSITIVE DIFF @See below; RED BLOOD COUNT 2.55 10^6/ul (4.70-6.10); RED CELL DISTRIBUTION WIDTH 23.2 % (11.5-14.5)
[2018-04-17 06:43] LABS: ADD MAN DIFF? YES; PLATELET COUNT 147 10^3/UL (140-415)
[2018-04-17] MEDS: VORICONAZOLE 200 MG TAB PO (08:03)
[2018-04-17] MEDS: predniSONE 10 MG TAB NGT (08:03)
[2018-04-17] MEDS: CALCIUM CARBONATE 1.25 GM TAB NGT (08:03)
[2018-04-17] MEDS: FERROUS SULFATE 60 MG/ML 5ML CUP GTB (08:03)
[2018-04-17] MEDS: BALSAM PERU/CASTOR OIL 60 GM TUBE TOP ×2 (08:04→21:05)
[2018-04-17] MEDS: ERYTHROMYCIN ETHYL SUCC (80 MG/ML PO SYG) PEG ×2 (08:04→21:10)
[2018-04-17] MEDS: POLYETHYLENE GLYCOL 17 GM PACKET GTB (08:04)
[2018-04-17] MEDS: TIMOLOL 0.25% BOTH EYES ×2 (08:05→21:04)
[2018-04-17] MEDS: DORZOLAMIDE/TIMOLOL/PF 0.2 ML DROPERETTE BOTH EYES (08:05)
[2018-04-17] MEDS: [UNRECOGNIZED DRUG - REMARK] XX ×2 (08:11→21:00)
[2018-04-17 08:19] LABS: ANISOCYTOSIS 2+ (0-0); BAND NEUTROPHILS % (M) 8 % (0-4); EOSINOPHILS % (M) 3 % (0-7); ERYTHROBLAST% (NRBC) (M) 2 % (0-0); GIANT THROMBO% (M) 1 % (0-0); HYPOCHROMASIA 1+ (0-0); LYMPHOCYTES #M 1.4 10^3/ul (0.8-2.9); LYMPHOCYTES % (M) 11 % (15-51); MONOCYTE #M 0.9 10^3/ul (0.3-0.9); MONOCYTES % (M) 7 % (0-11); MYELOCYTES #M 0.1 10^3/ul (0.0-0.0); MYELOCYTES % (M) 1 % (0-0); PLATELET ESTIMATE NORMAL; POLYCHROMASIA 3+ (0-0); REACTIVE LYMPHOCYTES #M 0.1 10^3/ul (0.0-0.0); REACTIVE LYMPHOCYTES% (M) 1 % (0-0); SEG NEUT #M 9.3 10^3/ul (1.6-7.5); SEGMENTED NEUTROPHILS (M) % 69 % (39-77); SMUDGE%M 14 % (0-0); TARGET CELLS 1+ (0-0)
[2018-04-17] MEDS: PANTOPRAZOLE 40 MG INJ IV ×2 (09:29→17:42)
[2018-04-17] MEDS: AMIODARONE 200 MG TAB GTB ×2 (12:14→21:03)
[2018-04-17 13:15] LABS: IMMEDIATE SPIN CROSSMATCH 1 3
[2018-04-17] MEDS: NEUTRA-PHOS 250 MG PACKET PO ×2 (14:40→21:03)
[2018-04-17] MEDS: CASPOFUNGIN 70 MG in SOD CHLORIDE 0.9% 250 ML IVPB (15:50)
[2018-04-18] MEDS: HYDROmorphONE 1 MG/ML SYG IV ×6 (01:04→21:36)
[2018-04-18] MEDS: LEVALBUTEROL (HFA) 15 GM INHALER INH ×4 (01:10→19:30)
[2018-04-18] MEDS: PANTOPRAZOLE 40 MG INJ IV ×2 (05:26→17:56)
[2018-04-18] MEDS: LANSOPRAZOLE 15 MG CAP GTB (05:26)
[2018-04-18] MEDS: METOCLOPRAMIDE 10 MG INJ IV ×3 (05:26→21:36)
[2018-04-18] MEDS: FUROSEMIDE 20 MG INJ IV ×2 (05:27→17:57)
[2018-04-18] MEDS: AMIODARONE 200 MG TAB GTB (09:00)
[2018-04-18] MEDS: FERROUS SULFATE 60 MG/ML 5ML CUP GTB (09:04)
[2018-04-18] MEDS: POLYETHYLENE GLYCOL 17 GM PACKET GTB (09:04)
[2018-04-18] MEDS: BALSAM PERU/CASTOR OIL 60 GM TUBE TOP ×2 (09:05→21:38)
[2018-04-18] MEDS: ERYTHROMYCIN ETHYL SUCC (80 MG/ML PO SYG) PEG ×2 (09:05→21:35)
[2018-04-18] MEDS: DORZOLAMIDE/TIMOLOL/PF 0.2 ML DROPERETTE BOTH EYES (09:05)
[2018-04-18] MEDS: NEUTRA-PHOS 250 MG PACKET PO ×2 (09:05→21:36)
[2018-04-18] MEDS: predniSONE 10 MG TAB NGT (09:05)
[2018-04-18] MEDS: TIMOLOL 0.25% BOTH EYES ×2 (09:09→21:39)
[2018-04-18] MEDS: [UNRECOGNIZED DRUG - REMARK] XX ×2 (09:17→21:00)
[2018-04-18 11:20] LABS: ADD MAN DIFF? NO
[2018-04-18 11:28] LABS: WHITE BLOOD COUNT 12.5 10^3/ul (4.8-10.8)
[2018-04-18 11:28] LABS: ABNORMAL IP MESSAGE 1; BASOPHILS % 0.1 % (0.0-2.0); EOSINOPHILS # 0.3 10^3/ul (0.0-0.5); EOSINOPHILS % 2.5 % (0.0-7.0); HEMATOCRIT 28.1 % (42.0-52.0); LYMPHOCYTES # 0.9 10^3/ul (0.8-2.9); MEAN CORPUSCULAR VOLUME 87.3 fl (82.0-101.0); MEAN PLATELET VOLUME 13.5 fl (7.4-10.4); MONOCYTES % 8.2 % (0.0-11.0); NEUTROPHIL # 9.9 10^3/ul (1.6-7.5); NEUTROPHILS % 79.1 % (39.0-77.0); NUCLEATED RED BLOOD CELLS # 0.3 10^3/ul (0.0-0.0); NUCLEATED RED BLOOD CELLS% 2.1 /100WBC (0.0-0.0); PLATELET COUNT 180 10^3/UL (140-415); POSITIVE DIFF @See below; RED BLOOD COUNT 3.22 10^6/ul (4.70-6.10); RED CELL DISTRIBUTION WIDTH 21.6 % (11.5-14.5)
[2018-04-18 11:43] LABS: ANION GAP 12 (8-16); BLOOD UREA NITROGEN 27 mg/dl (7-20); CALCIUM 9.9 mg/dl (8.4-10.2); CARBON DIOXIDE 31 mmol/L (21-31); CHLORIDE 97 mmol/L (97-110); CREATININE 0.71 mg/dl (0.61-1.24); GLUCOSE 91 mg/dl (70-220); POTASSIUM 4.8 mmol/L (3.5-5.1); SODIUM 135 mmol/L (135-144)
[2018-04-18] MEDS: CASPOFUNGIN 50 MG in SOD CHLORIDE 0.9% 250 ML IVPB (14:39)
[2018-04-19] MEDS: LEVALBUTEROL (HFA) 15 GM INHALER INH ×4 (01:11→19:21)
[2018-04-19] MEDS: HYDROmorphONE 1 MG/ML SYG IV ×5 (01:28→23:31)
[2018-04-19] MEDS: FUROSEMIDE 20 MG INJ IV (05:41)
[2018-04-19] MEDS: LANSOPRAZOLE 15 MG CAP GTB (05:41)
[2018-04-19] MEDS: PANTOPRAZOLE 40 MG INJ IV ×2 (05:41→18:21)
[2018-04-19] MEDS: METOCLOPRAMIDE 10 MG INJ IV ×3 (05:42→21:54)
[2018-04-19 07:51] LABS: ADD MAN DIFF? NO
[2018-04-19 07:55] LABS: BASOPHILS % 0.2 % (0.0-2.0); EOSINOPHILS # 0.3 10^3/ul (0.0-0.5); EOSINOPHILS % 2.2 % (0.0-7.0); HEMATOCRIT 27.9 % (42.0-52.0); HEMOGLOBIN 8.8 g/dl (14.0-18.0); LYMPHOCYTES # 0.7 10^3/ul (0.8-2.9); LYMPHOCYTES % 5.3 % (15.0-51.0); MEAN CORPUSCULAR HEMOGLOBIN 27.4 pg (29.0-33.0); MEAN CORPUSCULAR HGB CONC 31.5 g/dl (32.0-37.0); MEAN CORPUSCULAR VOLUME 86.9 fl (82.0-101.0); MEAN PLATELET VOLUME 12.8 fl (7.4-10.4); MONOCYTE # 1.1 10^3/ul (0.3-0.9); MONOCYTES % 8.1 % (0.0-11.0); NEUTROPHIL # 10.5 10^3/ul (1.6-7.5); NEUTROPHILS % 81.3 % (39.0-77.0); NUCLEATED RED BLOOD CELLS # 0.3 10^3/ul (0.0-0.0); NUCLEATED RED BLOOD CELLS% 2.5 /100WBC (0.0-0.0); PLATELET COUNT 212 10^3/UL (140-415); RED BLOOD COUNT 3.21 10^6/ul (4.70-6.10)
[2018-04-19 07:55] LABS: WHITE BLOOD COUNT 12.9 10^3/ul (4.8-10.8)
[2018-04-19 08:13] LABS: ANION GAP 13 (8-16); BLOOD UREA NITROGEN 25 mg/dl (7-20); CARBON DIOXIDE 31 mmol/L (21-31); CHLORIDE 95 mmol/L (97-110); CREATININE 0.72 mg/dl (0.61-1.24); GLUCOSE 106 mg/dl (70-220); POTASSIUM 4.5 mmol/L (3.5-5.1); SODIUM 134 mmol/L (135-144)
[2018-04-19 08:14] LABS: MAGNESIUM 2.2 mg/dl (1.7-2.5)
[2018-04-19 08:14] LABS: PHOSPHORUS 3.2 mg/dl (2.5-4.9)
[2018-04-19] MEDS: NEUTRA-PHOS 250 MG PACKET PO ×2 (09:46→21:54)
[2018-04-19] MEDS: FERROUS SULFATE 60 MG/ML 5ML CUP GTB (09:46)
[2018-04-19] MEDS: POLYETHYLENE GLYCOL 17 GM PACKET GTB (09:46)
[2018-04-19] MEDS: DORZOLAMIDE/TIMOLOL/PF 0.2 ML DROPERETTE BOTH EYES (09:46)
[2018-04-19] MEDS: [UNRECOGNIZED DRUG - REMARK] XX ×2 (09:46→21:00)
[2018-04-19] MEDS: predniSONE 10 MG TAB NGT (09:46)
[2018-04-19] MEDS: BALSAM PERU/CASTOR OIL 60 GM TUBE TOP ×2 (09:46→21:54)
[2018-04-19] MEDS: TIMOLOL 0.25% BOTH EYES ×2 (09:47→21:54)
[2018-04-19] MEDS: ERYTHROMYCIN ETHYL SUCC (80 MG/ML PO SYG) PEG ×2 (09:49→21:56)
[2018-04-19] MEDS: HYDROCODONE/APAP (5/325) TAB NGT ×3 (14:12→19:30)
[2018-04-19] MEDS: CASPOFUNGIN 50 MG in SOD CHLORIDE 0.9% 250 ML IVPB (15:22)
[2018-04-20] MEDS: LEVALBUTEROL (HFA) 15 GM INHALER INH ×4 (01:10→19:38)
[2018-04-20] MEDS: HYDROmorphONE 1 MG/ML SYG IV (03:31)
[2018-04-20] MEDS: METOCLOPRAMIDE 10 MG INJ IV ×3 (06:13→21:23)
[2018-04-20] MEDS: PANTOPRAZOLE 40 MG INJ IV ×2 (06:13→17:40)
[2018-04-20] MEDS: LANSOPRAZOLE 15 MG CAP GTB (06:13)
[2018-04-20] MEDS: FUROSEMIDE 20 MG INJ IV (06:15)
[2018-04-20] MEDS: HYDROCODONE/APAP (5/325) TAB NGT ×3 (07:57→21:25)
[2018-04-20] MEDS: DORZOLAMIDE/TIMOLOL/PF 0.2 ML DROPERETTE BOTH EYES (08:52)
[2018-04-20] MEDS: FERROUS SULFATE 60 MG/ML 5ML CUP GTB (08:52)
[2018-04-20] MEDS: POLYETHYLENE GLYCOL 17 GM PACKET GTB (08:52)
[2018-04-20] MEDS: predniSONE 10 MG TAB NGT (08:52)
[2018-04-20] MEDS: NEUTRA-PHOS 250 MG PACKET PO ×2 (08:52→21:23)
[2018-04-20] MEDS: BALSAM PERU/CASTOR OIL 60 GM TUBE TOP ×2 (08:53→21:22)
[2018-04-20] MEDS: TIMOLOL 0.25% BOTH EYES ×2 (08:54→21:23)
[2018-04-20] MEDS: [UNRECOGNIZED DRUG - REMARK] XX ×2 (08:55→21:00)
[2018-04-20] MEDS: ERYTHROMYCIN ETHYL SUCC (80 MG/ML PO SYG) PEG ×2 (08:58→21:23)
[2018-04-20] MEDS: CASPOFUNGIN 50 MG in SOD CHLORIDE 0.9% 250 ML IVPB (14:22)
[2018-04-20] MEDS: morphine LIQ (10 MG/5 ML) CUP PO (19:48)
[2018-04-21] MEDS: LEVALBUTEROL (HFA) 15 GM INHALER INH ×4 (01:46→19:56)
[2018-04-21] MEDS: HYDROCODONE/APAP (5/325) TAB NGT ×3 (02:52→17:31)
[2018-04-21] MEDS: LORAZEPAM 2 MG INJ IV (04:01)
[2018-04-21] MEDS: DILTIAZEM 25 MG INJ IV ×2 (04:48→21:52)
[2018-04-21] MEDS: PANTOPRAZOLE 40 MG INJ IV ×2 (05:27→17:31)
[2018-04-21] MEDS: METOCLOPRAMIDE 10 MG INJ IV ×3 (05:27→21:25)
[2018-04-21] MEDS: FUROSEMIDE 20 MG INJ IV (05:27)
[2018-04-21] MEDS: LANSOPRAZOLE 15 MG CAP GTB (05:27)
[2018-04-21 05:51] LABS: WHITE BLOOD COUNT 14.3 10^3/ul (4.8-10.8)
[2018-04-21 05:51] LABS: ABNORMAL IP MESSAGE 1; HEMATOCRIT 29.6 % (42.0-52.0); HEMOGLOBIN 9.2 g/dl (14.0-18.0); MEAN CORPUSCULAR HEMOGLOBIN 27.7 pg (29.0-33.0); MEAN CORPUSCULAR HGB CONC 31.1 g/dl (32.0-37.0); MEAN CORPUSCULAR VOLUME 89.2 fl (82.0-101.0); MEAN PLATELET VOLUME 12.3 fl (7.4-10.4); NUCLEATED RED BLOOD CELLS% 1.3 /100WBC (0.0-0.0); PLATELET COUNT 335 10^3/UL (140-415); POSITIVE DIFF @See below; RED BLOOD COUNT 3.32 10^6/ul (4.70-6.10); RED CELL DISTRIBUTION WIDTH 22.1 % (11.5-14.5)
[2018-04-21 06:16] LABS: ANION GAP 13 (8-16); BLOOD UREA NITROGEN 25 mg/dl (7-20); CALCIUM 10.1 mg/dl (8.4-10.2); CARBON DIOXIDE 33 mmol/L (21-31); CHLORIDE 96 mmol/L (97-110); CREATININE 0.64 mg/dl (0.61-1.24); GLUCOSE 109 mg/dl (70-220); POTASSIUM 4.9 mmol/L (3.5-5.1); SODIUM 137 mmol/L (135-144)
[2018-04-21 06:44] LABS: ADD MAN DIFF? YES
[2018-04-21] MEDS: [UNRECOGNIZED DRUG - REMARK] XX ×2 (09:00→21:00)
[2018-04-21 09:12] LABS: ANISOCYTOSIS 1+ (0-0); BAND NEUTROPHILS #M 1.2 10^3/ul (0.0-0.6); BAND NEUTROPHILS % (M) 9 % (0-4); ERYTHROBLAST% (NRBC) (M) 1 % (0-0); GIANT THROMBO% (M) 26 % (0-0); LYMPHOCYTES #M 0.7 10^3/ul (0.8-2.9); LYMPHOCYTES % (M) 5 % (15-51); MONOCYTE #M 0.8 10^3/ul (0.3-0.9); MONOCYTES % (M) 6 % (0-11); MYELOCYTES #M 0.2 10^3/ul (0.0-0.0); MYELOCYTES % (M) 2 % (0-0); PLATELET ESTIMATE NORMAL; POLYCHROMASIA 2+ (0-0); PROMYELOCYTES #M 0.1 10^3/ul (0-0); PROMYELOCYTES % (M) 1 % (0-0); REACTIVE LYMPHOCYTES #M 0.1 10^3/ul (0.0-0.0); REACTIVE LYMPHOCYTES% (M) 1 % (0-0); SEGMENTED NEUTROPHILS (M) % 76 % (39-77); SMUDGE%M 2 % (0-0)
[2018-04-21] MEDS: POLYETHYLENE GLYCOL 17 GM PACKET GTB (09:29)
[2018-04-21] MEDS: NEUTRA-PHOS 250 MG PACKET PO ×2 (09:29→21:25)
[2018-04-21] MEDS: DORZOLAMIDE/TIMOLOL/PF 0.2 ML DROPERETTE BOTH EYES (09:29)
[2018-04-21] MEDS: predniSONE 10 MG TAB NGT (09:29)
[2018-04-21] MEDS: FERROUS SULFATE 60 MG/ML 5ML CUP GTB (09:29)
[2018-04-21] MEDS: TIMOLOL 0.25% BOTH EYES ×2 (09:30→21:25)
[2018-04-21] MEDS: BALSAM PERU/CASTOR OIL 60 GM TUBE TOP ×2 (09:31→21:23)
[2018-04-21] MEDS: ERYTHROMYCIN ETHYL SUCC (80 MG/ML PO SYG) PEG ×2 (09:38→21:25)
[2018-04-21] MEDS: CASPOFUNGIN 50 MG in SOD CHLORIDE 0.9% 250 ML IVPB (14:58)
[2018-04-21] MEDS: morphine LIQ (10 MG/5 ML) CUP PO ×2 (15:01→22:40)
[2018-04-22] MEDS: LEVALBUTEROL (HFA) 15 GM INHALER INH ×4 (01:32→19:30)
[2018-04-22] MEDS: HYDROCODONE/APAP (5/325) TAB NGT ×2 (02:43→14:14)
[2018-04-22] MEDS: DILTIAZEM 25 MG INJ IV ×4 (05:46→19:54)
[2018-04-22] MEDS: PANTOPRAZOLE 40 MG INJ IV ×2 (05:47→18:50)
[2018-04-22] MEDS: METOCLOPRAMIDE 10 MG INJ IV ×3 (05:47→21:34)
[2018-04-22] MEDS: FUROSEMIDE 20 MG INJ IV (05:47)
[2018-04-22] MEDS: LANSOPRAZOLE 15 MG CAP GTB (05:47)
[2018-04-22] MEDS: morphine LIQ (10 MG/5 ML) CUP PO ×3 (06:59→11:00)
[2018-04-22] MEDS: BALSAM PERU/CASTOR OIL 60 GM TUBE TOP ×2 (08:10→21:34)
[2018-04-22] MEDS: DORZOLAMIDE/TIMOLOL/PF 0.2 ML DROPERETTE BOTH EYES (08:11)
[2018-04-22] MEDS: TIMOLOL 0.25% BOTH EYES ×2 (08:11→21:34)
[2018-04-22] MEDS: [UNRECOGNIZED DRUG - REMARK] XX ×2 (09:00→21:00)
[2018-04-22] MEDS: POLYETHYLENE GLYCOL 17 GM PACKET GTB (09:12)
[2018-04-22] MEDS: predniSONE 10 MG TAB NGT (09:12)
[2018-04-22] MEDS: FERROUS SULFATE 60 MG/ML 5ML CUP GTB (09:12)
[2018-04-22] MEDS: ERYTHROMYCIN ETHYL SUCC (80 MG/ML PO SYG) PEG ×2 (09:13→21:34)
[2018-04-22] MEDS: NEUTRA-PHOS 250 MG PACKET PO ×2 (09:13→21:34)
[2018-04-22] MEDS: CASPOFUNGIN 50 MG in SOD CHLORIDE 0.9% 250 ML IVPB (15:40)
[2018-04-22] MEDS: HYDROmorphONE 1 MG/ML SYG IV (18:50)
[2018-04-22] MEDS: LORAZEPAM 2 MG INJ IV (21:52)
[2018-04-23] MEDS: HYDROmorphONE 1 MG/ML SYG IV ×3 (00:08→22:11)
[2018-04-23] MEDS: DILTIAZEM 25 MG INJ IV ×3 (00:13→12:43)
[2018-04-23] MEDS: LEVALBUTEROL (HFA) 15 GM INHALER INH ×4 (02:20→19:20)
[2018-04-23] MEDS: HYDROCODONE/APAP (5/325) TAB NGT ×3 (02:44→18:08)
[2018-04-23] MEDS: morphine LIQ (10 MG/5 ML) CUP PO (04:46)
[2018-04-23 06:02] LABS: ADD MAN DIFF? NO
[2018-04-23 06:13] LABS: ABNORMAL IP MESSAGE 1; BASOPHILS % 0.2 % (0.0-2.0); EOSINOPHILS # 0.2 10^3/ul (0.0-0.5); EOSINOPHILS % 1.1 % (0.0-7.0); HEMOGLOBIN 8.7 g/dl (14.0-18.0); LYMPHOCYTES # 1.5 10^3/ul (0.8-2.9); LYMPHOCYTES % 8.6 % (15.0-51.0); MEAN CORPUSCULAR HGB CONC 31.1 g/dl (32.0-37.0); MEAN PLATELET VOLUME 12.4 fl (7.4-10.4); MONOCYTE # 1.2 10^3/ul (0.3-0.9); MONOCYTES % 7.1 % (0.0-11.0); NEUTROPHIL # 13.4 10^3/ul (1.6-7.5); NEUTROPHILS % 79.2 % (39.0-77.0); NUCLEATED RED BLOOD CELLS # 0.1 10^3/ul (0.0-0.0); NUCLEATED RED BLOOD CELLS% 0.6 /100WBC (0.0-0.0); PLATELET COUNT 394 10^3/UL (140-415); POSITIVE DIFF @See below; RED BLOOD COUNT 3.11 10^6/ul (4.70-6.10); RED CELL DISTRIBUTION WIDTH 22.3 % (11.5-14.5)
[2018-04-23 06:13] LABS: WHITE BLOOD COUNT 16.9 10^3/ul (4.8-10.8)
[2018-04-23] MEDS: LANSOPRAZOLE 15 MG CAP GTB (06:18)
[2018-04-23] MEDS: METOCLOPRAMIDE 10 MG INJ IV ×3 (06:18→22:11)
[2018-04-23] MEDS: FUROSEMIDE 20 MG INJ IV (06:18)
[2018-04-23] MEDS: PANTOPRAZOLE 40 MG INJ IV ×2 (06:18→18:08)
[2018-04-23 06:36] LABS: ALANINE AMINOTRANSFERASE 28 IU/L (13-69); ALBUMIN 2.6 g/dl (3.3-4.9); ALBUMIN/GLOBULIN RATIO 0.89; ALKALINE PHOSPHATASE 556 IU/L (42-121); ANION GAP 12 (8-16); ASPARTATE AMINO TRANSFERASE 45 IU/L (15-46); BLOOD UREA NITROGEN 27 mg/dl (7-20); CARBON DIOXIDE 32 mmol/L (21-31); CHLORIDE 99 mmol/L (97-110); GLUCOSE 94 mg/dl (70-220); POTASSIUM 5.3 mmol/L (3.5-5.1); SODIUM 138 mmol/L (135-144); TOTAL PROTEIN 5.5 g/dl (6.1-8.1)
[2018-04-23 06:38] LABS: MAGNESIUM 2.1 mg/dl (1.7-2.5)
[2018-04-23 06:38] LABS: PHOSPHORUS 3.7 mg/dl (2.5-4.9)
[2018-04-23] MEDS: FERROUS SULFATE 60 MG/ML 5ML CUP GTB (08:22)
[2018-04-23] MEDS: DORZOLAMIDE/TIMOLOL/PF 0.2 ML DROPERETTE BOTH EYES (08:22)
[2018-04-23] MEDS: NEUTRA-PHOS 250 MG PACKET PO (08:23)
[2018-04-23] MEDS: TIMOLOL 0.25% BOTH EYES ×2 (08:23→22:12)
[2018-04-23] MEDS: BALSAM PERU/CASTOR OIL 60 GM TUBE TOP ×2 (08:23→22:12)
[2018-04-23] MEDS: predniSONE 10 MG TAB NGT (08:24)
[2018-04-23] MEDS: [UNRECOGNIZED DRUG - REMARK] XX ×2 (08:24→22:11)
[2018-04-23] MEDS: POLYETHYLENE GLYCOL 17 GM PACKET GTB (08:25)
[2018-04-23] MEDS: ERYTHROMYCIN ETHYL SUCC (80 MG/ML PO SYG) PEG ×2 (08:27→22:19)
[2018-04-23] MEDS ORDERED: DILTIAZEM 25 MG INJ IV (12:30)
[2018-04-23] MEDS: DILTIAZEM-D5W 125MG/125ML DRIP 125 ML IV (13:16)
[2018-04-23] MEDS: NA POLYST SULFON 15 GM/60 ML BTL GTB (13:34)
[2018-04-23 14:24] LABS: ADD UMIC YES; UR ASCORBIC ACID 20 mg/dL (NEGATIVE); UR BACTERIA FEW /HPF (NONE SEEN); UR BILIRUBIN (Dip) NEGATIVE (NEGATIVE); UR BLOOD (Dip) NEGATIVE (NEGATIVE); UR BUDDING YEAST FEW /HPF (NONE SEEN); UR CLARITY CLOUDY (CLEAR); UR COLOR YELLOW (YELLOW); UR GLUCOSE (Dip) NEGATIVE (NEGATIVE); UR HYPHAE YEAST FEW /HPF (NONE SEEN); UR KETONES (Dip) NEGATIVE (NEGATIVE); UR LEUKOCYTE ESTERASE (Dip) TRACE Leu/ul (NEGATIVE); UR NITRITE (Dip) NEGATIVE (NEGATIVE); UR RBC 9 /HPF (0-5); UR SPECIFIC GRAVITY (Dip) 1.009 (1.003-1.030); UR TOTAL PROTEIN (Dip) NEGATIVE (NEGATIVE); UR UROBILINOGEN (Dip) 1+ mg/dL (NEGATIVE); UR WBC 5 /HPF (0-5)
[2018-04-23] MEDS: DILTIAZEM 30 MG TAB PO ×2 (14:30→22:13)
[2018-04-23] MEDS: DIGOXIN 500 MCG INJ IV (14:33)
[2018-04-23] MEDS: CASPOFUNGIN 50 MG in SOD CHLORIDE 0.9% 250 ML IVPB (15:29)
[2018-04-23] MEDS ORDERED: METOPROLOL 25 MG TAB PO (21:00)
[2018-04-24] MEDS: LEVALBUTEROL (HFA) 15 GM INHALER INH (01:02)
[2018-04-24] MEDS: HYDROCODONE/APAP (5/325) TAB NGT ×2 (02:42→09:14)
[2018-04-24 05:56] LABS: WHITE BLOOD COUNT 19.9 10^3/ul (4.8-10.8)
[2018-04-24 05:56] LABS: ABNORMAL IP MESSAGE 1; ADD MAN DIFF? NO; BASOPHILS % 0.2 % (0.0-2.0); EOSINOPHILS # 0.1 10^3/ul (0.0-0.5); EOSINOPHILS % 0.7 % (0.0-7.0); HEMATOCRIT 27.2 % (42.0-52.0); HEMOGLOBIN 8.3 g/dl (14.0-18.0); LYMPHOCYTES # 1.3 10^3/ul (0.8-2.9); LYMPHOCYTES % 6.7 % (15.0-51.0); MEAN CORPUSCULAR HGB CONC 30.5 g/dl (32.0-37.0); MEAN CORPUSCULAR VOLUME 91.9 fl (82.0-101.0); MEAN PLATELET VOLUME 11.6 fl (7.4-10.4); MONOCYTE # 1.4 10^3/ul (0.3-0.9); MONOCYTES % 6.8 % (0.0-11.0); NEUTROPHIL # 16.2 10^3/ul (1.6-7.5); NEUTROPHILS % 81.5 % (39.0-77.0); NUCLEATED RED BLOOD CELLS # 0.1 10^3/ul (0.0-0.0); NUCLEATED RED BLOOD CELLS% 0.6 /100WBC (0.0-0.0); PLATELET COUNT 386 10^3/UL (140-415); POSITIVE DIFF @See below; RED BLOOD COUNT 2.96 10^6/ul (4.70-6.10); RED CELL DISTRIBUTION WIDTH 22.2 % (11.5-14.5)
[2018-04-24] MEDS: HYDROmorphONE 1 MG/ML SYG IV (06:01)
[2018-04-24] MEDS: PANTOPRAZOLE 40 MG INJ IV ×2 (06:02→18:07)
[2018-04-24] MEDS: DILTIAZEM 30 MG TAB PO ×3 (06:02→20:55)
[2018-04-24] MEDS: LANSOPRAZOLE 15 MG CAP GTB (06:03)
[2018-04-24] MEDS: METOCLOPRAMIDE 10 MG INJ IV ×3 (06:03→20:54)
[2018-04-24] MEDS: FUROSEMIDE 20 MG INJ IV (06:11)
[2018-04-24] MEDS: ACETAMINOPHEN 650 MG SUPP PR (06:12)
[2018-04-24 06:42] LABS: MAGNESIUM 1.9 mg/dl (1.7-2.5)
[2018-04-24 06:42] LABS: PHOSPHORUS 3.8 mg/dl (2.5-4.9)
[2018-04-24] MEDS: DILTIAZEM 25 MG INJ IV (06:46)
[2018-04-24 06:56] LABS: ANION GAP 12 (8-16); BLOOD UREA NITROGEN 27 mg/dl (7-20); CALCIUM 9.7 mg/dl (8.4-10.2); CARBON DIOXIDE 33 mmol/L (21-31); CHLORIDE 94 mmol/L (97-110); GLUCOSE 84 mg/dl (70-220); POTASSIUM 4.6 mmol/L (3.5-5.1); SODIUM 134 mmol/L (135-144)
[2018-04-24] MEDS: POLYETHYLENE GLYCOL 17 GM PACKET GTB (08:43)
[2018-04-24] MEDS: TIMOLOL 0.25% BOTH EYES ×2 (08:43→20:39)
[2018-04-24] MEDS: BALSAM PERU/CASTOR OIL 60 GM TUBE TOP ×2 (08:43→20:38)
[2018-04-24] MEDS: DORZOLAMIDE/TIMOLOL/PF 0.2 ML DROPERETTE BOTH EYES (08:43)
[2018-04-24] MEDS: predniSONE 10 MG TAB NGT (08:43)
[2018-04-24] MEDS: [UNRECOGNIZED DRUG - REMARK] XX ×2 (08:44→20:39)
[2018-04-24] MEDS: FERROUS SULFATE 60 MG/ML 5ML CUP GTB (08:45)
[2018-04-24] MEDS: ERYTHROMYCIN ETHYL SUCC (80 MG/ML PO SYG) PEG ×2 (08:47→20:39)
[2018-04-24] MEDS: DIGOXIN 500 MCG INJ IV (15:32)
[2018-04-24] MEDS: CASPOFUNGIN 50 MG in SOD CHLORIDE 0.9% 250 ML IVPB (15:33)
[2018-04-25] MEDS: HYDROCODONE/APAP (5/325) TAB NGT ×2 (00:33→21:06)
[2018-04-25] MEDS: COLLAGENASE 5 GM (UD JAR) TOP ×2 (02:30→08:25)
[2018-04-25] MEDS: LANSOPRAZOLE 15 MG CAP GTB (05:26)
[2018-04-25] MEDS: METOCLOPRAMIDE 10 MG INJ IV ×3 (05:26→21:06)
[2018-04-25] MEDS: PANTOPRAZOLE 40 MG INJ IV ×2 (05:26→17:45)
[2018-04-25] MEDS: DILTIAZEM 30 MG TAB PO ×3 (05:27→21:06)
[2018-04-25] MEDS: FUROSEMIDE 20 MG INJ IV ×3 (05:28→05:50)
[2018-04-25 05:50] LABS: ADD MAN DIFF? NO
[2018-04-25 06:01] LABS: BASOPHILS % 0.2 % (0.0-2.0); EOSINOPHILS # 0.1 10^3/ul (0.0-0.5); EOSINOPHILS % 0.4 % (0.0-7.0); HEMATOCRIT 25.5 % (42.0-52.0); LYMPHOCYTES # 1.6 10^3/ul (0.8-2.9); LYMPHOCYTES % 8.3 % (15.0-51.0); MEAN CORPUSCULAR HEMOGLOBIN 28.2 pg (29.0-33.0); MEAN CORPUSCULAR HGB CONC 31.4 g/dl (32.0-37.0); MEAN CORPUSCULAR VOLUME 89.8 fl (82.0-101.0); MEAN PLATELET VOLUME 11.5 fl (7.4-10.4); MONOCYTE # 1.1 10^3/ul (0.3-0.9); MONOCYTES % 5.9 % (0.0-11.0); NEUTROPHIL # 15.4 10^3/ul (1.6-7.5); NEUTROPHILS % 81.6 % (39.0-77.0); NUCLEATED RED BLOOD CELLS # 0.1 10^3/ul (0.0-0.0); NUCLEATED RED BLOOD CELLS% 0.6 /100WBC (0.0-0.0); PLATELET COUNT 374 10^3/UL (140-415); RED BLOOD COUNT 2.84 10^6/ul (4.70-6.10); RED CELL DISTRIBUTION WIDTH 21.6 % (11.5-14.5)
[2018-04-25 06:01] LABS: WHITE BLOOD COUNT 18.9 10^3/ul (4.8-10.8)
[2018-04-25 06:38] LABS: MAGNESIUM 1.9 mg/dl (1.7-2.5)
[2018-04-25 06:38] LABS: PHOSPHORUS 3.8 mg/dl (2.5-4.9)
[2018-04-25 06:50] LABS: ANION GAP 9 (8-16); BLOOD UREA NITROGEN 26 mg/dl (7-20); CALCIUM 9.4 mg/dl (8.4-10.2); CARBON DIOXIDE 34 mmol/L (21-31); CHLORIDE 96 mmol/L (97-110); GLUCOSE 81 mg/dl (70-220); POTASSIUM 4.5 mmol/L (3.5-5.1); SODIUM 134 mmol/L (135-144)
[2018-04-25] MEDS: DORZOLAMIDE/TIMOLOL/PF 0.2 ML DROPERETTE BOTH EYES (08:23)
[2018-04-25] MEDS: predniSONE 10 MG TAB NGT (08:23)
[2018-04-25] MEDS: ERYTHROMYCIN ETHYL SUCC (80 MG/ML PO SYG) PEG ×2 (08:23→21:07)
[2018-04-25] MEDS: TIMOLOL 0.25% BOTH EYES ×2 (08:25→21:05)
[2018-04-25] MEDS: POLYETHYLENE GLYCOL 17 GM PACKET GTB (08:25)
[2018-04-25] MEDS: [UNRECOGNIZED DRUG - REMARK] XX ×2 (08:26→21:00)
[2018-04-25] MEDS: BALSAM PERU/CASTOR OIL 60 GM TUBE TOP ×2 (08:26→21:07)
[2018-04-26] MEDS: LANSOPRAZOLE 15 MG CAP GTB (05:26)
[2018-04-26] MEDS: METOCLOPRAMIDE 10 MG INJ IV ×3 (05:26→21:51)
[2018-04-26] MEDS: PANTOPRAZOLE 40 MG INJ IV ×2 (05:26→17:40)
[2018-04-26] MEDS: DILTIAZEM 30 MG TAB PO ×3 (05:27→22:01)
[2018-04-26] MEDS: FUROSEMIDE 20 MG INJ IV (05:27)
[2018-04-26] MEDS: [UNRECOGNIZED DRUG - REMARK] XX ×2 (09:00→20:52)
[2018-04-26] MEDS: morphine LIQ (10 MG/5 ML) CUP PO ×3 (09:20→17:40)
[2018-04-26] MEDS: POLYETHYLENE GLYCOL 17 GM PACKET GTB (09:23)
[2018-04-26] MEDS: COLLAGENASE 5 GM (UD JAR) TOP (09:23)
[2018-04-26] MEDS: ERYTHROMYCIN ETHYL SUCC (80 MG/ML PO SYG) PEG ×2 (09:23→20:52)
[2018-04-26] MEDS: predniSONE 10 MG TAB NGT (09:23)
[2018-04-26] MEDS: DORZOLAMIDE/TIMOLOL/PF 0.2 ML DROPERETTE BOTH EYES (09:24)
[2018-04-26] MEDS: TIMOLOL 0.25% BOTH EYES ×2 (09:24→20:52)
[2018-04-26] MEDS: BALSAM PERU/CASTOR OIL 60 GM TUBE TOP ×2 (09:37→20:51)
[2018-04-27] MEDS: PANTOPRAZOLE 40 MG INJ IV ×2 (05:14→18:11)
[2018-04-27] MEDS: METOCLOPRAMIDE 10 MG INJ IV ×3 (05:14→21:55)
[2018-04-27] MEDS: LANSOPRAZOLE 15 MG CAP GTB (05:15)
[2018-04-27] MEDS: DILTIAZEM 30 MG TAB PO ×3 (05:28→22:02)
[2018-04-27 06:14] LABS: ADD MAN DIFF? NO
[2018-04-27 06:51] LABS: ANION GAP 8 (8-16); BLOOD UREA NITROGEN 23 mg/dl (7-20); CALCIUM 9.5 mg/dl (8.4-10.2); CARBON DIOXIDE 34 mmol/L (21-31); CHLORIDE 97 mmol/L (97-110); CREATININE 0.59 mg/dl (0.61-1.24); GLUCOSE 91 mg/dl (70-220); POTASSIUM 4.4 mmol/L (3.5-5.1); SODIUM 135 mmol/L (135-144)
[2018-04-27] MEDS: DORZOLAMIDE/TIMOLOL/PF 0.2 ML DROPERETTE BOTH EYES (08:39)
[2018-04-27] MEDS: ERYTHROMYCIN ETHYL SUCC (80 MG/ML PO SYG) PEG ×2 (08:39→21:55)
[2018-04-27] MEDS: POLYETHYLENE GLYCOL 17 GM PACKET GTB (08:39)
[2018-04-27] MEDS: COLLAGENASE 5 GM (UD JAR) TOP (08:40)
[2018-04-27] MEDS: predniSONE 10 MG TAB NGT (08:40)
[2018-04-27] MEDS: morphine LIQ (10 MG/5 ML) CUP PO ×2 (08:40→16:51)
[2018-04-27] MEDS: TIMOLOL 0.25% BOTH EYES ×2 (08:42→21:56)
[2018-04-27] MEDS: [UNRECOGNIZED DRUG - REMARK] XX ×2 (09:00→21:00)
[2018-04-27] MEDS: BALSAM PERU/CASTOR OIL 60 GM TUBE TOP ×2 (09:18→21:57)
[2018-04-27 10:02] LABS: WHITE BLOOD COUNT 21.4 10^3/ul (4.8-10.8)
[2018-04-27 10:02] LABS: BASOPHILS % 0.2 % (0.0-2.0); EOSINOPHILS # 0.1 10^3/ul (0.0-0.5); EOSINOPHILS % 0.4 % (0.0-7.0); HEMATOCRIT 24.9 % (42.0-52.0); HEMOGLOBIN 7.8 g/dl (14.0-18.0); LYMPHOCYTES # 1.7 10^3/ul (0.8-2.9); LYMPHOCYTES % 7.9 % (15.0-51.0); MEAN CORPUSCULAR HEMOGLOBIN 28.4 pg (29.0-33.0); MEAN CORPUSCULAR HGB CONC 31.3 g/dl (32.0-37.0); MEAN CORPUSCULAR VOLUME 90.5 fl (82.0-101.0); MEAN PLATELET VOLUME 11.9 fl (7.4-10.4); MONOCYTE # 1.3 10^3/ul (0.3-0.9); MONOCYTES % 5.9 % (0.0-11.0); NEUTROPHIL # 17.8 10^3/ul (1.6-7.5); NEUTROPHILS % 83.4 % (39.0-77.0); NUCLEATED RED BLOOD CELLS # 0.1 10^3/ul (0.0-0.0); NUCLEATED RED BLOOD CELLS% 0.4 /100WBC (0.0-0.0); PLATELET COUNT 359 10^3/UL (140-415); RED BLOOD COUNT 2.75 10^6/ul (4.70-6.10); RED CELL DISTRIBUTION WIDTH 21.2 % (11.5-14.5)
[2018-04-28] MEDS: LORAZEPAM 2 MG INJ IV (00:52)
[2018-04-28] MEDS: PANTOPRAZOLE 40 MG INJ IV ×2 (05:54→18:08)
[2018-04-28] MEDS: METOCLOPRAMIDE 10 MG INJ IV ×3 (05:54→21:22)
[2018-04-28] MEDS: LANSOPRAZOLE 15 MG CAP GTB (05:54)
[2018-04-28] MEDS: DILTIAZEM 30 MG TAB PO ×3 (05:55→21:15)
[2018-04-28 06:11] LABS: ADD MAN DIFF? NO; BASOPHILS % 0.2 % (0.0-2.0); EOSINOPHILS # 0.1 10^3/ul (0.0-0.5); EOSINOPHILS % 0.3 % (0.0-7.0); HEMATOCRIT 24.9 % (42.0-52.0); HEMOGLOBIN 7.8 g/dl (14.0-18.0); LYMPHOCYTES # 1.8 10^3/ul (0.8-2.9); LYMPHOCYTES % 8.1 % (15.0-51.0); MEAN CORPUSCULAR HEMOGLOBIN 28.3 pg (29.0-33.0); MEAN CORPUSCULAR HGB CONC 31.3 g/dl (32.0-37.0); MEAN CORPUSCULAR VOLUME 90.2 fl (82.0-101.0); MEAN PLATELET VOLUME 11.6 fl (7.4-10.4); MONOCYTE # 1.4 10^3/ul (0.3-0.9); MONOCYTES % 6.2 % (0.0-11.0); NEUTROPHIL # 18.8 10^3/ul (1.6-7.5); NEUTROPHILS % 83.2 % (39.0-77.0); NUCLEATED RED BLOOD CELLS # 0.1 10^3/ul (0.0-0.0); NUCLEATED RED BLOOD CELLS% 0.5 /100WBC (0.0-0.0); PLATELET COUNT 309 10^3/UL (140-415); RED BLOOD COUNT 2.76 10^6/ul (4.70-6.10); RED CELL DISTRIBUTION WIDTH 21.1 % (11.5-14.5)
[2018-04-28 06:11] LABS: WHITE BLOOD COUNT 22.5 10^3/ul (4.8-10.8)
[2018-04-28 07:00] LABS: ANION GAP 10 (8-16); BLOOD UREA NITROGEN 23 mg/dl (7-20); CALCIUM 9.6 mg/dl (8.4-10.2); CARBON DIOXIDE 32 mmol/L (21-31); CHLORIDE 98 mmol/L (97-110); CREATININE 0.56 mg/dl (0.61-1.24); GLUCOSE 89 mg/dl (70-220); POTASSIUM 4.3 mmol/L (3.5-5.1); SODIUM 136 mmol/L (135-144)
[2018-04-28] MEDS: POLYETHYLENE GLYCOL 17 GM PACKET GTB (08:19)
[2018-04-28] MEDS: DORZOLAMIDE/TIMOLOL/PF 0.2 ML DROPERETTE BOTH EYES (08:19)
[2018-04-28] MEDS: predniSONE 10 MG TAB NGT (08:19)
[2018-04-28] MEDS: TIMOLOL 0.25% BOTH EYES ×2 (08:20→21:16)
[2018-04-28] MEDS: ERYTHROMYCIN ETHYL SUCC (80 MG/ML PO SYG) PEG ×2 (08:21→21:16)
[2018-04-28] MEDS: BALSAM PERU/CASTOR OIL 60 GM TUBE TOP ×2 (08:22→21:20)
[2018-04-28] MEDS: COLLAGENASE 5 GM (UD JAR) TOP (08:22)
[2018-04-28] MEDS: [UNRECOGNIZED DRUG - REMARK] XX ×2 (08:22→21:00)
[2018-04-28] MEDS: morphine LIQ (10 MG/5 ML) CUP PO (13:01)
[2018-04-28] MEDS: CASPOFUNGIN 50 MG in SOD CHLORIDE 0.9% 250 ML IVPB (16:50)
[2018-04-28] MEDS: BENZONATATE 100 MG CAP PO (21:16)
[2018-04-28] MEDS: LUBIPROSTONE 24 MCG CAP PO (21:22)
[2018-04-29] MEDS: ALTEPLASE (CATHFLO) 2 MG INJ CATHETER ×2 (00:21→03:10)
[2018-04-29] MEDS: METOCLOPRAMIDE 10 MG INJ IV ×3 (05:55→20:51)
[2018-04-29] MEDS: PANTOPRAZOLE 40 MG INJ IV ×2 (05:55→17:33)
[2018-04-29] MEDS: LANSOPRAZOLE 15 MG CAP GTB (06:00)
[2018-04-29] MEDS: DILTIAZEM 30 MG TAB PO ×3 (06:00→20:55)
[2018-04-29] MEDS: POLYETHYLENE GLYCOL 17 GM PACKET GTB (08:50)
[2018-04-29] MEDS: DORZOLAMIDE/TIMOLOL/PF 0.2 ML DROPERETTE BOTH EYES (08:50)
[2018-04-29] MEDS: predniSONE 10 MG TAB NGT (08:50)
[2018-04-29] MEDS: COLLAGENASE 5 GM (UD JAR) TOP (08:50)
[2018-04-29] MEDS: LUBIPROSTONE 24 MCG CAP PO ×2 (08:50→20:50)
[2018-04-29] MEDS: [UNRECOGNIZED DRUG - REMARK] XX ×2 (08:52→20:50)
[2018-04-29] MEDS: TIMOLOL 0.25% BOTH EYES ×2 (08:53→20:49)
[2018-04-29] MEDS: BALSAM PERU/CASTOR OIL 60 GM TUBE TOP ×2 (10:12→20:50)
[2018-04-29] MEDS: ERYTHROMYCIN ETHYL SUCC (80 MG/ML PO SYG) PEG ×2 (10:12→20:50)
[2018-04-29] MEDS: ONDANSETRON 4 MG INJ IV (11:31)
[2018-04-29] MEDS: CEFEPIME 1GM/50 ML (PMX) 50 ML IVPB (16:09)
[2018-04-29] MEDS: CASPOFUNGIN 50 MG in SOD CHLORIDE 0.9% 250 ML IVPB (16:09)
[2018-04-30] MEDS: CEFEPIME 1GM/50 ML (PMX) 50 ML IVPB ×3 (01:00→21:16)
[2018-04-30 05:41] LABS: ADD MAN DIFF? NO
[2018-04-30 05:45] LABS: ABNORMAL IP MESSAGE 1; BASOPHILS % 0.1 % (0.0-2.0); EOSINOPHILS % 0.1 % (0.0-7.0); HEMATOCRIT 24.3 % (42.0-52.0); HEMOGLOBIN 7.4 g/dl (14.0-18.0); LYMPHOCYTES # 2.2 10^3/ul (0.8-2.9); LYMPHOCYTES % 8.6 % (15.0-51.0); MEAN CORPUSCULAR HEMOGLOBIN 27.7 pg (29.0-33.0); MEAN CORPUSCULAR HGB CONC 30.5 g/dl (32.0-37.0); MEAN PLATELET VOLUME 11.3 fl (7.4-10.4); MONOCYTE # 1.4 10^3/ul (0.3-0.9); MONOCYTES % 5.8 % (0.0-11.0); NUCLEATED RED BLOOD CELLS # 0.1 10^3/ul (0.0-0.0); NUCLEATED RED BLOOD CELLS% 0.3 /100WBC (0.0-0.0); PLATELET COUNT 306 10^3/UL (140-415); POSITIVE DIFF @See below; RED BLOOD COUNT 2.67 10^6/ul (4.70-6.10); RED CELL DISTRIBUTION WIDTH 20.8 % (11.5-14.5)
[2018-04-30] MEDS: METOCLOPRAMIDE 10 MG INJ IV ×3 (06:28→21:17)
[2018-04-30] MEDS: PANTOPRAZOLE 40 MG INJ IV ×2 (06:28→17:00)
[2018-04-30] MEDS: DILTIAZEM 30 MG TAB PO ×3 (06:28→21:18)
[2018-04-30] MEDS: LANSOPRAZOLE 15 MG CAP GTB (06:28)
[2018-04-30 06:56] LABS: MAGNESIUM 2.1 mg/dl (1.7-2.5)
[2018-04-30 06:57] LABS: ANION GAP 8 (8-16); BLOOD UREA NITROGEN 24 mg/dl (7-20); CALCIUM 9.6 mg/dl (8.4-10.2); CARBON DIOXIDE 31 mmol/L (21-31); CHLORIDE 101 mmol/L (97-110); CREATININE 0.57 mg/dl (0.61-1.24); GLUCOSE 87 mg/dl (70-220); POTASSIUM 4.5 mmol/L (3.5-5.1); SODIUM 135 mmol/L (135-144)
[2018-04-30] MEDS: BALSAM PERU/CASTOR OIL 60 GM TUBE TOP ×2 (08:48→21:17)
[2018-04-30] MEDS: POLYETHYLENE GLYCOL 17 GM PACKET GTB (08:48)
[2018-04-30] MEDS: COLLAGENASE 5 GM (UD JAR) TOP (08:48)
[2018-04-30] MEDS: predniSONE 10 MG TAB NGT (08:48)
[2018-04-30] MEDS: DORZOLAMIDE/TIMOLOL/PF 0.2 ML DROPERETTE BOTH EYES (08:48)
[2018-04-30] MEDS: TIMOLOL 0.25% BOTH EYES ×2 (08:51→21:15)
[2018-04-30] MEDS: [UNRECOGNIZED DRUG - REMARK] XX ×2 (08:54→20:31)
[2018-04-30] MEDS: ERYTHROMYCIN ETHYL SUCC (80 MG/ML PO SYG) PEG ×2 (08:57→21:15)
[2018-04-30] MEDS: LUBIPROSTONE 24 MCG CAP PO ×2 (09:00→21:16)
[2018-04-30] MEDS: DIGOXIN 500 MCG INJ IV (15:29)
[2018-04-30] MEDS: CASPOFUNGIN 50 MG in SOD CHLORIDE 0.9% 250 ML IVPB (15:47)
[2018-05-01 06:22] LABS: ABNORMAL IP MESSAGE 1; ADD MAN DIFF? NO; BASOPHILS % 0.1 % (0.0-2.0); HEMATOCRIT 24.3 % (42.0-52.0); HEMOGLOBIN 7.5 g/dl (14.0-18.0); LYMPHOCYTES # 1.7 10^3/ul (0.8-2.9); LYMPHOCYTES % 6.6 % (15.0-51.0); MEAN CORPUSCULAR HEMOGLOBIN 28.2 pg (29.0-33.0); MEAN CORPUSCULAR HGB CONC 30.9 g/dl (32.0-37.0); MEAN CORPUSCULAR VOLUME 91.4 fl (82.0-101.0); MEAN PLATELET VOLUME 11.7 fl (7.4-10.4); MONOCYTE # 1.6 10^3/ul (0.3-0.9); MONOCYTES % 5.8 % (0.0-11.0); NEUTROPHIL # 22.7 10^3/ul (1.6-7.5); NEUTROPHILS % 85.8 % (39.0-77.0); NUCLEATED RED BLOOD CELLS # 0.1 10^3/ul (0.0-0.0); NUCLEATED RED BLOOD CELLS% 0.2 /100WBC (0.0-0.0); PLATELET COUNT 342 10^3/UL (140-415); POSITIVE DIFF @See below; RED BLOOD COUNT 2.66 10^6/ul (4.70-6.10); RED CELL DISTRIBUTION WIDTH 20.6 % (11.5-14.5)
[2018-05-01 06:22] LABS: WHITE BLOOD COUNT 26.5 10^3/ul (4.8-10.8)
[2018-05-01] MEDS: DILTIAZEM 30 MG TAB PO ×3 (06:39→22:18)
[2018-05-01] MEDS: PANTOPRAZOLE 40 MG INJ IV (06:39)
[2018-05-01] MEDS: LANSOPRAZOLE 15 MG CAP GTB (06:39)
[2018-05-01] MEDS: METOCLOPRAMIDE 10 MG INJ IV ×3 (06:39→22:19)
[2018-05-01 07:12] LABS: ANION GAP 9 (8-16); BLOOD UREA NITROGEN 23 mg/dl (7-20); CALCIUM 9.6 mg/dl (8.4-10.2); CARBON DIOXIDE 31 mmol/L (21-31); CHLORIDE 100 mmol/L (97-110); GLUCOSE 89 mg/dl (70-220); POTASSIUM 4.4 mmol/L (3.5-5.1); SODIUM 136 mmol/L (135-144)
[2018-05-01 07:23] LABS: MAGNESIUM 2.2 mg/dl (1.7-2.5)
[2018-05-01 07:23] LABS: PHOSPHORUS 3.2 mg/dl (2.5-4.9)
[2018-05-01] MEDS: POLYETHYLENE GLYCOL 17 GM PACKET GTB (09:00)
[2018-05-01] MEDS: LUBIPROSTONE 24 MCG CAP PO ×2 (09:00→22:19)
[2018-05-01] MEDS: [UNRECOGNIZED DRUG - REMARK] XX ×2 (09:00→21:00)
[2018-05-01] MEDS: CEFEPIME 1GM/50 ML (PMX) 50 ML IVPB ×2 (09:36→22:16)
[2018-05-01] MEDS: ERYTHROMYCIN ETHYL SUCC (80 MG/ML PO SYG) PEG ×2 (09:38→22:53)
[2018-05-01] MEDS: predniSONE 10 MG TAB NGT (09:38)
[2018-05-01] MEDS: TIMOLOL 0.25% BOTH EYES ×2 (09:44→22:20)
[2018-05-01] MEDS: DORZOLAMIDE/TIMOLOL/PF 0.2 ML DROPERETTE BOTH EYES (09:44)
[2018-05-01] MEDS: [UNRECOGNIZED DRUG - REMARK] XX ×2 (14:30→22:30)
[2018-05-01] MEDS: BALSAM PERU/CASTOR OIL 60 GM TUBE TOP ×2 (14:48→22:19)
[2018-05-01] MEDS: COLLAGENASE 5 GM (UD JAR) TOP (14:48)
[2018-05-01] MEDS: CASPOFUNGIN 50 MG in SOD CHLORIDE 0.9% 250 ML IVPB (16:00)
[2018-05-02] MEDS: METOCLOPRAMIDE 10 MG INJ IV ×3 (06:12→22:08)
[2018-05-02] MEDS: PANTOPRAZOLE 40 MG INJ IV ×2 (06:12→18:07)
[2018-05-02] MEDS: DILTIAZEM 30 MG TAB PO ×3 (06:13→22:10)
[2018-05-02] MEDS: LANSOPRAZOLE 15 MG CAP GTB (06:13)
[2018-05-02 06:16] LABS: ADD MAN DIFF? NO
[2018-05-02 06:23] LABS: ABNORMAL IP MESSAGE 1; BASOPHILS % 0.2 % (0.0-2.0); EOSINOPHILS % 0.1 % (0.0-7.0); HEMATOCRIT 23.3 % (42.0-52.0); HEMOGLOBIN 7.1 g/dl (14.0-18.0); LYMPHOCYTES # 1.8 10^3/ul (0.8-2.9); LYMPHOCYTES % 7.2 % (15.0-51.0); MEAN CORPUSCULAR HEMOGLOBIN 27.5 pg (29.0-33.0); MEAN CORPUSCULAR HGB CONC 30.5 g/dl (32.0-37.0); MEAN CORPUSCULAR VOLUME 90.3 fl (82.0-101.0); MEAN PLATELET VOLUME 11.6 fl (7.4-10.4); MONOCYTE # 1.6 10^3/ul (0.3-0.9); MONOCYTES % 6.5 % (0.0-11.0); NEUTROPHIL # 21.1 10^3/ul (1.6-7.5); NEUTROPHILS % 84.6 % (39.0-77.0); NUCLEATED RED BLOOD CELLS # 0.1 10^3/ul (0.0-0.0); NUCLEATED RED BLOOD CELLS% 0.4 /100WBC (0.0-0.0); PLATELET COUNT 356 10^3/UL (140-415); POSITIVE DIFF @See below; RED BLOOD COUNT 2.58 10^6/ul (4.70-6.10)
[2018-05-02] MEDS: [UNRECOGNIZED DRUG - REMARK] XX ×3 (06:30→22:11)
[2018-05-02 06:47] LABS: MAGNESIUM 2.2 mg/dl (1.7-2.5)
[2018-05-02 06:51] LABS: ANION GAP 8 (8-16); BLOOD UREA NITROGEN 22 mg/dl (7-20); CALCIUM 9.5 mg/dl (8.4-10.2); CARBON DIOXIDE 30 mmol/L (21-31); CHLORIDE 103 mmol/L (97-110); CREATININE 0.56 mg/dl (0.61-1.24); GLUCOSE 92 mg/dl (70-220); POTASSIUM 4.3 mmol/L (3.5-5.1); SODIUM 137 mmol/L (135-144)
[2018-05-02] MEDS: predniSONE 10 MG TAB NGT (08:47)
[2018-05-02] MEDS: CEFEPIME 1GM/50 ML (PMX) 50 ML IVPB (08:47)
[2018-05-02] MEDS: POLYETHYLENE GLYCOL 17 GM PACKET GTB (08:47)
[2018-05-02] MEDS: TIMOLOL 0.25% BOTH EYES ×2 (08:48→21:00)
[2018-05-02] MEDS: DORZOLAMIDE/TIMOLOL/PF 0.2 ML DROPERETTE BOTH EYES (08:49)
[2018-05-02] MEDS: LUBIPROSTONE 24 MCG CAP PO (08:51)
[2018-05-02] MEDS: ERYTHROMYCIN ETHYL SUCC (80 MG/ML PO SYG) PEG ×2 (08:51→21:00)
[2018-05-02] MEDS: [UNRECOGNIZED DRUG - REMARK] XX ×2 (09:00→21:00)
[2018-05-02] MEDS: BALSAM PERU/CASTOR OIL 60 GM TUBE TOP ×2 (09:36→22:13)
[2018-05-02] MEDS: COLLAGENASE 5 GM (UD JAR) TOP (09:36)
[2018-05-02] MEDS: SACCHAROMYCES BOULARDII 250 MG CAP PO ×2 (15:59→22:08)
[2018-05-02] MEDS: FUROSEMIDE 20 MG INJ IV (16:00)
[2018-05-02] MEDS: CIPROFLOXACIN 500 MG TAB GTB (18:08)
[2018-05-02 22:54] LABS: IMMEDIATE SPIN CROSSMATCH 1 1
[2018-05-03] MEDS: CIPROFLOXACIN 500 MG TAB GTB ×2 (05:14→17:09)
[2018-05-03] MEDS: PANTOPRAZOLE 40 MG INJ IV ×2 (05:15→17:09)
[2018-05-03] MEDS: LANSOPRAZOLE 15 MG CAP GTB (05:15)
[2018-05-03] MEDS: METOCLOPRAMIDE 10 MG INJ IV (05:15)
[2018-05-03] MEDS: [UNRECOGNIZED DRUG - REMARK] XX ×3 (05:16→22:30)
[2018-05-03] MEDS: DILTIAZEM 30 MG TAB PO ×3 (05:16→21:27)
[2018-05-03 05:42] LABS: ADD MAN DIFF? NO
[2018-05-03 05:46] LABS: ABNORMAL IP MESSAGE 1; BASOPHILS % 0.1 % (0.0-2.0); EOSINOPHILS % 0.2 % (0.0-7.0); HEMATOCRIT 26.8 % (42.0-52.0); HEMOGLOBIN 8.6 g/dl (14.0-18.0); LYMPHOCYTES # 2.1 10^3/ul (0.8-2.9); LYMPHOCYTES % 8.5 % (15.0-51.0); MEAN CORPUSCULAR HEMOGLOBIN 29.1 pg (29.0-33.0); MEAN CORPUSCULAR HGB CONC 32.1 g/dl (32.0-37.0); MEAN CORPUSCULAR VOLUME 90.5 fl (82.0-101.0); MEAN PLATELET VOLUME 11.2 fl (7.4-10.4); MONOCYTE # 1.7 10^3/ul (0.3-0.9); NEUTROPHIL # 19.9 10^3/ul (1.6-7.5); NEUTROPHILS % 82.6 % (39.0-77.0); NUCLEATED RED BLOOD CELLS # 0.1 10^3/ul (0.0-0.0); NUCLEATED RED BLOOD CELLS% 0.4 /100WBC (0.0-0.0); PLATELET COUNT 339 10^3/UL (140-415); POSITIVE DIFF @See below; RED BLOOD COUNT 2.96 10^6/ul (4.70-6.10); RED CELL DISTRIBUTION WIDTH 19.6 % (11.5-14.5)
[2018-05-03 05:46] LABS: WHITE BLOOD COUNT 24.1 10^3/ul (4.8-10.8)
[2018-05-03] MEDS: DORZOLAMIDE/TIMOLOL/PF 0.2 ML DROPERETTE BOTH EYES (08:56)
[2018-05-03] MEDS: COLLAGENASE 5 GM (UD JAR) TOP (08:56)
[2018-05-03] MEDS: POLYETHYLENE GLYCOL 17 GM PACKET GTB (08:57)
[2018-05-03] MEDS: predniSONE 10 MG TAB NGT (08:57)
[2018-05-03] MEDS: SACCHAROMYCES BOULARDII 250 MG CAP PO ×2 (08:57→21:27)
[2018-05-03] MEDS: BALSAM PERU/CASTOR OIL 60 GM TUBE TOP ×2 (08:58→21:27)
[2018-05-03] MEDS: TIMOLOL 0.25% BOTH EYES ×2 (08:58→21:00)
[2018-05-03] MEDS: [UNRECOGNIZED DRUG - REMARK] XX (09:08)
[2018-05-03] MEDS: ERYTHROMYCIN ETHYL SUCC (80 MG/ML PO SYG) PEG ×2 (09:08→21:26)
[2018-05-04] MEDS: LANSOPRAZOLE 15 MG CAP GTB (05:59)
[2018-05-04] MEDS: CIPROFLOXACIN 500 MG TAB GTB ×2 (05:59→17:27)
[2018-05-04] MEDS: PANTOPRAZOLE 40 MG INJ IV ×2 (05:59→17:27)
[2018-05-04] MEDS: DILTIAZEM 30 MG TAB PO ×3 (05:59→21:48)
[2018-05-04] MEDS: [UNRECOGNIZED DRUG - REMARK] XX ×2 (06:30→15:14)
[2018-05-04] MEDS: POLYETHYLENE GLYCOL 17 GM PACKET GTB (09:00)
[2018-05-04] MEDS: TIMOLOL 0.25% BOTH EYES ×2 (09:00→21:48)
[2018-05-04] MEDS: DORZOLAMIDE/TIMOLOL/PF 0.2 ML DROPERETTE BOTH EYES (09:01)
[2018-05-04] MEDS: COLLAGENASE 5 GM (UD JAR) TOP (09:01)
[2018-05-04] MEDS: BALSAM PERU/CASTOR OIL 60 GM TUBE TOP ×2 (09:01→21:50)
[2018-05-04] MEDS: predniSONE 10 MG TAB NGT (09:02)
[2018-05-04] MEDS: SACCHAROMYCES BOULARDII 250 MG CAP PO ×2 (09:02→21:48)
[2018-05-04] MEDS: ERYTHROMYCIN ETHYL SUCC (80 MG/ML PO SYG) PEG ×2 (09:03→21:52)
[2018-05-05] MEDS: PANTOPRAZOLE 40 MG INJ IV (05:18)
[2018-05-05] MEDS: DILTIAZEM 30 MG TAB PO (05:19)
[2018-05-05] MEDS: LANSOPRAZOLE 15 MG CAP GTB (05:20)
[2018-05-05] MEDS: CIPROFLOXACIN 500 MG TAB GTB ×2 (05:20→18:58)
[2018-05-05] MEDS: BALSAM PERU/CASTOR OIL 60 GM TUBE TOP ×2 (10:17→21:47)
[2018-05-05] MEDS: COLLAGENASE 5 GM (UD JAR) TOP (10:18)
[2018-05-05] MEDS: TIMOLOL 0.25% BOTH EYES ×2 (10:19→21:46)
[2018-05-05] MEDS: SACCHAROMYCES BOULARDII 250 MG CAP PO ×2 (10:19→21:45)
[2018-05-05] MEDS: DORZOLAMIDE/TIMOLOL/PF 0.2 ML DROPERETTE BOTH EYES (10:20)
[2018-05-05] MEDS: predniSONE 10 MG TAB NGT (10:20)
[2018-05-05] MEDS: POLYETHYLENE GLYCOL 17 GM PACKET GTB (10:20)
[2018-05-05] MEDS: FAMOTIDINE 20 MG TAB GTB ×2 (10:24→21:45)
[2018-05-05] MEDS: ERYTHROMYCIN ETHYL SUCC (80 MG/ML PO SYG) PEG ×2 (10:24→21:45)
[2018-05-05] MEDS: APIXABAN 5 MG TABLET PO ×2 (15:23→21:45)
[2018-05-06 06:19] LABS: ADD MAN DIFF? NO
[2018-05-06] MEDS: CIPROFLOXACIN 500 MG TAB GTB ×2 (06:20→18:24)
[2018-05-06] MEDS: LANSOPRAZOLE 15 MG CAP GTB (06:20)
[2018-05-06 06:26] LABS: WHITE BLOOD COUNT 18.9 10^3/ul (4.8-10.8)
[2018-05-06 06:26] LABS: BASOPHILS % 0.2 % (0.0-2.0); EOSINOPHILS # 0.1 10^3/ul (0.0-0.5); EOSINOPHILS % 0.4 % (0.0-7.0); HEMOGLOBIN 7.8 g/dl (14.0-18.0); LYMPHOCYTES # 2.4 10^3/ul (0.8-2.9); LYMPHOCYTES % 12.9 % (15.0-51.0); MEAN CORPUSCULAR HEMOGLOBIN 28.3 pg (29.0-33.0); MEAN CORPUSCULAR HGB CONC 31.2 g/dl (32.0-37.0); MEAN CORPUSCULAR VOLUME 90.6 fl (82.0-101.0); MEAN PLATELET VOLUME 10.7 fl (7.4-10.4); MONOCYTE # 1.5 10^3/ul (0.3-0.9); MONOCYTES % 7.8 % (0.0-11.0); NEUTROPHIL # 14.6 10^3/ul (1.6-7.5); NEUTROPHILS % 76.7 % (39.0-77.0); NUCLEATED RED BLOOD CELLS # 0.1 10^3/ul (0.0-0.0); NUCLEATED RED BLOOD CELLS% 0.6 /100WBC (0.0-0.0); PLATELET COUNT 312 10^3/UL (140-415); RED BLOOD COUNT 2.76 10^6/ul (4.70-6.10); RED CELL DISTRIBUTION WIDTH 19.9 % (11.5-14.5)
[2018-05-06 07:10] LABS: ANION GAP 7 (8-16); BLOOD UREA NITROGEN 20 mg/dl (7-20); CALCIUM 9.8 mg/dl (8.4-10.2); CARBON DIOXIDE 31 mmol/L (21-31); CHLORIDE 106 mmol/L (97-110); CREATININE 0.53 mg/dl (0.61-1.24); GLUCOSE 89 mg/dl (70-220); POTASSIUM 4.3 mmol/L (3.5-5.1); SODIUM 140 mmol/L (135-144)
[2018-05-06] MEDS: DORZOLAMIDE/TIMOLOL/PF 0.2 ML DROPERETTE BOTH EYES (09:00)
[2018-05-06] MEDS: POLYETHYLENE GLYCOL 17 GM PACKET GTB (10:00)
[2018-05-06] MEDS: TIMOLOL 0.25% BOTH EYES ×2 (10:00→20:54)
[2018-05-06] MEDS: predniSONE 10 MG TAB NGT (10:01)
[2018-05-06] MEDS: SACCHAROMYCES BOULARDII 250 MG CAP PO ×2 (10:01→20:54)
[2018-05-06] MEDS: COLLAGENASE 5 GM (UD JAR) TOP (10:01)
[2018-05-06] MEDS: BALSAM PERU/CASTOR OIL 60 GM TUBE TOP ×2 (10:02→20:55)
[2018-05-06] MEDS: FAMOTIDINE 20 MG TAB GTB ×2 (10:02→20:54)
[2018-05-06] MEDS: APIXABAN 5 MG TABLET PO ×2 (10:02→20:54)
[2018-05-06] MEDS: ERYTHROMYCIN ETHYL SUCC (80 MG/ML PO SYG) PEG ×2 (10:05→20:57)
[2018-05-06] MEDS: DILTIAZEM 30 MG TAB PO ×2 (15:11→20:59)
[2018-05-07] MEDS: CIPROFLOXACIN 500 MG TAB GTB (05:36)
[2018-05-07] MEDS: LANSOPRAZOLE 15 MG CAP GTB (05:36)
[2018-05-07] MEDS: DILTIAZEM 30 MG TAB PO ×3 (05:37→20:16)
[2018-05-07] MEDS: TIMOLOL 0.25% BOTH EYES ×2 (09:23→20:13)
[2018-05-07] MEDS: FAMOTIDINE 20 MG TAB GTB ×2 (09:23→20:13)
[2018-05-07] MEDS: SACCHAROMYCES BOULARDII 250 MG CAP PO ×2 (09:23→23:56)
[2018-05-07] MEDS: ERYTHROMYCIN ETHYL SUCC (80 MG/ML PO SYG) PEG ×2 (09:23→20:14)
[2018-05-07] MEDS: APIXABAN 5 MG TABLET PO ×2 (09:23→20:13)
[2018-05-07] MEDS: COLLAGENASE 5 GM (UD JAR) TOP (09:24)
[2018-05-07] MEDS: BALSAM PERU/CASTOR OIL 60 GM TUBE TOP ×2 (09:24→20:15)
[2018-05-07] MEDS: predniSONE 10 MG TAB NGT (09:24)
[2018-05-07] MEDS: POLYETHYLENE GLYCOL 17 GM PACKET GTB (09:24)
[2018-05-07] MEDS: DORZOLAMIDE/TIMOLOL/PF 0.2 ML DROPERETTE BOTH EYES (09:24)
[2018-05-08] MEDS: DILTIAZEM 30 MG TAB PO ×3 (05:29→21:19)
[2018-05-08] MEDS: LANSOPRAZOLE 15 MG CAP GTB (05:29)
[2018-05-08] MEDS: DILTIAZEM 25 MG INJ IV ×2 (05:33→20:00)
[2018-05-08] MEDS: COLLAGENASE 5 GM (UD JAR) TOP (09:00)
[2018-05-08] MEDS: BALSAM PERU/CASTOR OIL 60 GM TUBE TOP ×2 (09:00→21:18)
[2018-05-08] MEDS: APIXABAN 5 MG TABLET PO ×2 (09:19→21:16)
[2018-05-08] MEDS: SACCHAROMYCES BOULARDII 250 MG CAP PO ×2 (09:19→21:16)
[2018-05-08] MEDS: DORZOLAMIDE/TIMOLOL/PF 0.2 ML DROPERETTE BOTH EYES (09:19)
[2018-05-08] MEDS: TIMOLOL 0.25% BOTH EYES ×2 (09:19→21:17)
[2018-05-08] MEDS: predniSONE 10 MG TAB NGT (09:19)
[2018-05-08] MEDS: FAMOTIDINE 20 MG TAB GTB ×2 (09:19→21:16)
[2018-05-08] MEDS: POLYETHYLENE GLYCOL 17 GM PACKET GTB (09:19)
[2018-05-08] MEDS: ERYTHROMYCIN ETHYL SUCC (80 MG/ML PO SYG) PEG ×2 (09:20→21:16)
[2018-05-08] MEDS: DIGOXIN 500 MCG INJ IV (16:18)
[2018-05-09] MEDS: DILTIAZEM 25 MG INJ IV (02:09)
[2018-05-09] MEDS: DILTIAZEM 30 MG TAB PO ×3 (05:16→21:37)
[2018-05-09] MEDS: COLLAGENASE 5 GM (UD JAR) TOP (09:00)
[2018-05-09] MEDS: ERYTHROMYCIN ETHYL SUCC (80 MG/ML PO SYG) PEG ×3 (09:00→21:36)
[2018-05-09] MEDS: BALSAM PERU/CASTOR OIL 60 GM TUBE TOP ×2 (09:00→21:38)
[2018-05-09] MEDS: APIXABAN 5 MG TABLET PO ×2 (09:27→21:37)
[2018-05-09] MEDS: predniSONE 10 MG TAB NGT (09:27)
[2018-05-09] MEDS: FAMOTIDINE 20 MG TAB GTB ×2 (09:27→21:37)
[2018-05-09] MEDS: POLYETHYLENE GLYCOL 17 GM PACKET GTB (09:27)
[2018-05-09] MEDS: SACCHAROMYCES BOULARDII 250 MG CAP PO ×2 (09:28→21:37)
[2018-05-09] MEDS: DORZOLAMIDE/TIMOLOL/PF 0.2 ML DROPERETTE BOTH EYES (09:28)
[2018-05-09] MEDS: TIMOLOL 0.25% BOTH EYES ×2 (09:28→21:36)
[2018-05-09] MEDS: DIGOXIN 500 MCG INJ IV (12:29)
[2018-05-10] MEDS: DILTIAZEM 30 MG TAB PO ×3 (06:17→21:28)
[2018-05-10] MEDS: POLYETHYLENE GLYCOL 17 GM PACKET GTB (09:00)
[2018-05-10] MEDS: SACCHAROMYCES BOULARDII 250 MG CAP PO ×2 (09:01→21:28)
[2018-05-10] MEDS: COLLAGENASE 5 GM (UD JAR) TOP (09:01)
[2018-05-10] MEDS: DORZOLAMIDE/TIMOLOL/PF 0.2 ML DROPERETTE BOTH EYES (09:01)
[2018-05-10] MEDS: predniSONE 10 MG TAB NGT (09:01)
[2018-05-10] MEDS: APIXABAN 5 MG TABLET PO ×2 (09:01→21:28)
[2018-05-10] MEDS: FAMOTIDINE 20 MG TAB GTB ×2 (09:01→21:28)
[2018-05-10] MEDS: TIMOLOL 0.25% BOTH EYES ×2 (09:02→21:30)
[2018-05-10] MEDS: BALSAM PERU/CASTOR OIL 60 GM TUBE TOP ×2 (09:12→21:00)
[2018-05-10] MEDS: ERYTHROMYCIN ETHYL SUCC (80 MG/ML PO SYG) PEG ×2 (09:51→21:35)
[2018-05-11] MEDS: DILTIAZEM 30 MG TAB PO ×3 (05:50→22:00)
[2018-05-11 06:03] LABS: ADD MAN DIFF? NO
[2018-05-11 06:12] LABS: WHITE BLOOD COUNT 23.8 10^3/ul (4.8-10.8)
[2018-05-11 06:12] LABS: ABNORMAL IP MESSAGE 1; BASOPHILS % 0.1 % (0.0-2.0); EOSINOPHILS % 0.1 % (0.0-7.0); HEMATOCRIT 26.9 % (42.0-52.0); HEMOGLOBIN 8.2 g/dl (14.0-18.0); LYMPHOCYTES # 2.9 10^3/ul (0.8-2.9); LYMPHOCYTES % 12.1 % (15.0-51.0); MEAN CORPUSCULAR HEMOGLOBIN 28.1 pg (29.0-33.0); MEAN CORPUSCULAR HGB CONC 30.5 g/dl (32.0-37.0); MEAN CORPUSCULAR VOLUME 92.1 fl (82.0-101.0); MEAN PLATELET VOLUME 11.2 fl (7.4-10.4); MONOCYTE # 1.8 10^3/ul (0.3-0.9); MONOCYTES % 7.7 % (0.0-11.0); NEUTROPHIL # 18.5 10^3/ul (1.6-7.5); NEUTROPHILS % 77.7 % (39.0-77.0); NUCLEATED RED BLOOD CELLS # 0.2 10^3/ul (0.0-0.0); NUCLEATED RED BLOOD CELLS% 0.9 /100WBC (0.0-0.0); PLATELET COUNT 363 10^3/UL (140-415); POSITIVE DIFF @See below; RED BLOOD COUNT 2.92 10^6/ul (4.70-6.10); RED CELL DISTRIBUTION WIDTH 19.9 % (11.5-14.5)
[2018-05-11] MEDS: ERYTHROMYCIN ETHYL SUCC (80 MG/ML PO SYG) PEG ×3 (09:06→23:00)
[2018-05-11] MEDS: COLLAGENASE 5 GM (UD JAR) TOP (09:06)
[2018-05-11] MEDS: BALSAM PERU/CASTOR OIL 60 GM TUBE TOP ×2 (09:06→21:00)
[2018-05-11] MEDS: APIXABAN 5 MG TABLET PO ×3 (09:07→23:00)
[2018-05-11] MEDS: predniSONE 10 MG TAB NGT (09:07)
[2018-05-11] MEDS: SACCHAROMYCES BOULARDII 250 MG CAP PO ×3 (09:07→23:00)
[2018-05-11] MEDS: FAMOTIDINE 20 MG TAB GTB ×3 (09:07→23:00)
[2018-05-11] MEDS: DORZOLAMIDE/TIMOLOL/PF 0.2 ML DROPERETTE BOTH EYES (09:07)
[2018-05-11] MEDS: POLYETHYLENE GLYCOL 17 GM PACKET GTB (09:07)
[2018-05-11] MEDS: TIMOLOL 0.25% BOTH EYES ×2 (09:08→21:00)
[2018-05-12] MEDS: DILTIAZEM 30 MG TAB PO ×3 (05:48→21:13)
[2018-05-12 06:10] LABS: ADD MAN DIFF? NO
[2018-05-12 06:17] LABS: WHITE BLOOD COUNT 25.9 10^3/ul (4.8-10.8)
[2018-05-12 06:17] LABS: ABNORMAL IP MESSAGE 1; BASOPHILS % 0.1 % (0.0-2.0); EOSINOPHILS % 0.2 % (0.0-7.0); HEMATOCRIT 27.1 % (42.0-52.0); HEMOGLOBIN 8.1 g/dl (14.0-18.0); LYMPHOCYTES # 3.2 10^3/ul (0.8-2.9); LYMPHOCYTES % 12.4 % (15.0-51.0); MEAN CORPUSCULAR HEMOGLOBIN 27.6 pg (29.0-33.0); MEAN CORPUSCULAR HGB CONC 29.9 g/dl (32.0-37.0); MEAN CORPUSCULAR VOLUME 92.5 fl (82.0-101.0); MEAN PLATELET VOLUME 10.9 fl (7.4-10.4); MONOCYTE # 2.1 10^3/ul (0.3-0.9); MONOCYTES % 8.3 % (0.0-11.0); NEUTROPHIL # 19.9 10^3/ul (1.6-7.5); NEUTROPHILS % 76.7 % (39.0-77.0); NUCLEATED RED BLOOD CELLS # 0.3 10^3/ul (0.0-0.0); NUCLEATED RED BLOOD CELLS% 1.1 /100WBC (0.0-0.0); PLATELET COUNT 377 10^3/UL (140-415); POSITIVE DIFF @See below; RED BLOOD COUNT 2.93 10^6/ul (4.70-6.10); RED CELL DISTRIBUTION WIDTH 19.9 % (11.5-14.5)
[2018-05-12 06:40] LABS: ANION GAP 8 (8-16); BLOOD UREA NITROGEN 19 mg/dl (7-20); CALCIUM 11.3 mg/dl (8.4-10.2); CARBON DIOXIDE 30 mmol/L (21-31); CHLORIDE 109 mmol/L (97-110); CREATININE 0.46 mg/dl (0.61-1.24); GLUCOSE 84 mg/dl (70-220); POTASSIUM 4.9 mmol/L (3.5-5.1); SODIUM 142 mmol/L (135-144)
[2018-05-12] MEDS: POLYETHYLENE GLYCOL 17 GM PACKET GTB (07:22)
[2018-05-12] MEDS: predniSONE 10 MG TAB NGT (07:23)
[2018-05-12] MEDS: APIXABAN 5 MG TABLET PO ×2 (07:23→21:06)
[2018-05-12] MEDS: TIMOLOL 0.25% BOTH EYES ×2 (07:23→21:00)
[2018-05-12] MEDS: SACCHAROMYCES BOULARDII 250 MG CAP PO ×2 (07:23→21:05)
[2018-05-12] MEDS: ERYTHROMYCIN ETHYL SUCC (80 MG/ML PO SYG) PEG ×2 (07:23→21:06)
[2018-05-12] MEDS: DORZOLAMIDE/TIMOLOL/PF 0.2 ML DROPERETTE BOTH EYES (07:23)
[2018-05-12] MEDS: FAMOTIDINE 20 MG TAB GTB ×2 (07:23→21:06)
[2018-05-12] MEDS: BALSAM PERU/CASTOR OIL 60 GM TUBE TOP ×2 (07:23→21:00)
[2018-05-12] MEDS: COLLAGENASE 5 GM (UD JAR) TOP (07:24)
[2018-05-12] MEDS ORDERED: VANCOMYCIN 1 GM (PMX) 250 ML IVPB (13:30)
[2018-05-12] MEDS ORDERED: VANCOMYCIN IV PER PHARMACY XX (13:30)
[2018-05-12] MEDS: VANCOMYCIN 1.5 GM in SOD CHLORIDE 0.9% 250 ML IVPB (14:15)
[2018-05-13] MEDS: HYDROmorphONE 2 MG TAB PO ×2 (00:42→21:20)
[2018-05-13] MEDS: VANCOMYCIN 1.25 GM in SOD CHLORIDE 0.9% 250 ML IVPB (02:10)
[2018-05-13] MEDS: DILTIAZEM 30 MG TAB PO ×3 (06:00→21:21)
[2018-05-13 06:08] LABS: PT RATIO 1.7
[2018-05-13 06:22] LABS: INR 1.89; PROTIME 22.1 Sec (11.9-14.9)
[2018-05-13 07:18] LABS: ALANINE AMINOTRANSFERASE 42 IU/L (13-69); ALBUMIN 2.3 g/dl (3.3-4.9); ALBUMIN/GLOBULIN RATIO 0.76; ALKALINE PHOSPHATASE 296 IU/L (42-121); ANION GAP 11 (8-16); ASPARTATE AMINO TRANSFERASE 45 IU/L (15-46); BILIRUBIN,INDIRECT 0.3 mg/dl (0-1.1); BILIRUBIN,TOTAL 0.3 mg/dl (0.2-1.3); BLOOD UREA NITROGEN 19 mg/dl (7-20); CALCIUM 11.4 mg/dl (8.4-10.2); CARBON DIOXIDE 28 mmol/L (21-31); CHLORIDE 108 mmol/L (97-110); CREATININE 0.46 mg/dl (0.61-1.24); GLUCOSE 80 mg/dl (70-220); POTASSIUM 4.7 mmol/L (3.5-5.1); SODIUM 142 mmol/L (135-144); TOTAL PROTEIN 5.3 g/dl (6.1-8.1)
[2018-05-13 08:32] LABS: IONIZED CALCIUM 1.6 mmol/L (1.1-1.4)
[2018-05-13] MEDS: TIMOLOL 0.25% BOTH EYES ×2 (08:36→21:21)
[2018-05-13] MEDS: FAMOTIDINE 20 MG TAB GTB ×2 (08:37→21:21)
[2018-05-13] MEDS: DORZOLAMIDE/TIMOLOL/PF 0.2 ML DROPERETTE BOTH EYES (08:37)
[2018-05-13] MEDS: COLLAGENASE 5 GM (UD JAR) TOP (08:37)
[2018-05-13] MEDS: APIXABAN 5 MG TABLET PO ×2 (08:37→21:20)
[2018-05-13] MEDS: predniSONE 10 MG TAB NGT (08:37)
[2018-05-13] MEDS: POLYETHYLENE GLYCOL 17 GM PACKET GTB (08:37)
[2018-05-13] MEDS: SACCHAROMYCES BOULARDII 250 MG CAP PO ×2 (08:37→21:20)
[2018-05-13] MEDS: BALSAM PERU/CASTOR OIL 60 GM TUBE TOP ×2 (08:38→21:22)
[2018-05-13] MEDS: ERYTHROMYCIN ETHYL SUCC (80 MG/ML PO SYG) PEG ×2 (09:34→21:22)
[2018-05-13] MEDS ORDERED: VANCOMYCIN 500MG/NS (PMX) 100 ML IVPB (13:00)
[2018-05-14] MEDS: VANCOMYCIN 1.25 GM in SOD CHLORIDE 0.9% 250 ML IVPB (03:11)
[2018-05-14] MEDS: HYDROCODONE/APAP (5/325) TAB NGT (05:57)
[2018-05-14] MEDS: DILTIAZEM 30 MG TAB PO ×3 (05:58→21:30)
[2018-05-14] MEDS: BALSAM PERU/CASTOR OIL 60 GM TUBE TOP ×2 (08:34→21:31)
[2018-05-14] MEDS: SACCHAROMYCES BOULARDII 250 MG CAP PO ×2 (08:34→21:30)
[2018-05-14] MEDS: DORZOLAMIDE/TIMOLOL/PF 0.2 ML DROPERETTE BOTH EYES (08:34)
[2018-05-14] MEDS: FAMOTIDINE 20 MG TAB GTB ×2 (08:34→21:30)
[2018-05-14] MEDS: POLYETHYLENE GLYCOL 17 GM PACKET GTB (08:34)
[2018-05-14] MEDS: COLLAGENASE 5 GM (UD JAR) TOP (08:34)
[2018-05-14] MEDS: TIMOLOL 0.25% BOTH EYES ×2 (08:34→21:30)
[2018-05-14] MEDS: predniSONE 10 MG TAB NGT (08:35)
[2018-05-14] MEDS: APIXABAN 5 MG TABLET PO ×2 (08:35→21:30)
[2018-05-14] MEDS: ERYTHROMYCIN ETHYL SUCC (80 MG/ML PO SYG) PEG ×2 (08:36→21:29)
[2018-05-15 02:57] LABS: VANCOMYCIN,TROUGH 14.7 ug/ml (10.0-20.0)
[2018-05-15] MEDS: VANCOMYCIN 1.25 GM in SOD CHLORIDE 0.9% 250 ML IVPB (03:18)
[2018-05-15] MEDS: DILTIAZEM 30 MG TAB PO ×3 (05:54→21:27)
[2018-05-15] MEDS: COLLAGENASE 5 GM (UD JAR) TOP (09:00)
[2018-05-15] MEDS: BALSAM PERU/CASTOR OIL 60 GM TUBE TOP ×2 (09:00→21:28)
[2018-05-15] MEDS: DOCUSATE SODIUM 10 MG/ML (10ML CUP) GTB (09:31)
[2018-05-15] MEDS: DORZOLAMIDE/TIMOLOL/PF 0.2 ML DROPERETTE BOTH EYES (09:32)
[2018-05-15] MEDS: APIXABAN 5 MG TABLET PO ×2 (09:32→21:27)
[2018-05-15] MEDS: predniSONE 10 MG TAB NGT (09:32)
[2018-05-15] MEDS: POLYETHYLENE GLYCOL 17 GM PACKET GTB (09:32)
[2018-05-15] MEDS: FAMOTIDINE 20 MG TAB GTB ×2 (09:32→21:27)
[2018-05-15] MEDS: TIMOLOL 0.25% BOTH EYES ×2 (09:32→21:27)
[2018-05-15] MEDS: SACCHAROMYCES BOULARDII 250 MG CAP PO ×2 (09:32→21:27)
[2018-05-15] MEDS: ERYTHROMYCIN ETHYL SUCC (80 MG/ML PO SYG) PEG ×2 (09:33→21:27)
[2018-05-15 11:33] LABS: ABNORMAL IP MESSAGE 1; HEMATOCRIT 24.9 % (42.0-52.0); HEMOGLOBIN 7.6 g/dl (14.0-18.0); MEAN CORPUSCULAR HEMOGLOBIN 27.8 pg (29.0-33.0); MEAN CORPUSCULAR HGB CONC 30.5 g/dl (32.0-37.0); MEAN CORPUSCULAR VOLUME 91.2 fl (82.0-101.0); NUCLEATED RED BLOOD CELLS% 1.4 /100WBC (0.0-0.0); PLATELET COUNT 313 10^3/UL (140-415); POSITIVE DIFF @See below; RED BLOOD COUNT 2.73 10^6/ul (4.70-6.10); RED CELL DISTRIBUTION WIDTH 19.9 % (11.5-14.5)
[2018-05-15 11:33] LABS: WHITE BLOOD COUNT 26.4 10^3/ul (4.8-10.8)
[2018-05-15 11:45] LABS: ADD MAN DIFF? YES
[2018-05-15] MEDS: DILTIAZEM 25 MG INJ IV (12:39)
[2018-05-15] MEDS: HYDROCODONE/APAP (5/325) TAB NGT (12:46)
[2018-05-15 12:57] LABS: ANISOCYTOSIS 1+ (0-0); BAND NEUTROPHILS #M 0.7 10^3/ul (0.0-0.6); BAND NEUTROPHILS % (M) 3 % (0-4); BURR CELLS 1+ (0-0); EOSINOPHILS % (M) 2 % (0-7); ERYTHROBLAST% (NRBC) (M) 1 % (0-0); GIANT THROMBO% (M) 3 % (0-0); LYMPHOCYTES #M 2.9 10^3/ul (0.8-2.9); LYMPHOCYTES % (M) 11 % (15-51); MONOCYTES % (M) 4 % (0-11); PLATELET ESTIMATE NORMAL; POLYCHROMASIA 1+ (0-0); SEG NEUT #M 21.3 10^3/ul (1.6-7.5); SEGMENTED NEUTROPHILS (M) % 80 % (39-77); SMUDGE%M 9 % (0-0); TARGET CELLS 1+ (0-0)
[2018-05-15] MEDS: DIGOXIN 500 MCG INJ IV (17:17)
[2018-05-16] MEDS: VANCOMYCIN 1.25 GM in SOD CHLORIDE 0.9% 250 ML IVPB (03:29)
[2018-05-16] MEDS: DILTIAZEM 30 MG TAB PO ×2 (05:31→13:27)
[2018-05-16 08:23] LABS: BLOOD UREA NITROGEN 22 mg/dl (7-20)
[2018-05-16] MEDS: COLLAGENASE 5 GM (UD JAR) TOP (09:00)
[2018-05-16] MEDS: BALSAM PERU/CASTOR OIL 60 GM TUBE TOP ×2 (09:00→21:00)
[2018-05-16] MEDS: DOCUSATE SODIUM 10 MG/ML (10ML CUP) GTB (09:58)
[2018-05-16] MEDS: predniSONE 10 MG TAB NGT (09:58)
[2018-05-16] MEDS: DORZOLAMIDE/TIMOLOL/PF 0.2 ML DROPERETTE BOTH EYES (09:59)
[2018-05-16] MEDS: TIMOLOL 0.25% BOTH EYES ×2 (09:59→21:00)
[2018-05-16] MEDS: FAMOTIDINE 20 MG TAB GTB (09:59)
[2018-05-16] MEDS: POLYETHYLENE GLYCOL 17 GM PACKET GTB (09:59)
[2018-05-16] MEDS: SACCHAROMYCES BOULARDII 250 MG CAP PO (09:59)
[2018-05-16] MEDS: APIXABAN 5 MG TABLET PO (09:59)
[2018-05-16] MEDS: HYDROmorphONE 2 MG TAB PO (10:00)
[2018-05-16] MEDS: BISACODYL (EC) 5 MG TAB PO (10:00)
[2018-05-16] MEDS: ERYTHROMYCIN ETHYL SUCC (80 MG/ML PO SYG) PEG (10:01)
[2018-05-17] MEDS: SACCHAROMYCES BOULARDII 250 MG CAP PO ×3 (00:08→22:42)
[2018-05-17] MEDS: ERYTHROMYCIN ETHYL SUCC (80 MG/ML PO SYG) PEG ×3 (00:08→22:41)
[2018-05-17] MEDS: DOXYCYCLINE 100 MG TAB PO ×3 (00:09→22:42)
[2018-05-17] MEDS: FAMOTIDINE 20 MG TAB GTB ×3 (00:11→22:43)
[2018-05-17] MEDS: DILTIAZEM 30 MG TAB PO ×4 (00:11→22:42)
[2018-05-17] MEDS: APIXABAN 5 MG TABLET PO ×3 (00:11→21:00)
[2018-05-17] MEDS: HYDROmorphONE 2 MG TAB PO ×2 (04:35→09:13)
[2018-05-17] MEDS: predniSONE 10 MG TAB NGT (09:13)
[2018-05-17] MEDS: POLYETHYLENE GLYCOL 17 GM PACKET GTB (09:13)
[2018-05-17] MEDS: DORZOLAMIDE/TIMOLOL/PF 0.2 ML DROPERETTE BOTH EYES (09:13)
[2018-05-17] MEDS: TIMOLOL 0.25% BOTH EYES ×2 (09:14→21:00)
[2018-05-17] MEDS: BALSAM PERU/CASTOR OIL 60 GM TUBE TOP ×2 (09:14→21:00)
[2018-05-17] MEDS: COLLAGENASE 5 GM (UD JAR) TOP (09:15)
[2018-05-18] MEDS: LORAZEPAM 2 MG INJ IV (00:08)
[2018-05-18 06:37] LABS: ADD MAN DIFF? NO
[2018-05-18 06:42] LABS: ABNORMAL IP MESSAGE 1; BASOPHIL # 0.1 10^3/ul (0.0-0.1); BASOPHILS % 0.2 % (0.0-2.0); EOSINOPHILS % 0.1 % (0.0-7.0); HEMATOCRIT 26.2 % (42.0-52.0); HEMOGLOBIN 7.7 g/dl (14.0-18.0); LYMPHOCYTES # 2.5 10^3/ul (0.8-2.9); LYMPHOCYTES % 8.8 % (15.0-51.0); MEAN CORPUSCULAR HEMOGLOBIN 27.5 pg (29.0-33.0); MEAN CORPUSCULAR HGB CONC 29.4 g/dl (32.0-37.0); MEAN CORPUSCULAR VOLUME 93.6 fl (82.0-101.0); MONOCYTE # 1.9 10^3/ul (0.3-0.9); MONOCYTES % 6.5 % (0.0-11.0); NEUTROPHIL # 23.4 10^3/ul (1.6-7.5); NEUTROPHILS % 81.6 % (39.0-77.0); NUCLEATED RED BLOOD CELLS # 0.9 10^3/ul (0.0-0.0); NUCLEATED RED BLOOD CELLS% 3.3 /100WBC (0.0-0.0); PLATELET COUNT 350 10^3/UL (140-415); POSITIVE DIFF @See below
[2018-05-18 06:42] LABS: WHITE BLOOD COUNT 28.7 10^3/ul (4.8-10.8)
[2018-05-18] MEDS: DILTIAZEM 30 MG TAB PO ×3 (06:48→21:37)
[2018-05-18 07:02] LABS: MAGNESIUM 2.4 mg/dl (1.7-2.5)
[2018-05-18 07:02] LABS: PHOSPHORUS 2.8 mg/dl (2.5-4.9)
[2018-05-18 07:26] LABS: ANION GAP 8 (8-16); BLOOD UREA NITROGEN 23 mg/dl (7-20); CALCIUM 12.3 mg/dl (8.4-10.2); CARBON DIOXIDE 29 mmol/L (21-31); CHLORIDE 110 mmol/L (97-110); CREATININE 0.55 mg/dl (0.61-1.24); GLUCOSE 96 mg/dl (70-220); POTASSIUM 4.6 mmol/L (3.5-5.1); SODIUM 142 mmol/L (135-144)
[2018-05-18] MEDS: DORZOLAMIDE/TIMOLOL/PF 0.2 ML DROPERETTE BOTH EYES (08:49)
[2018-05-18] MEDS: ERYTHROMYCIN ETHYL SUCC (80 MG/ML PO SYG) PEG ×2 (08:49→21:37)
[2018-05-18] MEDS: TIMOLOL 0.25% BOTH EYES ×2 (08:50→21:01)
[2018-05-18] MEDS: POLYETHYLENE GLYCOL 17 GM PACKET GTB (08:50)
[2018-05-18] MEDS: APIXABAN 5 MG TABLET PO ×2 (08:51→21:01)
[2018-05-18] MEDS: FAMOTIDINE 20 MG TAB GTB ×2 (08:51→21:01)
[2018-05-18] MEDS: predniSONE 10 MG TAB NGT (08:51)
[2018-05-18] MEDS: SACCHAROMYCES BOULARDII 250 MG CAP PO ×2 (08:51→21:01)
[2018-05-18] MEDS: DOXYCYCLINE 100 MG TAB PO ×2 (08:51→21:01)
[2018-05-18] MEDS: COLLAGENASE 5 GM (UD JAR) TOP (08:52)
[2018-05-18] MEDS: BALSAM PERU/CASTOR OIL 60 GM TUBE TOP ×2 (08:52→21:00)
[2018-05-18] MEDS: PAMIDRONATE 90 MG in SOD CHLORIDE 0.9% 500 ML IV (15:17)
[2018-05-18] MEDS ORDERED: PAMIDRONATE 60 MG in SOD CHLORIDE 0.9% 500 ML IV (16:30)
[2018-05-19] MEDS: HYDROmorphONE 2 MG TAB PO (01:07)
[2018-05-19] MEDS: DILTIAZEM 30 MG TAB PO ×3 (05:37→21:15)
[2018-05-19 06:13] LABS: ADD MAN DIFF? NO
[2018-05-19 06:15] LABS: WHITE BLOOD COUNT 25.2 10^3/ul (4.8-10.8)
[2018-05-19 06:15] LABS: ABNORMAL IP MESSAGE 1; BASOPHILS % 0.1 % (0.0-2.0); EOSINOPHILS % 0.2 % (0.0-7.0); HEMATOCRIT 27.3 % (42.0-52.0); HEMOGLOBIN 8.1 g/dl (14.0-18.0); LYMPHOCYTES # 2.8 10^3/ul (0.8-2.9); LYMPHOCYTES % 11.1 % (15.0-51.0); MEAN CORPUSCULAR HEMOGLOBIN 27.4 pg (29.0-33.0); MEAN CORPUSCULAR HGB CONC 29.7 g/dl (32.0-37.0); MEAN CORPUSCULAR VOLUME 92.2 fl (82.0-101.0); MEAN PLATELET VOLUME 11.7 fl (7.4-10.4); MONOCYTE # 1.6 10^3/ul (0.3-0.9); MONOCYTES % 6.5 % (0.0-11.0); NEUTROPHIL # 20.2 10^3/ul (1.6-7.5); NEUTROPHILS % 80.2 % (39.0-77.0); NUCLEATED RED BLOOD CELLS% 4.1 /100WBC (0.0-0.0); PLATELET COUNT 326 10^3/UL (140-415); POSITIVE DIFF @See below; RED BLOOD COUNT 2.96 10^6/ul (4.70-6.10); RED CELL DISTRIBUTION WIDTH 20.2 % (11.5-14.5)
[2018-05-19 06:56] LABS: ANION GAP 8 (8-16); BLOOD UREA NITROGEN 24 mg/dl (7-20); CALCIUM 12.2 mg/dl (8.4-10.2); CARBON DIOXIDE 29 mmol/L (21-31); CHLORIDE 110 mmol/L (97-110); CREATININE 0.51 mg/dl (0.61-1.24); GLUCOSE 82 mg/dl (70-220); POTASSIUM 4.7 mmol/L (3.5-5.1); SODIUM 142 mmol/L (135-144)
[2018-05-19] MEDS: POLYETHYLENE GLYCOL 17 GM PACKET GTB (09:23)
[2018-05-19] MEDS: APIXABAN 5 MG TABLET PO ×2 (09:23→20:44)
[2018-05-19] MEDS: DOXYCYCLINE 100 MG TAB PO ×2 (09:23→20:44)
[2018-05-19] MEDS: SACCHAROMYCES BOULARDII 250 MG CAP PO ×2 (09:23→21:12)
[2018-05-19] MEDS: predniSONE 10 MG TAB NGT (09:23)
[2018-05-19] MEDS: FAMOTIDINE 20 MG TAB GTB ×2 (09:23→20:44)
[2018-05-19] MEDS: DORZOLAMIDE/TIMOLOL/PF 0.2 ML DROPERETTE BOTH EYES (09:23)
[2018-05-19] MEDS: COLLAGENASE 5 GM (UD JAR) TOP (09:24)
[2018-05-19] MEDS: BALSAM PERU/CASTOR OIL 60 GM TUBE TOP ×2 (09:24→21:13)
[2018-05-19] MEDS: ERYTHROMYCIN ETHYL SUCC (80 MG/ML PO SYG) PEG ×2 (09:31→21:12)
[2018-05-19] MEDS: TIMOLOL 0.25% BOTH EYES ×2 (09:31→21:12)
[2018-05-20] MEDS: DILTIAZEM 30 MG TAB PO ×3 (05:27→21:34)
[2018-05-20 06:29] LABS: ABNORMAL IP MESSAGE 1; HEMATOCRIT 24.3 % (42.0-52.0); HEMOGLOBIN 7.2 g/dl (14.0-18.0); MEAN CORPUSCULAR HEMOGLOBIN 27.4 pg (29.0-33.0); MEAN CORPUSCULAR HGB CONC 29.6 g/dl (32.0-37.0); MEAN CORPUSCULAR VOLUME 92.4 fl (82.0-101.0); MEAN PLATELET VOLUME 11.4 fl (7.4-10.4); NUCLEATED RED BLOOD CELLS% 3.7 /100WBC (0.0-0.0); PLATELET COUNT 320 10^3/UL (140-415); POSITIVE DIFF @See below; RED BLOOD COUNT 2.63 10^6/ul (4.70-6.10); RED CELL DISTRIBUTION WIDTH 20.2 % (11.5-14.5)
[2018-05-20 06:29] LABS: WHITE BLOOD COUNT 27.7 10^3/ul (4.8-10.8)
[2018-05-20 06:38] LABS: ADD MAN DIFF? YES
[2018-05-20 06:49] LABS: MAGNESIUM 2.4 mg/dl (1.7-2.5)
[2018-05-20 06:49] LABS: PHOSPHORUS 2.6 mg/dl (2.5-4.9)
[2018-05-20 07:02] LABS: ANION GAP 7 (8-16); BLOOD UREA NITROGEN 23 mg/dl (7-20); CALCIUM 12.4 mg/dl (8.4-10.2); CARBON DIOXIDE 30 mmol/L (21-31); CHLORIDE 111 mmol/L (97-110); CREATININE 0.52 mg/dl (0.61-1.24); GLUCOSE 79 mg/dl (70-220); POTASSIUM 4.9 mmol/L (3.5-5.1); SODIUM 143 mmol/L (135-144)
[2018-05-20 08:49] LABS: ANISOCYTOSIS 1+ (0-0); ERYTHROBLAST% (NRBC) (M) 6 % (0-0); GIANT THROMBO% (M) 5 % (0-0); HYPOCHROMASIA 1+ (0-0); LYMPHOCYTES #M 1.9 10^3/ul (0.8-2.9); LYMPHOCYTES % (M) 7 % (15-51); MONOCYTE #M 1.9 10^3/ul (0.3-0.9); MONOCYTES % (M) 7 % (0-11); MYELOCYTES #M 0.2 10^3/ul (0.0-0.0); MYELOCYTES % (M) 1 % (0-0); OVALOCYTES 1+ (0-0); PLATELET ESTIMATE NORMAL; REACTIVE LYMPHOCYTES #M 0.2 10^3/ul (0.0-0.0); REACTIVE LYMPHOCYTES% (M) 1 % (0-0); SEGMENTED NEUTROPHILS (M) % 84 % (39-77); SMUDGE%M 4 % (0-0); TARGET CELLS 1+ (0-0)
[2018-05-20] MEDS: FAMOTIDINE 20 MG TAB GTB ×2 (08:54→20:27)
[2018-05-20] MEDS: DOXYCYCLINE 100 MG TAB PO (08:54)
[2018-05-20] MEDS: POLYETHYLENE GLYCOL 17 GM PACKET GTB (08:55)
[2018-05-20] MEDS: ERYTHROMYCIN ETHYL SUCC (80 MG/ML PO SYG) PEG ×2 (08:55→20:26)
[2018-05-20] MEDS: APIXABAN 5 MG TABLET PO ×2 (08:55→20:27)
[2018-05-20] MEDS: TIMOLOL 0.25% BOTH EYES ×2 (08:55→20:28)
[2018-05-20] MEDS: SACCHAROMYCES BOULARDII 250 MG CAP PO ×2 (08:55→20:26)
[2018-05-20] MEDS: predniSONE 10 MG TAB NGT (08:55)
[2018-05-20] MEDS: DORZOLAMIDE/TIMOLOL/PF 0.2 ML DROPERETTE BOTH EYES (08:55)
[2018-05-20] MEDS: BALSAM PERU/CASTOR OIL 60 GM TUBE TOP ×2 (08:56→20:28)
[2018-05-20] MEDS: COLLAGENASE 5 GM (UD JAR) TOP (08:56)
[2018-05-20] MEDS: SOD CHLORIDE 0.9% 1,000 ML IV (13:54)
[2018-05-20 14:17] LABS: HEMATOCRIT 24.4 % (42.0-52.0); HEMOGLOBIN 7.2 g/dl (14.0-18.0)
[2018-05-20 15:47] LABS: IONIZED CALCIUM 1.9 mmol/L (1.1-1.4)
[2018-05-20 20:52] LABS: IMMEDIATE SPIN CROSSMATCH 1 1
[2018-05-21 05:25] LABS: ADD MAN DIFF? NO
[2018-05-21 05:32] LABS: ABNORMAL IP MESSAGE 1; BASOPHILS % 0.1 % (0.0-2.0); EOSINOPHILS % 0.1 % (0.0-7.0); HEMATOCRIT 28.4 % (42.0-52.0); HEMOGLOBIN 8.9 g/dl (14.0-18.0); LYMPHOCYTES # 2.6 10^3/ul (0.8-2.9); LYMPHOCYTES % 10.2 % (15.0-51.0); MEAN CORPUSCULAR HEMOGLOBIN 28.6 pg (29.0-33.0); MEAN CORPUSCULAR HGB CONC 31.3 g/dl (32.0-37.0); MEAN CORPUSCULAR VOLUME 91.3 fl (82.0-101.0); MEAN PLATELET VOLUME 11.5 fl (7.4-10.4); MONOCYTE # 1.5 10^3/ul (0.3-0.9); NEUTROPHIL # 20.9 10^3/ul (1.6-7.5); NEUTROPHILS % 81.5 % (39.0-77.0); PLATELET COUNT 319 10^3/UL (140-415); POSITIVE DIFF @See below; RED BLOOD COUNT 3.11 10^6/ul (4.70-6.10)
[2018-05-21 05:32] LABS: WHITE BLOOD COUNT 25.7 10^3/ul (4.8-10.8)
[2018-05-21] MEDS: DILTIAZEM 30 MG TAB PO ×3 (06:20→22:58)
[2018-05-21 06:46] LABS: ANION GAP 9 (8-16); BLOOD UREA NITROGEN 24 mg/dl (7-20); CALCIUM 12.1 mg/dl (8.4-10.2); CARBON DIOXIDE 27 mmol/L (21-31); CHLORIDE 111 mmol/L (97-110); CREATININE 0.49 mg/dl (0.61-1.24); GLUCOSE 86 mg/dl (70-220); POTASSIUM 4.7 mmol/L (3.5-5.1); SODIUM 142 mmol/L (135-144)
[2018-05-21 07:34] LABS: PHOSPHORUS 2.8 mg/dl (2.5-4.9)
[2018-05-21 07:34] LABS: MAGNESIUM 2.5 mg/dl (1.7-2.5)
[2018-05-21] MEDS: APIXABAN 5 MG TABLET PO ×2 (08:49→22:57)
[2018-05-21] MEDS: FAMOTIDINE 20 MG TAB GTB ×2 (08:49→22:58)
[2018-05-21] MEDS: predniSONE 10 MG TAB NGT (08:49)
[2018-05-21] MEDS: SACCHAROMYCES BOULARDII 250 MG CAP PO ×2 (08:49→22:57)
[2018-05-21] MEDS: ERYTHROMYCIN ETHYL SUCC (80 MG/ML PO SYG) PEG ×2 (08:49→22:58)
[2018-05-21] MEDS: POLYETHYLENE GLYCOL 17 GM PACKET GTB (08:50)
[2018-05-21] MEDS: SOD CHLORIDE 0.9% 1,000 ML IV ×2 (08:50→13:26)
[2018-05-21] MEDS: COLLAGENASE 5 GM (UD JAR) TOP (08:50)
[2018-05-21] MEDS: BALSAM PERU/CASTOR OIL 60 GM TUBE TOP ×2 (08:50→22:59)
[2018-05-22] MEDS: DILTIAZEM 30 MG TAB PO ×3 (05:29→21:14)
[2018-05-22] MEDS: POLYETHYLENE GLYCOL 17 GM PACKET GTB (09:00)
[2018-05-22] MEDS: SACCHAROMYCES BOULARDII 250 MG CAP PO ×2 (09:31→21:13)
[2018-05-22] MEDS: FAMOTIDINE 20 MG TAB GTB ×2 (09:31→21:14)
[2018-05-22] MEDS: APIXABAN 5 MG TABLET PO ×2 (09:31→21:14)
[2018-05-22] MEDS: predniSONE 10 MG TAB NGT (09:31)
[2018-05-22] MEDS: ERYTHROMYCIN ETHYL SUCC (80 MG/ML PO SYG) PEG ×2 (09:32→21:13)
[2018-05-22] MEDS: COLLAGENASE 5 GM (UD JAR) TOP (09:33)
[2018-05-22] MEDS: BALSAM PERU/CASTOR OIL 60 GM TUBE TOP ×2 (09:34→21:14)
[2018-05-22] MEDS: ALTEPLASE (CATHFLO) 2 MG INJ CATHETER (09:36)
[2018-05-22 13:07] LABS: WHITE BLOOD COUNT 25.7 10^3/ul (4.8-10.8)
[2018-05-22 13:07] LABS: ABNORMAL IP MESSAGE 1; HEMATOCRIT 28.7 % (42.0-52.0); HEMOGLOBIN 8.7 g/dl (14.0-18.0); MEAN CORPUSCULAR HEMOGLOBIN 28.2 pg (29.0-33.0); MEAN CORPUSCULAR HGB CONC 30.3 g/dl (32.0-37.0); MEAN CORPUSCULAR VOLUME 92.9 fl (82.0-101.0); MEAN PLATELET VOLUME 11.1 fl (7.4-10.4); NUCLEATED RED BLOOD CELLS% 3.6 /100WBC (0.0-0.0); PLATELET COUNT 326 10^3/UL (140-415); POSITIVE DIFF @See below; RED BLOOD COUNT 3.09 10^6/ul (4.70-6.10); RED CELL DISTRIBUTION WIDTH 19.2 % (11.5-14.5)
[2018-05-22 13:18] LABS: ADD MAN DIFF? YES
[2018-05-22 13:19] LABS: PATH REVIEW? YES
[2018-05-22 13:32] LABS: ANION GAP 8 (8-16); BLOOD UREA NITROGEN 24 mg/dl (7-20); CARBON DIOXIDE 28 mmol/L (21-31); CHLORIDE 110 mmol/L (97-110); CREATININE 0.52 mg/dl (0.61-1.24); GLUCOSE 131 mg/dl (70-220); POTASSIUM 4.9 mmol/L (3.5-5.1); SODIUM 141 mmol/L (135-144)
[2018-05-22 13:33] LABS: PHOSPHORUS 2.6 mg/dl (2.5-4.9)
[2018-05-22 13:33] LABS: MAGNESIUM 2.4 mg/dl (1.7-2.5)
[2018-05-22 14:21] LABS: ANISOCYTOSIS 3+ (0-0); BAND NEUTROPHILS #M 0.2 10^3/ul (0.0-0.6); BAND NEUTROPHILS % (M) 1 % (0-4); ERYTHROBLAST% (NRBC) (M) 6 % (0-0); GIANT THROMBO% (M) 4 % (0-0); HYPOCHROMASIA 3+ (0-0); LYMPHOCYTES #M 2.3 10^3/ul (0.8-2.9); LYMPHOCYTES % (M) 9 % (15-51); MICROCYTOSIS 2+ (0-0); MONOCYTE #M 0.7 10^3/ul (0.3-0.9); MONOCYTES % (M) 3 % (0-11); OVALOCYTES 1+ (0-0); PLATELET ESTIMATE NORMAL; POIKILOCYTOSIS 1+ (0-0); POLYCHROMASIA 2+ (0-0); SEG NEUT #M 22.4 10^3/ul (1.6-7.5); SEGMENTED NEUTROPHILS (M) % 87 % (39-77); SMUDGE%M 2 % (0-0); TARGET CELLS 1+ (0-0); TEAR DROP CELLS 1+ (0-0)
[2018-05-22 16:00] LABS: CALCIUM 12.3 mg/dl (8.4-10.2)
[2018-05-22] MEDS: ZOLEDRONIC ACID 4 MG in SOD CHLORIDE 0.9% 100 ML IVPB (21:12)
[2018-05-23] MEDS: DILTIAZEM 30 MG TAB PO ×3 (06:00→20:59)
[2018-05-23] MEDS: FAMOTIDINE 20 MG TAB GTB ×2 (08:51→20:57)
[2018-05-23] MEDS: SACCHAROMYCES BOULARDII 250 MG CAP PO ×2 (08:51→20:57)
[2018-05-23] MEDS: predniSONE 10 MG TAB NGT (08:51)
[2018-05-23] MEDS: APIXABAN 5 MG TABLET PO ×2 (08:51→20:57)
[2018-05-23] MEDS: ERYTHROMYCIN ETHYL SUCC (80 MG/ML PO SYG) PEG ×2 (08:51→20:57)
[2018-05-23] MEDS: POLYETHYLENE GLYCOL 17 GM PACKET GTB (08:51)
[2018-05-23] MEDS: BALSAM PERU/CASTOR OIL 60 GM TUBE TOP ×2 (08:51→20:59)
[2018-05-23] MEDS: COLLAGENASE 5 GM (UD JAR) TOP (08:52)
[2018-05-23 10:36] LABS: ADD MAN DIFF? NO
[2018-05-23 10:39] LABS: ABNORMAL IP MESSAGE 1; BASOPHILS % 0.1 % (0.0-2.0); EOSINOPHILS % 0.1 % (0.0-7.0); HEMATOCRIT 27.8 % (42.0-52.0); HEMOGLOBIN 8.5 g/dl (14.0-18.0); LYMPHOCYTES # 2.2 10^3/ul (0.8-2.9); LYMPHOCYTES % 8.5 % (15.0-51.0); MEAN CORPUSCULAR HEMOGLOBIN 28.1 pg (29.0-33.0); MEAN CORPUSCULAR HGB CONC 30.6 g/dl (32.0-37.0); MEAN CORPUSCULAR VOLUME 92.1 fl (82.0-101.0); MEAN PLATELET VOLUME 11.5 fl (7.4-10.4); MONOCYTE # 1.7 10^3/ul (0.3-0.9); MONOCYTES % 6.4 % (0.0-11.0); NEUTROPHIL # 21.8 10^3/ul (1.6-7.5); NEUTROPHILS % 82.8 % (39.0-77.0); NUCLEATED RED BLOOD CELLS # 0.9 10^3/ul (0.0-0.0); NUCLEATED RED BLOOD CELLS% 3.5 /100WBC (0.0-0.0); PLATELET COUNT 310 10^3/UL (140-415); POSITIVE DIFF @See below; RED BLOOD COUNT 3.02 10^6/ul (4.70-6.10); RED CELL DISTRIBUTION WIDTH 19.4 % (11.5-14.5)
[2018-05-23 10:39] LABS: WHITE BLOOD COUNT 26.3 10^3/ul (4.8-10.8)
[2018-05-23] MEDS: morphine LIQ (10 MG/5 ML) CUP PO ×2 (10:45→16:05)
[2018-05-23 10:58] LABS: ANION GAP 9 (8-16); BLOOD UREA NITROGEN 25 mg/dl (7-20); CARBON DIOXIDE 27 mmol/L (21-31); CHLORIDE 110 mmol/L (97-110); CREATININE 0.52 mg/dl (0.61-1.24); GLUCOSE 119 mg/dl (70-220); POTASSIUM 4.8 mmol/L (3.5-5.1); SODIUM 141 mmol/L (135-144)
[2018-05-23 11:00] LABS: CALCIUM 12.2 mg/dl (8.4-10.2)
[2018-05-23] MEDS: FUROSEMIDE 20 MG INJ IV (11:24)
[2018-05-23 12:18] LABS: ADD UMIC YES; UR ASCORBIC ACID 40 mg/dL (NEGATIVE); UR BACTERIA FEW /HPF (NONE SEEN); UR BILIRUBIN (Dip) NEGATIVE (NEGATIVE); UR BLOOD (Dip) NEGATIVE (NEGATIVE); UR BUDDING YEAST FEW /HPF (NONE SEEN); UR CLARITY SLIGHTLY CLOUDY (CLEAR); UR COLOR YELLOW (YELLOW); UR GLUCOSE (Dip) NEGATIVE (NEGATIVE); UR KETONES (Dip) NEGATIVE (NEGATIVE); UR LEUKOCYTE ESTERASE (Dip) TRACE Leu/ul (NEGATIVE); UR NITRITE (Dip) NEGATIVE (NEGATIVE); UR RBC 6 /HPF (0-5); UR SPECIFIC GRAVITY (Dip) 1.015 (1.003-1.030); UR TOTAL PROTEIN (Dip) NEGATIVE (NEGATIVE); UR UROBILINOGEN (Dip) 1+ mg/dL (NEGATIVE); UR WBC 7 /HPF (0-5)
[2018-05-24 05:43] LABS: ADD MAN DIFF? NO
[2018-05-24 05:45] LABS: WHITE BLOOD COUNT 26.3 10^3/ul (4.8-10.8)
[2018-05-24 05:45] LABS: ABNORMAL IP MESSAGE 1; BASOPHILS % 0.2 % (0.0-2.0); EOSINOPHILS % 0.2 % (0.0-7.0); HEMATOCRIT 27.9 % (42.0-52.0); HEMOGLOBIN 8.6 g/dl (14.0-18.0); LYMPHOCYTES # 2.8 10^3/ul (0.8-2.9); LYMPHOCYTES % 10.5 % (15.0-51.0); MEAN CORPUSCULAR HEMOGLOBIN 28.2 pg (29.0-33.0); MEAN CORPUSCULAR HGB CONC 30.8 g/dl (32.0-37.0); MEAN CORPUSCULAR VOLUME 91.5 fl (82.0-101.0); MEAN PLATELET VOLUME 11.1 fl (7.4-10.4); MONOCYTE # 1.8 10^3/ul (0.3-0.9); MONOCYTES % 6.7 % (0.0-11.0); NEUTROPHIL # 21.2 10^3/ul (1.6-7.5); NEUTROPHILS % 80.5 % (39.0-77.0); NUCLEATED RED BLOOD CELLS # 0.9 10^3/ul (0.0-0.0); NUCLEATED RED BLOOD CELLS% 3.6 /100WBC (0.0-0.0); PLATELET COUNT 320 10^3/UL (140-415); POSITIVE DIFF @See below; RED BLOOD COUNT 3.05 10^6/ul (4.70-6.10); RED CELL DISTRIBUTION WIDTH 18.9 % (11.5-14.5)
[2018-05-24 06:12] LABS: ANION GAP 9 (8-16); BLOOD UREA NITROGEN 27 mg/dl (7-20); CALCIUM 12.1 mg/dl (8.4-10.2); CARBON DIOXIDE 27 mmol/L (21-31); CHLORIDE 112 mmol/L (97-110); CREATININE 0.53 mg/dl (0.61-1.24); GLUCOSE 98 mg/dl (70-220); POTASSIUM 5.1 mmol/L (3.5-5.1); SODIUM 143 mmol/L (135-144)
[2018-05-24 06:18] LABS: MAGNESIUM 2.5 mg/dl (1.7-2.5)
[2018-05-24 06:18] LABS: PHOSPHORUS 2.7 mg/dl (2.5-4.9)
[2018-05-24] MEDS: DILTIAZEM 30 MG TAB PO ×3 (06:33→22:00)
[2018-05-24] MEDS: FAMOTIDINE 20 MG TAB GTB ×2 (09:30→20:57)
[2018-05-24] MEDS: POLYETHYLENE GLYCOL 17 GM PACKET GTB (09:30)
[2018-05-24] MEDS: APIXABAN 5 MG TABLET PO (09:30)
[2018-05-24] MEDS: COLLAGENASE 5 GM (UD JAR) TOP (09:30)
[2018-05-24] MEDS: predniSONE 5 MG TAB NGT (09:30)
[2018-05-24] MEDS: SACCHAROMYCES BOULARDII 250 MG CAP PO ×2 (09:30→20:57)
[2018-05-24] MEDS: ERYTHROMYCIN ETHYL SUCC (80 MG/ML PO SYG) PEG ×2 (09:30→20:57)
[2018-05-24] MEDS: BALSAM PERU/CASTOR OIL 60 GM TUBE TOP ×2 (09:31→20:58)
[2018-05-24] MEDS: FUROSEMIDE 20 MG INJ IV (09:31)
[2018-05-24] MEDS: CASPOFUNGIN 70 MG in SOD CHLORIDE 0.9% 250 ML IVPB (14:47)
[2018-05-24] MEDS: ENOXAPARIN 80 MG/0.8 ML SYG SC (21:10)
[2018-05-25] MEDS: DILTIAZEM 30 MG TAB PO ×3 (05:47→21:31)
[2018-05-25] MEDS: AMIODARONE 150MG/D5W BOLUS 100 ML IV (07:00)
[2018-05-25] MEDS ORDERED: AMIODARONE 900 MG in DEXTROSE 5% 482 ML IV (08:30)
[2018-05-25] MEDS: POLYETHYLENE GLYCOL 17 GM PACKET GTB (09:00)
[2018-05-25] MEDS: AMIODARONE 900 MG in DEXTROSE 5% 482 ML IV (09:23)
[2018-05-25] MEDS: DOCUSATE SODIUM 10 MG/ML (10ML CUP) GTB (10:02)
[2018-05-25] MEDS: FAMOTIDINE 20 MG TAB GTB ×2 (10:02→21:28)
[2018-05-25] MEDS: ERYTHROMYCIN ETHYL SUCC (80 MG/ML PO SYG) PEG ×2 (10:02→21:28)
[2018-05-25] MEDS: ENOXAPARIN 80 MG/0.8 ML SYG SC ×2 (10:04→21:44)
[2018-05-25] MEDS: COLLAGENASE 5 GM (UD JAR) TOP (10:05)
[2018-05-25] MEDS: predniSONE 5 MG TAB NGT (10:05)
[2018-05-25] MEDS: SACCHAROMYCES BOULARDII 250 MG CAP PO ×2 (10:09→21:28)
[2018-05-25] MEDS: DIGOXIN 500 MCG INJ IV (11:13)
[2018-05-25] MEDS: CASPOFUNGIN 50 MG in SOD CHLORIDE 0.9% 250 ML IVPB (14:57)
[2018-05-25] MEDS: BALSAM PERU/CASTOR OIL 60 GM TUBE TOP ×2 (14:57→21:31)
[2018-05-25] MEDS: morphine LIQ (10 MG/5 ML) CUP PO (21:28)
[2018-05-26] MEDS: DILTIAZEM 30 MG TAB PO ×3 (06:41→21:03)
[2018-05-26] MEDS: ERYTHROMYCIN ETHYL SUCC (80 MG/ML PO SYG) PEG ×2 (09:26→20:48)
[2018-05-26] MEDS: SACCHAROMYCES BOULARDII 250 MG CAP PO ×2 (09:26→20:47)
[2018-05-26] MEDS: FAMOTIDINE 20 MG TAB GTB ×2 (09:26→20:47)
[2018-05-26] MEDS: COLLAGENASE 5 GM (UD JAR) TOP (09:26)
[2018-05-26] MEDS: predniSONE 5 MG TAB NGT (09:26)
[2018-05-26] MEDS: POLYETHYLENE GLYCOL 17 GM PACKET GTB (09:26)
[2018-05-26] MEDS: BALSAM PERU/CASTOR OIL 60 GM TUBE TOP ×2 (09:27→20:54)
[2018-05-26] MEDS: ENOXAPARIN 80 MG/0.8 ML SYG SC ×2 (09:54→20:49)
[2018-05-26] MEDS: CASPOFUNGIN 50 MG in SOD CHLORIDE 0.9% 250 ML IVPB (12:58)
[2018-05-26] MEDS: morphine LIQ (10 MG/5 ML) CUP PO ×2 (13:38→20:53)
[2018-05-26] MEDS: AMIODARONE 900 MG in DEXTROSE 5% 482 ML IV (13:38)
[2018-05-26] MEDS: DIGOXIN 0.125 MG TAB GTB (16:27)
[2018-05-26] MEDS: PAMIDRONATE 90 MG in SOD CHLORIDE 0.9% 500 ML IV (16:28)
[2018-05-26 20:12] LABS: IONIZED CALCIUM 1.7 mmol/L (1.1-1.4)
[2018-05-27 05:08] LABS: ABNORMAL IP MESSAGE 1; ADD MAN DIFF? NO; BASOPHIL # 0.1 10^3/ul (0.0-0.1); BASOPHILS % 0.2 % (0.0-2.0); EOSINOPHILS % 0.1 % (0.0-7.0); HEMATOCRIT 30.8 % (42.0-52.0); HEMOGLOBIN 9.2 g/dl (14.0-18.0); LYMPHOCYTES # 1.9 10^3/ul (0.8-2.9); LYMPHOCYTES % 6.8 % (15.0-51.0); MEAN CORPUSCULAR HEMOGLOBIN 27.8 pg (29.0-33.0); MEAN CORPUSCULAR HGB CONC 29.9 g/dl (32.0-37.0); MEAN CORPUSCULAR VOLUME 93.1 fl (82.0-101.0); MEAN PLATELET VOLUME 12.2 fl (7.4-10.4); MONOCYTE # 1.8 10^3/ul (0.3-0.9); MONOCYTES % 6.4 % (0.0-11.0); NEUTROPHIL # 23.3 10^3/ul (1.6-7.5); NEUTROPHILS % 82.9 % (39.0-77.0); NUCLEATED RED BLOOD CELLS # 5.8 10^3/ul (0.0-0.0); NUCLEATED RED BLOOD CELLS% 20.6 /100WBC (0.0-0.0); PLATELET COUNT 311 10^3/UL (140-415); POSITIVE DIFF @See below; RED BLOOD COUNT 3.31 10^6/ul (4.70-6.10); RED CELL DISTRIBUTION WIDTH 19.2 % (11.5-14.5)
[2018-05-27 05:08] LABS: WHITE BLOOD COUNT 28.1 10^3/ul (4.8-10.8)
[2018-05-27 05:39] LABS: ALANINE AMINOTRANSFERASE 31 IU/L (13-69); ALBUMIN 2.9 g/dl (3.3-4.9); ALBUMIN/GLOBULIN RATIO 0.85; ALKALINE PHOSPHATASE 1065 IU/L (42-121); ANION GAP 11 (8-16); ASPARTATE AMINO TRANSFERASE 38 IU/L (15-46); BILIRUBIN,INDIRECT 0.1 mg/dl (0-1.1); BILIRUBIN,TOTAL 0.1 mg/dl (0.2-1.3); BLOOD UREA NITROGEN 40 mg/dl (7-20); CARBON DIOXIDE 26 mmol/L (21-31); CHLORIDE 111 mmol/L (97-110); CREATININE 0.74 mg/dl (0.61-1.24); GLUCOSE 130 mg/dl (70-220); SODIUM 142 mmol/L (135-144); TOTAL PROTEIN 6.3 g/dl (6.1-8.1)
[2018-05-27] MEDS: DILTIAZEM 30 MG TAB PO (06:15)
[2018-05-27] MEDS: BALSAM PERU/CASTOR OIL 60 GM TUBE TOP ×2 (09:00→21:25)
[2018-05-27] MEDS: POLYETHYLENE GLYCOL 17 GM PACKET GTB (09:32)
[2018-05-27] MEDS: FAMOTIDINE 20 MG TAB GTB ×2 (09:33→21:12)
[2018-05-27] MEDS: SACCHAROMYCES BOULARDII 250 MG CAP PO ×2 (09:33→21:12)
[2018-05-27] MEDS: CINACALCET 30 MG TAB PO (09:33)
[2018-05-27] MEDS: COLLAGENASE 5 GM (UD JAR) TOP (09:34)
[2018-05-27] MEDS: ERYTHROMYCIN ETHYL SUCC (80 MG/ML PO SYG) PEG ×2 (09:34→21:09)
[2018-05-27] MEDS: predniSONE 2.5 MG TAB PO (09:37)
[2018-05-27] MEDS: ENOXAPARIN 80 MG/0.8 ML SYG SC ×2 (09:40→21:27)
[2018-05-27] MEDS: NA POLYST SULFON 15 GM/60 ML BTL NGT (11:20)
[2018-05-27 11:39] LABS: DIGOXIN 0.9 ng/ml (1.0-2.0)
[2018-05-27 12:10] LABS: URIC ACID 9.5 mg/dl (3.1-7.9)
[2018-05-27 12:10] LABS: LACTATE DEHYDROGENASE 540 IU/L (313-618)
[2018-05-27] MEDS ORDERED: DIGOXIN 0.125 MG TAB GTB (13:00)
[2018-05-27] MEDS: FUROSEMIDE 20 MG INJ IV (13:14)
[2018-05-27] MEDS: DILTIAZEM 60 MG TAB PO ×2 (14:29→22:00)
[2018-05-27] MEDS: CASPOFUNGIN 50 MG in SOD CHLORIDE 0.9% 250 ML IVPB (14:29)
[2018-05-27] MEDS: morphine LIQ (10 MG/5 ML) CUP PO (21:18)
[2018-05-28] MEDS: DILTIAZEM 60 MG TAB PO ×3 (06:00→21:41)
[2018-05-28 09:00] LABS: WHITE BLOOD COUNT 28.3 10^3/ul (4.8-10.8)
[2018-05-28 09:00] LABS: ABNORMAL IP MESSAGE 1; HEMATOCRIT 28.9 % (42.0-52.0); HEMOGLOBIN 8.9 g/dl (14.0-18.0); MEAN CORPUSCULAR HEMOGLOBIN 28.6 pg (29.0-33.0); MEAN CORPUSCULAR HGB CONC 30.8 g/dl (32.0-37.0); MEAN CORPUSCULAR VOLUME 92.9 fl (82.0-101.0); NUCLEATED RED BLOOD CELLS% 34.2 /100WBC (0.0-0.0); PLATELET COUNT 299 10^3/UL (140-415); POSITIVE DIFF @See below; RED BLOOD COUNT 3.11 10^6/ul (4.70-6.10); RED CELL DISTRIBUTION WIDTH 19.5 % (11.5-14.5)
[2018-05-28] MEDS: POLYETHYLENE GLYCOL 17 GM PACKET GTB (09:00)
[2018-05-28 09:03] LABS: ADD MAN DIFF? YES
[2018-05-28 09:22] LABS: PHOSPHORUS 3.5 mg/dl (2.5-4.9)
[2018-05-28 09:22] LABS: MAGNESIUM 2.8 mg/dl (1.7-2.5)
[2018-05-28] MEDS: SACCHAROMYCES BOULARDII 250 MG CAP PO ×2 (09:33→21:37)
[2018-05-28] MEDS: FAMOTIDINE 20 MG TAB GTB ×2 (09:33→21:37)
[2018-05-28] MEDS: predniSONE 2.5 MG TAB PO (09:33)
[2018-05-28] MEDS: COLLAGENASE 5 GM (UD JAR) TOP (09:34)
[2018-05-28] MEDS: CINACALCET 30 MG TAB PO (09:34)
[2018-05-28] MEDS: BALSAM PERU/CASTOR OIL 60 GM TUBE TOP ×2 (09:34→21:39)
[2018-05-28] MEDS: FUROSEMIDE 20 MG INJ IV (09:35)
[2018-05-28 09:37] LABS: ANION GAP 14 (8-16); BLOOD UREA NITROGEN 49 mg/dl (7-20); CALCIUM 11.7 mg/dl (8.4-10.2); CARBON DIOXIDE 24 mmol/L (21-31); CHLORIDE 108 mmol/L (97-110); CREATININE 0.86 mg/dl (0.61-1.24); GLUCOSE 112 mg/dl (70-220); POTASSIUM 5.7 mmol/L (3.5-5.1); SODIUM 140 mmol/L (135-144)
[2018-05-28] MEDS: ENOXAPARIN 80 MG/0.8 ML SYG SC ×2 (09:38→21:47)
[2018-05-28] MEDS: ERYTHROMYCIN ETHYL SUCC (80 MG/ML PO SYG) PEG ×2 (09:40→21:52)
[2018-05-28 09:49] LABS: ANISOCYTOSIS 1+ (0-0); BAND NEUTROPHILS #M 3.3 10^3/ul (0.0-0.6); BAND NEUTROPHILS % (M) 12 % (0-4); ERYTHROBLAST% (NRBC) (M) 57 % (0-0); GIANT THROMBO% (M) 3 % (0-0); HYPOCHROMASIA 1+ (0-0); LYMPHOCYTES #M 0.8 10^3/ul (0.8-2.9); LYMPHOCYTES % (M) 3 % (15-51); METAMYELOCYTES #M 0.5 10^3/ul (0.0-0.0); METAMYELOCYTES %M 2 % (0-0); MICROCYTOSIS 1+ (0-0); MONOCYTE #M 1.1 10^3/ul (0.3-0.9); MONOCYTES % (M) 4 % (0-11); PLATELET ESTIMATE NORMAL; PLATELET MORPHOLOGY COMMENT @See below; POLYCHROMASIA 1+ (0-0); SEG NEUT #M 23.3 10^3/ul (1.6-7.5); SEGMENTED NEUTROPHILS (M) % 79 % (39-77); SMUDGE%M 2 % (0-0)
[2018-05-28] MEDS: NA POLYST SULFON 15 GM/60 ML BTL PO (10:58)
[2018-05-28] MEDS: CASPOFUNGIN 50 MG in SOD CHLORIDE 0.9% 250 ML IVPB (14:44)
[2018-05-28] MEDS: RASBURICASE 7.5 MG in SOD CHLORIDE 0.9% 50 ML IVPB (18:24)
[2018-05-28 19:06] LABS: PTH CALCIUM 11.3 mg/dL (8.6-10.3)
[2018-05-29] MEDS: ONDANSETRON 4 MG INJ IV ×2 (00:22→09:47)
[2018-05-29] MEDS: DILTIAZEM 60 MG TAB PO ×3 (05:30→21:20)
[2018-05-29 06:12] LABS: ADD MAN DIFF? NO
[2018-05-29 06:17] LABS: ABNORMAL IP MESSAGE 1; BASOPHIL # 0.1 10^3/ul (0.0-0.1); BASOPHILS % 0.3 % (0.0-2.0); HEMATOCRIT 29.8 % (42.0-52.0); HEMOGLOBIN 9.1 g/dl (14.0-18.0); LYMPHOCYTES # 0.6 10^3/ul (0.8-2.9); LYMPHOCYTES % 2.5 % (15.0-51.0); MEAN CORPUSCULAR HEMOGLOBIN 28.1 pg (29.0-33.0); MEAN CORPUSCULAR HGB CONC 30.5 g/dl (32.0-37.0); MEAN PLATELET VOLUME 12.6 fl (7.4-10.4); MONOCYTES % 4.3 % (0.0-11.0); NEUTROPHIL # 20.3 10^3/ul (1.6-7.5); NEUTROPHILS % 89.1 % (39.0-77.0); NUCLEATED RED BLOOD CELLS # 13.8 10^3/ul (0.0-0.0); NUCLEATED RED BLOOD CELLS% 60.5 /100WBC (0.0-0.0); PLATELET COUNT 313 10^3/UL (140-415); POSITIVE DIFF @See below; RED BLOOD COUNT 3.24 10^6/ul (4.70-6.10); RED CELL DISTRIBUTION WIDTH 19.8 % (11.5-14.5)
[2018-05-29 06:17] LABS: WHITE BLOOD COUNT 22.8 10^3/ul (4.8-10.8)
[2018-05-29 06:46] LABS: ALBUMIN 2.8 g/dl (3.3-4.9); ALBUMIN/GLOBULIN RATIO 0.82; ALKALINE PHOSPHATASE 714 IU/L (42-121); ANION GAP 11 (8-16); ASPARTATE AMINO TRANSFERASE 44 IU/L (15-46); BILIRUBIN,INDIRECT 0.4 mg/dl (0-1.1); BILIRUBIN,TOTAL 0.4 mg/dl (0.2-1.3); BLOOD UREA NITROGEN 54 mg/dl (7-20); CALCIUM 11.7 mg/dl (8.4-10.2); CARBON DIOXIDE 26 mmol/L (21-31); CHLORIDE 111 mmol/L (97-110); CREATININE 1.09 mg/dl (0.61-1.24); GLUCOSE 93 mg/dl (70-220); POTASSIUM 5.5 mmol/L (3.5-5.1); SODIUM 142 mmol/L (135-144); TOTAL PROTEIN 6.2 g/dl (6.1-8.1)
[2018-05-29 07:19] LABS: ALANINE AMINOTRANSFERASE 28 IU/L (13-69)
[2018-05-29 07:46] LABS: ANISOCYTOSIS 1+ (0-0); BAND NEUTROPHILS #M 2.7 10^3/ul (0.0-0.6); BAND NEUTROPHILS % (M) 12 % (0-4); BURR CELLS 1+ (0-0); EOSINOPHILS % (M) 1 % (0-7); ERYTHROBLAST% (NRBC) (M) 69 % (0-0); GIANT THROMBO% (M) 3 % (0-0); LYMPHOCYTES #M 0.4 10^3/ul (0.8-2.9); LYMPHOCYTES % (M) 2 % (15-51); MONOCYTE #M 0.4 10^3/ul (0.3-0.9); MONOCYTES % (M) 2 % (0-11); PLATELET ESTIMATE NORMAL; POIKILOCYTOSIS 2+ (0-0); POLYCHROMASIA 1+ (0-0); PROMYELOCYTES #M 0.4 10^3/ul (0-0); PROMYELOCYTES % (M) 2 % (0-0); SEG NEUT #M 19.1 10^3/ul (1.6-7.5); SEGMENTED NEUTROPHILS (M) % 81 % (39-77); SMUDGE%M 51 % (0-0); SPHEROCYTES 1+ (0-0); TARGET CELLS 1+ (0-0)
[2018-05-29 07:48] LABS: PHOSPHORUS 3.7 mg/dl (2.5-4.9)
[2018-05-29 07:48] LABS: MAGNESIUM 2.9 mg/dl (1.7-2.5)
[2018-05-29] MEDS: FAMOTIDINE 20 MG TAB GTB ×2 (08:52→20:34)
[2018-05-29] MEDS: POLYETHYLENE GLYCOL 17 GM PACKET GTB (08:52)
[2018-05-29] MEDS: predniSONE 1 MG TAB PO (08:53)
[2018-05-29] MEDS: CINACALCET 30 MG TAB PO (08:53)
[2018-05-29] MEDS: SACCHAROMYCES BOULARDII 250 MG CAP PO ×2 (08:53→20:35)
[2018-05-29] MEDS: ERYTHROMYCIN ETHYL SUCC (80 MG/ML PO SYG) PEG ×2 (08:53→20:35)
[2018-05-29] MEDS: DEXTROSE 5%-0.45% NACL 1,000 ML IV ×2 (08:55→15:17)
[2018-05-29] MEDS: FUROSEMIDE 20 MG INJ IV (09:00)
[2018-05-29] MEDS: COLLAGENASE 5 GM (UD JAR) TOP (09:05)
[2018-05-29] MEDS: BALSAM PERU/CASTOR OIL 60 GM TUBE TOP ×2 (09:06→22:37)
[2018-05-29] MEDS: METOPROLOL 5 MG INJ IV (09:47)
[2018-05-29] MEDS: ENOXAPARIN 80 MG/0.8 ML SYG SC ×2 (09:58→21:20)
[2018-05-29] MEDS ORDERED: SOD CHLORIDE 0.9% 500 ML IV (10:00)
[2018-05-29 10:37] LABS: PTH INTACT 6 pg/mL (14-64)
[2018-05-29] MEDS: SOD CHLORIDE 0.9% 250 ML IV (11:04)
[2018-05-29] MEDS ORDERED: PHENYLephrine 20MG IN 250 ML 250 ML (11:21)
[2018-05-29] MEDS: AMIODARONE 150MG/D5W BOLUS 100 ML IV (12:09)
[2018-05-29] MEDS: PHENYLephrine 80 MG in DEXTROSE 5% 492 ML IV ×2 (12:29→22:35)
[2018-05-29] MEDS: AMIODARONE 900 MG in DEXTROSE 5% 482 ML IV (13:10)
[2018-05-29] MEDS: DILTIAZEM 25 MG INJ IV (13:20)
[2018-05-29] MEDS: ALBUMIN HUMAN 25% 100 ML IV ×2 (15:31→22:38)
[2018-05-29] MEDS: CASPOFUNGIN 50 MG in SOD CHLORIDE 0.9% 250 ML IVPB (15:31)
[2018-05-29] MEDS ORDERED: VANCOMYCIN IV PER PHARMACY XX (17:00)
[2018-05-29 17:46] LABS: ANION GAP 16 (8-16)
[2018-05-29 17:52] LABS: BLOOD UREA NITROGEN 59 mg/dl (7-20); CALCIUM 11.5 mg/dl (8.4-10.2); CARBON DIOXIDE 22 mmol/L (21-31); CHLORIDE 108 mmol/L (97-110); CREATININE 1.36 mg/dl (0.61-1.24); GLUCOSE 107 mg/dl (70-220); SODIUM 140 mmol/L (135-144)
[2018-05-29 17:54] LABS: POTASSIUM 5.8 mmol/L (3.5-5.1)
[2018-05-29] MEDS: VANCOMYCIN 1.5 GM in SOD CHLORIDE 0.9% 250 ML IVPB (18:21)
[2018-05-29] MEDS: MEROPENEM 1 GM/50ML(PMX) 50 ML IVPB (21:15)
[2018-05-29] MEDS ORDERED: MEROPENEM 500MG/50 ML (PMX) 50 ML IVPB (22:00)
[2018-05-30] MEDS: DILTIAZEM 60 MG TAB PO ×3 (05:23→21:30)
[2018-05-30] MEDS: MEROPENEM 1 GM/50ML(PMX) 50 ML IVPB ×3 (05:23→21:32)
[2018-05-30] MEDS: PHENYLephrine 80 MG in DEXTROSE 5% 492 ML IV ×2 (05:35→21:44)
[2018-05-30 05:54] LABS: ALANINE AMINOTRANSFERASE 24 IU/L (13-69); ALBUMIN 2.7 g/dl (3.3-4.9); ALBUMIN/GLOBULIN RATIO 0.93; ALKALINE PHOSPHATASE 407 IU/L (42-121); ANION GAP 21 (8-16); ASPARTATE AMINO TRANSFERASE 56 IU/L (15-46); BILIRUBIN,INDIRECT 0.4 mg/dl (0-1.1); BILIRUBIN,TOTAL 0.4 mg/dl (0.2-1.3); BLOOD UREA NITROGEN 62 mg/dl (7-20); CARBON DIOXIDE 20 mmol/L (21-31); CHLORIDE 105 mmol/L (97-110); CREATININE 1.61 mg/dl (0.61-1.24); GLUCOSE 157 mg/dl (70-220); POTASSIUM 5.9 mmol/L (3.5-5.1); SODIUM 140 mmol/L (135-144); TOTAL PROTEIN 5.6 g/dl (6.1-8.1)
[2018-05-30 06:02] LABS: WHITE BLOOD COUNT 13.8 10^3/ul (4.8-10.8)
[2018-05-30 06:02] LABS: ABNORMAL IP MESSAGE 1; HEMATOCRIT 29.4 % (42.0-52.0); HEMOGLOBIN 8.7 g/dl (14.0-18.0); MEAN CORPUSCULAR HEMOGLOBIN 27.7 pg (29.0-33.0); MEAN CORPUSCULAR HGB CONC 29.6 g/dl (32.0-37.0); MEAN CORPUSCULAR VOLUME 93.6 fl (82.0-101.0); MEAN PLATELET VOLUME 12.9 fl (7.4-10.4); NUCLEATED RED BLOOD CELLS% 103.7 /100WBC (0.0-0.0); PLATELET COUNT 265 10^3/UL (140-415); POSITIVE DIFF @See below; RED BLOOD COUNT 3.14 10^6/ul (4.70-6.10); RED CELL DISTRIBUTION WIDTH 19.9 % (11.5-14.5)
[2018-05-30 06:03] LABS: ADD MAN DIFF? YES
[2018-05-30 06:11] LABS: MAGNESIUM 2.9 mg/dl (1.7-2.5); PHOSPHORUS 5.1 mg/dl (2.5-4.9)
[2018-05-30 06:11] LABS: CALCIUM 10.9 mg/dl (8.4-10.2)
[2018-05-30] MEDS: ALBUMIN HUMAN 25% 100 ML IV (06:26)
[2018-05-30 07:49] LABS: ANISOCYTOSIS 1+ (0-0); BAND NEUTROPHILS #M 6.3 10^3/ul (0.0-0.6); BAND NEUTROPHILS % (M) 46 % (0-4); BURR CELLS 1+ (0-0); ERYTHROBLAST% (NRBC) (M) 128 % (0-0); GIANT THROMBO% (M) 2 % (0-0); LYMPHOCYTES #M 3.8 10^3/ul (0.8-2.9); LYMPHOCYTES % (M) 28 % (15-51); METAMYELOCYTES #M 1.2 10^3/ul (0.0-0.0); METAMYELOCYTES %M 9 % (0-0); MONOCYTE #M 0.2 10^3/ul (0.3-0.9); MONOCYTES % (M) 2 % (0-11); MYELOCYTES #M 0.5 10^3/ul (0.0-0.0); MYELOCYTES % (M) 4 % (0-0); PLATELET ESTIMATE NORMAL; PLATELET MORPHOLOGY COMMENT @See below; POIKILOCYTOSIS 1+ (0-0); POLYCHROMASIA 3+ (0-0); SCHISTOCYTES 1+ (0-0); SEG NEUT #M 2.4 10^3/ul (1.6-7.5); SEGMENTED NEUTROPHILS (M) % 11 % (39-77); SMUDGE%M 37 % (0-0); TARGET CELLS 1+ (0-0)
[2018-05-30 08:16] LABS: PTH INTACT 3 pg/mL (14-64)
[2018-05-30] MEDS: BALSAM PERU/CASTOR OIL 60 GM TUBE TOP ×2 (08:29→21:17)
[2018-05-30] MEDS: ENOXAPARIN 80 MG/0.8 ML SYG SC ×2 (08:30→21:19)
[2018-05-30] MEDS ORDERED: FAMOTIDINE 20 MG INJ (08:53)
[2018-05-30] MEDS: SACCHAROMYCES BOULARDII 250 MG CAP PO ×2 (09:00→20:11)
[2018-05-30] MEDS: POLYETHYLENE GLYCOL 17 GM PACKET GTB (09:00)
[2018-05-30] MEDS: CINACALCET 30 MG TAB PO (09:00)
[2018-05-30] MEDS: ERYTHROMYCIN ETHYL SUCC (80 MG/ML PO SYG) PEG ×2 (09:00→20:11)
[2018-05-30] MEDS: COLLAGENASE 5 GM (UD JAR) TOP (09:34)
[2018-05-30] MEDS: FAMOTIDINE 20 MG INJ IV (09:35)
[2018-05-30] MEDS ORDERED: DOPamine-D5W 1.6 MG/ML 250 ML (12:04)
[2018-05-30 12:25] LABS: LACTIC ACID 9.3 mmol/L (0.5-2.0)
[2018-05-30] MEDS: DOPamine 800 MG in DEXTROSE 5% 230 ML IV (13:24)
[2018-05-30] MEDS: NA POLYST SULFON 15 GM/60 ML BTL PR (14:00)
[2018-05-30] MEDS ORDERED: CALCITONIN SALMON 400 UNITS INJ SC ×2 (14:00)
[2018-05-30] MEDS: CASPOFUNGIN 50 MG in SOD CHLORIDE 0.9% 250 ML IVPB (16:19)
[2018-05-30] MEDS: CALCITONIN SALMON 400 UNITS INJ SC (16:22)
[2018-05-30] MEDS: VANCOMYCIN 500MG/NS (PMX) 100 ML IVPB (21:30)
[2018-05-30 22:11] LABS: Allen Test ACCEPTAB; Arterial Base Excess -21.8 mmol/L (-3.0-3); Arterial Blood Gas Oxygen Sat 69.7 mmHG (95.0-98.0); Arterial COHb 0.3 % (0.0-3.0); Arterial Fraction of Oxyhgb 69.1 % (93.0-99.0); Arterial HCO3 9.2 mmol/L (22.0-26.0); Arterial MetHb 0.5 % (0.0-1.5); Arterial Total Hemglobin 8.6 g/dl (12.0-18.0); Arterial pCO2 43.5 mmhg (35-45); MODE VENT - AC; Site Left Radial
[2018-05-30] MEDS ORDERED: NA BICARBONATE 8.4% 50 ML SYG (22:12)
[2018-05-30] MEDS: NA BICARBONATE 8.4% 50 ML SYG IV ×2 (22:15→22:48)
[2018-05-30 22:17] LABS: WHITE BLOOD COUNT 18.7 10^3/ul (4.8-10.8)
[2018-05-30 22:17] LABS: ABNORMAL IP MESSAGE 1; HEMATOCRIT 26.2 % (42.0-52.0); HEMOGLOBIN 7.3 g/dl (14.0-18.0); MEAN CORPUSCULAR HEMOGLOBIN 28.2 pg (29.0-33.0); MEAN CORPUSCULAR HGB CONC 27.9 g/dl (32.0-37.0); MEAN CORPUSCULAR VOLUME 101.2 fl (82.0-101.0); MEAN PLATELET VOLUME 12.3 fl (7.4-10.4); NUCLEATED RED BLOOD CELLS% 64.8 /100WBC (0.0-0.0); PLATELET COUNT 190 10^3/UL (140-415); POSITIVE DIFF @See below; RED BLOOD COUNT 2.59 10^6/ul (4.70-6.10); RED CELL DISTRIBUTION WIDTH 20.5 % (11.5-14.5)
[2018-05-30 22:45] LABS: ANION GAP 31 (8-16); BLOOD UREA NITROGEN 60 mg/dl (7-20); CALCIUM 9.3 mg/dl (8.4-10.2); CHLORIDE 100 mmol/L (97-110); GLUCOSE 126 mg/dl (70-220); MAGNESIUM 3.1 mg/dl (1.7-2.5); SODIUM 134 mmol/L (135-144)
[2018-05-30 22:48] LABS: ADD MAN DIFF? YES
[2018-05-30 22:51] LABS: LACTIC ACID 21.1 mmol/L (0.5-2.0)
[2018-05-30 22:52] LABS: CARBON DIOXIDE 10 mmol/L (21-31); POTASSIUM 6.8 mmol/L (3.5-5.1)
[2018-05-30 22:59] LABS: ANISOCYTOSIS 1+ (0-0); BAND NEUTROPHILS #M 5.4 10^3/ul (0.0-0.6); BAND NEUTROPHILS % (M) 29 % (0-4); BASOPHIL #M 0.1 10^3/ul (0.0-0.0); BASOPHILS % (M) 1 % (0-2); EOSINOPHILS % (M) 1 % (0-7); ERYTHROBLAST% (NRBC) (M) 117 % (0-0); GIANT THROMBO% (M) 29 % (0-0); LYMPHOCYTES #M 7.1 10^3/ul (0.8-2.9); LYMPHOCYTES % (M) 38 % (15-51); METAMYELOCYTES #M 0.7 10^3/ul (0.0-0.0); METAMYELOCYTES %M 4 % (0-0); MONOCYTE #M 0.7 10^3/ul (0.3-0.9); MONOCYTES % (M) 4 % (0-11); MYELOCYTES #M 0.7 10^3/ul (0.0-0.0); MYELOCYTES % (M) 4 % (0-0); PLATELET ESTIMATE NORMAL; POIKILOCYTOSIS 3+ (0-0); POLYCHROMASIA 3+ (0-0); PROMYELOCYTES #M 0.3 10^3/ul (0-0); PROMYELOCYTES % (M) 2 % (0-0); SEG NEUT #M 4.2 10^3/ul (1.6-7.5); SEGMENTED NEUTROPHILS (M) % 17 % (39-77); SMUDGE%M 3 % (0-0)
[2018-05-30] MEDS ORDERED: SODIUM BICARBONATE (IV ADD) 100 MEQ in DEXTROSE 5%-0.45% NACL 900 ML IV (23:30)
[2018-05-31] MEDS: SODIUM BICARBONATE (IV ADD) 100 MEQ in DEXTROSE 5%-0.45% NACL 900 ML IV (00:25)
[2018-05-31] MEDS: PHENYLephrine 80 MG in DEXTROSE 5% 492 ML IV (02:06)
== END 2018-05-31 04:05 | disposition expired | DRG 4 ==
LOC: MS4 03-09 18:30 → ICU 03-19 06:18 → TEL 03-20 05:00 → ICU 05-29 10:20 → 6WM 04-08 17:42 → E/R 13:44 → 6WM 04-08 21:57 → ICU 03-20 21:48 → PP2 18:24 → MS1 03-19 17:55
PROC: 0B110F4 Bypass Trachea to Cutaneous with Tracheostomy Device, Open Approach (ICD-10-PCS; principal; 2018-04-04 16:25)
PROC: 5A1955Z Respiratory Ventilation, Greater than 96 Consecutive Hours (ICD-10-PCS; 2018-04-04 16:25)
PROC: 0DH63UZ Insertion of Feeding Device into Stomach, Percutaneous Approach (ICD-10-PCS; 2018-04-04 16:25)
PROC: 02HV33Z Insertion of Infusion Device into Superior Vena Cava, Percutaneous Approach (ICD-10-PCS; 2018-04-04 16:25)
PROC: 0BH18EZ Insertion of Endotracheal Airway into Trachea, Via Natural or Artificial Opening Endoscopic (ICD-10-PCS; 2018-04-04 16:25)
PROC: 02HV33Z Insertion of Infusion Device into Superior Vena Cava, Percutaneous Approach (ICD-10-PCS; 2018-04-04 16:25)
PROC: 30233R1 Transfusion of Nonautologous Platelets into Peripheral Vein, Percutaneous Approach (ICD-10-PCS; 2018-04-04 16:25)
PROC: 30233N1 Transfusion of Nonautologous Red Blood Cells into Peripheral Vein, Percutaneous Approach (ICD-10-PCS; 2018-04-04 16:25)
DX: C34.90 Malignant neoplasm of unspecified part of unspecified bronchus or lung (principal); J18.9 Pneumonia, unspecified organism; G93.41 Metabolic encephalopathy; D61.810 Antineoplastic chemotherapy induced pancytopenia; A41.9 Sepsis, unspecified organism; R65.21 Severe sepsis with septic shock; J96.21 Acute and chronic respiratory failure with hypoxia; I50.33 Acute on chronic diastolic (congestive) heart failure; I48.92 Unspecified atrial flutter; J91.0 Malignant pleural effusion; N17.9 Acute kidney failure, unspecified; J96.12 Chronic respiratory failure with hypercapnia; E87.0 Hyperosmolality and hypernatremia; I82.622 Acute embolism and thrombosis of deep veins of left upper extremity; N39.0 Urinary tract infection, site not specified; B37.49 Other urogenital candidiasis; I82.621 Acute embolism and thrombosis of deep veins of right upper extremity; I82.413 Acute embolism and thrombosis of femoral vein, bilateral; I82.432 Acute embolism and thrombosis of left popliteal vein; I82.A12 Acute embolism and thrombosis of left axillary vein; I82.B12 Acute embolism and thrombosis of left subclavian vein; C78.2 Secondary malignant neoplasm of pleura; E83.52 Hypercalcemia; I11.0 Hypertensive heart disease with heart failure; E86.0 Dehydration; I48.0 Paroxysmal atrial fibrillation; J44.9 Chronic obstructive pulmonary disease, unspecified; E87.5 Hyperkalemia; Z92.21 Personal history of antineoplastic chemotherapy
CPT/HCPCS: 31500; 36415; 36430; 36569; 36600; 49465; 71045; 71250; 74018; 76604; 76705; 76775; 76937; 80048; 80053; 80162; 80202; 81001; 81003; 82140; 82270; 82306; 82310; 82330; 82565; 82652; 82803; 82962; 83036; 83605; 83615; 83735; 83970; 84100; 84484; 84520; 84560; 85014; 85018; 85025; 85049; 85610; 85730; 86644; 86704; 86709; 86803; 86850; 86900; 86901; 86920; 86945; 87040; 87070; 87075; 87081; 87086; 87340; 89220; 92526; 92610; 93005; 93970; 93971; 94002; 94003; 94640; 94660; 94664; 94770; 96374; 96375; 97110; 97162; 97530; 99285-25; J2430; J3487

== ENCOUNTER 2018-03-20 08:00 | Inpatient (IN) | payer OTHER | END 2018-05-31 04:05 | disposition EXP | DRG 4 | LOC: ICU 08:00 | PROC: 5A1955Z Respiratory Ventilation, Greater than 96 Consecutive Hours (ICD-10-PCS; 2018-03-21) | PROC: 0BH17EZ Insertion of Endotracheal Airway into Trachea, Via Natural or Artificial Opening (ICD-10-PCS; 2018-03-21) | PROC: 02HV33Z Insertion of Infusion Device into Superior Vena Cava, Percutaneous Approach (ICD-10-PCS; 2018-03-21) | PROC: 30233N1 Transfusion of Nonautologous Red Blood Cells into Peripheral Vein, Percutaneous Approach (ICD-10-PCS; 2018-03-28) | PROC: 02HV33Z Insertion of Infusion Device into Superior Vena Cava, Percutaneous Approach (ICD-10-PCS; 2018-04-03) | PROC: 0DH63UZ Insertion of Feeding Device into Stomach, Percutaneous Approach (ICD-10-PCS; 2018-04-04) | PROC: 0B110F4 Bypass Trachea to Cutaneous with Tracheostomy Device, Open Approach (ICD-10-PCS; principal; 2018-04-05) | PROC: 02HV33Z Insertion of Infusion Device into Superior Vena Cava, Percutaneous Approach (ICD-10-PCS; 2018-05-29) | DX: C34.2 Malignant neoplasm of middle lobe, bronchus or lung (principal); J96.21 Acute and chronic respiratory failure with hypoxia; R65.21 Severe sepsis with septic shock; A41.9 Sepsis, unspecified organism; J18.8 Other pneumonia, unspecified organism; I50.33 Acute on chronic diastolic (congestive) heart failure; N17.9 Acute kidney failure, unspecified; J91.0 Malignant pleural effusion; E87.0 Hyperosmolality and hypernatremia; C78.2 Secondary malignant neoplasm of pleura; C79.51 Secondary malignant neoplasm of bone; N39.0 Urinary tract infection, site not specified; B37.49 Other urogenital candidiasis; I82.413 Acute embolism and thrombosis of femoral vein, bilateral; I82.A13 Acute embolism and thrombosis of axillary vein, bilateral; I82.B13 Acute embolism and thrombosis of subclavian vein, bilateral; T85.528A Displacement of other gastrointestinal prosthetic devices, implants and grafts, initial encounter; I48.92 Unspecified atrial flutter; J44.9 Chronic obstructive pulmonary disease, unspecified; D69.6 Thrombocytopenia, unspecified; E83.51 Hypocalcemia; E86.0 Dehydration; I48.0 Paroxysmal atrial fibrillation; I11.0 Hypertensive heart disease with heart failure; R41.0 Disorientation, unspecified; I49.5 Sick sinus syndrome; R60.1 Generalized edema; D63.8 Anemia in other chronic diseases classified elsewhere; E87.5 Hyperkalemia; Y83.8 Other surgical procedures as the cause of abnormal reaction of the patient, or of later complication, without mention of misadventure at the time of the procedure; Y92.238 Other place in hospital as the place of occurrence of the external cause | CPT/HCPCS: 31500; 36415; 36430; 36569; 36600; 49465; 71045; 71250; 74018; 76604; 76705; 76775; 76937; 80048; 80053; 80162; 80202; 81001; 81003; 82140; 82270; 82306; 82310; 82330; 82565; 82652; 82803; 82962; 83036; 83605; 83615; 83735; 83970; 84100; 84484; 84520; 84560; 85014; 85018; 85025; 85049; 85610; 85730; 86644; 86704; 86709; 86803; 86850; 86900; 86901; 86920; 86945; 87040; 87070; 87075; 87081; 87086; 87340; 89220; 92526; 92610; 93005; 93970; 93971; 94002; 94003; 94640; 94660; 94664; 94770; 96374; 96375; 97110; 97162; 97530; 99285-25; J2430; J3487 ==